=== PATIENT | male | born 1960 | race Caucasian/White ===

== ENCOUNTER 2024-07-06 19:35 | Emergency (ER) | payer OTHER ==
[~2024-07-06] VITALS: Ht 182.9 cm; Wt 128.0 kg
[2024-07-06] MEDS ORDERED: ASPIRIN 81 MG CHEW PO ONE (19:45)
[2024-07-06 20:16] LABS: HEMATOCRIT 41.2 % (35.0-50.0); HEMOGLOBIN 13.9 g/dL (12.0-18.0); MCHC 33.6 g/dl (30-36); MCV 86.3 fl (81-99); PLATELET COUNT 419 K/uL (140-440); RBC 4.78 M/ul (4.3-5.7); RDW 14.7 (10.5-15.0)
[2024-07-06 20:21] LABS: INR 1.22 (0.80-1.30); PROTIME 14.6 Sec (11.2-14.2)
[2024-07-06 20:33] LABS: ALBUMIN 2.2 g/dL (3.4-5.0); ALBUMIN/GLOBULIN RATIO 0.46 (1.1-2.4); ALKALINE PHOSPHATASE 69 U/L (46-116); ALT (SGPT) 30 U/L (14-59); ANION GAP 15.3 (7-21); AST (SGOT) 16 U/L (15-37); BILIRUBIN, TOTAL 0.3 ng/dL (0.2-1.0); BUN/CREATININE RATIO 17.26 (6.0-28.6); CALCIUM 8.1 mg/dL (8.5-10.1); CARBON DIOXIDE 24 mmol/L (21-32); CHLORIDE 101 mmol/L (98-107); CREATININE, SERUM 1.39 mg/dL (0.70-1.30); GLOMERULAR FILTRATION RATE,EST 57 mL/min (>60); MAGNESIUM 2.1 mg/dL (1.8-2.4); POTASSIUM 4.3 mmol/L (3.5-5.1); UREA NITROGEN 24 mg/dL (7-18)
[2024-07-06 20:35] LABS: BANDS, MANUAL DIFF 28; BASOPHILS, MANUAL DIFF 1; EOSINOPHILS, MANUAL DIFF 5; LYMPHOCYTES, MANUAL DIFF 7; MONOCYTES, MANUAL DIFF 5; NEUTROPHILS, MANUAL DIFF 54
[2024-07-06] MEDS ORDERED: LEVOFLOXACIN500 MG PO (23:07)
[2024-07-06] MEDS ORDERED: LASIX20 MG PO (23:08)
[2024-07-06] MEDS ORDERED: methylPREDNISolone 4 MG HOME.PACK PO ONE (23:15)
[2024-07-06] MEDS ORDERED: FUROSEMIDE 20 MG/2 ML VIAL IV ONE (23:15)
[2024-07-06] MEDS ORDERED: levoFLOXacin 750 MG TAB PO ONE (23:15)
[2024-07-06 23:46] VITALS: BP 121/73
--- NOTE | 2024-07-08 17:47 | EKG ---
[facility] [address] [place], [place] [address] Signed Normal sinus rhythm Normal ECG No previous ECGs available Confirmed by Juan A Do MD ([id number]) on 07/08/2024 5:47:16 PM Electronically Signed By: JUAN A DO MD 07/08/24 1747 PATIENT NAME: DAMARI LARA Electrocardiogram DATE OF : 58 PHYSICIAN: JUAN A DO MD REPORT #: [id number] REPORT IS CONFIDENTIAL AND NOT TO BE RELEASED WITHOUT AUTHORIZATION
== END 2024-07-06 23:47 | disposition home or self-care (01) ==
LOC: ED 19:35
PROVIDERS: Family Medicine
DX: J18.9 Pneumonia, unspecified organism (principal); J44.0 Chronic obstructive pulmonary disease with (acute) lower respiratory infection; Z88.8 Allergy status to other drugs, medicaments and biological substances; Z98.890 Other specified postprocedural states
CPT/HCPCS: 36415; 71045; 71260; 80053; 83735; 83880; 84484; 85025; 85379; 85610; 93005; 93010; 99285-25; A9270; J1940; Q9967

== ENCOUNTER 2024-07-14 11:07 | Emergency (ER) | payer OTHER ==
[~2024-07-14] VITALS: Ht 182.9 cm; Wt 126.0 kg
[~2024-07-14 11:07] MED LIST: LASIX20 MG PO; LEVOFLOXACIN500 MG PO
--- OUTSIDE RECORDS SUMMARY | 2024-07-14 11:14 | XMS ---
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 E.D. VISIT COUNT (12 MO.) 2 [facility] TOTAL 2 NOTE: Visits indicate total known visits. ED/UCC VISIT TRACKING (12 MO.) 07/14/2024 11:08 [facility] [place] TYPE: Emergency COMPLAINT: - BLOOD COUNT LOW 07/06/2024 19:35 [facility] [place] TYPE: Emergency COMPLAINT: - SHORTNESS OF BREATH DIAGNOSES: - Allergy status to other drugs, medicaments and biological substances - Chronic obstructive pulmonary disease with (acute) lower respiratory infection - Other specified postprocedural states - Pneumonia, unspecified organism - Shortness of breath INPATIENT VISIT TRACKING (12 MO.) No inpatient visits to display in this time frame [id number]
[2024-07-14] MEDS ORDERED: CYMBALTA60 MG PO (11:26)
[2024-07-14] MEDS ORDERED: LIPITOR20 MG PO (11:26)
[2024-07-14] MEDS ORDERED: VENTOLIN HFA18 GM INH (11:28)
[2024-07-14] MEDS ORDERED: FUROSEMIDE40 MG PO (12:20)
[2024-07-14] MEDS ORDERED: IPRAT-ALBUT 0.5-3 ML INH (12:20)
[2024-07-14] MEDS ORDERED: K-TAB ER20 MEQ PO (12:20)
[2024-07-14 12:33] VITALS: BP 121/68
== END 2024-07-14 12:33 | disposition home or self-care (01) ==
LOC: ED 11:07
DX: D72.829 Elevated white blood cell count, unspecified (principal); R60.9 Edema, unspecified; J44.9 Chronic obstructive pulmonary disease, unspecified; Z88.8 Allergy status to other drugs, medicaments and biological substances; Z79.899 Other long term (current) drug therapy
CPT/HCPCS: 93971; 99283-25

== ENCOUNTER 2024-07-16 23:42 | Inpatient (IN) | payer OTHER ==
[~2024-07-16] VITALS: Ht 182.9 cm; Wt 121.0 kg
[~2024-07-16 23:42] MED LIST changes: +CYMBALTA60 MG PO; +FUROSEMIDE40 MG PO; +IPRAT-ALBUT 0.5-3 ML INH; +K-TAB ER20 MEQ PO; +LIPITOR20 MG PO; +VENTOLIN HFA18 GM INH
[2024-07-16] MEDS ORDERED: methylPREDNISolone SOD SUCC 125 MG/2 ML VIAL IV ONE (23:45)
[2024-07-16] MEDS ORDERED: NITROGLYCERIN 0.4 MG SUBL SL PRN (23:45)
[2024-07-16] MEDS ORDERED: ALBUTEROL/IPRATROPIUM 3 ML NEB INH ONE (23:45)
--- OUTSIDE RECORDS SUMMARY | 2024-07-16 23:48 | XMS ---
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 E.D. VISIT COUNT (12 MO.) 3 [facility] TOTAL 3 NOTE: Visits indicate total known visits. ED/UCC VISIT TRACKING (12 MO.) 07/16/2024 23:42 [facility] OR TYPE: Emergency COMPLAINT: - DIFFICULTY BREATHING 07/14/2024 11:08 [facility] [place] TYPE: Emergency COMPLAINT: - BLOOD COUNT LOW 07/06/2024 19:[address] [facility] OR TYPE: Emergency COMPLAINT: - SHORTNESS OF BREATH DIAGNOSES: - Allergy status to other drugs, medicaments and biological substances - Chronic obstructive pulmonary disease with (acute) lower respiratory infection - Other specified postprocedural states - Pneumonia, unspecified organism - Shortness of breath INPATIENT VISIT TRACKING (12 MO.) No inpatient visits to display in this time frame [id number]
[2024-07-16 23:58] LABS: PH, VENOUS 7.471 (7.31-7.41)
[2024-07-17] VITALS (17 sets, daily range): BP systolic 96–169; BP diastolic 58–139
[2024-07-17 00:03] LABS: HEMOGLOBIN 13.9 g/dL (12.0-18.0)
[2024-07-17 00:10] LABS: MCH 28.6 (27-36); MCHC 33.2 g/dl (30-36); MCV 86.1 fl (81-99); PLATELET COUNT 142 K/uL (140-440); RBC 4.88 M/ul (4.3-5.7); RDW 15.2 (10.5-15.0)
[2024-07-17 00:24] LABS: ALBUMIN 2.3 g/dL (3.4-5.0); ALBUMIN/GLOBULIN RATIO 0.39 (1.1-2.4); ALKALINE PHOSPHATASE 62 U/L (46-116); ALT (SGPT) 28 U/L (14-59); ANION GAP 15.6 (7-21); AST (SGOT) 13 U/L (15-37); BILIRUBIN, TOTAL 0.3 ng/dL (0.2-1.0); BUN/CREATININE RATIO 18.24 (6.0-28.6); CALCIUM 8.4 mg/dL (8.5-10.1); CARBON DIOXIDE 26 mmol/L (21-32); CHLORIDE 97 mmol/L (98-107); CREATININE, SERUM 1.37 mg/dL (0.70-1.30); GLOMERULAR FILTRATION RATE,EST 58 mL/min (>60); POTASSIUM 4.6 mmol/L (3.5-5.1); PROTEIN, TOTAL 8.2 g/dL (6.4-8.2); UREA NITROGEN 25 mg/dL (7-18)
[2024-07-17 00:33] LABS: BANDS, MANUAL DIFF 6; EOSINOPHILS, MANUAL DIFF 45; LYMPHOCYTES, MANUAL DIFF 4; MONOCYTES, MANUAL DIFF 7; NEUTROPHILS, MANUAL DIFF 37
[2024-07-17 00:41] LABS: INFLUENZA B NAA NEGATIVE (NEGATIVE); RESPIRATORY SYNCYTIAL VIR NAA NEGATIVE (NEGATIVE)
[2024-07-17] MEDS ORDERED: MORPHINE SULFATE 4 MG/ML VIAL IV ONE (00:45)
[2024-07-17 00:49] LABS: MAGNESIUM 2.1 mg/dL (1.8-2.4); PHOSPHORUS, INORGANIC 3.8 mg/dL (2.5-4.9)
[2024-07-17 01:01] LABS: INR 1.07 (0.80-1.30); PROTIME 13.5 Sec (11.2-14.2)
[2024-07-17] MEDS ORDERED: ACETAMINOPHEN 325 MG TAB PO PRN (01:30)
[2024-07-17] MEDS ORDERED: ondansetron HCL 4 MG/2 ML VIAL IV PRN (01:30)
[2024-07-17] MEDS ORDERED: SODIUM CHLORIDE 0.9% 1,000 ML IV SCH (01:30)
[2024-07-17] MEDS ORDERED: allopurinoL 300 MG TAB PO SCH (01:30)
[2024-07-17] MEDS ORDERED: MORPHINE SULFATE 4 MG/ML VIAL IV PRN (01:30)
[2024-07-17] MEDS ORDERED: FUROSEMIDE 20 MG/2 ML VIAL IV ONE (01:45)
[2024-07-17] MEDS ORDERED: ALBUTEROL/IPRATROPIUM 3 ML NEB INH PRN (01:45)
[2024-07-17] MEDS ORDERED: ALBUTEROL SULFATE 0.083% 3 ML VIAL INH PRN (02:30)
--- NOTE | 2024-07-17 02:45 | NUR ---
PATIENT ARRIVED TO CCU ROOM 127 VIA STRETCHER. PATIENT AMBULATES TO STANDING SCALE AND BACK TO BED. PATIENT STEADY ON FEET. PATIENT DENIES FEELING SHORT OF BREATH OR ANY PAIN AT THIS TIME. PATIENT REQUEST A VANILLA PUDDING, STATES HE HAS HAD NO APETITE THE PAST WEEK. PATIENT ALSO PROVIDED WITH FRESH ICE WATER.
--- NOTE | 2024-07-17 02:55 | NUR ---
PATIENT ASSESSMENT COMPLETE. PATIENT IS ALERT AND ORIENTED X4. PATIENT ON 2L NC, SPO2 AT 93%. PATIENT DENIES FEELING SOB OR ANY PAIN AT THIS TIME. PATIENT IV SITES WNL. SCABS NOTED ON RIGHT FOOT, AND PATIENT NOTED TO HAVE SOME MILD SWELLING ON BILAT LOWER EXTREMITIES. PATIENT UPDATED ON PLAN OF CARE, AND ALL QUESTIONS ANSWERED AT THIS TIME. PATIENT ORIENTED TO ROOM, AND USE OF CALL LIGHT. PATIENT DENIES ANY NEEDS AT THIS TIME. VITAL SIGNS STABLE. CALL LIGHT WITHIN REACH, BED IN LOW AND LOCKED POSITION.
--- NOTE | 2024-07-17 04:45 | NUR ---
PATIENT USED CALL LIGHT REQUESTING TO USE BATHROOM. PATIENT STOOD AT EDGE OF BED AND USED URINAL, STEADY ON FEET. PATIENT VOIDS 215cc OF CLEAR YELLOW URINE, AND BACK TO BED. WARM BLANKET PROVIDED. NO FURTHER NEEDS AT THIS TIME. CALL LIGHT WITHIN REACH.
[2024-07-17 05:35] LABS: PHOSPHORUS, INORGANIC 4.4 mg/dL (2.5-4.9)
--- NOTE | 2024-07-17 06:00 | NUR ---
patient resting in bed with eyes closed, respirations even and unlabored. patient remains on 2L NC, saturation at 92%. call light within reach, bed in low and locked position.
--- NOTE | 2024-07-17 06:35 | NUR ---
PATIENT UP TO BATHROOM TO VOID AND BACK TO BED. PATIENT STEADY ON FEET. PATIENT HAS NO FURTHER NEEDS AT THIS TIME. VITAL SIGNS STABLE. CALL LIGHT WITHIN REACH.
[2024-07-17] MEDS ORDERED: BUDESONIDE 0.5 MG/2 ML VIAL INH SCH (08:00)
[2024-07-17] MEDS ORDERED: ALBUTEROL/IPRATROPIUM 3 ML NEB INH SCH ×2 (08:00→14:00)
--- NOTE | 2024-07-17 08:44 | NUR ---
SBAR REPORT RECEIVED FROM LENCHO HALLMAN. ALL EVENTS OF THE PREVIOUS SHIFT WERE DISCUSSED AND PLAN OF CARE REVIEWED. PATIENT DAMARI IS NOTED TO BE RESTING IN BED WITH EYES OPEN. HE IS ALERT AND ORIENTED X 4, MOVES ALL EXTREMTIES, ENDORSES COMFORT AND HUNGER, BREAKFAST PROVIDED AND CONSUMED, PERRL, INDEPENDENT TO RESTROOM CARDIAC- NSR, HTN NOTED, AFEBRILE, PALPABLE PULSES, S1/S2 AUSCULTATED RESP- 1L NC, BREATH SOUNDS CLEAR, SLIGHT COUGH GI/- LAST BOWEL MOVEMENT 07/16, WILL CONTINUE TO MONITOR U/O INT- SEE ASSESSMENT LDA 20G RIGHT FA, 20G L AC. NS 125CC
[2024-07-17] MEDS ORDERED: FUROSEMIDE 40 MG TAB PO SCH (09:00)
[2024-07-17] MEDS ORDERED: predniSONE 20 MG TAB PO SCH (09:52)
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
[2024-07-17] MEDS ORDERED: HEParin SOD (PORCINE) 5,000 UNIT/ML SDV SUB-Q SCH (11:14)
[2024-07-17] MEDS ORDERED: AZITHROMYCIN 250 MG TAB PO SCH (11:17)
[2024-07-17] MEDS ORDERED: CEFTRIAXONE/SODIUM CHLORIDE 2 GM/100 ML PIGGYBACK IV SCH (11:17)
[2024-07-17] MEDS ORDERED: DULOXETINE HCL 60 MG CAP PO SCH (11:20)
[2024-07-17] MEDS ORDERED: PHARMACY RENAL DOSE ADJUSTMENT 1 DOSE MISC PO SCH (12:00)
--- NOTE | 2024-07-17 13:04 | NUR ---
DAMARI DENIES PAIN AT THIS TIME. HIS PARTNER WILL BRING IN HIS SHOULDER SLING AT NEXT VISIT. UP TO BATHROOM INDEPENDENTLY. VSS STABLE PER MONITOR WITH INTERMITTENT HTN NOTED. SAFETY CHECK OF ROOM PERFORMED. DENIES ANY NEEDS AT THIS TIME
--- NOTE | 2024-07-17 14:30 | NUR ---
Upon entering room I find Zach to be awake, alert and oriented to person, place and time. I introduce myself to Zach and my purpose for the visit today. Case Management Assessment completed. Zach answers questions appropriately. He does have questions regarding a POLST form and an advanced directive. Questions answered and patient is provided with a POLST form and an advanced directive book. Zach denies food insecurity, or inability to pay for utilities, medications, etc. He does state that he is on a fixed income, but that at this time he is able to meet his living and care needs independently. He lives with his girlfriend, and states he is independant to do his own ADL's and IADL's, including driving and all self care needs.
[2024-07-17] MEDS ORDERED: ONDANSETRON 4 MG TAB ODT SL PRN (15:00)
[2024-07-17] MEDS ORDERED: SEVOFLURANE 250 ML BTL INH ONE (15:36)
--- NOTE | 2024-07-17 16:00 | NUR ---
PT TRANSFERED TO ROOM 113 FROM 127 BY THIS RN - PERSONAL BELONGINGS TRANSFERED TO ROOM LOCK BOX HOWEVER FAMILY MEMEBER TAKING HOME MEDICATIONS AND [facility]. PT ORIENTED TO ROOM AND CALL LIGHT. VS STABLE.
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
[2024-07-17] MEDS ORDERED: DULOXETINE HCL30 MG PO (16:45)
[2024-07-17] MEDS ORDERED: FLUTICASONE-SA1 EAC4 INH (16:46)
[2024-07-17] MEDS ORDERED: VARENICLINE TART1 MG PO (16:46)
--- NOTE | 2024-07-17 16:49 | NUR ---
Pt arrived to the floor at about 1600 hours, transferred via bed by LENCHO Pinedo. Pt report received from Giselle Gibson CCU LENCHO.
--- NOTE | 2024-07-17 18:20 | NUR ---
Advised by Jami Garza that pt is complaining of chills, is flushed, and states he just doesn't feel well. Pt states is has happened after he eats. He states he is hypoglycemic. He also states that he has "this restless leg stuff where I have to stomp my feet". CBG 183, vss, temp 98.1. Pt is up in chair.
[2024-07-17] MEDS ORDERED: LIDOCAINE & ANTACID 35 ML BTL PO ONE (18:30)
[2024-07-17] MEDS ORDERED: TRAZODONE HCL 50 MG TAB PO PRN (18:30)
--- NOTE | 2024-07-17 18:30 | NUR ---
PATIENT IN BED AT THIS TIME. CASE PICKER CHARTED VITALS AND I&O'S. CALL LIGHT WITHIN REACH, NO FURTHER NEEDS AT THIS TIME.
--- NOTE | 2024-07-17 18:30 | NUR ---
@1805 hours, pt VS as follows while he is sitting up in the chair on room air: BP 117/60 (73) P87 R24 SPO2 93% CBG 183 Pt reports SOB, chest pain to the right chest, nausea, no facial droop, headache, states he needs sleep.
--- NOTE | 2024-07-17 19:10 | NUR ---
REPORT RECEIVED FROM GUANACO MUSA. pt RESTING IN THE BED WITH EYES CLOSED. BOARED UPDATED. CALL LIGHT WITH REACH.
[2024-07-17] MEDS ORDERED: ATORVASTATIN 20 MG TAB PO SCH (21:00)
[2024-07-17] MEDS ORDERED: MELATONIN 3 MG TAB PO PRN (21:00)
--- NOTE | 2024-07-17 21:15 | NUR ---
ASSESSMENT AND VITAL SIGNS DONE. pt INDEPENDENT IN THE RM. pt TAKING A SHOWER. SCHEDULED AND PRN MEDS ADMINISTERED. pt DENIES ANY OTHER NEEDS AT THIS TIME. CALL LIGHT WITHIN REACH.
--- NOTE | 2024-07-17 23:00 | NUR ---
pt RESTING ON THE SIDE OF THE BED. pt DENIES ANY NEEDS AT THIS TIME. CALL LIGHT WITHIN REACH.
[2024-07-18] VITALS (18 sets, daily range): BP systolic 97–141; BP diastolic 61–85
[2024-07-18] MEDS ORDERED: MAGNESIUM HYDROXIDE/AL HYDROX 30 ML CUP PO PRN (01:00)
--- NOTE | 2024-07-18 01:03 | NUR ---
pt REPORT BURNING IN HIS ABD. NIO FOR MALOX PUT IN MEDITEC. PRN MEDS ADMINISTERED. pt RESTING ON THE EDGE OF THE BED.
--- NOTE | 2024-07-18 02:00 | NUR ---
THIS RN IN TO CHECK IN ON pt. pt RESTING WITH EYES CLOSED ON LEFT SIDE WITH NO DISTRESS AT THIS TIME. RR EVEN AND UNLABORED. pt DOES NOT OPEN EYES WHILE THIS RN AT DOOR WAY. CALL LIGHT WITHIN REACH.
--- NOTE | 2024-07-18 02:15 | NUR ---
pt ambulated to ccu from 113, c/o 05/28 mid epigastric pain not resolved by maalox. this rn ambulated pt back to 113 and discussed pt c/o pain with primary rn nasim. dr. lr called and updated on pt c/o pain, he will place order for pain med. pt updated on plan of care.
--- NOTE | 2024-07-18 02:25 | NUR ---
pt C/O MORE ABD PAIN. MD CALLED. MD PLACED NEW ORDERS AND VERIFIED WITH REPEAT BACK METHOD.
[2024-07-18] MEDS ORDERED: HYDROCODONE/ACETA 5/325 TAB PO PRN (02:30)
--- NOTE | 2024-07-18 02:55 | NUR ---
MD CALLED FOR pt THROWING UP ON THE TOILET AND HAVING MORE ABD PAIN. MORE ORDERS PLACED AND VERIFIED WITH REPEAT BACK METHOD.
[2024-07-18] MEDS ORDERED: ondansetron HCL 4 MG/2 ML VIAL IV PRN ×2 (03:15→07:30)
[2024-07-18] MEDS ORDERED: HYDROmorphone HCL 1 MG/ML SYR IV PRN ×4 (03:15→09:30)
--- NOTE | 2024-07-18 03:30 | NUR ---
pt DOWN TO CT FOR IMAGING VIA WHEELCHAIR.
[2024-07-18] MEDS ORDERED: LACTATED RINGER'S 1,000 ML IV SCH (04:00)
[2024-07-18] MEDS ORDERED: PIPERACILLIN/TAZOBACTAM 3.375 GM in DEXTROSE 5% 100 ML IV SCH ×2 (04:15→06:00)
[2024-07-18] MEDS ORDERED: PIPERACILLIN/TAZOBACTAM 3.375 GM VIAL ONE (04:18)
--- NOTE | 2024-07-18 04:20 | NUR ---
PATIENT ARRIVED FROM MEDICAL FLOOR TO CCU ROOM 127. HANDOFF REPORT RECEIVED FROM LENCHO NGUYEN.
--- NOTE | 2024-07-18 04:24 | NUR ---
CALLED ABOUT pt ABD CT. NEW ORDERS PALCED. VERIFIED WITH REPEAT BACK METHOD. pt TRASFERED TO CCU. REPORT GIVEN TO JUANPABLO MUSA.
--- NOTE | 2024-07-18 04:25 | NUR ---
PATIENT IS SITTING UP AWAKE IN BED. PATIENT IS ON 3L NC. PATIENT NOTED TO HAVE INCREASING ABDOMINAL PAIN, DENIES ANY NAUSEA AT THIS TIME. PATIENT VITAL SIGNS STABLE. PATIENT UPDATED ON PLAN OF CARE, AND FAMILY ATTEMPTED TO BE NOTIFIED. PLAN FOR PATIENT TO BE TAKEN TO OR
--- NOTE | 2024-07-18 04:30 | NUR ---
DR HARDY AT BEDSIDE DISCUSSING PLAN OF CARE
[2024-07-18] MEDS ORDERED: DEXAMETHASONE SOD PHOS 4 MG/ML VIAL ONE (05:01)
[2024-07-18] MEDS ORDERED: LIDOCAINE HCL 2% 5 ML SDV ONE (05:01)
[2024-07-18] MEDS ORDERED: propofoL 200 MG/20 ML VIAL ONE (05:01)
[2024-07-18] MEDS ORDERED: fentaNYL citrate 100 MCG/2 ML VIAL ONE (05:01)
[2024-07-18] MEDS ORDERED: ondansetron HCL 4 MG/2 ML VIAL ONE (05:01)
[2024-07-18] MEDS ORDERED: ACETAMINOPHEN 1,000 MG/100 ML VIAL ONE (05:01)
[2024-07-18] MEDS ORDERED: SUCCINYLCHOLINE IN 0.9% NACL 200 MG/10 ML SYRINGE ONE (05:01)
[2024-07-18] MEDS ORDERED: ROCURONIUM BROMIDE 50 MG/5 ML SYR ONE ×2 (05:01→06:42)
[2024-07-18] MEDS ORDERED: dexmedeTOMIDine HCl 200 MCG/2 ML VIAL ONE (05:01)
[2024-07-18] MEDS ORDERED: LIDOCAINE HCL 2% 20 MG/ML VIAL INJ ONE (05:02)
[2024-07-18] MEDS ORDERED: MIDAZOLAM HCL 2 MG/2 ML VIAL ONE (05:02)
[2024-07-18] MEDS ORDERED: SUGAMMADEX SODIUM 200 MG/2 ML ML ONE (05:03)
[2024-07-18] MEDS ORDERED: KETAMINE in NS 50 MG/5 ML SYR ONE (05:03)
[2024-07-18 05:07] LABS: PLATELET COUNT 114 K/uL (140-440); RDW 15.1 (10.5-15.0)
[2024-07-18 05:10] LABS: HEMOGLOBIN 12.5 g/dL (12.0-18.0); MCH 28.5 (27-36); MCV 86.2 fl (81-99)
[2024-07-18 05:15] LABS: ALBUMIN 2.2 g/dL (3.4-5.0); ALBUMIN/GLOBULIN RATIO 0.47 (1.1-2.4); ANION GAP 14.4 (7-21); BILIRUBIN, TOTAL 0.2 ng/dL (0.2-1.0); BUN/CREATININE RATIO 24.24 (6.0-28.6); CALCIUM 8.1 mg/dL (8.5-10.1); CREATININE, SERUM 1.65 mg/dL (0.70-1.30); POTASSIUM 4.4 mmol/L (3.5-5.1); PROTEIN, TOTAL 6.9 g/dL (6.4-8.2)
--- NOTE | 2024-07-18 05:15 | NUR ---
PATIENT LEFT THE FLOOR AND TAKEN TO OR VIA STRETCHER.
[2024-07-18] MEDS ORDERED: PHENYLEPHRINE HCL 10 MG/ML VIAL ONE (05:27)
[2024-07-18] MEDS ORDERED: VASOPRESSIN 20 UNITS/ML VIAL ONE (05:37)
[2024-07-18 06:07] LABS: BANDS, MANUAL DIFF 3; EOSINOPHILS, MANUAL DIFF 45; LYMPHOCYTES, MANUAL DIFF 3; MONOCYTES, MANUAL DIFF 1; NEUTROPHILS, MANUAL DIFF 48
[2024-07-18] MEDS ORDERED: LACTATED RINGER'S 1,000 ML IV ONE (06:22)
--- NOTE | 2024-07-18 07:01 | NUR ---
PATIENT'S PARTNER UPDATED ON PATIENT BEING IN OR. SHE PLANS TO COME TO VISIT WHEN PATIENT OUT OF SURGERY. ASSURED HER THAT WE WOULD GIVE HER A CALL TO UPDATE HER.
[2024-07-18] MEDS ORDERED: IBLOOD GLUCOSE TEST STRIP 1 EA TEST VI PRN (07:30)
[2024-07-18] MEDS ORDERED: fentaNYL citrate 50 MCG/ML SDV IV PRN (07:30)
[2024-07-18] MEDS ORDERED: PROCHLORPERAZINE EDISYLATE 10 MG/2 ML VIAL IV PRN (07:30)
[2024-07-18] MEDS ORDERED: droPERidol 5 MG/2 ML VIAL IV PRN (07:30)
[2024-07-18] MEDS ORDERED: NALOXONE HCL 0.4 MG SYR IV PRN (07:30)
--- NOTE | 2024-07-18 07:30 | NUR ---
REPORT RECEIVED FROM LEXX MUSA. PT IS OFF FLOOR FOR SURGERY WITH DR HARDY.
--- NOTE | 2024-07-18 08:39 | NUR ---
07/18/24 0839 Cathy Rai 0830: TO PACU. PT ARRIVES UNRESPONSIVE TO STIMULI. ORAL AIRWAY IN PLACE. 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
[2024-07-18] MEDS ORDERED: PANTOPRAZOLE SODIUM 40 MG TABEC PO SCH (09:00)
[2024-07-18] MEDS ORDERED: FAMOTIDINE 20 MG/ 2 ML VIAL IV SCH (09:00)
[2024-07-18] MEDS ORDERED: PANTOPRAZOLE SODIUM 40 MG/10 ML VIAL IV SCH ×2 (09:00)
[2024-07-18] MEDS ORDERED: FUROSEMIDE 40 MG/4 ML VIAL IV SCH (09:00)
[2024-07-18] MEDS ORDERED: ACETAMINOPHEN 1,000 MG/100 ML VIAL IV PRN (09:30)
--- NOTE | 2024-07-18 09:54 | NUR ---
PT ARRIVED FROM PACU, REPORT RECEIVED FROM ERIKA MUSA. PT IS AWAKE AND ALERT AND ORIENTED. RT IN TO DO NEB TX RIGHT PT IS BROUGHT TO ROOM. WHEN ASKED HOW IS PAIN IS HE STATES "TERRIBLE". DISCUSSED PLAN FOR PAIN CONTROL WITH PT AND HE IS AGREEABLE.
[2024-07-18] MEDS ORDERED: SUCRALFATE 1 GM TAB PT ONE (10:30)
[2024-07-18 12:09] LABS: HEMOGLOBIN 12.1 g/dL (12.0-18.0); MCH 27.8 (27-36); RDW 15.4 (10.5-15.0)
[2024-07-18 12:12] LABS: BASOPHILS 0.3 % (0-2); EOSINOPHILS 34.8 % (0-6); LYMPHOCYTES 1.4 % (24-44); MCHC 31.9 g/dl (30-36); MCV 87.3 fl (81-99); MONOCYTES 2.5 % (0-12); PLATELET COUNT 105 K/uL (140-440); RBC 4.36 M/ul (4.3-5.7)
--- NOTE | 2024-07-18 13:03 | NUR ---
PT AWAKE NOW, ASSESSMENT DONE, PT RATES PAIN TOLERABLE DENIES NEED FOR PAIN MED AT THIS TIME. DENIES NAUSEA. NGT IN PLACE.
[2024-07-18] MEDS ORDERED: SUCRALFATE 1 GM TAB PO SCH (14:00)
[2024-07-18] MEDS ORDERED: HYDROCORTISONE SOD SUCCINATE 100 MG/2 ML VIAL IV SCH (14:00)
--- NOTE | 2024-07-18 15:00 | NUR ---
PT HAS MOSTLY BEEN STLEEPING THIS AFTERNOON. DOES AWAKEN WITH VERBAL STIMULI. NGT IN PLACE, MINIMAL DRAINAGE COMING FROM THAT. RAJ IN PLACE, CONT WITH SEROSANG FLUID IN IT. ABD DRESSING ON ABD HAS REMAINED C/D/I. HAMILTON DRAINING YELLOW URINE. PT REPORTS THAT HE IS COMFORTABLE AT THIS TIME.
--- NOTE | 2024-07-18 16:57 | NUR ---
PT IS NOW AWAKE, TALKING ON PHONE WITH S/O. DENIES NEED FOR PAIN MEDICATION.
--- NOTE | 2024-07-18 19:30 | NUR ---
HANDOFF REPORT RECEIVED FROM LENCHO SHOOK. PATIENT IS LAYING AWAKE IN BED, NO NEEDS AT THIS TIME. CALL LIGHT ELIZABETH ELI.
[2024-07-18] MEDS ORDERED: phenoL 177 ML SPRAY MT PRN (21:00)
--- NOTE | 2024-07-18 21:30 | NUR ---
PATIENT COMPLAINS OF SORE THROAT. PATIENT PROVIDED WITH ICE CHIPS BUT STATES THEY DID NOT HELP. CHLORASEPTIC SPRAY GIVEN PER EMAR. NO FURTHER NEEDS AT THIS TIME. CALL LIGHT WITHIN REACH.
--- NOTE | 2024-07-18 23:05 | NUR ---
PRN PAIN MEDICATION GIVEN FOR 7/10 ABDOMINAL PAIN PER EMAR. NO FURTHER NEEDS AT THIS TIME. CALL LIGHT WITHIN REACH.
[2024-07-19] VITALS (19 sets, daily range): BP systolic 103–136; BP diastolic 44–94
--- NOTE | 2024-07-19 00:30 | NUR ---
PATIENT LAYING AWAKE IN BED, WATCHING TV. PATIENT STATES HE IS COMFORTABLE AT THIS TIME. PATIENT REMAINS ON 4L NC WITH SPO2 AT 91%. PATIENT VITAL SIGNS STABLE. NO NEEDS AT THIS TIME. CALL LIGHT WITHIN REACH.
--- NOTE | 2024-07-19 01:30 | NUR ---
PATIENT LAYING AWAKE IN BED WATCHING TV. PATIENT CONTINUES TO COMPLAIN OF THROAT DISCOMFORT AND CONTINUES TO HAVE HARSH NONPRODUCTIVE COUGH. PATIENT HAMILTON CATH PATENT AND DRAINING CLEAR YELLOW URINE. PATIENT STATES HE IS HAVING NO ABDOMINAL PAIN, JUST THROAT PAIN AT THIS TIME. PATIENT DENIES FEELING ANY NAUSEA. WARM BLANKET PROVIDED. NO NEW CHANGES IN SURGICAL SITE. RAJ DRAIN INTACT WITH MINIMAL OUTPUT. NO FURTHER NEEDS AT THIS TIME. CALL LIGHT WITHIN REACH.
--- NOTE | 2024-07-19 03:00 | NUR ---
PATIENT SITTING UP AWAKE IN BED WATCHING TV. NO NEEDS AT THIS TIME. CALL LIGHT WITHIN REACH.
--- NOTE | 2024-07-19 04:30 | NUR ---
patient states pain 7/10 in abdominal area and throat. PRN pain medication given per emar. call light within reach.
[2024-07-19 05:22] LABS: MCHC 33.1 g/dl (30-36)
[2024-07-19 05:27] LABS: HEMOGLOBIN 11.6 g/dL (12.0-18.0); MCH 28.2 (27-36); MCV 85.4 fl (81-99); PLATELET COUNT 99 K/uL (140-440); RDW 15.2 (10.5-15.0)
--- NOTE | 2024-07-19 05:30 | NUR ---
patient states pain has not improved, and request more pain medication. PRN pain medication given per EMAR. RAJ drain dressing changed, ABD dressing saturated with serosanguinous drainage. new ABD and tape placed. patient turned down to 2L NC, SPO2 92%. warm blanket provided. no further needs at this time, call light within reach.
[2024-07-19 05:33] LABS: ANION GAP 12.6 (7-21); BUN/CREATININE RATIO 20.24 (6.0-28.6); CREATININE, SERUM 1.63 mg/dL (0.70-1.30); MAGNESIUM 2.4 mg/dL (1.8-2.4); POTASSIUM 4.6 mmol/L (3.5-5.1)
[2024-07-19 06:03] LABS: EOSINOPHILS, MANUAL DIFF 35; LYMPHOCYTES, MANUAL DIFF 2; MONOCYTES, MANUAL DIFF 1; NEUTROPHILS, MANUAL DIFF 62
--- NOTE | 2024-07-19 07:35 | NUR ---
UPDATE PROVIDED TO
[2024-07-19] MEDS ORDERED: SUCRALFATE 1 GM TAB PO PRN (07:45)
--- NOTE | 2024-07-19 07:50 | NUR ---
REPORT RECEIVED FROM LEXX MUSA. IN TO CHECK ON PT, HE IS AWAKE IN BED, NO NEEDS AT THIS TIME.
[2024-07-19] MEDS ORDERED: SUCRALFATE 1 GM TAB PT SCH (08:00)
--- NOTE | 2024-07-19 09:40 | NUR ---
PT GIVEN 1 MG IV DILAUDID FOR ABD PAIN /10
--- NOTE | 2024-07-19 11:05 | NUR ---
DR JUAREZ AND DR HARDY IN TO SEE PT. NGT PULLED OUT BY DR HARDY, PT REMAINS SITTING UP IN CHAIR, NO NEEDS AT THIS TIME. O2/2L IN PLACE, CALL LIGHT IN REACH.
--- NOTE | 2024-07-19 11:30 | NUR ---
HAMILTON WAS DC'D, 10ML WATER OUT OF BALLOON. URINAL GIVEN TO PT.
[2024-07-19] MEDS ORDERED: ALBUTEROL/IPRATROPIUM 3 ML NEB INH SCH (12:00)
[2024-07-19] MEDS ORDERED: metroNIDAZOLE 250 MG TAB PO SCH (12:00)
--- NOTE | 2024-07-19 12:15 | EKG ---
[facility] [address] [place] [address] Signed Normal sinus rhythm Left posterior fascicular block Inferior infarct , age undetermined Abnormal ECG When compared with ECG of 16-JUL-2024 23:47, (Unconfirmed) premature atrial complexes are no longer present Confirmed by Nabor Juarez MD ([id number]) on 07/19/2024 12:15:29 PM Electronically Signed By: NABOR JUAREZ DO 07/19/24 1215 PATIENT NAME: DAMARI LARA TENZIN Electrocardiogram DATE OF : 58 PHYSICIAN: NABOR JUAREZ DO REPORT #: [id number] REPORT IS CONFIDENTIAL AND NOT TO BE RELEASED WITHOUT AUTHORIZATION
--- NOTE | 2024-07-19 12:15 | EKG ---
[facility] [address] [place] [address] Signed Sinus rhythm with premature atrial complexes Otherwise normal ECG When compared with ECG of 06-JUL-2024 19:44, premature atrial complexes are now present Confirmed by Nabor Juarez MD ([id number]) on 07/19/2024 12:14:51 PM Electronically Signed By: NABOR JUAREZ DO 07/19/24 1215 PATIENT NAME: TEODOROLEATHADAMARIBRISEYDA DAVE Electrocardiogram DATE OF : 58 PHYSICIAN: NABOR JUAREZ DO REPORT #: [id number] REPORT IS CONFIDENTIAL AND NOT TO BE RELEASED WITHOUT AUTHORIZATION
[2024-07-19] MEDS ORDERED: AMOXICILLIN 500 MG CAP PO SCH (13:00)
[2024-07-19] MEDS ORDERED: BISMUTH SUBSALICYLATE 262 MG CHEW PO SCH (13:00)
--- NOTE | 2024-07-19 13:00 | NUR ---
1MG IV DILAUDID GIVEN FOR 7/10 ABD PAIN, PT REPORTS IMMEDIATE PAIN RELIEF WITH PAIN DOWN TO 3/10
[2024-07-19 14:50] LABS: ASPERGILLUS FUMIGATUS AB IGG 7.07 mcg/mL (<=99.99)
--- NOTE | 2024-07-19 15:43 | NUR ---
MED REC COMPLETE
--- NOTE | 2024-07-19 16:30 | NUR ---
ASSESSMENT DONE, PT WAS GIVEN 1MG IV DILAUDID PER EMAR, REPORTS PAIN IMPROVEMENT SOON AFTER. PT VISITING WITH S/O IN ROOM, AWAKE, PLEASANT AND TALKATIVE. NO NEEDS AT THIS TIME.
--- NOTE | 2024-07-19 17:59 | NUR ---
PT CALLS TO ASK IF HE CAN HAVE PUDDING, REMINDED HIM OF NPO STATUS.
--- NOTE | 2024-07-19 19:45 | NUR ---
HANDOFF REPORT RECEIVED FROM LENCHO SHOOK. PATIENT IS AWAKE IN BED WATCHING TV. NO NEEDS AT THIS TIME. CALL LIGHT FRANKY ELI.
[2024-07-19] MEDS ORDERED: SUCRALFATE 1 GM TAB PO SCH (20:00)
--- NOTE | 2024-07-19 20:15 | NUR ---
PATIENT ASSESSMENT COMPLETE. PATIENT IS LAYING AWAKE IN BED WATCHING TV. PATIENT IS ON 3L NC, SATURATING WELL. PATIENT RAJ DRAIN IN PLACE, DRESSING NOTED TO HAVE SMALL AMOUNT OF SEROSANGUINOUS DRAINAGE. PATIENT STATES ABD PAIN 5/10, DENIES NEEDING PAIN MEDICATION AT THIS TIME. PATIENT ASSISTED WITH REPOSITIONING IN BED. FRESH ICE CHIPS PROVIDED. VITAL SIGNS STABLE. CALL LIGHT WITHIN REACH.
--- NOTE | 2024-07-19 21:35 | NUR ---
PRN PAIN MEDICATION GIVEN PER EMAR FOR 7/10 ABDOMINAL PAIN. NO FURTHER NEEDS AT THIS TIME. CALL LIGHT WITHIN REACH.
--- NOTE | 2024-07-19 22:10 | NUR ---
PATIENT STOOD AT BEDSIDE TO USE URINAL. STEADY ON FEET. PATIENT VOIDED 200CC AND THEN BACK TO BED. PATIENT REPOSITIONED, FRESH ICE CHIPS AND WARM BLANKET PROVIDED. NO FURTHER NEEDS AT THIS TIME. CALL LIGHT WITHIN REACH
--- NOTE | 2024-07-19 23:15 | NUR ---
PATIENT USED CALL LIGHT REQUESTING MELATONIN TO HELP HIM SLEEP. PRN MELATONIN GIVEN PER EMAR. PATIENT STATES HE IS COMFORTABLE AND HAS NO FURTHER NEEDS AT THIS TIME. CALL LIGHT WITHIN REACH.
[2024-07-20] VITALS (18 sets, daily range): BP systolic 89–163; BP diastolic 65–144
--- NOTE | 2024-07-20 01:05 | NUR ---
PATIENT RESTING IN BED WITH EYES CLOSED, RESPIRATIONS EVEN AND UNLABORED. NO NEEDS AT THIS TIME. VITAL SIGNS STABLE. CALL LIGHT WITHIN REACH.
--- NOTE | 2024-07-20 02:21 | NUR ---
PATIENT UP TO THE EDGE OF THE BED TO USE URNAL. SCHEDULED CARAFATE PROVIDED. PATIENT REPORTS 8/10 PAIN. PRN PAIN MEDS PROVIDED. DENIED NAUSEA OR GI UPSET. PATIENT HAS LOOSE COUGH. TOLERATING 3.5L NC. WARM BLANKET PROVIDED. PATIENT DENIED OTHER NEEDS. CALL LIGHT IN REACH.
--- NOTE | 2024-07-20 04:00 | NUR ---
patient resting in bed with eyes closed. respirations even and unlabored. no needs at this time. call light within reach.
--- NOTE | 2024-07-20 05:15 | NUR ---
lab in room to collect AM labs
--- NOTE | 2024-07-20 05:40 | NUR ---
patient reports 8/10 abdominal pain. prn pain medication given per emar. no further needs at this time. call light within reach.
[2024-07-20 05:43] LABS: HEMOGLOBIN 11.7 g/dL (12.0-18.0); RDW 15.4 (10.5-15.0)
[2024-07-20 05:45] LABS: HEMATOCRIT 35.8 % (35.0-50.0); MCHC 32.6 g/dl (30-36); MCV 86.1 fl (81-99); PLATELET COUNT 92 K/uL (140-440); RBC 4.16 M/ul (4.3-5.7)
[2024-07-20 05:51] LABS: ANION GAP 13.3 (7-21); BUN/CREATININE RATIO 23.8 (6.0-28.6); CALCIUM 8.1 mg/dL (8.5-10.1); CREATININE, SERUM 1.47 mg/dL (0.70-1.30); MAGNESIUM 2.6 mg/dL (1.8-2.4); POTASSIUM 4.3 mmol/L (3.5-5.1)
[2024-07-20 06:10] LABS: EOSINOPHILS, MANUAL DIFF 46; LYMPHOCYTES, MANUAL DIFF 3; MONOCYTES, MANUAL DIFF 1; NEUTROPHILS, MANUAL DIFF 50
[2024-07-20] MEDS ORDERED: acetaZOLAMIDE sodium 500 MG/5 ML VIAL IV ONE (08:15)
--- NOTE | 2024-07-20 09:35 | NUR ---
PT NOT AVAILABLE FOR VISIT. PROVIDED PRAYER.
--- NOTE | 2024-07-20 09:52 | NUR ---
DAMARI WAS ABLE TO COMPLETE A TRIP TO GET A CT SCAN. UPON ARRIVAL BACK TO UNIT HE WAS PLACED IN THE RECLINER. CURRENTLY WORKING WITH PT. MD HARDY IN ROOM. DIET ADVANCED TO FULL LIQUID DIET. MD HARDY ALLOWED FOR 2 OVER EASY EGGS AND CREAM OF WHEAT. NEURO- ALERT AND ORIENTED X 4, ENDORSED PAIN IN ABDOMEN, WILL TRY TO WEAN OFF OF DILAUIDID AND SWITCH TO PRN NORCO, RIGHT SHOULDER SLING CARDIAC - NSR WITH PACS, NORMOTENSIVE, TRACE EDEMA IN BILATERAL NORMAL EXTREMTIIES, AFEBRILE RESP- 2 LITERS O2, NC,GOAL 88% WITH ACTIVITY, BREATH SOUNDS CLEAR/DIM GI/- DISTENDED ABDOMEN, RAJ IN PLACE IN RIGHT LOWER EXTREMITY, SEROSANGUINOUS INT- LAP SITES X 4, RAJ SITE
[2024-07-20] MEDS ORDERED: AMOXICILLIN 500 MG CAP PO SCH (10:00)
--- NOTE | 2024-07-20 11:02 | NUR ---
MD JUAREZ UPDATED ON RESULTS OF CHEST CT. MD HARDY TO BE CALLED AND UPDATED BY MD JUAREZ. DAMARI REMAINS ON 2 L NC IN CHAIR. ENDORSES COMFORT AFTER BREAKFAST. MD HARDY ALLOWED FOR A 1X MEAL OF EGGS. AFTERWARDS WILL BE ON A FULL LIQUID DIET.
--- NOTE | 2024-07-20 13:08 | NUR ---
DAMARI IS SITTING IN RECLINER ENJOYING HIS SECOND MEAL. URINAL ON TABLE (PER REQUEST). HE IS VOIDING APPROPRIATELY AND ABLE TO EXPRESS ALL NEEDS AND THOUGHTS. MD JUAREZ VISITED WITH PATIENT AT APPROX 1240 TO UPDATE ON PLAN OF CARE. RAJ SITE REASSESSED AND WDL
--- NOTE | 2024-07-20 14:05 | NUR ---
MD BOSS IN ROOM TO PERFORM A THORACENTESIS. THE PROCEDURE WAS EXPLAINED TO HIM WITH NO CONCERNS OR QUESTIONS. DAMARI ENDORSES SLIGHT ABDOMINAL PAIN 2/10 BUT DECLINES PRN MEDICATIONS.
[2024-07-20 14:39] LABS: PH, BODY FLUID 7.47
--- NOTE | 2024-07-20 15:01 | NUR ---
THORACENTESIS COMPLETED. 500CC OF PINK/THIN FLUID EXTRACTED FROM RIGHT LUNG. FOLLOW UP CHEST XRAY ORDERED AND COMPLETED. 2LO2 NC, BREATH SOUNDS ON RIGHT SIDE CLEAR/DIM.
--- NOTE | 2024-07-20 15:09 | NUR ---
UR CLINICAL/CONCURRENT REVIEW: [facility] IN[facility] FOR GENERAL SURGERY GRG. DOES NOT MEET STAGE 2, VARIANCE COMPLETED. [facility] INPT 07/17/24 @ 0125 CLINICALS SENT FOR AUTH REVIEW DISCHARGE TO HOME WHEN STABLE 07/22/24
[2024-07-20 15:36] LABS: APPEARANCE, BODY FLUID RED; MONONUCLEAR CELLS, BODY FLUID 69; PMNS, BODY FLUID 31; RBC, BODY FLUID 16750; WBC, BODY FLUID 4250
--- NOTE | 2024-07-20 17:01 | NUR ---
DAMARI AMBULATED THE HALLS WITH TAVIA, RT. 2LNC, ENDORSED COMFORT AND NO PAIN. PVC'S NOTED.
--- NOTE | 2024-07-20 18:28 | NUR ---
DAMARI HAD A PLEASANT AND BUSY DAY. THORACENTESIS PERFORMED. HE STATES THAT HE FEELS BETTER "LIKE THE BEST HIGH I'VE EVER HAD" BECAUSE HIS "BRAIN IS RECEIVING OXYGEN" NEURO- ALERT AND ORIENTED X4, MOVES ALL EXTREMITIES, ACTIVITY AND AMBULATION ENCOURAGED, NORCO X 1 GIVEN FOR RLQ ABDOMINAL PAIN , PERRL, ABLE TO ENDORSE NEEDS AND WANTS, RIGHT ARM SLING CARDIAC- NSR, AFEBRILE, HTN AT 1800 HOUR, BILATERAL LOWER EXTREMITY DEPENDENT EDEMA RESP- SL NC, SPO2 GOAL 88-92%, BREATH SOUNDS CLEAR/DIM IN BILATERAL LOBES, ABLE TO COUGH AND DEEP BREATH GI/- ADVANCED TO A FULL LIQUID DIET, GOOD APPETITE, VOIDS IN URINAL, PASSING FLATUS, NO BM TODAY INT- LAP SITES X4, RAJ RLQ SEROSANGUINOUS FLUID DAMARI AND PARTNER BERNADETTEWBrandon UPDATED ON PLAN OF CARE
--- NOTE | 2024-07-20 19:45 | NUR ---
REPORT RECEIVED FROM MORRO MUSA. PT IS AWAKE IN BED, RT IN ROOM TO WORK WITH PT.
--- NOTE | 2024-07-20 20:15 | NUR ---
IN TO DO HS ASSESSMENT. PT ALSO ASSISTED UP TO BR FOR HS CARE/SHAVE/ORAL CARE.
[2024-07-20] MEDS ORDERED: PANTOPRAZOLE SODIUM 40 MG TABEC PO SCH (21:00)
[2024-07-20] MEDS ORDERED: FAMOTIDINE 20 MG TAB PO SCH (21:00)
--- NOTE | 2024-07-20 22:00 | NUR ---
PT AWAKE IN BED, WATCHING TV IN BED, NO NEEDS AT THIS TIME.
--- NOTE | 2024-07-20 23:45 | NUR ---
IN TO DO VS/ASSESSMENT. PT IS AWAKE AND WATCHING TV BUT DOES STATE HE IS NOW ABOUT TO TRY TO SLEEP. DENIES SOB, NAUSEA, PAIN. VERY TALKATIVE, HAS LONG TALK REGARDING HIS FEELINGS ON LOOKING AT THE END OF HIS LIFE.
[2024-07-21] VITALS (10 sets, daily range): BP systolic 100–135; BP diastolic 65–97
--- NOTE | 2024-07-21 01:29 | NUR ---
pt calls to walk halls. pt walks in ccu for about 5 minutes on 2l nc. pt tolerates fair. pt states he does not feel short of breath but has increased resp rate of 24 and spo2 drops to 90% on 2l nc. pt returns to room and rr and spo2 return to normal quickly. pt states no other needs at this time. call light in reach.
--- NOTE | 2024-07-21 02:01 | NUR ---
PT IS SITTING UP AT BEDSIDE, NO REQUESTS AT THIS TIME.
--- NOTE | 2024-07-21 03:18 | NUR ---
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
--- NOTE | 2024-07-21 04:17 | NUR ---
PT AWAKE AND UP TO SIT AT EDGE OF BED. NORCO GIVEN PER EMAR FOR PAIN. PT STATES HE WAS ABLE TO SLEEP FOR A FEW HOURS AND HAD TO WAKE UP TO VOID. WARM BLANKET PROVIDED.
[2024-07-21 05:42] LABS: HEMOGLOBIN 12.4 g/dL (12.0-18.0)
[2024-07-21 05:47] LABS: BASOPHILS 0.8 % (0-2); EOSINOPHILS 49.2 % (0-6); HEMATOCRIT 37.8 % (35.0-50.0); LYMPHOCYTES 1.6 % (24-44); MCH 28.5 (27-36); MCHC 32.8 g/dl (30-36); MCV 86.9 fl (81-99); MONOCYTES 1.7 % (0-12); NEUTROPHILS 46.7 % (39-80); PLATELET COUNT 124 K/uL (140-440); RBC 4.35 M/ul (4.3-5.7)
[2024-07-21 05:59] LABS: ANION GAP 13.4 (7-21); BUN/CREATININE RATIO 23.75 (6.0-28.6); CREATININE, SERUM 1.6 mg/dL (0.70-1.30); MAGNESIUM 2.4 mg/dL (1.8-2.4); POTASSIUM 3.4 mmol/L (3.5-5.1)
--- NOTE | 2024-07-21 06:00 | NUR ---
PT SITTING UP IN CHAIR, UP TO BR TO ATTEMPT BOWEL MOVEMENT BUT DID NOT, BACK TO CHAIR, SITTING UP DRINKING COFFEE AND WATCHING TV.
[2024-07-21 06:06] LABS: CALCIUM 8.5 mg/dL (8.5-10.1)
--- NOTE | 2024-07-21 06:57 | NUR ---
DR JUAREZ CALLED AND NOTIFIED OF CRITICAL WBC VALUE, NO NEW ORDERS AT THIS TIME.
[2024-07-21] MEDS ORDERED: POTASSIUM CHLORIDE 10 MEQ TABCR PO ONE (08:15)
--- NOTE | 2024-07-21 09:05 | NUR ---
ROUNDED WITH MD JUAREZ IN ROOM AND IN TEAM ROUNDS. PATIENT MARCO IS TOLERATING HAS TOLERATED RA SINCE 0837 SEE NEW ORDERS. DISCUSSED FOLLOW UP WITH MD ZARAGOZA (ONCOLOGIST). GIVEN THE RAPID INCREASE OF WBC HE SUGGESTS TRANSFERRING PATIENT MARCO TO A HIGHER LEVEL OF CARE. 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
--- NOTE | 2024-07-21 10:15 | NUR ---
Spoke with Zahc. Plan is for this pt to transfer. He is on board and wants to find out the type of leukemia he has. Pt states his POLST is in his closet. He would like us to have a copy for the hospital. I got his copy out and it has not been completed. We reviewed his POLST several times and pt wants to be a DNR/DNR. When he returns from [place], he does not want to return to the hospital and would like comfort care if he is not doing well or his leukemia is not controlled. We discussed selective treatment several times and pt does not want and would like comfort care only. Form completed and given to Dr. Rowan.
--- NOTE | 2024-07-21 11:46 | NUR ---
VISITED DURING SPIRITUAL CARE ROUNDS. PT STATES IN GOOD SPIRITS, NO CONCERNS OR NEEDS. AFTER SCHOOL DRIVER PROVIDED SUPPORTIVE PRESENCE, HOSPITALITY, PRAYER, FACILITATED INTERACTION WITH THERAPY ANIMAL. PT EXPRESSED GRATITUDE.
[2024-07-21 14:23] LABS: LEGIONELLA PNEUMOPHILA AG,URN Negative (Negative)
--- NOTE | 2024-07-21 15:02 | NUR ---
DAMARI IS NOTED TO BE IN PLEASANT SPIRITS. RAJ DRAIN REMOVED BY MD HARDY EARLIER IN THE DAY. ALL LAP SITES AND RAJ SITES WDL. DAMARI CONTINUES TO TOLERATE RA AND ACTIVITY. SPO2 91%. BREATH SOUNDS ON RIGHT SIDE DIMINISHED. DAMARI DENIES PAIN, BLANKETS, OR NEED FOR REPOSITION IN CHAIR.
[2024-07-21] MEDS ORDERED: METRONIDAZOLE250 MG PO (19:28)
[2024-07-21] MEDS ORDERED: AMOXICILLIN500 MG PO (19:28)
[2024-07-21] MEDS ORDERED: PEPTO-BISMOL262 MG PO (19:29)
[2024-07-21] MEDS ORDERED: SUCRALFATE1 GM PO (19:30)
[2024-07-21] MEDS ORDERED: PANTOPRAZOLE SO40 MG PO (19:30)
--- NOTE | 2024-07-21 19:30 | NUR ---
REPORT RECEIVED FROM MORRO MUSA. PT AWAKE IN BED, S/O SKYLER AT BEDSIDE, PT AWARE OF PENDING TRANSFER.
--- NOTE | 2024-07-21 20:53 | NUR ---
PATIENT REQUESTING A SHOWER. THIS RN HELPED PATIENT WITH SHOWER. NEW GOWN PLACED. PATIENT BACK TO CHAIR IN ROOM. HEART MONITOR PLACED, O2 MONITOR IN PLACE, VS OBTAINED AND RECORDED. SCHEDULED MEDICATIONS ADMINISTERED BY REQUEST FROM PRIMARY RN. PATIENT DENIES FURTHER NEEDS AT THIS TIME. CALL LIGHT IN REACH.
--- NOTE | 2024-07-21 21:40 | NUR ---
PT LEFT WITH PFD FOR TRANSFER TO [facility].
--- NOTE | 2024-07-22 12:25 | OR ---
[facility] [address], [place] [address] Signed DATE OF OPERATION: 07/18/2024 SURGEON: Teto Hardy MD PREOPERATIVE DIAGNOSES: 1. Probable perforated duodenal ulcer with generalized peritonitis. 2. Chronic obstructive pulmonary disease and morbid obesity. 3. 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 POSTOPERATIVE DIAGNOSES: 1. Probable perforated duodenal ulcer with generalized peritonitis. 2. Chronic obstructive pulmonary disease and morbid obesity. 3. 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 4. Generalized upper abdominal peritoneal contamination. PROCEDURES: 1. Laparoscopic peritoneal lavage and evaluation of perforated duodenal ulcer. 2. Laparoscopic omental patch (Donovan patch) to duodenal perforation (prolonged, complicated, difficult). ANESTHESIA: General endotracheal, Clarence Wagner, TEXTILE COLORIST DYER and local 10 mL of 0.25% Marcaine with epinephrine. INDICATION: This obese 63-year-old white man has underlying COPD and presented to the emergency room on 17 July with progressive shortness of breath. The patient had previously been seen in the emergency room in the previous week for similar symptoms. His shortness of breath was associated with pressure in the chest. He was given Lasix diuresis at that time and he was also found to have extremity swelling. The patient only two weeks ago underwent right shoulder operation in [place], [place]. He was found on his previous emergency room evaluation to have elevated white count of 29,000, thought to be an inflammatory response in the setting of possible pneumonia as he had a right basilar infiltrate or an effusion as well. He is discharged from the emergency room with antibiotics and followed up with his primary provider, MEAGAN Bartlett and follow up CBC showed a white count of 88,000. He was referred back to the emergency room for further evaluation. In the emergency room, evaluation was negative for any acute abnormalities and arrangements were made for evaluation by oncologist, Dr. Zaragoza. It is quite notable that his eosinophilic count was 45%. On his presentation to the emergency room showed a heart rate in the 70s, normotensive, hypoxic Electronically Signed By: TETO HARDY MD 07/22/24 1225 PATIENT NAME: DAMARI LARA OPERATIVE REPORT DATE OF : 58 REPORT #: [id number] PHYSICIAN: TETO HARDY MD PCP: GEOVANNA ROCHE NP REPORT IS CONFIDENTIAL AND NOT TO BE RELEASED WITHOUT AUTHORIZATION [facility] [address], [place] [address] Signed requiring 2 L supplemental oxygen. His white cells were 81,000 with eosinophils of 45%, creatinine of 1.3 with his baseline of 1.3, uric acid 9.3, LDH 264 and BNP 469. Negative troponin. A chest x-ray showing trace bilateral pleural effusion. There is no sign of free air. He is considered likely to have uncharacterized leukemia and was treated with IV Solu-Medrol. Sometime in the middle of the night he had severe and unrelenting epigastric pain. He underwent a CT scan of the abdomen at approximately 3:00 a.m., which showed findings suggestive of perforated duodenal ulcer. I was called shortly thereafter and evaluation does him to have generalized peritonitis with marked tenderness in the epigastric area. His skin is markedly erythematous. A repeat CBC showed a white count of 84,900, a platelet count of a 114,000, manual differential showing 45% eosinophils, 48% neutrophils, 3% bands, 3% lymphocytes, 1% monocyte and toxic granulation noted as well. His electrolytes were normal, though his creatinine was elevated to 1.65, glucose 127. Liver enzymes are normal. Lactic acid was only 0.7. Given the findings and high probability of perforated duodenal ulcer, emergency operation is indicated. I have recommended laparoscopy, peritoneal lavage and if appropriate Donovan patch closure of the perforation. Avoidance of major laparotomy may be beneficial if it can be done given his underlying pulmonary issues and so. It is acknowledged that the patient has special risks particularly given the probable underlying leukemia. 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 Understanding this, he wished to proceed. FINDINGS: Induction of anesthesia was noted with some level of hypoxemia, which quickly responded to the usual measures. He did have some hypotension on induction as well might be expected. He stabilized well throughout the operation otherwise. He was indeed found to have inflammatory changes related to a perforated duodenal ulcer. There was no solid matter within the abdominal cavity (food). Patch closure of the perforation which measured approximately 1 cm to 1.5 cm was done with an omental patch by a laparoscopic approach. Leak testing at the conclusion of procedure showed no sign of leak. The nasogastric tube is well positioned. The liver itself had fatty infiltration, but no signs of cirrhosis. Other areas of the abdomen were briefly examined and looked reasonably normal. The gallbladder was secondarily inflamed, but not a primary source of problem. The transverse colon appeared normal. PROCEDURE IN DETAIL: The patient was brought to the operating room having undergone broad-spectrum antibiotic Electronically Signed By: TETO HARDY MD 07/22/24 1225 PATIENT NAME: DAMARI LARA OPERATIVE REPORT DATE OF : 58 REPORT #: [id number] PHYSICIAN: TETO HARDY MD PCP: GEOVANNA ROCHE NP REPORT IS CONFIDENTIAL AND NOT TO BE RELEASED WITHOUT AUTHORIZATION [facility] [address], [place] [address] Signed piperacillin administration. He was given a general endotracheal anesthetic. Sequential compression device stockings were used. A Frey catheter was placed. The abdomen was clipped and prepared with a chlorhexidine solution and draped sterilely. An infraumbilical incision was made and using an open Avril cannula technique pneumoperitoneum was achieved to a level of 14 mmHg with carbon dioxide gas. Intra-abdominal inspection immediately showed fibrinous inflammatory exudate in the upper abdomen. An additional 10 mm port was placed in the epigastric area allowing for manipulation of the abdominal viscera. There appeared to be indeed a perforated duodenal ulcer at the site of the pylorus itself. Irrigation was undertaken copiously and an additional right-sided 5 mm port placed allowing for two hand manipulation. Given the profound edematous changes associated with the duodenum and edematous changes of the surrounding soft tissue it appeared most optimal to repair the perforation (which measured about 1 cm to 1.5 cm) with an omental patch. A fan retractor was placed through a separate trocar allowing for elevation of a somewhat heavy liver exposing the area more fully. With the laparoscopic approach, 0 silk suture on an SH needle was used to affix the serosa of the duodenum superiorly and laterally to healthy omentum which had been mobilized to the area in a tension free way. This portion of the operation was prolonged, complicated, and difficult to be sure. At the conclusion, approximately 7 to 8 repair sutures were placed for a classic Donovan patch without reapproximation of the ulcer itself. The ulcer defect itself would not have accommodated primary closure due to the inflammatory nature of the serosa. A nasogastric tube that had been placed was insufflated with air with the area of repair submerged under saline showing no sign of leakage. The patch was watertight and secure. A small crack in the liver capsule, which had some oozing was secured with hemostatic agent Ryne. Some was applied to the anastomotic area as well. Through a right-sided trocar site, a 7 mm flat Konstantin drain was placed in the subhepatic space and secured the skin with nylon suture. Additional irrigation fluid was suctioned free and insufflated air within the stomach removed. Plans were then made for closure. The infraumbilical incision was reapproximated with interrupted 0 Vicryl suture. 10 mL of 0.25% Marcaine with was epinephrine injected locally. The skin was then closed with interrupted 3-0 Vicryl. Steri-Strips were applied. The patient was able to be extubated in the operating room and transfer to recovery room in stable condition. Teto Hardy MD Electronically Signed By: TETO HARDY MD 07/22/24 1225 PATIENT NAME: DAMARI LARA OPERATIVE REPORT DATE OF : 58 REPORT #: [id number] PHYSICIAN: TETO HARDY MD PCP: GEOVANNA ROCHE NP REPORT IS CONFIDENTIAL AND NOT TO BE RELEASED WITHOUT AUTHORIZATION [facility] [address] [place] [address] [place] [address] Signed /MODL /[id number] cc: MD Geovanna Lange, MEAGAN Rowan Copies: ANTONI ZARAGOZA MD ~ Electronically Signed By: TETO HARDY MD 07/22/24 1225 PATIENT NAME: DAMARI LARA OPERATIVE REPORT DATE OF : 58 REPORT #: [id number] PHYSICIAN: TETO HARDY MD PCP: GEOVANNA ROCHE NP REPORT IS CONFIDENTIAL AND NOT TO BE RELEASED WITHOUT AUTHORIZATION
--- NOTE | 2024-07-22 12:25 | CONS ---
[facility] [address], [place] [address] Signed DATE OF CONSULTATION: 07/18/2024 TIME: 4:30 a.m. PROBLEM: Probable perforated ulcer and concurrent leukemia. HISTORY OF PRESENT ILLNESS: This obese 63-year-old white man presented to the emergency room on July 17 at 0100, where he was evaluated by Dr. Brown, with complaints of shortness of breath and "pressure in the chest." The patient says it was present since the when he was first evaluated. The patient underwent shoulder operation on June 24, 2024 in [place], [place] and presented to [facility] on July 06 for shortness of breath, chest tightness and increasing lower extremity swelling. The patient has underlying COPD, but no history of CHF. A full cardiac evaluation returned as normal. He did have an elevated white count of 29,000, which was thought to be related to inflammatory response. He was treated with oral antibiotics and on followup with his primary provider, MEAGAN Bartlett. Repeat lab studies showed white count of 88,000. He was then sent to the emergency room where he received an evaluation including DVT workup which was negative, chest x-ray remained the same with mild basilar effusion and plans were made to follow up with Dr. Magana, medical oncologist for possible leukemic disorder. He arrived to the emergency room with concern that he had increasing shortness of breath, not resolved. PAST MEDICAL HISTORY: From my review of his situation includes right shoulder operations previously noted, history of appendectomy and tonsillectomy. He has underlying COPD for which he does have a nebulizer at home and possibly an oxygen concentrator for supplemental oxygen as needed. MEDICATIONS: At admission include duloxetine (Cymbalta), atorvastatin (Lipitor), and albuterol inhaler. This evening, he had the rather sudden onset of severe abdominal pain. He was evaluated by Dr. Rowan in [place] and underwent CT scan of the abdomen at approximately 3 this morning, which showed findings "concerning for perforated duodenal bulb ulcer." An increasing right pleural effusion and right basilar atelectasis was noted as well. Inflammation was noted adjacent to the duodenal bulb with wall thickening of the duodenal bulb. There was free air in the upper abdomen including the alejandra hepatis and falciform ligament. His most recent CBC on 16 July was 77.3. A CBC is now pending. His hematocrit was 42 and platelet count 142,000. His ABG (venous) from Electronically Signed By: TETO HARDY MD 07/22/24 1225 PATIENT NAME: DAMARI LARA CONSULTATION DATE OF : 58 REPORT #: [id number] PHYSICIAN: TETO HARDY MD PCP: TORSTEN ROCHE NP REPORT IS CONFIDENTIAL AND NOT TO BE RELEASED WITHOUT AUTHORIZATION [facility] [address], [place] [address] Signed o'clock, July 16 showed a pH of 7.47, CO2 of 34.5, O2 of 46. Coag studies showed an elevated fibrinogen on July 17 yesterday at 466. D-dimer on July 06 was 11.7. He is negative for viral pathogens currently. He has not had a lactic acid level. The patient denies prior history of ulcer per se. He has had epigastric pain in the past, but none recently. His pain currently is vastly more severe than at the time of admission which was vague substernal pain apparently. PHYSICAL EXAMINATION: GENERAL: An obese white man with a full rutherford, who is laying in his left side down. He is erythematous in his appearance, but is alert and oriented without sign of delirium. NECK: Trachea is midline. CHEST: Shows no evidence of tachypnea at this time. ABDOMEN: Quite markedly obese, but has severe tenderness in the epigastric area. Review of his CT scan was undertaken affirming his abdominal obesity and showing a right pleural effusion which was relatively small, has fatty liver. There is definitely marked inflammation of the region of the duodenum. The gallbladder appears normal. There is significant atelectasis in the right lower lobe. There are some air bubbles as described by radiologist in the region of the alejandra hepatis. The stomach itself looks normal. The pancreas itself looks normal. ASSESSMENT: It is probable the patient has leukemia and now has additionally a perforated duodenal ulcer that is not entirely certain. He has been initiated on broad-spectrum antibiotics, IV fluids are being administered and a plan for laparoscopy with possible patch of perforated duodenal ulcer to be undertaken. He may require regular laparotomy. The patient has underlying comorbidity of hypoxemia related to COPD, though currently is medically stable in that regard. He did not have hypotension at this point. The risk of bleeding, infection, need for open operation, need for other indicated procedures, depending on findings were all reviewed in detail with him. He understands and wished to proceed. The patient has additional hazards of this particular malady considering probable underlying leukemia it is noted. Teto Hardy MD Electronically Signed By: TETO HARDY MD 07/22/24 1225 PATIENT NAME: DAMARI LARA CONSULTATION DATE OF : 58 REPORT #: [id number] PHYSICIAN: TETO HARDY MD PCP: TORSTEN ROCHE NP REPORT IS CONFIDENTIAL AND NOT TO BE RELEASED WITHOUT AUTHORIZATION [address] [place] [address] Signed /PAPI /[id number] cc: MEAGAN Diane Dr. Copies: ~ Electronically Signed By: TETO HARDY MD 07/22/24 1225 PATIENT NAME: DAMARI LARA CONSULTATION DATE OF : 58 REPORT #: [id number] PHYSICIAN: TETO HARDY MD PCP: TORSTEN ROCHE NP REPORT IS CONFIDENTIAL AND NOT TO BE RELEASED WITHOUT AUTHORIZATION
[2024-07-22 22:33] LABS: AMYLASE FLUID SOURCE Pleural fluid (()); AMYLASE, BODY FLUID 5 U/L (()); GLUCOSE FLUID SOURCE Pleural fluid (()); GLUCOSE,BODY FLUID 155 mg/dL (()); TOTAL PROTEIN FLUID SOURCE Pleural fluid (()); TOTAL PROTEIN, BODY FLUID 3.3 g/dL (())
== END 2024-07-21 21:40 | disposition short-term general hospital (02) | DRG 981 ==
LOC: ED 23:42 → CCU 07-17 01:25 → MS 07-17 16:00 → CCU 07-18 04:15
PROVIDERS: Family Medicine; Surgery; ADMIT Student in an Organized Health Care Education/Training Program; ATTEND Student in an Organized Health Care Education/Training Program
PROC: 0DQ94ZZ Repair Duodenum, Percutaneous Endoscopic Approach (ICD-10-PCS; principal; 2024-07-18 04:56)
PROC: 0W993ZX Drainage of Right Pleural Cavity, Percutaneous Approach, Diagnostic (ICD-10-PCS; 2024-07-20)
DX: J18.9 Pneumonia, unspecified organism (principal); J96.01 Acute respiratory failure with hypoxia; K26.5 Chronic or unspecified duodenal ulcer with perforation; K65.0 Generalized (acute) peritonitis; J44.1 Chronic obstructive pulmonary disease with (acute) exacerbation; J90 Pleural effusion, not elsewhere classified; E87.3 Alkalosis; J44.0 Chronic obstructive pulmonary disease with (acute) lower respiratory infection; F32.9 Major depressive disorder, single episode, unspecified; E78.5 Hyperlipidemia, unspecified; E66.01 Morbid (severe) obesity due to excess calories; Z90.49 Acquired absence of other specified parts of digestive tract; Z90.89 Acquired absence of other organs; Z79.899 Other long term (current) drug therapy; K76.0 Fatty (change of) liver, not elsewhere classified; Z88.8 Allergy status to other drugs, medicaments and biological substances; Z79.51 Long term (current) use of inhaled steroids; Z68.37 Body mass index [BMI] 37.0-37.9, adult; Z99.81 Dependence on supplemental oxygen; Z87.891 Personal history of nicotine dependence
CPT/HCPCS: 00790; 32554; 32555; 36415; 71045; 71250; 74018; 74176; 80048; 80053; 82150; 82803; 82945; 83605; 83615; 83735; 83880; 83986; 84100; 84157; 84484; 84550; 85025; 85045; 85060; 85384; 85610; 86606; 87449; 87502; 89051; 93005; 93010; 93306; 94640; 94667; 94668; 94762; 96374; 96375; 97161; 97165; 99285-25; A9270; J0131; J0330; J0696; J1100; J1120; J1171; J1644; J1720; J1940; J2003; J2250; J2270; J2371; J2405; J2470; J2543; J2704; J2919; J3010; J3490; J7030; J7121; J7512; U0002

== ENCOUNTER 2024-07-30 16:25 | Emergency (ER) | payer OTHER ==
[~2024-07-30] VITALS: Ht 182.9 cm; Wt 121.7 kg
--- OUTSIDE RECORDS SUMMARY | ~2024-07-30 | XMS | Continuity of Care Document ---
Demographics + + + | Address | [address] | | | [place] [address] | + + + | Preferred Language | Unknown | + + + | Marital Status | Unknown | + + + | Restorationism Affiliation | Unknown | + + + | Race | White | + + + | Ethnic Group | Unknown | + + + Author + + + | Author | [facility] | + + + | Organization | [facility] | + + + | Address | [address] | | | [place] [address] | + + + | Phone | | + + + Care Team Providers + + + + | Care Collection Correspondent Name | Role | Phone | + + + + Unavailable | Unavailable | + + + + Allergies No information. Encounters No information. Functional Status No information. Immunizations No information. Medications No information. Problems No information. Procedures No information. Results/Labs +--------+--------+ +---------+--------+---------+ | test | date | facility | value | unit | notes | +--------+--------+ +---------+--------+---------+ + + | Result panel 1 | + + + + + + + + + | | 2024-07-22 | [facility] | (missing) | (missing) | Specimen | | MPV.BLD.QN.A | 03:12 | [facility] | | | clotted. | | [facility] [...] + + + | | 2024-07-22 | [facility] | (missing) | (missing) | Specimen | | MPV.BLD.QN.A | 03:12 | [facility] | | | clotted. | | [facility] [...] + + + | | 2024-07-22 | [facility] | (missing) | (missing) | Specimen | | MPV.BLD.QN.A | 03:12 | [facility] | | | clotted. | | [facility] [...] + + + | | 2024-07-22 | [facility] | (missing) | (missing) | Specimen | | MPV.BLD.QN.A | 03:12 | [facility] | | | clotted. | | [facility] [...] + + + | | 2024-07-22 | [facility] | (missing) | (missing) | Specimen | | MPV.BLD.QN.A | 03:12 | [facility] | | | clotted. | | [facility] [...] + + + | | 2024-07-22 | [facility] | (missing) | (missing) | Specimen | | MPV.BLD.QN.A | 03:12 | [facility] | | | clotted. | | [facility] [...] + + + | | 2024-07-22 | [facility] | (missing) | (missing) | Specimen | | MPV.BLD.QN.A | 03:12 | [facility] | | | clotted. | | [facility] [...] + + + | | 2024-07-22 | [facility] | (missing) | (missing) | Specimen | | MPV.BLD.QN.A | 03:12 | [facility] | | | clotted. | | [facility] [...] + + + | | 2024-07-22 | [facility] | (missing) | (missing) | Specimen | | MPV.BLD.QN.A | 03:12 | [facility] | | | clotted. | | [facility] [...] + + + | | 2024-07-22 | [facility] | (missing) | (missing) | Specimen | | MPV.BLD.QN.A | 03:12 | [facility] | | | clotted. | | [facility] [...] + + + | | 2024-07-22 | [facility] | (missing) | (missing) | Unable to | | MPV.BLD.QN.A | 03:12 | [facility] | | | report due | | [facility] | | Medical | | | to abnormal | | | | Center | | | platelet | | | | | | | flags | + + + + + + + | | 2024-07-22 | [facility] | 105.37 | k/ul | (missing) | | MPV.BLD.QN.A | 03:12 | [place] | | | | | [facility] | | Medical | | | | | | | Center | | | | + + + + + + + | | 2024-07-22 | [facility] | 12.1 | g/dl | (missing) | | MPV.BLD.QN.A | 03:12 | [facility] | | | | | [facility] | | [facility] | | | | | | | Center | | | | + + + + + + + | | 2024-07-22 | [facility] | 15.1 | % | (missing) | | MPV.BLD.QN.A | 03:12 | [place] | | | | | [facility] | | [facility] | | | | | | | Center | | | | + + + + + + + | | 2024-07-22 | [facility] | 3.96 | m/ul | (missing) | | MPV.BLD.QN.A | 03:12 | [facility] | | | | | [facility] | | [facility] | | | | | | | Center | | | | + + + + + + + | | 2024-07-22 | [facility] | 30.6 | pg | (missing) | | MPV.BLD.QN.A | 03:12 | [place] | | | | | [facility] | | [facility] | | | | | | | Center | | | | + + + + + + + | | 2024-07-22 | [facility] | 34.8 | % | (missing) | | MPV.BLD.QN.A | 03:12 | [facility] | | | | | [facility] | | [facility] | | | | | | | Center | | | | + + + + + + + | | 2024-07-22 | [facility] | 34.8 | g/dl | (missing) | | MPV.BLD.QN.A | 03:12 | [facility] | | | | | [facility] | | [facility] | | | | | | | Center | | | | + + + + + + + | | 2024-07-22 | [facility] | 48.2 | fl | (missing) | | MPV.BLD.QN.A | 03:12 | [place] | | | | | [facility] | | [facility] | | | | | | | Center | | | | + + + + + + + | | 2024-07-22 | [facility] | 87.9 | fl | (missing) | | MPV.BLD.QN.A | 03:12 | [facility] | | | | | [facility] | | [facility] | | | | | | | Center | | | | + + + + + + + | | 2024-07-22 | [facility] | 97 | k/ul | (missing) | | MPV.BLD.QN.A | 03:12 | [facility] | | | | | [facility] | | Medical | | | | | | | Center | | | | + + + + + + + + + | Result panel 2 | + + + + + +--------+ + + | EGFR | 2024-07-22 | [facility] | 0.2 | mg/dl | (missing) | | ML/MIN/1.73 | 03:13 | [facility] | | | | | SQ | | Medical | | | | | M.PREDICTED | | Center | | | | + + + +--------+ + + | EGFR | 2024-07-22 | [facility] | 0.6 | (missing) | (missing) | | ML/MIN/1.73 | 03:13 | [facility] | | | | | SQ | | Medical | | | | | M.PREDICTED | | Center | | | | + + + +--------+ + + | EGFR | 2024-07-22 | [facility] | 1.56 | mg/dl | (missing) | | ML/MIN/1.73 | 03:13 | [facility] | | | | | SQ | | Medical | | | | | M.PREDICTED | | Center | | | | + + + +--------+ + + | EGFR | 2024-07-22 | [facility] | 107 | mmol/l | (missing) | | ML/MIN/1.73 | 03:13 | [facility] | | | | | SQ | | Medical | | | | | M.PREDICTED | | Center | | | | + + + +--------+ + + | EGFR | 2024-07-22 | [facility] | 11 | u/l | (missing) | | ML/MIN/1.73 | 03:13 | [facility] | | | | | SQ | | Medical | | | | | M.PREDICTED | | Center | | | | + + + +--------+ + + | EGFR | 2024-07-22 | [facility] | 140 | mmol/l | (missing) | | ML/MIN/1.73 | 03:13 | [facility] | | | | | SQ | | Medical | | | | | M.PREDICTED | | Center | | | | + + + +--------+ + + | EGFR | 2024-07-22 | [facility] | 2.2 | g/dl | (missing) | | ML/MIN/1.73 | 03:13 | [facility] | | | | | SQ | | Medical | | | | | M.PREDICTED | | Center | | | | + + + +--------+ + + | EGFR | 2024-07-22 | [facility] | 21 | u/l | (missing) | | ML/MIN/1.73 | 03:13 | [facility] | | | | | SQ | | Medical | | | | | M.PREDICTED | | Center | | | | + + + +--------+ + + | EGFR | 2024-07-22 | [facility] | 24 | mmol/l | (missing) | | ML/MIN/1.73 | 03:13 | [facility] | | | | | SQ | | Medical | | | | | M.PREDICTED | | Center | | | | + + + +--------+ + + | EGFR | 2024-07-22 | [facility] | 24.4 | (missing) | (missing) | | ML/MIN/1.73 | 03:13 | [facility] | | | | | SQ | | Medical | | | | | M.PREDICTED | | Center | | | | + + + +--------+ + + | EGFR | 2024-07-22 | [facility] | 3.3 | mmol/l | (missing) | | ML/MIN/1.73 | 03:13 | [facility] | | | | | SQ | | Medical | | | | | M.PREDICTED | | Center | | | | + + + +--------+ + + | EGFR | 2024-07-22 | [facility] | 38 | mg/dl | (missing) | | ML/MIN/1.73 | 03:13 | [facility] | | | | | SQ | | Medical | | | | | M.PREDICTED | | Center | | | | + + + +--------+ + + | EGFR | 2024-07-22 | [facility] | 4.0 | g/dl | (missing) | | ML/MIN/1.73 | 03:13 | [facility] | | | | | SQ | | Medical | | | | | M.PREDICTED | | Center | | | | + + + +--------+ + + | EGFR | 2024-07-22 | [facility] | 40 | u/l | (missing) | | ML/MIN/1.73 | 03:13 | [facility] | | | | | SQ | | Medical | | | | | M.PREDICTED | | Center | | | | + + + +--------+ + + | EGFR | 2024-07-22 | [facility] | 49 | | GFR value | | ML/MIN/1.73 | 03:13 | [facility] | | ml/min/1.73m | was | | [...] | | | | | | | [place] | | | | | | | [...] + + | EGFR | 2024-07-22 | [facility] | 6.2 | g/dl | (missing) | | ML/MIN/1.73 | 03:13 | [facility] | | | | | SQ | | Medical | | | | | M.PREDICTED | | Center | | | | + + + +--------+ + + | EGFR | 2024-07-22 | [facility] | 8.3 | mg/dl | (missing) | | ML/MIN/1.73 | 03:13 | [facility] | | | | | SQ | | Medical | | | | | M.PREDICTED | | Center | | | | + + + +--------+ + + | EGFR | 2024-07-22 | [facility] | 89 | mg/dl | | | ML/MIN/1.73 | 03:13 | [facility] | | | | | SQ | | Medical | | | | | M.PREDICTED | | Center | | | | + + + +--------+ + + Social History +--------+ + + | date | description | facility | +--------+ + + Vital Signs No information."
[~2024-07-30 16:25] MED LIST changes: +AMOXICILLIN500 MG PO; +DULOXETINE HCL30 MG PO; +FLUTICASONE-SA1 EAC4 INH; +METRONIDAZOLE250 MG PO; +PANTOPRAZOLE SO40 MG PO; +PEPTO-BISMOL262 MG PO; +SUCRALFATE1 GM PO; +VARENICLINE TART1 MG PO
--- OUTSIDE RECORDS SUMMARY | 2024-07-30 16:32 | XMS ---
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 Security Hop Farmer Events No recent Security Events currently on file CRITERIA MET - [facility] - 2 Visits in 30 Days CARE PROVIDERS -, [facility] Dentist: Payroll Director [facility] PHONE: [phone] -Shira- Dentist: Payroll Director Current [facility] PHONE: [phone] [facility]/[place]: [facility] PHONE: [phone] Rebecca has no Care Guidelines for this patient. E.D. VISIT COUNT (12 MO.) [address] [facility] TOTAL 4 NOTE: Visits indicate total known visits. ED/UCC VISIT TRACKING (12 MO.) 07/30/2024 16:26 [facility] TYPE: Emergency COMPLAINT: - FOOT PAIN 07/16/2024 23:42 [facility] [place] TYPE: Emergency COMPLAINT: - DIFFICULTY BREATHING 07/14/2024 11:08 [facility] [place] TYPE: Emergency COMPLAINT: - BLOOD COUNT LOW DIAGNOSES: - Abnormal finding of blood chemistry, unspecified - Allergy status to other drugs, medicaments and biological substances - Chronic obstructive pulmonary disease, unspecified - Edema, unspecified - Elevated white blood cell count, unspecified - Other terminal makeup operator (current) drug therapy 07/06/2024 19:35 [facility] [place] TYPE: Emergency COMPLAINT: - SHORTNESS OF BREATH DIAGNOSES: - Allergy status to other drugs, medicaments and biological substances - Chronic obstructive pulmonary disease with (acute) lower respiratory infection - Other specified postprocedural states - Pneumonia, unspecified organism - Shortness of breath INPATIENT VISIT TRACKING (12 MO.) [facility] [place] [facility] DIAGNOSES: - Chronic obstructive pulmonary disease with (acute) exacerbation - Chronic obstructive pulmonary disease, unspecified - Chronic or unspecified duodenal ulcer with perforation - 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], unspecified - Hyperlipidemia, unspecified - Hyperuricemia without signs of inflammatory arthritis and tophaceous disease - Other eosinophilia 07/17/2024 01:25 [facility] [place] TYPE: Critical Care COMPLAINT: - HYPOXIA SEVERE LEUKOCYTOSIS HYPERURICEMIA COPD CHF DIAGNOSES: - Acquired absence of other organs - Acquired absence of other organs - Acquired absence of other specified parts of digestive tract - Acquired absence of other specified parts of digestive tract - Acute respiratory failure with hypoxia - Acute respiratory failure with hypoxia - Alkalosis - Alkalosis - Allergy status to other drugs, medicaments and biological substances - Allergy status to other drugs, medicaments and biological substances - Body mass index [BMI] 37.0-37.9, adult - Body mass index [BMI] 37.0-37.9, adult - Chronic obstructive pulmonary disease with (acute) exacerbation - Chronic obstructive pulmonary disease with (acute) exacerbation - Chronic obstructive pulmonary disease with (acute) lower respiratory infection - Chronic obstructive pulmonary disease with (acute) lower respiratory infection - Chronic or unspecified duodenal ulcer with perforation - Dependence on supplemental oxygen - Dependence on supplemental oxygen - Fatty (change of) liver, not elsewhere classified - Fatty (change of) liver, not elsewhere classified - Generalized (acute) peritonitis - Generalized (acute) peritonitis - Hyperlipidemia, unspecified - Hyperlipidemia, unspecified - senior care (current) use of inhaled steroids - senior care (current) use of inhaled steroids - Major depressive disorder, single episode, unspecified - Major depressive disorder, single episode, unspecified - Morbid (severe) obesity due to excess calories - Morbid (severe) obesity due to excess calories - Other terminal makeup operator (current) drug therapy - Other assisted (current) drug therapy - Personal history of nicotine dependence - Personal history of nicotine dependence - Pleural effusion, not elsewhere classified - Pleural effusion, not elsewhere classified - Pneumonia, unspecified organism - Pneumonia, unspecified organism [email or web address]
[2024-07-30] MEDS ORDERED: OXYCODONE HCL5 MG PO (16:43)
[2024-07-30] MEDS ORDERED: ALLOPURINOL300 MG PO (16:43)
[2024-07-30] MEDS ORDERED: OXYCODONE HCL 5 MG TAB PO ONE (17:45)
[2024-07-30 17:52] LABS: HEMATOCRIT 34.1 % (35.0-50.0); MCH 27.7 (27-36); MCHC 32.2 g/dl (30-36); MCV 85.9 fl (81-99); PLATELET COUNT 200 K/uL (140-440); RBC 3.97 M/ul (4.3-5.7); RDW 15.9 (10.5-15.0)
[2024-07-30 18:02] LABS: ALBUMIN 2.2 g/dL (3.4-5.0); ALBUMIN/GLOBULIN RATIO 0.43 (1.1-2.4); ANION GAP 11.6 (7-21); BILIRUBIN, TOTAL 0.3 ng/dL (0.2-1.0); BUN/CREATININE RATIO 12.59 (6.0-28.6); CALCIUM 8.4 mg/dL (8.5-10.1); CREATININE, SERUM 1.27 mg/dL (0.70-1.30); POTASSIUM 3.6 mmol/L (3.5-5.1); PROTEIN, TOTAL 7.3 g/dL (6.4-8.2)
[2024-07-30 18:18] LABS: BASOPHILS, MANUAL DIFF 1; EOSINOPHILS, MANUAL DIFF 68; LYMPHOCYTES, MANUAL DIFF 6; MONOCYTES, MANUAL DIFF 3; NEUTROPHILS, MANUAL DIFF 22
[2024-07-30] MEDS ORDERED: CEFTRIAXONE/SODIUM CHLORIDE 2 GM/100 ML PIGGYBACK IV ONE (19:30)
[2024-07-30] MEDS ORDERED: CEPHALEXIN500 M1 PO (19:53)
[2024-07-30 20:25] VITALS: BP 120/76
== END 2024-07-30 20:25 | disposition home or self-care (01) ==
LOC: ED 16:25
PROVIDERS: Emergency Medicine
DX: L03.115 Cellulitis of right lower limb (principal); J44.9 Chronic obstructive pulmonary disease, unspecified; D72.829 Elevated white blood cell count, unspecified; Z88.8 Allergy status to other drugs, medicaments and biological substances; Z79.899 Other long term (current) drug therapy
CPT/HCPCS: 36415; 80053; 85025; 93971; 96365; 99284-25; A9270; J0696

== ENCOUNTER 2024-08-02 13:25 | Emergency (ER) | payer OTHER ==
[~2024-08-02] VITALS: Ht 182.9 cm; Wt 124.1 kg
--- OUTSIDE RECORDS SUMMARY | ~2024-08-02 | XMS | Continuity of Care Document ---
Demographics + + + | Address | [address] | | | [place] [address] | + + + | Preferred Language | Unknown | + + + | Marital Status | Unknown | + + + | Scientologist Affiliation | Unknown | + + + | Race | White | + + + | Ethnic Group | Not or | + + + Author + + + | Author | [facility] | + + + | Organization | [facility] | + + + | Address | [address] | | | [place] [address] | + + + | Phone | | + + + Care Team Providers + + + + | Care Food And Nutrition Services Assistant Name | Role | Phone | + [...] + + + | | 2024-07-22 | [facility] | (missing) | (missing) | Specimen | | MPV.BLD.QN.A | 03:12 | [facility] | | | clotted. | | [facility] [...] + + + | | 2024-07-22 | [facility] | (missing) | (missing) | Specimen | | MPV.BLD.QN.A | 03:12 | [facility] | | | clotted. | | [facility] [...] + + + | | 2024-07-22 | [facility] | (missing) | (missing) | Specimen | | MPV.BLD.QN.A | 03:12 | [place] | | | clotted. | | [facility] [...] + + + | | 2024-07-22 | [facility] | (missing) | (missing) | Specimen | | MPV.BLD.QN.A | 03:12 | [place] | | | clotted. | | [facility] [...] + + + | | 2024-07-22 | [facility] | (missing) | (missing) | Specimen | | MPV.BLD.QN.A | 03:12 | [place] | | | clotted. | | [facility] [...] + + + | | 2024-07-22 | [facility] | (missing) | (missing) | Specimen | | MPV.BLD.QN.A | 03:12 | [place] | | | clotted. | | [facility] [...] + + + | | 2024-07-22 | [facility] | (missing) | (missing) | Specimen | | MPV.BLD.QN.A | 03:12 | [place] | | | clotted. | | [facility] [...] + + + | | 2024-07-22 | [facility] | (missing) | (missing) | Specimen | | MPV.BLD.QN.A | 03:12 | [place] | | | clotted. | | [facility] [...] + + + | | 2024-07-22 | [facility] | (missing) | (missing) | Specimen | | MPV.BLD.QN.A | 03:12 | [place] | | | clotted. | | [facility] [...] + + + | | 2024-07-22 | [facility] | (missing) | (missing) | Specimen | | MPV.BLD.QN.A | 03:12 | [place] | | | clotted. | | [facility] [...] + + + | | 2024-07-22 | [facility] | (missing) | (missing) | Unable to | | MPV.BLD.QN.A | 03:12 | [facility] | | | report due | | [facility] | | Medical | | | to abnormal | | | | Center | | | platelet | | | | | | | flags | + + + + + + + | | 2024-07-22 | [facility] | 105.37 | k/ul | (missing) | | MPV.BLD.QN.A | 03:12 | [facility] | | | | | [facility] | | Medical | | | | | | | Center | | | | + + + + + + + | | 2024-07-22 | [facility] | 12.1 | g/dl | (missing) | | MPV.BLD.QN.A | 03:12 | [facility] | | | | | [facility] [place] | | Medical | | | | | | | Center | | | | + + + + + + + | | 2024-07-22 | [facility] | 15.1 | % | (missing) | | MPV.BLD.QN.A | 03:12 | [facility] | | | | | [facility] | | Medical | | | | | | | Center | | | | + + + + + + + | | 2024-07-22 | [facility] | 3.96 | m/ul | (missing) | | MPV.BLD.QN.A | 03:12 | [facility] | | | | | [facility] | | Medical | | | | | | | Center | | | | + + + + + + + | | 2024-07-22 | [facility] | 30.6 | pg | (missing) | | MPV.BLD.QN.A | 03:12 | [facility] | | | | | [facility] | | [facility] | | | | | | | Center | | | | + + + + + + + | | 2024-07-22 | [facility] | 34.8 | % | (missing) | | MPV.BLD.QN.A | 03:12 | [facility] | | | | | [facility] | | [facility] | | | | | | | Center | | | | + + + + + + + | | 2024-07-22 | [facility] | 34.8 | g/dl | (missing) | | MPV.BLD.QN.A | 03:12 | [facility] | | | | | [facility] | | [facility] | | | | | | | Center | | | | + + + + + + + | | 2024-07-22 | [facility] | 48.2 | fl | (missing) | | MPV.BLD.QN.A | 03:12 | [facility] | | | | | [facility] | | [facility] | | | | | | | Center | | | | + + + + + + + | | 2024-07-22 | [facility] | 87.9 | fl | (missing) | | MPV.BLD.QN.A | 03:12 | [facility] | | | | | [facility] | | [facility] | | | | | | | Center | | | | + + + + + + + | | 2024-07-22 | [facility] | 97 | k/ul | (missing) | | MPV.BLD.QN.A | 03:12 | [facility] | | | | | [facility] | | [facility] | | | | | | | Center | | | | + + + + + + + + + | Result panel 2 | + + + + + +--------+ + + | EGFR | 2024-07-22 | [facility] | 0.2 | mg/dl | (missing) | | ML/MIN/1.73 | 03:13 | [facility] | | | | | SQ | | Medical | | | | | M.PREDICTED | | Center | | | | + + + +--------+ + + | EGFR | 2024-07-22 | [facility] | 0.6 | (missing) | (missing) | | ML/MIN/1.73 | 03:13 | [facility] | | | | | SQ | | Medical | | | | | M.PREDICTED | | Center | | | | + + + +--------+ + + | EGFR | 2024-07-22 | [facility] | 1.56 | mg/dl | (missing) | | ML/MIN/1.73 | 03:13 | [facility] | | | | | SQ | | Medical | | | | | M.PREDICTED | | Center | | | | + + + +--------+ + + | EGFR | 2024-07-22 | [facility] | 107 | mmol/l | (missing) | | ML/MIN/1.73 | 03:13 | [facility] | | | | | SQ | | Medical | | | | | M.PREDICTED | | Center | | | | + + + +--------+ + + | EGFR | 2024-07-22 | [facility] | 11 | u/l | (missing) | | ML/MIN/1.73 | 03:13 | [facility] | | | | | SQ | | Medical | | | | | M.PREDICTED | | Center | | | | + + + +--------+ + + | EGFR | 2024-07-22 | [facility] | 140 | mmol/l | (missing) | | ML/MIN/1.73 | 03:13 | [facility] | | | | | SQ | | Medical | | | | | M.PREDICTED | | Center | | | | + + + +--------+ + + | EGFR | 2024-07-22 | [facility] | 2.2 | g/dl | (missing) | | ML/MIN/1.73 | 03:13 | [facility] | | | | | SQ | | Medical | | | | | M.PREDICTED | | Center | | | | + + + +--------+ + + | EGFR | 2024-07-22 | [facility] | 21 | u/l | (missing) | | ML/MIN/1.73 | 03:13 | [facility] | | | | | SQ | | Medical | | | | | M.PREDICTED | | Center | | | | + + + +--------+ + + | EGFR | 2024-07-22 | [facility] | 24 | mmol/l | (missing) | | ML/MIN/1.73 | 03:13 | [facility] | | | | | SQ | | Medical | | | | | M.PREDICTED | | Center | | | | + + + +--------+ + + | EGFR | 2024-07-22 | [facility] | 24.4 | (missing) | (missing) | | ML/MIN/1.73 | 03:13 | [facility] | | | | | SQ | | Medical | | | | | M.PREDICTED | | Center | | | | + + + +--------+ + + | EGFR | 2024-07-22 | [facility] | 3.3 | mmol/l | (missing) | | ML/MIN/1.73 | 03:13 | [facility] | | | | | SQ | | Medical | | | | | M.PREDICTED | | Center | | | | + + + +--------+ + + | EGFR | 2024-07-22 | [facility] | 38 | mg/dl | (missing) | | ML/MIN/1.73 | 03:13 | [facility] | | | | | SQ | | Medical | | | | | M.PREDICTED | | Center | | | | + + + +--------+ + + | EGFR | 2024-07-22 | [facility] | 4.0 | g/dl | (missing) | | ML/MIN/1.73 | 03:13 | [facility] | | | | | SQ | | Medical | | | | | M.PREDICTED | | Center | | | | + + + +--------+ + + | EGFR | 2024-07-22 | [facility] | 40 | u/l | (missing) | | ML/MIN/1.73 | 03:13 | [facility] | | | | | SQ | | Medical | | | | | M.PREDICTED | | Center | | | | + + + +--------+ + + | EGFR | 2024-07-22 | [facility] | 49 | | GFR value | | ML/MIN/1.73 | 03:13 | [facility] | | ml/min/1.73m | was | | [...] | | | | | | | [place] | | | | | | | [...] + + | EGFR | 2024-07-22 | [facility] | 6.2 | g/dl | (missing) | | ML/MIN/1.73 | 03:13 | [facility] | | | | | SQ | | Medical | | | | | M.PREDICTED | | Center | | | | + + + +--------+ + + | EGFR | 2024-07-22 | [facility] | 8.3 | mg/dl | (missing) | | ML/MIN/1.73 | 03:13 | [facility] | | | | | SQ | | Medical | | | | | M.PREDICTED | | Center | | | | + + + +--------+ + + | EGFR | 2024-07-22 | [facility] | 89 | mg/dl | | | ML/MIN/1.73 | 03:13 | [facility] | | | | | SQ | | Medical | | | | | M.PREDICTED | | Center | | | | + + + +--------+ + + Social History +--------+ + + | date | description | facility | +--------+ + + Vital Signs No information."
[~2024-08-02 13:25] MED LIST changes: +ALLOPURINOL300 MG PO; +CEPHALEXIN500 M1 PO; +OXYCODONE HCL5 MG PO
--- OUTSIDE RECORDS SUMMARY | 2024-08-02 13:31 | XMS ---
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 E.D. VISIT COUNT (12 MO.) 5 [facility] TOTAL 5 NOTE: Visits indicate total known visits. ED/UCC VISIT TRACKING (12 MO.) 08/02/2024 13:25 [facility] [place] TYPE: Emergency COMPLAINT: - TROUBLE BREATHING 07/30/2024 16:26 [facility] [place] TYPE: Emergency [...] white blood cell count, unspecified - Other [facility] ([facility] drug therapy 07/06/2024 19:35 [facility] [place] TYPE: Emergency COMPLAINT: - SHORTNESS OF BREATH DIAGNOSES: - Allergy status to other drugs, medicaments and biological substances - Chronic obstructive pulmonary disease with (acute) lower respiratory infection - Other specified postprocedural states - Pneumonia, unspecified organism - Shortness of breath INPATIENT VISIT TRACKING (12 MO.) 07/22/2024 00:56 [facility] TYPE: Oncology DIAGNOSES: - Chronic obstructive [...] - Hyperlipidemia, unspecified - Hyperlipidemia, unspecified - 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 - [facility] (current) use of inhaled steroids - Major depressive disorder, single episode, unspecified - Major depressive disorder, single episode, unspecified - Morbid (severe) obesity due to excess calories - Morbid (severe) obesity due to excess calories - Other [facility] ([facility] drug therapy - 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
[2024-08-02] MEDS ORDERED: ALBUTEROL/IPRATROPIUM 3 ML NEB INH PRN (13:45)
[2024-08-02] MEDS ORDERED: VARENICLINE1 EACH PO (14:07)
[2024-08-02 14:09] LABS: HEMATOCRIT 31.6 % (35.0-50.0); HEMOGLOBIN 10.5 g/dL (12.0-18.0); MCHC 33.3 g/dl (30-36)
[2024-08-02 14:12] LABS: MCH 28.7 (27-36); MCV 86.1 fl (81-99); PLATELET COUNT 202 K/uL (140-440); RBC 3.66 M/ul (4.3-5.7)
[2024-08-02] MEDS ORDERED: IPRATROPIUM BROMIDE 2.5 ML VIAL INH ONE (14:15)
[2024-08-02] MEDS ORDERED: ALBUTEROL SULFATE 0.5% 2.5 MG/0.5 ML VIAL INH ONE (14:15)
[2024-08-02] MEDS ORDERED: methylPREDNISolone SOD SUCC 125 MG/2 ML VIAL IV ONE (14:15)
[2024-08-02 14:33] LABS: EOSINOPHILS, MANUAL DIFF 68; LYMPHOCYTES, MANUAL DIFF 2; MONOCYTES, MANUAL DIFF 1; NEUTROPHILS, MANUAL DIFF 29
[2024-08-02 14:35] LABS: ALBUMIN 2.1 g/dL (3.4-5.0); ALBUMIN/GLOBULIN RATIO 0.42 (1.1-2.4); ANION GAP 10.2 (7-21); BILIRUBIN, TOTAL 0.3 ng/dL (0.2-1.0); BUN/CREATININE RATIO 12.19 (6.0-28.6); CALCIUM 8.4 mg/dL (8.5-10.1); CREATININE, SERUM 1.23 mg/dL (0.70-1.30); MAGNESIUM 2.1 mg/dL (1.8-2.4); POTASSIUM 4.2 mmol/L (3.5-5.1); PROTEIN, TOTAL 7.1 g/dL (6.4-8.2)
[2024-08-02] MEDS ORDERED: ACETAMINOPHEN 500 MG TAB PO ONE (14:45)
[2024-08-02 15:20] LABS: INFLUENZA B NAA NEGATIVE (NEGATIVE); RESPIRATORY SYNCYTIAL VIR NAA NEGATIVE (NEGATIVE)
--- NOTE | 2024-08-02 21:01 | EKG ---
[facility] [address] [place] [address] Signed Normal sinus rhythm Normal ECG When compared with ECG of 17-JUL-2024 10:38, Left posterior fascicular block is no longer present Criteria for Inferior infarct are no longer present T wave inversion no longer evident in Lateral leads Confirmed by Nabor Juarez MD ([id number]) on 08/02/2024 9:01:30 PM Electronically Signed By: NABOR JUAREZ DO 08/02/242100 PATIENT NAME: MARCODAMARIBRISEYDA DAVE Electrocardiogram DATE OF : 58 PHYSICIAN: NABOR JUAREZ DO REPORT #: [id number] REPORT IS CONFIDENTIAL AND NOT TO BE RELEASED WITHOUT AUTHORIZATION
[2024-08-03 02:00] VITALS: BP 106/69
== END 2024-08-03 02:00 | disposition short-term general hospital (02) ==
LOC: ED 13:25
PROVIDERS: Emergency Medicine
DX: C95.90 Leukemia, unspecified not having achieved remission (principal); J91.0 Malignant pleural effusion; J44.9 Chronic obstructive pulmonary disease, unspecified; Z87.11 Personal history of peptic ulcer disease; E78.00 Pure hypercholesterolemia, unspecified; Z88.8 Allergy status to other drugs, medicaments and biological substances; Z79.899 Other long term (current) drug therapy; Z79.51 Long term (current) use of inhaled steroids
CPT/HCPCS: 36415; 71045; 71250; 80053; 83735; 83880; 84484; 85025; 87502; 93005; 93010; 94640; 96374; 99285-25; A9270; J2919; U0002

== ENCOUNTER 2024-08-30 14:30 | Emergency (ER) | payer OTHER ==
[~2024-08-30] VITALS: Ht 182.9 cm; Wt 122.5 kg
--- OUTSIDE RECORDS SUMMARY | ~2024-08-30 | XMS | Continuity of Care Document ---
Demographics + + + | Address | [address] | | | [place] [address] | + + + | Preferred Language | Unknown | + + + | Marital Status | Unknown | + + + | Baptism Affiliation | Unknown | + + + | Race | White | + + + | Ethnic Group | Unknown | + + + Author + + + | Author | [facility] | + + + | Organization | [facility] | + + + | Address | [address] | | | [place] [address] | + + + | Phone | | + + + Care Team Providers + + + + | Care Speech Pathology Supervisor Name | Role | Phone | + + + + Unavailable | Unavailable | + + + + Allergies No information. Encounters No information. Functional Status No information. Immunizations No information. Medications No information. Problems + + + + | date | description | facility | + + + + | 2024-08-13 11:15:02 | Cutaneous abscess of | [facility] | | | unspecified foot | | + + + + | 2024-08-13 11:15:02 | Cellulitis of unspecified | [facility] | | | part of limb | | + + + + | 2024-08-13 11:15:02 | Shortness of breath | [facility] | + + + + | 2024-08-13 11:15:02 | Localized edema | [facility] | + + + + | 2024-08-13 11:15:02 | Other specified abnormal | [facility] | | | findings of blood chemistry | | | | | | + + + + Procedures No information. Results/Labs +--------+--------+ +---------+--------+---------+ | test | date | facility | value | unit | notes | +--------+--------+ +---------+--------+---------+ + + | Result panel 1 | + + + + + + + + + | | 2024-07-22 | [facility] | (missing) | (missing) | Specimen | | MPV.BLD.QN.A | 03:12 | [facility] | | | clotted. | | [facility] | | Medical | | | This is a | | | | Center | | | corrected | | | | | | | result. | | | | | | | Previously | | | | | | | reported as | | | | | | | 105.37 K/uL | | | | | | | on 07/22/2024 | | | | | | | at 0355 | | | | | | | PST. | + + + + + + + | | 2024-07-22 | [facility] | (missing) | (missing) | Specimen | | MPV.BLD.QN.A | 03:12 | [facility] | | | clotted. | | [facility] | | [facility] | | | This is a | | | | Center | | | corrected | | | | | | | result. | | | | | | | Previously | | | | | | | reported as | | | | | | | 12.1 g/dL on | | | | | | | 07/22/2024 | | | | | | | at 0355 PST. | + + + + + + + | | 2024-07-22 | [facility] | (missing) | (missing) | Specimen | | MPV.BLD.QN.A | 03:12 | [facility] | | | clotted. | | [facility] | | | This is a | | | | Center | | | corrected | | | | | | | result. | | | | | | | Previously | | | | | | | reported as | | | | | | | 15.1 % on | | | | | | | 07/22/2024 at | | | | | | | 0355 PST. | + + + + + + + | | 2024-07-22 | [facility] | (missing) | (missing) | Specimen | | MPV.BLD.QN.A | 03:12 | [facility] | | | clotted. | | [facility] [place] | | | This is a | | | | Center | | | corrected | | | | | | | result. | | | | | | | Previously | | | | | | | reported as | | | | | | | 3.96 M/uL on | | | | | | | 07/22/2024 | | | | | | | at 0355 PST. | + + + + + + + | | 2024-07-22 | [facility] | (missing) | (missing) | Specimen | | MPV.BLD.QN.A | 03:12 | [facility] | | | clotted. | | [facility] [place] [facility] | [facility] | | | This is a | | | | Center | | | corrected | | | | | | | result. | | | | | | | Previously | | | | | | | reported as | | | | | | | 30.6 pg on | | | | | | | 07/22/2024 at | | | | | | | 0355 PST. | + + + + + + + | | 2024-07-22 | [facility] | (missing) | (missing) | Specimen | | MPV.BLD.QN.A | 03:12 | [facility] | | | clotted. | | [facility] [place] | [facility] | | | This is a | | | | Center | | | corrected | | | | | | | result. | | | | | | | Previously | | | | | | | reported as | | | | | | | 34.8 % on | | | | | | | 07/22/2024 at | | | | | | | 0355 PST. | + + + + + + + | | 2024-07-22 | [facility] | (missing) | (missing) | Specimen | | MPV.BLD.QN.A | 03:12 | [facility] | | | clotted. | | [facility] [place] [facility] | [facility] | | | This is a | | | | Center | | | corrected | | | | | | | result. | | | | | | | Previously | | | | | | | reported as | | | | | | | 34.8 g/dL on | | | | | | | 07/22/2024 | | | | | | | at 0355 PST. | + + + + + + + | | 2024-07-22 | [facility] | (missing) | (missing) | Specimen | | MPV.BLD.QN.A | 03:12 | [facility] | | | clotted. | | [facility] [place] | [facility] | | | This is a | | | | Center | | | corrected | | | | | | | result. | | | | | | | Previously | | | | | | | reported as | | | | | | | 48.2 fL on | | | | | | | 07/22/2024 at | | | | | | | 0355 PST. | + + + + + + + | | 2024-07-22 | [facility] | (missing) | (missing) | Specimen | | MPV.BLD.QN.A | 03:12 | [facility] | | | clotted. | | [facility] [place] [facility] | | | This is a | | | | Center | | | corrected | | | | | | | result. | | | | | | | Previously | | | | | | | reported as | | | | | | | 87.9 fL on | | | | | | | 07/22/2024 at | | | | | | | 0355 PST. | + + + + + + + | | 2024-07-22 | [facility] | (missing) | (missing) | Specimen | | MPV.BLD.QN.A | 03:12 | [facility] | | | clotted. | | [facility] [place] [facility] | | | This is a | | | | Center | | | corrected | | | | | | | result. | | | | | | | Previously | | | | | | | reported as | | | | | | | 97 K/uL on | | | | | | | 07/22/2024 at | | | | | | | 0355 PST. | + + + + + + + | | 2024-07-22 | [facility] | (missing) | (missing) | Unable to | | MPV.BLD.QN.A | 03:12 | [facility] | | | report due | | [facility] [place] | | [facility] | | | to abnormal | | | | Center | | | platelet | | | | | | | flags | + + + + + + + | | 2024-07-22 | [facility] | 105.37 | k/ul | (missing) | | MPV.BLD.QN.A | 03:12 | [facility] | | | | | [facility] [place] | [facility] | | | | | | | Center | | | | + + + + + + + | | 2024-07-22 | [facility] | 12.1 | g/dl | (missing) | | MPV.BLD.QN.A | 03:12 | [facility] | | | | | [facility] [place] | [facility] | | | | | | | Center | | | | + + + + + + + | | 2024-07-22 | [facility] | 15.1 | % | (missing) | | MPV.BLD.QN.A | 03:12 | [facility] | | | | | [facility] [place] | | | | | | | Center | | | | + + + + + + + | | 2024-07-22 | [facility] | 3.96 | m/ul | (missing) | | MPV.BLD.QN.A | 03:12 | [facility] | | | | | [facility] [place] | | | | | | | Center | | | | + + + + + + + | | 2024-07-22 | [facility] | 30.6 | pg | (missing) | | MPV.BLD.QN.A | 03:12 | [facility] | | | | | [facility] | | | | | | | Center | | | | + + + + + + + | | 2024-07-22 | [facility] | 34.8 | % | (missing) | | MPV.BLD.QN.A | 03:12 | [facility] | | | | | [facility] [place] | | | | | | | Center | | | | + + + + + + + | | 2024-07-22 | [facility] | 34.8 | g/dl | (missing) | | MPV.BLD.QN.A | 03:12 | [facility] | | | | | [facility] | | | | | | | Center | | | | + + + + + + + | | 2024-07-22 | [facility] | 48.2 | fl | (missing) | | MPV.BLD.QN.A | 03:12 | [facility] | | | | | [facility] | | | | | | | Center | | | | + + + + + + + | | 2024-07-22 | [facility] | 87.9 | fl | (missing) | | MPV.BLD.QN.A | 03:12 | [facility] | | | | | [facility] | | | | | | | Center | | | | + + + + + + + | | 2024-07-22 | [facility] | 97 | k/ul | (missing) | | MPV.BLD.QN.A | 03:12 | [facility] | | | | | [facility] | | | | | | | Center | | | | + + + + + + + + + | Result panel 2 | + + + + + +--------+ + + | EGFR | 2024-07-22 | [facility] | 0.2 | mg/dl | (missing) | | ML/MIN/1.73 | 03:13 | [facility] | | | | | S[facility] | | Medical | | | | | M.PREDICTED | | Center | | | | + + + +--------+ + + | EGFR | 2024-07-22 | [facility] | 0.6 | (missing) | (missing) | | ML/MIN/1.73 | 03:13 | [facility] | | | | | SQ | | Medical | | | | | M.PREDICTED | | Center | | | | + + + +--------+ + + | EGFR | 2024-07-22 | [facility] | 1.56 | mg/dl | (missing) | | ML/MIN/1.73 | 03:13 | [facility] | | | | | SQ | | Medical | | | | | M.PREDICTED | | Center | | | | + + + +--------+ + + | EGFR | 2024-07-22 | [facility] | 107 | mmol/l | (missing) | | ML/MIN/1.73 | 03:13 | [facility] | | | | | SQ | | Medical | | | | | M.PREDICTED | | Center | | | | + + + +--------+ + + | EGFR | 2024-07-22 | [facility] | 11 | u/l | (missing) | | ML/MIN/1.73 | 03:13 | [facility] | | | | | SQ | | Medical | | | | | M.PREDICTED | | Center | | | | + + + +--------+ + + | EGFR | 2024-07-22 | [facility] | 140 | mmol/l | (missing) | | ML/MIN/1.73 | 03:13 | [facility] | | | | | SQ | | Medical | | | | | M.PREDICTED | | Center | | | | + + + +--------+ + + | EGFR | 2024-07-22 | [facility] | 2.2 | g/dl | (missing) | | ML/MIN/1.73 | 03:13 | [facility] | | | | | SQ | | Medical | | | | | M.PREDICTED | | Center | | | | + + + +--------+ + + | EGFR | 2024-07-22 | [facility] | 21 | u/l | (missing) | | ML/MIN/1.73 | 03:13 | [facility] | | | | | SQ | | Medical | | | | | M.PREDICTED | | Center | | | | + + + +--------+ + + | EGFR | 2024-07-22 | [facility] | 24 | mmol/l | (missing) | | ML/MIN/1.73 | 03:13 | [facility] | | | | | SQ | | Medical | | | | | M.PREDICTED | | Center | | | | + + + +--------+ + + | EGFR | 2024-07-22 | [facility] | 24.4 | (missing) | (missing) | | ML/MIN/1.73 | 03:13 | [facility] | | | | | SQ | | Medical | | | | | M.PREDICTED | | Center | | | | + + + +--------+ + + | EGFR | 2024-07-22 | [facility] | 3.3 | mmol/l | (missing) | | ML/MIN/1.73 | 03:13 | [facility] | | | | | SQ | | Medical | | | | | M.PREDICTED | | Center | | | | + + + +--------+ + + | EGFR | 2024-07-22 | [facility] | 38 | mg/dl | (missing) | | ML/MIN/1.73 | 03:13 | [facility] | | | | | SQ | | Medical | | | | | M.PREDICTED | | Center | | | | + + + +--------+ + + | EGFR | 2024-07-22 | [facility] | 4.0 | g/dl | (missing) | | ML/MIN/1.73 | 03:13 | [facility] | | | | | SQ | | Medical | | | | | M.PREDICTED | | Center | | | | + + + +--------+ + + | EGFR | 2024-07-22 | [facility] | 40 | u/l | (missing) | | ML/MIN/1.73 | 03:13 | [facility] | | | | | SQ | | Medical | | | | | M.PREDICTED | | Center | | | | + + + +--------+ + + | EGFR | 2024-07-22 | [facility] | 49 | | GFR value | | ML/MIN/1.73 | 03:13 | [facility] | | ml/min/1.73m | was | | SQ | | Medical | | 2 | calculated | | M.PREDICTED | | Center | | | using a new | | | | | | | GFR equation | | | | | | | effective | | | | | | | since | | | | | | | 09/05/21. | | | | | | | This is a | | | | | | | recommendati | | | | | | | on of the | | | | | | | [place] | | | | | | | Society of | | | | | | | Nephrology | | | | | | | and National | | | | | | | Kidney | | | | | | | Foundation. | | | | | | | Clinical | | | | | | | practice | | | | | | | guidelines | | | | | | | suggest the | | | | | | | use of serum | | | | | | | cystatin C | | | | | | | as a | | | | | | | confirmatory | | | | | | | test for | | | | | | | eGFR 45-59 | | | | | | | ml/min/1.73m | | | | | | | 2 in adults | | | | | | | who do not | | | | | | | have markers | | | | | | | of kidney | | | | | | | disease; | | | | | | | eGFR may be | | | | | | | less | | | | | | | accurate in | | | | | | | this range. | + + + +--------+ + + | EGFR | 2024-07-22 | [facility] | 6.2 | g/dl | (missing) | | ML/MIN/1.73 | 03:13 | [facility] | | | | | SQ | | Medical | | | | | M.PREDICTED | | Center | | | | + + + +--------+ + + | EGFR | 2024-07-22 | [facility] | 8.3 | mg/dl | (missing) | | ML/MIN/1.73 | 03:13 | [facility] | | | | | SQ | | Medical | | | | | M.PREDICTED | | Center | | | | + + + +--------+ + + | EGFR | 2024-07-22 | [facility] | 89 | mg/dl | | | ML/MIN/1.73 | 03:13 | [facility] | | | | | SQ | | Medical | | | | | M.PREDICTED | | Center | | | | + + + +--------+ + + Social History +--------+ + + | date | description | facility | +--------+ + + Vital Signs No information."
[~2024-08-30 14:30] MED LIST changes: +VARENICLINE1 EACH PO
--- OUTSIDE RECORDS SUMMARY | 2024-08-30 14:37 | XMS ---
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 E.D. VISIT COUNT (12 MO.) [address] [facility] TOTAL 6 NOTE: Visits indicate total known visits. 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 - Personal history of peptic ulcer disease - Pure hypercholesterolemia, unspecified - Shortness of breath 07/30/2024 16:26 [facility] [place] TYPE: Emergency COMPLAINT: - FOOT PAIN DIAGNOSES: - Allergy status to other drugs, medicaments and biological substances - Cellulitis of right lower limb - Chronic obstructive pulmonary disease, unspecified - Elevated white blood cell count, unspecified - Other shelter (current) drug therapy - Pain in right foot 07/16/2024 23:42 [facility] [place] TYPE: Emergency COMPLAINT: - DIFFICULTY BREATHING 07/14/2024 11:08 [facility] [place] TYPE: Emergency COMPLAINT: - BLOOD COUNT LOW DIAGNOSES: - Abnormal finding of blood chemistry, unspecified - Allergy status to other drugs, medicaments and biological substances - Chronic obstructive pulmonary disease, unspecified - Edema, unspecified - Elevated white blood cell count, unspecified - Other shelter (current) drug therapy 07/06/2024 19:35 [facility] [place] TYPE: Emergency COMPLAINT: - SHORTNESS OF BREATH DIAGNOSES: - Allergy status to other drugs, medicaments and biological substances - Chronic obstructive pulmonary disease with (acute) lower respiratory infection - Other specified postprocedural states - Pneumonia, unspecified organism - Shortness of breath INPATIENT VISIT TRACKING (12 MO.) 08/03/2024 05: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 - Major depressive disorder, single episode, unspecified - Major depressive disorder, single episode, unspecified - Morbid (severe) obesity due to excess calories - Morbid (severe) obesity due to excess calories - 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
[2024-08-30 15:43] LABS: HEMATOCRIT 36.7 % (35.0-50.0); HEMOGLOBIN 11.9 g/dL (12.0-18.0); MCH 29.4 (27-36); MCHC 32.5 g/dl (30-36); MCV 90.5 fl (81-99); PLATELET COUNT 230 K/uL (140-440); RBC 4.06 M/ul (4.3-5.7); RDW 19.5 (10.5-15.0)
[2024-08-30 16:00] LABS: EOSINOPHILS, MANUAL DIFF 18; LYMPHOCYTES, MANUAL DIFF 10; NEUTROPHILS, MANUAL DIFF 72
[2024-08-30 16:06] LABS: ALBUMIN 2.8 g/dL (3.4-5.0); ALBUMIN/GLOBULIN RATIO 0.74 (1.1-2.4); ANION GAP 8.3 (7-21); BILIRUBIN, TOTAL 0.2 ng/dL (0.2-1.0); BUN/CREATININE RATIO 23.3 (6.0-28.6); CALCIUM 8.5 mg/dL (8.5-10.1); CREATININE, SERUM 1.03 mg/dL (0.70-1.30); POTASSIUM 4.3 mmol/L (3.5-5.1); PROTEIN, TOTAL 6.6 g/dL (6.4-8.2)
[2024-08-30] MEDS ORDERED: FUROSEMIDE 40 MG/4 ML VIAL IV ONE (17:00)
[2024-08-30] MEDS ORDERED: ZITHROMAX250 MG PO (17:58)
[2024-08-30] MEDS ORDERED: K-TAB ER20 MEQ PO (17:58)
[2024-08-30] MEDS ORDERED: LASIX20 MG PO (17:58)
[2024-08-30] MEDS ORDERED: AZITHROMYCIN 250 MG TAB PO ONE (18:00)
[2024-08-30 18:10] VITALS: BP 128/73
--- NOTE | 2024-09-04 10:05 | EKG ---
[facility] [address] [place] [address] Signed Normal sinus rhythm Normal ECG When compared with ECG of 02-AUG-2024 14:03, No significant change was found Confirmed by Nabor Juarez DO ([id number]) on 09/04/2024 10:04:58 AM Electronically Signed By: NABOR JUAREZ DO 09/04/24 1005 PATIENT NAME: DAMARI LARA TENZIN Electrocardiogram DATE OF : 58 PHYSICIAN: NABOR JUAREZ DO REPORT #: [id number] REPORT IS CONFIDENTIAL AND NOT TO BE RELEASED WITHOUT AUTHORIZATION
== END 2024-08-30 18:13 | disposition home or self-care (01) ==
LOC: ED 14:30
PROVIDERS: Emergency Medicine
DX: R06.02 Shortness of breath (principal); J44.9 Chronic obstructive pulmonary disease, unspecified; Z88.8 Allergy status to other drugs, medicaments and biological substances; Z79.899 Other long term (current) drug therapy
CPT/HCPCS: 36415; 51798; 71045; 80053; 83735; 83880; 84484; 85025; 93005; 93010; 96374; 99285-25; J1940

== ENCOUNTER 2024-10-02 12:43 | Emergency (ER) | payer OTHER ==
[~2024-10-02] VITALS: Ht 182.9 cm; Wt 126.6 kg
[2024-10-02 13:31] LABS: BASOPHILS 0.8 % (0-2); EOSINOPHILS 6.6 % (0-6); HEMATOCRIT 42.2 % (35.0-50.0); HEMOGLOBIN 13.8 g/dL (12.0-18.0); LYMPHOCYTES 17.8 % (24-44); MCH 29.5 (27-36); MCHC 32.7 g/dl (30-36); MCV 90.3 fl (81-99); MONOCYTES 9.3 % (0-12); NEUTROPHILS 65.5 % (39-80); PLATELET COUNT 298 K/uL (140-440); RBC 4.67 M/ul (4.3-5.7); RDW 16.9 (10.5-15.0)
[2024-10-02 13:54] LABS: ALBUMIN 3.3 g/dL (3.4-5.0); ALBUMIN/GLOBULIN RATIO 0.73 (1.1-2.4); ANION GAP 10.8 (7-21); BILIRUBIN, TOTAL 0.2 mg/dL (0.2-1.0); BUN/CREATININE RATIO 23.63 (6.0-28.6); CALCIUM 9.3 mg/dL (8.5-10.1); CREATININE, SERUM 1.1 mg/dL (0.70-1.30); MAGNESIUM 2.1 mg/dL (1.8-2.4); POTASSIUM 4.8 mmol/L (3.5-5.1); PROTEIN, TOTAL 7.8 g/dL (6.4-8.2)
[2024-10-02] MEDS ORDERED: LIDOCAINE & ANTACID 35 ML BTL PO ONE (16:30)
[2024-10-02] MEDS ORDERED: ALBUTEROL/IPRATROPIUM 3 ML NEB INH ONE (16:30)
[2024-10-02 17:23] VITALS: BP 143/99
== END 2024-10-02 17:21 | disposition home or self-care (01) ==
LOC: ED 12:43
PROVIDERS: Emergency Medicine
DX: J44.9 Chronic obstructive pulmonary disease, unspecified (principal); E78.00 Pure hypercholesterolemia, unspecified; Z88.8 Allergy status to other drugs, medicaments and biological substances; Z79.51 Long term (current) use of inhaled steroids; Z79.899 Other long term (current) drug therapy
CPT/HCPCS: 36415; 71045; 71260; 80053; 83735; 83880; 84484; 85025; 85379; 93005; 93010; 93971; 94640; 99285-25; Q9967

== ENCOUNTER 2024-12-15 14:27 | Emergency (ER) | payer MEDICARE, OTHER ==
[~2024-12-15] VITALS: Ht 182.9 cm; Wt 131.8 kg
[~2024-12-15 14:27] MED LIST changes: +ALBUTEROL2.5 MG/3 M INH; +FUROSEMIDE20 MG PO; +PREDNISONE20 MG PO; +ZITHROMAX250 MG PO
--- OUTSIDE RECORDS SUMMARY | 2024-12-15 14:34 | XMS ---
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 [facility] VISIT COUNT (12 MO.) 8 [facility] TOTAL 8 NOTE: Visits indicate total known visits. ED/UCC VISIT TRACKING (12 MO.) 12/15/2024 14:28 [facility] [place] TYPE: Emergency COMPLAINT: - RT FOOT SWELLING 10/02/2024 12:[address] [facility] [place] TYPE: Emergency COMPLAINT: - SHORTNESS OF BREATH DIAGNOSES: - Allergy status to other drugs, medicaments and biological substances - Chronic obstructive pulmonary disease, unspecified - senior living (current) use of inhaled steroids - Other hand grinder (current) drug therapy - Pure hypercholesterolemia, unspecified - Shortness of breath 08/30/2024 14:[address] [facility] [place] TYPE: Emergency COMPLAINT: - SHORTNESS OF BREATH DIAGNOSES: - Allergy status to other drugs, medicaments and biological substances - Chronic obstructive pulmonary disease, unspecified - Other hand grinder (current) drug therapy - Shortness of breath 08/02/2024 13:[address] [facility] [place] TYPE: Emergency COMPLAINT: - TROUBLE BREATHING DIAGNOSES: - Allergy status to other drugs, medicaments and biological substances - Chronic obstructive pulmonary disease, unspecified - Leukemia, unspecified not having achieved remission - mirror inspector (current) use of inhaled steroids - Malignant pleural effusion - Other hand grinder (current) drug therapy - Personal history of peptic ulcer disease - Pure hypercholesterolemia, unspecified - Shortness of breath 07/30/2024 16:26 [facility] [place] TYPE: Emergency COMPLAINT: - FOOT PAIN DIAGNOSES: - Allergy status to other drugs, medicaments and biological substances - Cellulitis of right lower limb - Chronic obstructive pulmonary disease, unspecified - Elevated white blood cell count, unspecified - Other hand grinder (current) drug therapy - Pain in right [...] white blood cell count, unspecified - Other senior care (current) drug therapy 07/06/2024 19:[address] [facility] [place] TYPE: Emergency COMPLAINT: [...] tophaceous disease - Other eosinophilia 07/17/2024 01:[address] [facility] [place] TYPE: Critical Care COMPLAINT: - HYPOXIA [...] - Hyperlipidemia, unspecified - Hyperlipidemia, unspecified - mirror inspector (current) use of inhaled steroids - mirror inspector (current) use of inhaled steroids - Major depressive disorder, single episode, unspecified - Major depressive disorder, single episode, unspecified - Morbid (severe) obesity due to excess calories - Morbid (severe) obesity due to excess calories - Other senior care (current) drug therapy - Other senior care (current) drug therapy - Personal history of nicotine dependence - Personal history of nicotine dependence - Pleural effusion, not elsewhere classified - Pleural effusion, not elsewhere classified - Pneumonia, unspecified organism - Pneumonia, unspecified organism [email or web address]
[2024-12-15 15:15] LABS: BASOPHILS 0.5 % (0-2); EOSINOPHILS 0.2 % (0-6); HEMATOCRIT 45.1 % (35.0-50.0); HEMOGLOBIN 15.4 g/dL (12.0-18.0); LYMPHOCYTES 5.2 % (24-44); MCH 28.6 (27-36); MCV 84.1 fl (81-99); MONOCYTES 5.8 % (0-12); NEUTROPHILS 88.3 % (39-80); PLATELET COUNT 206 K/uL (140-440); RBC 5.37 M/ul (4.3-5.7); RDW 14.2 (10.5-15.0)
[2024-12-15] MEDS ORDERED: MORPHINE SULFATE 4 MG/ML VIAL IV ONE (15:15)
[2024-12-15] MEDS ORDERED: DAPTOmycin 500 MG/10 ML VIAL IV ONE (15:15)
[2024-12-15] MEDS ORDERED: SPIRIVA RESPIMAT4 GM INH (15:18)
[2024-12-15 15:27] LABS: INR 1.07 (0.80-1.30); PROTIME 13.5 Sec (11.2-14.2)
[2024-12-15 15:32] LABS: ALBUMIN/GLOBULIN RATIO 0.63 (1.1-2.4); ANION GAP 10.5 (7-21); BILIRUBIN, TOTAL 0.3 mg/dL (0.2-1.0); BUN/CREATININE RATIO 15.27 (6.0-28.6); CALCIUM 8.6 mg/dL (8.5-10.1); CREATININE, SERUM 1.44 mg/dL (0.70-1.30); POTASSIUM 4.5 mmol/L (3.5-5.1); PROTEIN, TOTAL 7.8 g/dL (6.4-8.2)
[2024-12-15] MEDS ORDERED: ACETAMINOPHEN 500 MG TAB PO ONE (16:30)
[2024-12-15] MEDS ORDERED: HYDROmorphone HCL 1 MG/ML SYR IV PRN (17:15)
[2024-12-15] MEDS ORDERED: LACTATED RINGER'S 1,000 ML IV ONE (17:15)
[2024-12-15 17:27] LABS: BILIRUBIN, URINE NEGATIVE (negative); BLOOD/HGB, URINE LARGE (Negative); KETONE, URINE NEGATIVE (Negative); LEUK ESTERASE, URINE NEGATIVE (negative); NITRITE, URINE NEGATIVE (negative)
[2024-12-15 17:34] LABS: BACTERIA, URINE NONE SEEN /hpf (negative); CASTS, URINE NONE SEEN \\lpf; COLLECTION TYPE, URINE CLEAN CATCH; CRYSTALS, URINE NONE SEEN (0-1+); EPITHELIAL CELLS, URINE NONE SEEN /lpf (0-1+); REFLEX CULTURE, URINE No (No)
[2024-12-15] MEDS ORDERED: DOXYCYCLINE HY100 MG PO (17:48)
[2024-12-15] MEDS ORDERED: BACTRIM DS TAB1 EACH PO (17:48)
[2024-12-15] MEDS ORDERED: PERCOCET 5-3251 EACH PO (17:48)
[2024-12-15 18:07] VITALS: BP 136/84
== END 2024-12-15 18:07 | disposition home or self-care (01) ==
LOC: ED 14:27
PROVIDERS: Family Medicine
DX: L03.115 Cellulitis of right lower limb (principal); J44.9 Chronic obstructive pulmonary disease, unspecified; E78.00 Pure hypercholesterolemia, unspecified; Z79.51 Long term (current) use of inhaled steroids; Z79.899 Other long term (current) drug therapy; Z88.8 Allergy status to other drugs, medicaments and biological substances
CPT/HCPCS: 36415; 80053; 81001; 83605; 85025; 85610; 93971; 96374; 96375; 99284-25; A9270; J0878; J1171; J2270; J7121

== ENCOUNTER 2024-12-17 15:00 | Observation (INO) | payer MEDICARE, OTHER ==
[~2024-12-17] VITALS: Ht 182.9 cm; Wt 129.8 kg
[~2024-12-17 15:00] MED LIST changes: +BACTRIM DS TAB1 EACH PO; +DOXYCYCLINE HY100 MG PO; +PERCOCET 5-3251 EACH PO; +SPIRIVA RESPIMAT4 GM INH
--- OUTSIDE RECORDS SUMMARY | 2024-12-17 15:06 | XMS ---
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 [facility] VISIT COUNT (12 MO.) 9 [facility] TOTAL 9 NOTE: Visits indicate total known visits. ED/UCC VISIT TRACKING (12 MO.) 12/17/2024 15:00 [facility] [place] TYPE: Emergency COMPLAINT: - LEG ISSUE 12/15/2024 14:28 [facility] [place] TYPE: Emergency COMPLAINT: - RT FOOT SWELLING DIAGNOSES: - Allergy status to other drugs, medicaments and biological substances - Cellulitis of right lower limb - Chronic obstructive pulmonary disease, unspecified - Erythematous condition, unspecified - senior care (current) use of inhaled steroids - Other fci (current) drug therapy - Pure hypercholesterolemia, unspecified 10/02/2024 12:44 [facility] [place] TYPE: Emergency COMPLAINT: - SHORTNESS OF BREATH DIAGNOSES: - Allergy status to other drugs, medicaments and biological substances - Chronic obstructive pulmonary disease, unspecified - senior care (current) use of inhaled steroids - Other remote computer terminal operator (current) drug therapy - Pure hypercholesterolemia, unspecified - Shortness of breath 08/30/2024 14:31 [facility] [place] TYPE: Emergency COMPLAINT: - SHORTNESS OF BREATH DIAGNOSES: - Allergy status to other drugs, medicaments and biological substances - Chronic obstructive pulmonary disease, unspecified - Other fci (current) drug therapy - Shortness of breath 08/02/2024 13:25 [facility] [place] TYPE: Emergency COMPLAINT: - TROUBLE BREATHING DIAGNOSES: - Allergy status to other drugs, medicaments and biological substances - Chronic obstructive pulmonary disease, unspecified - Leukemia, unspecified not having achieved remission - senior care (current) use of inhaled steroids - Malignant pleural effusion - Other fci (current) drug therapy - Personal history of peptic ulcer disease - Pure hypercholesterolemia, unspecified - Shortness of breath 07/30/2024 16:26 [facility] [place] TYPE: Emergency COMPLAINT: - FOOT PAIN DIAGNOSES: - Allergy status to other drugs, medicaments and biological substances - Cellulitis of right lower limb - Chronic obstructive pulmonary disease, unspecified - Elevated white blood cell count, unspecified - Other fci (current) drug therapy - Pain in right foot 07/16/2024 23:42 [facility] [place] TYPE: Emergency COMPLAINT: - DIFFICULTY BREATHING 07/14/2024 11:08 [facility] TYPE: Emergency COMPLAINT: - BLOOD COUNT LOW DIAGNOSES: - Abnormal finding of blood chemistry, unspecified - Allergy status to other drugs, medicaments and biological substances - Chronic obstructive pulmonary disease, unspecified - Edema, unspecified - Elevated white blood cell count, unspecified - Other fci (current) drug therapy 07/06/2024 19:35 [facility] TYPE: Emergency COMPLAINT: - SHORTNESS OF BREATH [...] - Shortness of breath 07/22/2024 00:56 [facility] [place] TYPE: Oncology DIAGNOSES: - Chronic [...] - Hyperlipidemia, unspecified - Hyperlipidemia, unspecified - terminal gauger (current) use of inhaled steroids - terminal gauger (current) use of inhaled steroids - Major depressive disorder, single episode, unspecified - Major depressive disorder, single episode, unspecified - Morbid (severe) obesity due to excess calories - Morbid (severe) obesity due to excess calories - Other fci (current) drug therapy - Other remote computer terminal operator (current) drug therapy - Personal history of nicotine dependence - Personal history of nicotine dependence - Pleural effusion, not elsewhere classified - Pleural effusion, not elsewhere classified - Pneumonia, unspecified organism - Pneumonia, unspecified organism [email or web address]
[2024-12-17 17:12] LABS: BASOPHILS 0.4 % (0-2); EOSINOPHILS 0.6 % (0-6); HEMATOCRIT 41.7 % (35.0-50.0); LYMPHOCYTES 7.9 % (24-44); MCH 28.3 (27-36); MCHC 33.7 g/dl (30-36); MCV 84.1 fl (81-99); MONOCYTES 7.8 % (0-12); NEUTROPHILS 83.3 % (39-80); PLATELET COUNT 220 K/uL (140-440); RBC 4.95 M/ul (4.3-5.7); RDW 14.5 (10.5-15.0)
[2024-12-17 17:22] LABS: ALBUMIN 2.5 g/dL (3.4-5.0); ALBUMIN/GLOBULIN RATIO 0.47 (1.1-2.4); ANION GAP 10.3 (7-21); BILIRUBIN, TOTAL 0.2 mg/dL (0.2-1.0); BUN/CREATININE RATIO 12.57 (6.0-28.6); CALCIUM 8.7 mg/dL (8.5-10.1); CREATININE, SERUM 1.75 mg/dL (0.70-1.30); POTASSIUM 4.3 mmol/L (3.5-5.1); PROTEIN, TOTAL 7.8 g/dL (6.4-8.2)
[2024-12-17] MEDS ORDERED: HYDROmorphone HCL 1 MG/ML SYR IV PRN (18:15)
[2024-12-17] MEDS ORDERED: LACTATED RINGER'S 1,000 ML IV SCH (18:30)
[2024-12-17] MEDS ORDERED: ondansetron HCL 4 MG/2 ML VIAL IV PRN (18:30)
[2024-12-17] MEDS ORDERED: ACETAMINOPHEN 325 MG TAB PO PRN (18:30)
[2024-12-17] MEDS ORDERED: bisacodyL 10 MG SUPP PR PRN (18:30)
[2024-12-17] MEDS ORDERED: DAPTOmycin 500 MG/10 ML VIAL IV SCH ×2 (18:34→22:00)
[2024-12-17] MEDS ORDERED: ALBUTEROL SULFATE 0.083% 3 ML VIAL INH PRN (19:15)
[2024-12-17] MEDS ORDERED: CEFEPIME HCL 1 GM in SODIUM CHLORIDE 0.9% 100 ML IV ONE (19:15)
[2024-12-17] MEDS ORDERED: ALBUTEROL/IPRATROPIUM 3 ML NEB INH SCH (20:00)
--- NOTE | 2024-12-17 20:00 | NUR ---
PATIENT TO THE FLOOR BY APPLICATION SOFTWARE ENGINEER. PATIENT TRANSFERRED FROM STRETCHER TO BED WITH 1PA. BED WEIGHT AND VS OBTAINED AND RECORDED. RLE ELEVATED ON 3 PILLOWS. PATIENT EDUCATED TO ROOM AND CALL LIGHT. PATIENT HAS NO FURTHER NEEDS. [facility].
[2024-12-17 20:12] VITALS: BP 127/84
--- NOTE | 2024-12-17 20:33 | NUR ---
PT'S OWN HOME MED PERCOCET, 8 TABLETS INVENTORIED, SENT HOME W/ PT'S FRIEND SKYLER.
[2024-12-17] MEDS ORDERED: PANTOPRAZOLE SODIUM 40 MG TABEC PO SCH (21:00)
[2024-12-17] MEDS ORDERED: MELATONIN 3 MG TAB PO PRN (21:00)
[2024-12-17] MEDS ORDERED: HEParin SOD (PORCINE) 5,000 UNIT/ML SDV SUB-Q SCH (21:00)
[2024-12-17] MEDS ORDERED: CEFEPIME HCL 1 GM in SODIUM CHLORIDE 0.9% 100 ML IV SCH (21:00)
[2024-12-17] MEDS ORDERED: DULOXETINE HCL 30 MG CAP PO SCH (21:00)
--- NOTE | 2024-12-17 21:53 | NUR ---
CALL LIGHT ANSWERED. PT NEEDED TO USE BATHROOM. SENIOR PRODUCT ANALYST SBA PT TO STAND AT EDGE OF BED AND USE URINAL. PT VOIDED AND BACK IN BED. PT REQUESTING PAIN MED FOR 1/10 PAIN. RN NOTIFED. PT STATES NO FURTHER NEEDS AT THIS TIME. CALL LIGHT WITHIN REACH.
--- NOTE | 2024-12-17 21:55 | NUR ---
SCHEDULED MEDICATION ADMINISTERED. PATIENT REPORTING 10/10 RLE PAIN. PRN PAIN MEDICATION ADMINISTERED PER PATIENT REQUEST. ASSESSMENT COMPLETE. RLE ELEVATED ON 3 PILLOWS. STRONG PULSES NOTED IN BLE. PATIENT HAS SCAB ON RIGHT HAND AND STATES "IT IS FROM A SPIDER BITE I THINK". CPOX IN PLACE. ICE WATER PROVIDED. PATIENT HAS NO FURTHER NEEDS. CALL LIGHT IN REACH.
--- NOTE | 2024-12-17 22:42 | NUR ---
PT RECEIVED IV DAPTO PER EMAR. PT REQUESTED POPSICLE, PROVIDED.
[2024-12-18 00:12] VITALS: BP 123/83
--- NOTE | 2024-12-18 00:18 | NUR ---
CALL LIGHT ANSWERED. PT NEEDED TO USE BATHROOM. FUNNEL SETTER ASSISTED PT TO STAND AT BEDSIDE. PT USED URIANL AND NOW BACK IN BED. VITALS AND I&O OBTAINED AND DOCUMENTED. PT GIVEN POPSICLE UPON REQUEST. PT STATES NO FURTHER NEEDS AT THIS TIME. CALL LIGHT WITHIN REACH.
[2024-12-18] MEDS ORDERED: CEFEPIME HCL 1 GM in SODIUM CHLORIDE 0.9% 100 ML IV SCH (01:00)
--- NOTE | 2024-12-18 01:15 | NUR ---
PATIENT RESTING IN BED. NEW BAG IV ABX INFUSING PER ORDER. NO FURTHER NEEDS. CALL LIGHT IN REACH.
[2024-12-18 01:21] VITALS: BP 123/83
--- NOTE | 2024-12-18 02:47 | NUR ---
DAMARI IS ASLEEP ON ROOM AIR.
--- NOTE | 2024-12-18 03:26 | NUR ---
CALL LIGHT ANSWERED. PT NEEDED TO HAVE BM. SANDING LINE OPERATOR SBA TO BATHROOM. PT INSTRUCTED TO USE BATHROOM CALL LIGHT WHEN FINSIHED. BATHROOM CALL LIGHT ANSWERED. PT AMBULATED BACK TO BED. ICE WATER REFILLED AND PT STATES NO FURTHER NEEDS AT THIS TIME. CALL LIGHT WITHIN REACH.
[2024-12-18 05:09] VITALS: BP 126/71
--- NOTE | 2024-12-18 05:12 | NUR ---
SHIFT MANAGER OBTAINED VITALS AND I&O. PT STATES NO NEEDS AT THIS TIME. CALL LIGHT WITHIN REACH.
[2024-12-18 05:15] LABS: BASOPHILS 0.5 % (0-2); EOSINOPHILS 1.2 % (0-6); HEMATOCRIT 37.6 % (35.0-50.0); HEMOGLOBIN 12.8 g/dL (12.0-18.0); LYMPHOCYTES 10.2 % (24-44); MCH 28.2 (27-36); MCV 83.1 fl (81-99); MONOCYTES 8.2 % (0-12); NEUTROPHILS 79.9 % (39-80); PLATELET COUNT 229 K/uL (140-440); RBC 4.53 M/ul (4.3-5.7); RDW 14.4 (10.5-15.0)
--- NOTE | 2024-12-18 05:24 | NUR ---
NEW BAG IV FLUID INFUSING PER ORDER. PATIENT HAS NO FURTHER NEEDS. CALL LIGHT IN REACH.
[2024-12-18 05:35] LABS: ALBUMIN 2.2 g/dL (3.4-5.0); ALBUMIN/GLOBULIN RATIO 0.46 (1.1-2.4); BILIRUBIN, TOTAL 0.3 mg/dL (0.2-1.0); BUN/CREATININE RATIO 13.88 (6.0-28.6); CALCIUM 8.3 mg/dL (8.5-10.1); CREATININE, SERUM 1.44 mg/dL (0.70-1.30)
--- NOTE | 2024-12-18 06:45 | NUR ---
PATIENT RESTING IN BED. IV ABX INFUSING PER ORDER. NO FURTHER NEEDS. CALL LIGHT IN REACH.
--- NOTE | 2024-12-18 07:15 | NUR ---
Pt report received from LENCHO Palmer. Pt is resting supine in bed, RLE elevated on 3 pillows. RLE is red, edematous, and warm. Pt requests fresh coffee which was provided, denied other needs at this time. White board updated, side rails up, call light in reach.
--- NOTE | 2024-12-18 08:16 | NUR ---
PATIENT REQUESTED COFFEE AND CREAMER. SBA TO THE BATHROOM. PATIENT RETURNED TO BED ONCE DONE TO FINISH BREAKFAST.
[2024-12-18 09:41] VITALS: BP 128/58
--- NOTE | 2024-12-18 10:04 | NUR ---
UR CLINICAL REVIEW: 2MN MARILYN, MEETS OBS FOR CELLULITIS IV FLUIDS, TREND LABS, IV ANTIBIOTICS, WOUND CONSULT MEDICARE OBS 12/17/24 @ 1837 ORDER MATCHES REG NO AUTH REQUIRED PER MEDICARE RULES LIKELY DC TO HOME TODAY.
--- NOTE | 2024-12-18 10:09 | NUR ---
INTO SEE PATIENT. PERSONAL HEALTH INFORMATION REVIEWED. PATIENT LIVES IN A TWO STORY HOME. DENIES DIFFCULTY DOING THEM. PATIENT USES WALKER AT HOME. HAS A NEBULIZER BUT DOES NOT USE OXYGEN OR CPAP. PATIENT DRIVES. DENIES DIFFCULTY PAYING UTLITIES OR OBTAINING FOOD. HAS USED [employer] AND IS AWARE OF SERVICES IF NEEDS THEM. DENIES ANY CM NEEDS AT THIS TIME.
[2024-12-18] MEDS ORDERED: AMOX TR-K CLV1 EAC1 PO (10:14)
[2024-12-18] MEDS ORDERED: HYDROCODON-ACE1 EA11 PO (10:15)
--- NOTE | 2024-12-18 11:07 | NUR ---
MED REC COMPLETE
[2024-12-18] MEDS ORDERED: LASIX20 MG PO (11:08)
[2024-12-18 11:21] VITALS: BP 116/79
[2024-12-18 11:30] VITALS: BP 116/79
[2024-12-18] MEDS ORDERED: PHARMACY RENAL DOSE ADJUSTMENT 1 DOSE MISC PO SCH (12:00)
[2024-12-18] MEDS ORDERED: ATORVASTATIN 20 MG TAB PO SCH (17:00)
[2024-12-18] MEDS ORDERED: DAPTOmycin 500 MG/10 ML VIAL IV SCH (21:00)
== END 2024-12-18 11:30 | disposition home or self-care (01) ==
LOC: ED 15:00 → MS 15:01
PROVIDERS: Emergency Medicine; ADMIT Student in an Organized Health Care Education/Training Program; ATTEND Student in an Organized Health Care Education/Training Program
DX: L03.115 Cellulitis of right lower limb (principal); J44.9 Chronic obstructive pulmonary disease, unspecified; F32.9 Major depressive disorder, single episode, unspecified; I10 Essential (primary) hypertension; M10.9 Gout, unspecified; N17.9 Acute kidney failure, unspecified; E78.00 Pure hypercholesterolemia, unspecified; Z88.8 Allergy status to other drugs, medicaments and biological substances; Z79.899 Other long term (current) drug therapy
CPT/HCPCS: 36415; 80053; 83735; 85025; 94640; 94762; 96366; 96372; 96375; 96376; A9270; G0378; J0692; J0878; J1171; J1644; J7121

== ENCOUNTER 2025-01-21 23:42 | Inpatient (IN) | payer MEDICARE, OTHER ==
[~2025-01-21] VITALS: Ht 182.9 cm; Wt 123.4 kg
[~2025-01-21 23:42] MED LIST changes: +AMOX TR-K CLV1 EAC1 PO; +HYDROCODON-ACE1 EA11 PO
[2025-01-21] MEDS ORDERED: FUROSEMIDE 40 MG/4 ML VIAL IV ONE (23:45)
[2025-01-21] MEDS ORDERED: NITROGLYCERIN PACKET TOP ONE (23:45)
[2025-01-21] MEDS ORDERED: methylPREDNISolone SOD SUCC 125 MG/2 ML VIAL IV ONE (23:45)
[2025-01-21] MEDS ORDERED: ALBUTEROL/IPRATROPIUM 3 ML NEB INH ONE (23:45)
--- OUTSIDE RECORDS SUMMARY | 2025-01-21 23:48 | XMS ---
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 Sinan VISIT COUNT (12 MO.) 10 [facility] TOTAL 10 NOTE: Visits indicate total known visits. 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 - Pain in right lower leg - Pure hypercholesterolemia, unspecified 10/02/2024 12:44 [facility] [place] TYPE: Emergency COMPLAINT: - SHORTNESS OF BREATH DIAGNOSES: - Allergy status to other drugs, medicaments and biological substances - Chronic obstructive pulmonary disease, unspecified - termination clerk (current) use of inhaled steroids - 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 - Pure hypercholesterolemia, unspecified - Shortness of breath 08/30/2024 14:31 [facility] [place] TYPE: Emergency COMPLAINT: - SHORTNESS OF BREATH DIAGNOSES: - Allergy status to other drugs, medicaments and biological substances - Chronic obstructive pulmonary disease, unspecified - 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 [place] TYPE: Emergency COMPLAINT: - FOOT PAIN DIAGNOSES: - Allergy status to other drugs, medicaments and biological substances - Cellulitis of right lower limb - Chronic obstructive pulmonary disease, unspecified - Elevated white blood cell count, unspecified - Other [place] [facility] (current[facility] drug therapy - Pain in right foot 07/16/2024 23:42 [facility] [place] TYPE: Emergency COMPLAINT: - DIFFICULTY BREATHING 07/14/2024 11:08 [facility] [place] TYPE: Emergency COMPLAINT: - BLOOD COUNT LOW DIAGNOSES: - Abnormal finding of blood chemistry, unspecified - Allergy status to other drugs, medicaments and biological substances - Chronic obstructive pulmonary disease, unspecified - Edema, unspecified - Elevated white blood cell count, unspecified - 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 07/06/2024 19:35 [facility] [place] TYPE: Emergency COMPLAINT: - SHORTNESS OF BREATH DIAGNOSES: - Allergy status to other drugs, medicaments and biological substances - Chronic obstructive pulmonary disease with (acute) lower respiratory infection - Other specified postprocedural states - Pneumonia, unspecified organism - Shortness of breath INPATIENT VISIT TRACKING (12 MO.) 12/17/2024 15:01 [facility] [place] TYPE: Observation COMPLAINT: - RLE CELLULITIS DIAGNOSES: - Acute kidney failure, unspecified - Allergy status to other drugs, medicaments and biological substances - Cellulitis of right lower limb - Chronic obstructive pulmonary disease, unspecified - Essential (primary) hypertension - Gout, unspecified - Major depressive disorder, single episode, unspecified - [facility] [place] 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
[2025-01-22] VITALS (16 sets, daily range): BP systolic 94–151; BP diastolic 54–102
[2025-01-22 00:03] LABS: PH, VENOUS 7.394 (7.31-7.41)
[2025-01-22 00:04] LABS: BASOPHILS 0.5 % (0.2-1.2); EOSINOPHILS 1.5 % (0.8-7.0); HEMATOCRIT 41.2 % (40.1-51.0); HEMOGLOBIN 13.5 g/dL (13.7-17.5); LYMPHOCYTES 8.2 % (21.8-53.1); MCH 27.4 PG (25.7-32.2); MCHC 32.8 g/dL (32.3-36.5); MCV 83.6 fL (79.0-92.2); MONOCYTES 6.1 % (5.3-12.2); NEUTROPHILS 80.7 % (34.0-67.9); PLATELET COUNT 324 K/uL (163-337); RBC 4.93 M/uL (4.63-6.08)
[2025-01-22 00:28] LABS: ALBUMIN 2.6 g/dL (3.4-5.0); ALBUMIN/GLOBULIN RATIO 0.48 (1.1-2.4); ANION GAP 12.4 (7-21); BILIRUBIN, TOTAL 0.3 mg/dL (0.2-1.0); BUN/CREATININE RATIO 13.59 (6.0-28.6); CALCIUM 8.3 mg/dL (8.5-10.1); CREATININE, SERUM 2.06 mg/dL (0.70-1.30); POTASSIUM 4.4 mmol/L (3.5-5.1)
[2025-01-22] MEDS ORDERED: LORazepam 2 MG/ML VIAL IV ONE (00:45)
[2025-01-22] MEDS ORDERED: ACETAMINOPHEN 325 MG TAB PO ONE (03:15)
[2025-01-22] MEDS ORDERED: ondansetron HCL 4 MG/2 ML VIAL IV PRN ×2 (03:45→09:00)
[2025-01-22] MEDS ORDERED: DAPTOmycin 500 MG/10 ML VIAL IV ONE (03:45)
[2025-01-22] MEDS ORDERED: LORazepam 2 MG/ML VIAL IV PRN (03:45)
[2025-01-22] MEDS ORDERED: ALBUTEROL SULFATE 0.083% 3 ML VIAL INH PRN ×2 (03:45→04:15)
[2025-01-22] MEDS ORDERED: MORPHINE SULFATE 4 MG/ML VIAL IV PRN (03:45)
[2025-01-22] MEDS ORDERED: ACETAMINOPHEN 325 MG TAB PO PRN ×2 (03:45→09:00)
--- NOTE | 2025-01-22 05:10 | NUR ---
PATIENT ARRIVED TO THE UNIT VIA STRETCHER AT 0400 PATIENT IS LETHARGIC; WAKES BREIFLY TO STRONG VERBAL STIMULI. PATIENT TRANSFERED TO BED WITH 3 PERSON ASSIST VIA SLIDER SHEET. PATIENT IS DIAPHORETIC. GOWN CHANGED. ORAL TEMP WNL. PATIENT TOLERATING 4L NC. LUNG SOUNDS DIMINSIHED THROUGHOUT; CLEAR IN UPPERS. ABD IS LARGE, ROUND AND SOFT. BOWEL SOUNDS ACTIVE. REDNESS NOTED IN THIGH/GROIN FOLDERS. AREA CLEANS AND ABSORBANT PADS PLACE. 2+ PITTING EDEMA NOTED IN HONG LOWER EXTREMITITES. 3+ EDEMA ON HONG FEET. IV SITES WNL X2. VS STABLE. PATIENT ABLE TO TURN HIMSELF TO SIDE TO GET COMFORTABLE. CALL LIGHT IN REACH. PATIENT IN DIRECT VIEW OF NURSES STATION.
[2025-01-22] MEDS ORDERED: methylPREDNISolone SOD SUCC 125 MG/2 ML VIAL IV SCH (06:00)
--- NOTE | 2025-01-22 06:10 | NUR ---
PATIENT RESTLESS IN BED. MORE ALERT AT THIS TIME BUT FORGETFUL. ORIENTED TO SELF AND SOURROUNDS; NOT THE DATE. DOESN'T HOLD LONG CONVERSATION. REPORTS "I'M A MESS, I FEEL LIKE A MESS". CARDIAC LEADS REPLACED; PATIENT IS DIAPHORETIC. DENIES CHEST PAIN. VS STABLE. DENIED ANY NEEDS. COVERED WITH SHEET. CALL LIGHT IN REACH.
--- NOTE | 2025-01-22 07:50 | NUR ---
PT USES CALL LIGHT TO REPORT NEEDING TO URINATE. PT ABLE TO SIT UP ON EDGE OF BED AND THEN STAND USING A FWW FOR STABILITY. PT STATES WISHES TO AMBULATE TO BATHROOM TO VOID, PT EDUCATED ON CARDIAC/RESPIRATORY CAPACITY AND INABILITY TO DO THAT AT THIS TIME. PT DYSPNIC WITH STANDING. COLD SHIVERS AND CONTINUED DIAPHORESIS NOTED. DIFFICULT TO OBTAIN A TEMP ORAL OR AXILARY, TEMPROAL TEMP LOW AT 95.6.
[2025-01-22] MEDS ORDERED: ALBUTEROL/IPRATROPIUM 3 ML NEB INH SCH ×3 (08:00)
[2025-01-22] MEDS ORDERED: BUDESONIDE 0.5 MG/2 ML VIAL INH SCH (08:00)
--- NOTE | 2025-01-22 08:34 | NUR ---
RN AT BEDSIDE WITH MD ROUNDING. PT NEEDING FREQUENT STIMULATION TO STAY AWAKE TO ANSWER QUESTIONS, SELF REPORTS HE IS INCREASINGLY LETHARGIC, WORSENING PER SELF REPORT. PT COOPERATIVE WITH ASSESSMENT. RIGHT BASE LUNG FIELD DIM-3L 02 NC, LOWER EXTREMITIES SWOLLEN 2+, R LEG/ANKLE REDNESS WORSE THAN LEFT. PT REPORTS PAIN IN ANKLES, SIGNIFICANT WITH MD TOUCH TO RIGHT OUTER ANKLE. PT INQUIRING ABOUT BREAKFAST, DENIES NAUSEA. VS STABLE.
[2025-01-22] MEDS ORDERED: PIPERACILLIN/TAZOBACTAM 4.5 GM in SODIUM CHLORIDE 0.9% 100 ML IV SCH (08:45)
[2025-01-22] MEDS ORDERED: OXYCODONE HCL 5 MG TAB PO PRN (09:00)
[2025-01-22] MEDS ORDERED: MICONAZOLE NITRATE 1 EA BTL TOP SCH (09:00)
[2025-01-22] MEDS ORDERED: DAPTOmycin 500 MG/10 ML VIAL IV SCH ×2 (09:00→21:00)
[2025-01-22] MEDS ORDERED: ENOXAPARIN SODIUM 40 MG/0.4 ML SYR SUB-Q SCH (09:00)
[2025-01-22] MEDS ORDERED: FUROSEMIDE 20 MG/2 ML VIAL IV SCH (09:00)
--- NOTE | 2025-01-22 09:04 | EKG ---
[facility] [address] [place], [place] [address] Signed Sinus tachycardia Otherwise normal ECG When compared with ECG of 02-OCT-2024 13:34, No significant change was found Confirmed by Victor Manuel Do MD ([id number]) on 01/22/2025 9:04:02 AM Electronically Signed By: VICTOR MANUEL DO MD 01/22/25 0904 PATIENT NAME: DAMARI LARA TENZIN Electrocardiogram DATE OF : 58 PHYSICIAN: VICTOR MANUEL DO MD REPORT #: [id number] REPORT IS CONFIDENTIAL AND NOT TO BE RELEASED WITHOUT AUTHORIZATION
--- NOTE | 2025-01-22 10:51 | NUR ---
PT RESTING IN BED WITH HOB ELEVATED, 3L O2 VIA NC SUSTAINING SPO2 >92% WHILE SLEEPING. PT WAKES EASILY, DENIES PAIN AT THIS TIME. LOWER LEGS ELEVATED. CALL LIGHT IN REACH.
--- NOTE | 2025-01-22 11:05 | NUR ---
VISITED DURING SPIRITUAL CARE ROUNDS. PT APPEARED TO BE SLEEPING. DID NOT DISTURB. PROVIDED PRAYER.
[2025-01-22] MEDS ORDERED: PHARMACY RENAL DOSE ADJUSTMENT 1 DOSE MISC PO SCH (12:00)
--- NOTE | 2025-01-22 12:20 | NUR ---
PT STATUS UPDATE GIVEN TO "SKYLER"-PT SO- VIA TELEPHONE.
--- NOTE | 2025-01-22 13:00 | NUR ---
PT RESTING IN CHAIR AFTER WORKING WITH PT/OT - AAO, EATING LUNCH AND TALKATIVE WITH STAFF. PT IN GOOD SPIRITS. LESS TACHIPNEA NOTED WITH REST AND TALKING. NO CHILLS OR DIAPHORESIS NOTED. TEMP REMAINS DIFFICULT TO OBTAIN AXILARY, ORAL OR TEMPORAL. RIGHT FOOT INCREASINGLY SWOLLEN AND RED - PREVIOUS CELLULITIS SCAR ON TOP OF FOOT STRETCHED THIN AND POTENTIAL FOR OPENING. LEG ELVATED IN CHAIR AND ON PILLOWS. PT RATES PAIN 8/10. VS STABLE. CALL LIGHT IN REACH.
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
[2025-01-22] MEDS ORDERED: methylPREDNISolone SOD SUCC 40 MG/ML VIAL IV SCH (14:00)
[2025-01-22] MEDS ORDERED: DICLOFENAC POTA50 MG PO (14:18)
--- NOTE | 2025-01-22 14:47 | NUR ---
PT RESTING IN CHAIR WATCHING TV. LEG REMAINS ELEVATED ON PILLOWS. VS STABLE ON MONITOR, OVERALL APPEARNCE IMPROVING. CALL LIGHT IN REACH.
--- NOTE | 2025-01-22 15:28 | NUR ---
PT ASSISTED WITH BED BATH WHILE SITTING IN CHAIR USING WARM SOAPY WASH RAGS. SCROTUM AREA DRIED AND POWDER APPLIED. PT STATES PAIN IS STILL 8/10, UNTOUCHED BY PRN'S - STATES ONLY DILAUDID HELPS. PT RESTING IN CHAIR WITH LEGS CROSSED AND APPEARING COMFORTABLE. CALL LIGHT IN REACH.
--- NOTE | 2025-01-22 15:50 | NUR ---
UR CLINICAL REVIEW: 2 MN FOR VERSALUS-PER ELECTRONICS MECHANIC MEETS INPT FOR RLE CELLULITIS WITH NEED FOR IV ABX MEDICARE INPT 01/22/25 @ 0852 ORDER MATCHES REG NO AUTH REQUIRED PER MEDICARE GUIDELINES DISCHARGE TO HOME WHEN STABLE
--- NOTE | 2025-01-22 16:14 | NUR ---
MED REC COMPLETE
--- NOTE | 2025-01-22 17:11 | NUR ---
PT SITTING UP IN CHAIR EATING DINNER WITH SO AT BEDSIDE. REDNESS OF RIGHT FOOT IMPROVING WITH ELEVATION. CALL LIGHT IN REACH.
--- NOTE | 2025-01-22 19:43 | NUR ---
DECREASED O2 TO 2 LPM.
--- NOTE | 2025-01-22 20:51 | NUR ---
SHIFT CHANGE REPORT RECEIVED FROM LENCHO BEASLEY. PATIENT HAS BEEN SITTING UP IN CHAIR WHILE WATCHING GOLF. MULTIPLE SNACKS GIVEN PER REQUEST. DR. SANTOS ROUNDED ON UNIT AND ORDERS RECEIVED TO DOWNGRADE TO MED/SURG STATUS. LEFT ARM PIV FLUSHES BUT AREA OF INFILTRATION NOTED WHEN FLUSHING. THIS RN ATTEMPTED NEW IV, GOT FLASH OF BLOOD BUT UNSUCCESSFUL FLUSH. ANOTHER ATTEMPT TO BE MADE. CALL LIGHT IN REACH.
[2025-01-22] MEDS ORDERED: DULOXETINE HCL 30 MG CAP PO SCH (21:00)
--- NOTE | 2025-01-22 21:22 | NUR ---
REPORT GIVEN TO DAGMAR MUSA. PATIENT TO MOVE TO MED/SURG ROOM 114. PATIENT AGREEABLE TO MOVE.
--- NOTE | 2025-01-22 21:32 | NUR ---
RECEIVED REPORT FROM LENCHO BAGLEY. PT TRANSFERRED OVER TO MED/SURG ROOM 114 VIA HIS RECLINER ON 2L O2 N/C. LENCHO SHOOK IN ROOM TO PLACE US GUIDED IV.
--- NOTE | 2025-01-22 22:45 | NUR ---
PT ATTEMPTED TO USE URINAL IN BED, UNSUCCESSFUL. PT ASSISTED TO EOB TO USE URINAL W/ FWW. PT STATED UNABLE TO USE URINAL W/ STAFF IN ROOM, PT INFORMED OF NEED FOR STAFF TO REMAIN IN ROOM WHEN OOB FOR SAFETY. PT BECAME IRRITABLE AND REFUSED TO TRY URINAL. UNABLE TO REASON WITH PT AT THIS TIME. BED ALARM IN PLACE FOR SAFETY.
--- NOTE | 2025-01-22 22:56 | NUR ---
PT RESTING IN BED, REPORTS 8/10 PAIN TO RIGHT LATERAL ANKLE. MEDICATED W/ PRN OXYCODONE. LS DIM T/O. DENIES SOB BUT DOWNING NOTED. HARSH MOIST COUGH. 2L O2 IN PLACE N/C, CPOX PLACED. HRR, TELE IN PLACE. PT HAS 1+ EDEMA TO LLE, 2+ EDEMA TO RLE. BTA, LBM YESTERDAY. DUE TO VOID. RIGHT ANKLE REDDENED, HOT AND TENDER TO LIGHT TOUGH. SMALL ABRASIONS NOTED TO RIGHT LATERAL ANKLE. BLE YASMANI, CAP REFILL > 3 SECS. PT HAS NEW US GUIDED IV TO RFA, 22G STARTED BY LENCHO SHOOK. SOLU MEDROL ADMINISTERED AND IV ATB INITIATED. BILAT GROIN REDNESS, PT HAS DESENEX. CALL LIGHT WITHIN REACH, BED ALARM IN PLACE FOR SAFETY.
--- NOTE | 2025-01-22 23:00 | NUR ---
FOOD QUALITY TECHNICIAN AND RN IN ROOM. ANDRESSA CARE AND POWDER APPLIED TO PT GROIN. PT STATES NO FURTHER NEEDS AT THIS TIME. CALL LIGHT WITHIN REACH.
[2025-01-23] VITALS (12 sets, daily range): BP systolic 103–115; BP diastolic 58–75
--- NOTE | 2025-01-23 00:31 | NUR ---
BED ALARM ANSWERED. PT NEEDED TO USE URINAL. DRUG AND ALCOHOL COUNSELLOR ASSISTED TO SIT AT EDGE OF BED AND USE URINAL. PT ASSISTED BACK IN BED. PT REQUESTING SOMETHING FOR HIS COUGH. RN NOTIFED. PT STATES NO FURTHER NEEDS AT THIS TIME. CALL LIGHT WITHIN REACH AND BED ALARM ON.
--- NOTE | 2025-01-23 00:33 | NUR ---
PT AWAKE, REQUESTING RT AND A POPSICLE. RT CALLED AND POPSICLE PROVIDED.
--- NOTE | 2025-01-23 01:57 | NUR ---
GRAIN ELEVATOR OPERATOR OBTAINED VITALS AND I&O. PT STATES NO NEEDS AT THIS TIME. CALL LIGHT WITHIN REACH AND BED ALARM ON.
--- NOTE | 2025-01-23 02:36 | NUR ---
PT SLEEPING SOUNDLY. APPEARS COMFORTABLE.
--- NOTE | 2025-01-23 04:55 | NUR ---
DX: COPD EXAC, RLE CELLULITIS. TRANSFERRED FROM CCU. 2L O2 N/C. TELE IN PLACE. NEBS. ATB'S. PRN OXYCODONE. PT CAN BE IRRITABLE.
--- NOTE | 2025-01-23 05:07 | NUR ---
PT AWAKE, LAB IN TO DRAW BLOOD.
[2025-01-23 05:17] LABS: BASOPHILS 0.3 % (0.2-1.2); HEMOGLOBIN 12.1 g/dL (13.7-17.5)
[2025-01-23 05:23] LABS: EOSINOPHILS 6.9 % (0.8-7.0); HEMATOCRIT 37.6 % (40.1-51.0); LYMPHOCYTES 4.1 % (21.8-53.1); MCH 27.1 PG (25.7-32.2); MCHC 32.2 g/dL (32.3-36.5); MCV 84.3 fL (79.0-92.2); MONOCYTES 7.5 % (5.3-12.2); NEUTROPHILS 79.8 % (34.0-67.9); PLATELET COUNT 364 K/uL (163-337); RBC 4.46 M/uL (4.63-6.08)
[2025-01-23 05:30] LABS: ANION GAP 11.4 (7-21); BUN/CREATININE RATIO 20.55 (6.0-28.6); CALCIUM 8.2 mg/dL (8.5-10.1); CREATININE, SERUM 1.8 mg/dL (0.70-1.30); MAGNESIUM 2.7 mg/dL (1.8-2.4); POTASSIUM 4.4 mmol/L (3.5-5.1)
--- NOTE | 2025-01-23 05:45 | NUR ---
PT SITTING EOB. REPORTS FEELING GOOD THIS MORNING. LS REMAIN DIM T/O. 2L O2 N/C.
--- NOTE | 2025-01-23 06:04 | NUR ---
HOUSEKEEPER CHILD CARE OBTAINED VITALS AND I&O. PT STATES NO NEEDS AT THIS TIME. CALL LIGHT WITHIN REACH.
--- NOTE | 2025-01-23 06:26 | NUR ---
PT AWAKE FOR AM ATB'S AND SOLU-MEDROL. PLEASANT AND COOPERATIVE.
[2025-01-23] MEDS ORDERED: BENZONATATE 100 MG CAP PO PRN (09:00)
[2025-01-23] MEDS ORDERED: guaiFENesin 600 MG TABCR PO PRN (09:00)
--- NOTE | 2025-01-23 09:10 | NUR ---
Patient sitting up on edge of bed, alert and oriented x3, no acute distress. Patient denies sob at rest, sp02 91% on 2L at this time. Patient reports sob with activity. Admin mucinex 600mg po, oxycodone 5mg po and tessalon perles 100mg po at this time for cough and 6/10 right lower leg pain. Pt encouraged to call if he has needs, pt reports he will do so.
[2025-01-23] MEDS ORDERED: SODIUM CHLORIDE 0.9% 1,000 ML IV SCH (09:45)
--- NOTE | 2025-01-23 12:31 | NUR ---
Patient sitting up on edge of bed, no acute distress. Patient is working with RT getting a breathing treatment at this time, sp02 93%.
--- NOTE | 2025-01-23 13:36 | NUR ---
Patient in bed watching tv, legs elevated. Admin oxycodone 5mg po for 5/10 RLE pain. Scheduled IV abx started per order. Patient denies sob at this time, sp02 93% on 2L per nc, respirations non labord. Snack provided per pt request. Patient declined a bed bath at this time. Call light within reach.
[2025-01-23 15:19] LABS: ANION GAP 11.4 (7-21); BUN/CREATININE RATIO 21.11 (6.0-28.6); CREATININE, SERUM 1.61 mg/dL (0.70-1.30); POTASSIUM 4.4 mmol/L (3.5-5.1)
--- NOTE | 2025-01-23 19:20 | NUR ---
RECEIVED REPORT FROM LENCHO CHAPIN. PT ASLEEP ON RIGHT SIDE, 2L O2 IN PLACE. CPOX ON.
[2025-01-23] MEDS ORDERED: ALBUTEROL/IPRATROPIUM 3 ML NEB INH SCH (20:00)
[2025-01-23] MEDS ORDERED: methylPREDNISolone SOD SUCC 40 MG/ML VIAL IV SCH (21:00)
--- NOTE | 2025-01-23 22:23 | NUR ---
PT SLEEPING SOUNDLY ON RIGHT SIDE. APPEARS COMFORTABLE. IV ATB STARTED.
[2025-01-24] VITALS (10 sets, daily range): BP systolic 105–125; BP diastolic 55–94
--- NOTE | 2025-01-24 00:35 | NUR ---
PT SLEEPING SOUNDLY ON LEFT SIDE. APPEARS COMFORTABLE.
--- NOTE | 2025-01-24 02:38 | NUR ---
PT SLEEPING SOUNDLY ON LEFT SIDE. APPEARS COMFORTABLE.
[2025-01-24 05:13] LABS: BASOPHILS 0.3 % (0.2-1.2); EOSINOPHILS 6.7 % (0.8-7.0); HEMOGLOBIN 11.6 g/dL (13.7-17.5); LYMPHOCYTES 3.1 % (21.8-53.1); MCH 27.2 PG (25.7-32.2); MCHC 32.2 g/dL (32.3-36.5); MCV 84.3 fL (79.0-92.2); MONOCYTES 5.8 % (5.3-12.2); NEUTROPHILS 81.2 % (34.0-67.9); PLATELET COUNT 398 K/uL (163-337); RBC 4.27 M/uL (4.63-6.08)
[2025-01-24 05:25] LABS: BUN/CREATININE RATIO 19.59 (6.0-28.6); CALCIUM 8.2 mg/dL (8.5-10.1); CREATININE, SERUM 1.48 mg/dL (0.70-1.30); MAGNESIUM 2.5 mg/dL (1.8-2.4)
--- NOTE | 2025-01-24 05:37 | NUR ---
PT AWAKE, SIPPING COFFEE. IV ATB HUNG AND INFUSING. RESP ASSESSMENT UNCHANGED. 2L O2 N/C IN PLACE.
--- NOTE | 2025-01-24 07:38 | NUR ---
PT RESTING EYES CLOSED AT TIME OF SHIFT REPORT, LEFT UNDISTURBED. CALL LIGHT AND FRESH H20 AT BEDSIDE
--- NOTE | 2025-01-24 08:54 | NUR ---
PT UP TO THE CHAIR EATING MORNING MEAL. DENIES NEED OF ADDITIONAL ITEMS. CALL LIGHT IS IN CHAIR WITH HIM TV IS ON
--- NOTE | 2025-01-24 09:42 | NUR ---
PT UP IN THE ROOM INDEPENDENTLY DOES OWN SELF CARES. RETURNS TO REST IN THE BED
--- NOTE | 2025-01-24 10:11 | NUR ---
PATIENT IN BED RESTING WITH EYES CLOSED AT THIS TIME. I&O'S CHARTED, RN DID VITALS EARLIER. CALL LIGHT IN REACH. NO FURTHER NEEDS AT THIS TIME.
--- NOTE | 2025-01-24 11:26 | NUR ---
PT RESTING EYES CLOSED SATS 94%
--- NOTE | 2025-01-24 11:50 | NUR ---
PT REFUSES P/T DR SANTOS NOTIFIED
[2025-01-24] MEDS ORDERED: FUROSEMIDE 20 MG/2 ML VIAL IV SCH (11:53)
--- NOTE | 2025-01-24 13:33 | NUR ---
PT RESTING EYES CLOSED AFTER EATING 100% OF NOON MEAL. STATES HE DIDN'T SLEEP WELL AND WANTS TO REST, STATES HE WILL DO P/T TOMORROW WHEN HE FEELS BETTER
--- NOTE | 2025-01-24 14:14 | NUR ---
PATIENT SITTING UP ON EDGE OF BED AT THIS TIME. VITALS AND I&O'S DONE AND CHARTED. CALL LIGHT IN REACH. NO FURTHER NEEDS AT THIS TIME.
--- NOTE | 2025-01-24 16:45 | NUR ---
PT UP TO THE CHAIR PER REQUEST. FRESH H20 AND CALL LIGHT IN REACH
--- NOTE | 2025-01-24 18:06 | NUR ---
PATIENT IN BED RESTING WITH EYES CLOSED. VITALS AND I&O'S DONE AND CHARTED. CALL LIGHT IN REACH. NO FURTHER NEEDS AT THIS TIME.
--- NOTE | 2025-01-24 18:20 | NUR ---
PT UP IN THE CHAIR FOR EVENING MEAL THEN RETURNS TO REST IN BED. CONTINUES ON AT 2 L. SATS 94-96% DIPS TO MID 80'S ON RA. PT DENIES NEEDS AT THIS TIME
--- NOTE | 2025-01-24 19:20 | NUR ---
RECEIVED REPORT. PT ALERT IN BED, SUPPORT PERSON IN ROOM. NO NEEDS PRESENTLY, CALL LIGHT IN REACH
--- NOTE | 2025-01-24 20:43 | NUR ---
VITALS, ASSESSMENT. R PIV PAINFUL AND LEAKING, REMOVED. PT REQUESTS TO TAKE SHOWER, ASSISTED INTO BATHROOM, PT STEADY WITH SHOWER CHAIR. PULL-CORD IN REACH
--- NOTE | 2025-01-24 22:18 | NUR ---
NEW IV ON L FOREARM. EVENING MEDS. NO OTHER REQUESTS AT PRESENT, CALL LIGHT IN REACH
--- NOTE | 2025-01-24 23:33 | NUR ---
ASSISTED TO BATHROOM, THEN BACK TO BED. PT REQUESTS PAIN MEDICATION FOR FOOT, GIVEN PRN OXYCODONE. PT ALSO C/O MILD STINGING AT IV SITE. GOOD FLUSH AND BLOOD RETURN, APPLIED HEAT TO GOOD EFFECT. PT ASKS FOR CORDS TO BE TAPED TO ARM. GIVEN LEFTY CRACKERS ON REQUEST. NO OTHER NEEDS, CALL LIGHT IN REACH
[2025-01-25] VITALS (11 sets, daily range): BP systolic 107–132; BP diastolic 47–556
--- NOTE | 2025-01-25 01:51 | NUR ---
PT RESTING IN BED WTIH EYES CLOSED, RISE AND FALL OF CHEST OBSERVED. CALL LIGHT IN REACH
--- NOTE | 2025-01-25 02:15 | NUR ---
RESPONDED TO ALARMING CPOX. PT ATTEMPTING TO LEAVE BED, WRAPPED IN IV CORD. ASSISTED PT TO BATHROOM AND BACK TO BED. VITALS. REINFORCED TO CALL BEFORE GETTING OOB. SET BED ALARM. NO OTHER NEEDS AT THIS TIME, [facility]
[2025-01-25 02:59] LABS: HEMATOCRIT 36.9 % (40.1-51.0); HEMOGLOBIN 11.9 g/dL (13.7-17.5); MCH 27.2 PG (25.7-32.2); MCHC 32.2 g/dL (32.3-36.5); MCV 84.4 fL (79.0-92.2); PLATELET COUNT 433 K/uL (163-337); RBC 4.37 M/uL (4.63-6.08)
[2025-01-25 03:07] LABS: ANION GAP 10.3 (7-21); CALCIUM 8.5 mg/dL (8.5-10.1); CREATININE, SERUM 1.5 mg/dL (0.70-1.30); MAGNESIUM 2.2 mg/dL (1.8-2.4); POTASSIUM 4.3 mmol/L (3.5-5.1)
[2025-01-25 03:19] LABS: BANDS, MANUAL DIFF 4; EOSINOPHILS, MANUAL DIFF 5; LYMPHOCYTES, MANUAL DIFF 6; MONOCYTES, MANUAL DIFF 5; NEUTROPHILS, MANUAL DIFF 80
--- NOTE | 2025-01-25 03:23 | NUR ---
CRITICAL LAB: WBC 32.6. PT ALSO WITH FREQUENT PVCS. NOTIFED MD. ORDER FOR PT REQUESTED MELATONIN.
[2025-01-25] MEDS ORDERED: MELATONIN 3 MG TAB PO PRN (03:30)
--- NOTE | 2025-01-25 03:42 | NUR ---
PATIENT CALLED STATING HE IS WANTING TO SIT UP BY THE BEDSIDE. THIS TEACHER AIDE IN TO THE ROOM SAW PATIENT ALREADY SITTING AT THE EDGE OF THE BED. PATIENT THOUGHT THAT BED ALARM WAS ON THEN REALIZED IT WAS NOT. PATIENT STATED NOW I AM OKAY.
--- NOTE | 2025-01-25 03:57 | NUR ---
PT ALERT, SITTING AT EDGE OF BED. GIVEN MELATONIN PER REQUEST. NO OTHER NEEDS ID'D, CALL LIGHT IN REACH
--- NOTE | 2025-01-25 05:07 | NUR ---
PT REQUESTS BREATHING TREATMENT, NOTIFIED RT.
--- NOTE | 2025-01-25 06:03 | NUR ---
AM ABX. PT REPORTS SOB IMPROVED AFTER RT TREATMENT. ENCOURAGED USE OF ACAPELLA. PT SITTING ON EDGE OF BED, NO OTHER NEEDS FOR NOW. CALL LIGHT IN REACH
--- NOTE | 2025-01-25 07:34 | NUR ---
PT RESTING EYES CLOSED AT TIME OF SHIFT REPORT, LEFT UNDISTURBED. FRESH H20 AND CALL LIGHT AT BEDSIDE
--- NOTE | 2025-01-25 08:44 | NUR ---
PT REPORTS HE IS NOT SLEEPING AT ALL AND HASN'T IN SEVERAL NIGHTS. ASKED WHAT WOULD HELP, HE STATES HE JUST CAN'T SLEEP HERE AT THIS HOSPITAL, NO PARTICULAR COMPLAINT. HIS EYES ARE BLOOD SHOT, HE APPEARS FLUSHED, AND IS IN A GENERAL STATE OF MALAISE SITTING UPRIGHT WITH EYES CLOSED. REFUSES MORNING MEAL AND OFFER OF DIFFERENT ITEMS.
--- NOTE | 2025-01-25 08:53 | NUR ---
DR SANTOS IN TO SEE PT CARE COORDINATED. SKIN CONTINUES TO BE FLUSHED, SATS ARE HIGH 80'S TODAY ON 2L INSTEAD OF MID 90'S YESTERDAY, PT NOT SLEEPING AT ALL. PLAN OF CARE DISCUSSED WITH PT ALL QUESTIONS ANSWERED
[2025-01-25] MEDS ORDERED: predniSONE 20 MG TAB PO SCH (09:00)
[2025-01-25] MEDS ORDERED: methylPREDNISolone SOD SUCC 40 MG/ML VIAL IV SCH (09:00)
[2025-01-25] MEDS ORDERED: SENNOSIDES/DOCUSATE 1 EA TAB PO SCH (09:00)
[2025-01-25] MEDS ORDERED: POLYETHYLENE GLYCOL 3350 1 PACKET PO SCH (09:00)
[2025-01-25] MEDS ORDERED: allopurinoL 100 MG TAB PO SCH (09:13)
[2025-01-25] MEDS ORDERED: diphenhydrAMINE HCL 25 MG CAP PO ONE (09:15)
--- NOTE | 2025-01-25 09:15 | NUR ---
Attempted to see pt. He requests I return later as he is not feeling well and is exhausted. I did ask if he feels he will be able to dc home and he does not think so. He is willing to go to placement and would like to stay as near as possible. Will send his chart to [facility]. Reviewed notes and pt has been declining therapy visits also.
[2025-01-25 09:20] LABS: ALBUMIN 2.5 g/dL (3.4-5.0); ALBUMIN/GLOBULIN RATIO 0.52 (1.1-2.4); BILIRUBIN, DIRECT 0.1 mg/dL (0.0-0.2); BILIRUBIN, INDIRECT 0.1 (0.1-0.7); BILIRUBIN, TOTAL 0.2 mg/dL (0.2-1.0); PROTEIN, TOTAL 7.3 g/dL (6.4-8.2)
--- NOTE | 2025-01-25 09:20 | NUR ---
PATIENT IN BED RESTING AT THIS TIME. VITALS AND I&O'S DONE AND CHARTED. CALL LIGHT IN REACH. NO FURTHER NEEDS AT THIS TIME.
--- NOTE | 2025-01-25 10:04 | NUR ---
PT REFUSES TYLENOL DESPITE HAVING A HEADACHE, STATES IT'S NOT GOOD FOR YOU. CXR COMPLETE AND BENEDRYL ADMINISTERED. PT ENCOURAGED TO TRY TO GET SOME SLEEP DO NOT DISTURB SIGN ON DOOR.
--- NOTE | 2025-01-25 10:51 | NUR ---
CHART SENT TO [facility] AND [facility].
--- NOTE | 2025-01-25 14:39 | NUR ---
PT SITTING UP ON BED LEANING INTO PILLOW AGREES HE HAS HAD A SMALL AMOUNT OF SLEEP BUT NOT MUCH. SATS 91% ON 2 L. PT DENIES PAIN OR SPECIFIC DISCOMFORTS.
--- NOTE | 2025-01-25 15:56 | NUR ---
PT STATES HE IS FEELING MUCH BETTER. UP TO THE TOILET THEN TO RECLINER. ICE TEA PROVIDED PER REQUEST WELL DINNER ORDER
--- NOTE | 2025-01-25 16:40 | NUR ---
Received a message from [facility] asking when pt will be able to dc. I called Dr. Oswald and he believe Thurs or Fri. Then received a message from Jaimee at [facility] asking why pt has been declining therapy. UPdated he is not ready for dc at this time. Most likely Thurs or Fri. She asks to be updated daily so they can make a decision about placement.
--- NOTE | 2025-01-25 17:30 | NUR ---
PT UP IN THE RECLINER EATING EVENING MEAL
--- NOTE | 2025-01-25 19:29 | NUR ---
RECEIVED REPORT. PT ALERT IN BED, SUPPORTIVE AT BEDSIDE. NO NEEDS PRESENTLY, CALL LIGHT INREACH
--- NOTE | 2025-01-25 20:50 | NUR ---
pt SLEEPING, AWAKENS TO VOICE. TELE BATTERY CHANGED. pt CLOSES EYES, BACK TO SLEEP.
--- NOTE | 2025-01-25 21:28 | NUR ---
VITALS, ASSESSMENT, EVENING MEDS. NO NEEDS, EXPRESSES DESIRE FOR SLEEP. GIVEN PRN MELATONIN. NO OTHER NEEDS, CALL LIGHT INREACH
--- NOTE | 2025-01-25 21:56 | NUR ---
RESPONDED TO CALL LIGHT, IV TUBING BECAME UNATTACHED WITH SOME BLEEDING FROM IV CATHETER. STERILIIZED AND REDRESSED IV, REPLACED IV TUBING. RESTARTED IV ABX WITH NO PROBLEM. CHANGED GOWN, BEDDING. CALL SAMUEL ELI
--- NOTE | 2025-01-25 22:22 | NUR ---
PATIENT CALLED TO USE THE TOILET. SBA. CORD MANAGEMENT. PATIENT VOIDED AND HAD BM UNMEASURED. PATIENT IS BACK SITTING AT THE EDGE OF THE BED SNACKING GRANULA BARS PROVIDED PER PATIENT'S REQUEST. NO OTHER NEEDS AT THIS TIME. CPOX ON.
[2025-01-26] VITALS (12 sets, daily range): BP systolic 124–143; BP diastolic 54–81
--- NOTE | 2025-01-26 01:07 | NUR ---
GIVEN PRN OXYCODONE FOR PAIN OF R ANKLE. PT REPORTS HE HAS NOT SLEPT AT ALL TONIGHT DESPITE MELATONIN. DECLINES OFFER FOR SLEEP MASK OR EARPLUGS. REMOVED FOOTBOARD FROM BED AT PT REQUEST. NO OTHER NEEDS, CALL LIGHT IN REACH
--- NOTE | 2025-01-26 02:16 | NUR ---
RESPONDED TO BEEPING IV. DISCONNECTED IV ABX. PT RESTING WITH EYES CLOSED, RISE AND FALL OF CHEST NOTED. CALL LIGHT IN REACH
--- NOTE | 2025-01-26 04:24 | NUR ---
RESPONDED TO BED ALARM. ASSISTED PT TO BATHROOM, REMADE BED. AILY WEIGHT NO OTHER NEEDS, CALL LIGHT IN REACH
[2025-01-26 05:36] LABS: HEMATOCRIT 39.4 % (40.1-51.0); HEMOGLOBIN 12.8 g/dL (13.7-17.5); MCH 27.1 PG (25.7-32.2); MCHC 32.5 g/dL (32.3-36.5); MCV 83.3 fL (79.0-92.2); PLATELET COUNT 465 K/uL (163-337); RBC 4.73 M/uL (4.63-6.08)
[2025-01-26 05:46] LABS: ANION GAP 10.1 (7-21); BUN/CREATININE RATIO 17.05 (6.0-28.6); CALCIUM 8.6 mg/dL (8.5-10.1); CREATININE, SERUM 1.7 mg/dL (0.70-1.30); MAGNESIUM 2.3 mg/dL (1.8-2.4); POTASSIUM 4.1 mmol/L (3.5-5.1)
[2025-01-26 05:52] LABS: BANDS, MANUAL DIFF 18; EOSINOPHILS, MANUAL DIFF 11; LYMPHOCYTES, MANUAL DIFF 9; MONOCYTES, MANUAL DIFF 3; NEUTROPHILS, MANUAL DIFF 59
--- NOTE | 2025-01-26 06:39 | NUR ---
ATTACHED IV ZOSYN. PT VERY DOWNCAST, REPORTS HE HAS NOT SLEPT WELL AT ALL LAST NIGHT. DISCUSSED WITH . CALL LIGHT IN REACH
--- NOTE | 2025-01-26 07:37 | NUR ---
MORNING REPORT RECIEVED FROM LENCHO KAUR. PT SITTING UP IN BED LAYING ON RIGHT SIDE, PT IS CURRENTLY WORKING WITH RT, AND INSTRUCTED TO CALL IF THEY NEED ANYTHING. PT CALL LIGHT IN REACH AT THIS TIME.
[2025-01-26 08:23] LABS: PH, VENOUS 7.487 (7.31-7.41)
[2025-01-26] MEDS ORDERED: TRIMETHOPRIM/SULFAMETHOXAZOLE 1 EA TAB PO SCH (09:00)
[2025-01-26] MEDS ORDERED: METOPROLOL SUCCINATE 25 MG TABCR PO SCH (09:24)
--- NOTE | 2025-01-26 09:26 | NUR ---
PATIENT PULSE IS SUSTAINED UP TO 170. DR. SANTOS NOTIFIED. RT CALLED FOR EKG, ECHO ORDERED. MEDICATION ORDER PENDING. PRIMARY NURSE NOTIFIED.
--- NOTE | 2025-01-26 09:30 | NUR ---
PT TELE #3 HR BECAME TACHY IN THE 160S, PT WAS SITTING ON EDGE OF BED ON THE PHONE WITH THEIR SPOUSE, PT DENIES CHEST PAIN, PALPATIONS, OR INCREASED SOB AT THIS TIME, PT RETURNED TO BED AND VITALS TAKEN PT HR DECREASED IN THE 80S NSR, VITALS STABLE, PT HAS NO CONCERNS AT THIS TIME. RT IS CURRENTLY IN ROOM WITH PT DOING AN EGK AT THIS TIME.
--- NOTE | 2025-01-26 09:36 | NUR ---
PATIENT GIVEN 25MG OF PO METOPROLOL. EKG IS COMPLETE. DR. SANTOS IN TO SEE PATIENT.
[2025-01-26] MEDS ORDERED: LORazepam 2 MG/ML VIAL IV PRN (10:00)
--- NOTE | 2025-01-26 10:03 | NUR ---
SPOKE WITH AMELIA AT [facility], LIKELY THEY CAN ACCEPT PATIENT THE END OF THIS WEEK IF HE IS MEDICALLY READY.
--- NOTE | 2025-01-26 10:49 | NUR ---
PATIENT GIVEN 0.5MG OF IV ATIVAN. RT IN TO PLACE CPAP. DO NOT DISTURB SIGN PLACED ON DOOR.
--- NOTE | 2025-01-26 11:30 | NUR ---
PT LAYING IN BED WITH EYES CLOSED CHEST RISE EQUAL BILAT, PT CURRENTLY ON THE BIPAP TO HELP PT SLEEP. PT DOES NOT SHOW ANY SIGNS OF DISTRESS AT THIS TIME AND HAS CALL LIGHT IN REACH.
[2025-01-26] MEDS ORDERED: ALBUTEROL/IPRATROPIUM 3 ML NEB INH SCH (12:00)
--- NOTE | 2025-01-26 13:08 | NUR ---
PT LAYING DOWN IN BED ON THE RIGHT SIDE WITH BIPAP IN PLACE, PT WANTED TO REMOVED BIPAP, AND BIPAP WAS REMOVED AND 2L NC IS NOW IN PLACE. PT HAS CALL LIGHT IN REACH AT THIS TIME AND NO CURRENT CONCERNS.
--- NOTE | 2025-01-26 14:21 | NUR ---
PT WAS WORKING WITH PHYSICAL THERAPY AND WAS BECOMING IRRITATED, PT IS CURRENTLY SITTING ON EDGE OF BED, PT VITALS TAKEN AND PT WAS AGREEABLE. PT IS TIRED AND STATES " HE WANTS TO BE UNDESTRURBED". PT MADE AWARE STAFF WILL DO THEIR BED, BUT WE ALL HAVE ORDERS TO DO OUR JOBS, PT AGREEAABLE AT THIS TIME WITH CALL LIGHT IN REACH.
--- NOTE | 2025-01-26 14:49 | NUR ---
ALERT AND ORIENTED IN BED. OXYGEN IN PLACE. PATIENT HAS REFUSED PT AND THEY HAVE DISCHARGED HIM FROM PT SERVICES. INFORMED PATIENT HIS REFUSAL TO WORK WITH PT MEANS PLACEMENT IN SNF IS NOT POSSIBLE. STATES "THAT'S FINE, I'LL JUST GO HOME." ASKED PATIENT IF HE HAS EVERYTHING HE NEEDS AT HOME. STATES HE WILL LIKELY NEED OXYGEN AND IS CURRENTLY IN THE PROCESS OF OF GETTING CPAP MACHINE. STATES IF HE NEEDS HOME OXYGEN, HE PREFERS [facility]. DENIES OTHER CM NEEDS. STATES HE WILL REFUSE HOME HEALTH AND OUTPATIENT PT WELL WHEN THESE OPTIONS WERE DISCUSSED WITH PATIENT. DR. SANTOS AND LEX, RN, NOTIFIED.
--- NOTE | 2025-01-26 14:54 | NUR ---
NOTIFIED CALLI AT [facility] AND AMELIA AT [facility] THAT PATIENT IS REFUSING SNF.
--- NOTE | 2025-01-26 16:46 | NUR ---
PT SITTING UP IN BED AT THIS TIME, PT HAS NO CURRENT CONCERNS AT THIS TIME WITH 2L NC IN PLACE. PT CALL LIGHT IN REACH AT THIS TIME.
--- NOTE | 2025-01-26 18:19 | NUR ---
PT LAYING DOWN IN BED AT THIS TIME, PT IS CURRENTLY IN ROOM, PT WANTS TO TRY AND REST AND IS REQUESTING TO NOT BE DISTURBED LONG POSSIBLE. PT HAS CALL LIGHT IN REACH.
--- NOTE | 2025-01-26 18:37 | NUR ---
PT WANTED TO SLEEP AND WAS FEELING ANXIETY, PT GIVEN PRN ATIVAN (SEE EMAR). PT HAS CPAP ON AT THIS TIME AND CALL LIGHT IN REACH.
--- NOTE | 2025-01-26 19:15 | NUR ---
RECEIVED REPORT. PT RESTING IN BED WITH CPAP ON. CALL LGT IN REACH
[2025-01-26] MEDS ORDERED: BUDESONIDE 0.5 MG/2 ML VIAL INH SCH (20:00)
--- NOTE | 2025-01-26 20:47 | NUR ---
VITALS, ASSESSMENT, EVENING MEDS. GIVEN PRN OXYCODONE FOR 8/10 FOOT PAIN. PT UP ON EDGE OF BED, EATING KYRGYZ ICE. PLAN FOR ATIVAN AT 2230 WHEN AVAILABLE. NO NEEDS PRESENTLY. CALL LIGHT IN REACH
[2025-01-26 21:31] LABS: FERRITIN 310 ng/mL (31-409)
--- NOTE | 2025-01-26 22:30 | NUR ---
GIVEN PRN ATIVAN PER REQUEST. NO OTHER NEEDS, [facility]
--- NOTE | 2025-01-26 23:32 | NUR ---
RESPONDED TO BED ALARM. ASSISTED TO BATHROOM. PT DECLINES CPAP MASK, 2LNC IN PLACE CURRENTLY. CALL LIGHT IN REACH
[2025-01-27] VITALS (11 sets, daily range): BP systolic 101–128; BP diastolic 55–75
--- NOTE | 2025-01-27 00:15 | NUR ---
PATIENT WAS SITTING AT THE EDGE OF THE BED. PATIENT STATING HE IS OKAY. BIPAP WAS ALARMING EVEN IF IT WAS PUSHED ON STANDBY. RT RENETTA WAS CALLED AND CAME. BIPAP IS ON STANDBY NOW. PATIENT IS BACK LAYING IN BED WITH 2L VIA NC. BED ALARM ON FOR SAFETY.
--- NOTE | 2025-01-27 02:44 | NUR ---
GIVEN PRN ATIVAN AND PLACED CPAP MACHINE. NO OTHER NEEDS, CALL LIGCHART IN REACH
--- NOTE | 2025-01-27 03:38 | NUR ---
PT RESTING IN BED WITH EYES CLOSED, RISE AND FALL OF CHEST OBSERVED, CPAP IN PLACE. CALL LIGHT IN REACH
[2025-01-27 05:41] LABS: HEMATOCRIT 41.6 % (40.1-51.0); HEMOGLOBIN 13.7 g/dL (13.7-17.5); MCH 27.3 PG (25.7-32.2); MCHC 32.9 g/dL (32.3-36.5); MCV 82.9 fL (79.0-92.2); PLATELET COUNT 449 K/uL (163-337); RBC 5.02 M/uL (4.63-6.08)
[2025-01-27 05:54] LABS: ANION GAP 12.4 (7-21); BANDS, MANUAL DIFF 9; BUN/CREATININE RATIO 14.88 (6.0-28.6); CALCIUM 8.5 mg/dL (8.5-10.1); CREATININE, SERUM 1.68 mg/dL (0.70-1.30); EOSINOPHILS, MANUAL DIFF 7; LYMPHOCYTES, MANUAL DIFF 11; MAGNESIUM 2.1 mg/dL (1.8-2.4); NEUTROPHILS, MANUAL DIFF 73; POTASSIUM 4.4 mmol/L (3.5-5.1)
--- NOTE | 2025-01-27 06:48 | NUR ---
CRITICAL LAB: WBC 34.78 (DOWN FROM 36.15). NOTIFIED
--- NOTE | 2025-01-27 07:22 | NUR ---
PT SITTING UP ON EDGE OF BED AT THIS TIME, PT HAD NO ACUTE EVENTS OVER NIGHT. PT TELE #3, PT HAS NO CONCERNS AT THIS TIME AND STATED THEY SLEPT WELL LAST NIGHT. PT CALL LIGHT IN REACH.
--- NOTE | 2025-01-27 08:30 | NUR ---
Pt discussed in 8:30 meeting and he has cont. to decline PT/OT as he is exhausted. Plan at this time is to meet with pt and his friend where he lives in her basement. Will discuss need to go home or work with PT for placement. RT also states pt has started on BiPAp/CPAP last night and is more awake and willing to work with staff. I called Jules and she will meet with us in a couple of hours to discuss with Pat.
--- NOTE | 2025-01-27 09:31 | NUR ---
PATIENT LAYING IN BED WITH EYES CLOSED, EQUAL CHEST RISE NOTED, PATIENT ON 2L NC. PATIENT AGREEABLE TO TREATMENT, RT AT BEDSIDE. PATIENT CALL LIGHT IN REACH.
--- NOTE | 2025-01-27 10:03 | NUR ---
PT IS IN BED WEARING CPAP, PT REQUESTED ATIVAN, (SEE EMAR). LENCHO SARMIENTO WITNESSED WASTE.
--- NOTE | 2025-01-27 10:21 | NUR ---
HOURLY ROUNDING. PATIENT IS SLEEPING WITH HIS CPAP. O2 STAT 93 ON MACHINE. NO REQUEST FROM PATIENT. WATER CUP HAS BEEN FILLED. CALL LIGHT PLACED WITHIN REACH.
--- NOTE | 2025-01-27 10:49 | NUR ---
VISITED DURING SPIRITUAL CARE ROUNDS. PT APPEARED TO BE SLEEPING. DID NOT DISTURB. PROVIDED PRAYER.
--- NOTE | 2025-01-27 11:33 | NUR ---
HOURLY ROUNDING. PATIENT USED THE BATHROOM URINATED AN OUTPUT OF UNMEASURED VOID. VOID HAS BEEN DOCUMENTED. PATIENT WILL BE EATING LUNCH IN HIS CHAIR. WARM BLANKET WAS GIVEN AND CALL LIGHT HAS BEEN PLACED WITHIN REACH
--- NOTE | 2025-01-27 11:45 | NUR ---
Met with Jules Shepard, Dr. Oswald, and myself. Pt is sitting up in the chair, awake. Pt is unaware he declineds PT. He states he will do whatever is needed to go to placement. He is aware he cannot go home at this time and needs rehab. PT will be back this afternoon and will work with pt.
--- NOTE | 2025-01-27 11:53 | NUR ---
PT SITTING UP IN CHAIR AT THIS TIME WITH 2L NC IN PLACE. PT HAS EYES CLOSED, CHEST RISE EQUAL BILAT AT THIS TIME. PT HAS CALL LIGHT IN REACH AND NO CURRENT CONCERNS.
--- NOTE | 2025-01-27 14:00 | NUR ---
PATIENT WAS IN BED AT THIS TIME, MUSIC ENGRAVER WRAPPED HIS IV, ASSISTED TO SHOWER AND HELPED HIM WASH HIS HAIR AND BACKSIDE. MUSIC ENGRAVER CHANGED HIS SHEETS, GOT FRESH SOCKS AND GOWN. CALL LIGHT WITH IN REACH AND NOTHING ELSE NEEDE AT THIS TIME.
--- NOTE | 2025-01-27 14:10 | NUR ---
PT SHOWERED USING SHOWER CHAIR, PT TOLERATED WELL. PT WAS THEN DRESSED AND MOVED BACK TO BED, PT IS SITTING ON EDGE OF BED WITH 2L NC, AND CPOX IN PLACE. PT CURRENTLY WORKING WITH PHYSICAL THERAPY AT THIS TIME.
--- NOTE | 2025-01-27 14:34 | NUR ---
PT WORKED WITH PHYSICAL THERAPY, PT AMBULATED AROUND THE MED/SURG FLOOR. PT TOLERATED WELL ON 2L NC. PT RETURNED TO ROOM AND HAS CALL LIGHT IN REACH AT THIS TIME.
--- NOTE | 2025-01-27 15:20 | NUR ---
PT was able to work with this pt and pt will need a SNF. OT will work with Zach shortly. I spoke with [facility] and they do have male bed open. I spoke with Dr. Rowan and he feels pt may be able to dc as soon as tomorrow. Will need to have CPAP set up and 02 to use for transport. Pt will need to fu with podiatry at a later date. Progress note and PT note faxed to [facility].
--- NOTE | 2025-01-27 15:28 | NUR ---
PT REQUESTED A NEW IV DUE TO THE IV BEING UNCOMFORTABLE ON THEIR DOMINANT HAND PT WAS AGREEABLE TO HAVE [facility] START IV, SUPERVISED BY THIS RN. PT TOLERATED IV START WELL AND ONE SUCCESSFUL ON ONE ATTEMPT WITH A 20G IN THE LEFT FA, PT SL. PT HAS NO CONCERNS CALL LIGHT IN REACH.
--- NOTE | 2025-01-27 16:00 | NUR ---
NOtified by [facility] they are working on a CPAP for use at the SNF. Will fu tomorrow.
--- NOTE | 2025-01-27 16:24 | NUR ---
PT LAYING IN BED AT THIS TIME RT IS IN ROOM WITH PT FITTING CPAP ON PT. PT AGREEABLE TO TREATMENT AND HAS CALL LIGHT IN REACH WITH NO CURRENT NEEDS
--- NOTE | 2025-01-27 17:24 | NUR ---
PT SITTING UP IN BED AT THIS TIME, PT TOOK 2L NC OFF TO ADJUST AND THIS RN STAYED IN ROOM TO MONITOR A RA TRIAL, PT O2 SAT ON RA WAS 88-91. PT HAS NO SOB AT THIS TIME ON RA, BUT 2L NC WAS PUT BACK IN PLACE DUE TO THE PT TRYING TO SLEEP AND THEM DESATTING DUE TO APNEA. PT AGREEABLE CALL LIGHT IN REACH.
--- NOTE | 2025-01-27 18:05 | NUR ---
PT SITTING UP IN BED AT THIS TIME, PT HAS 2L NC IN PLACE WITH CPOX. PT IS CURRENTLY IN ROOM AT THIS TIME AND PT HAS NO CONCERNS CALL LIGHT IN REACH.
--- NOTE | 2025-01-27 18:06 | NUR ---
HOURLY ROUNDING. PATIENT REQUEST TO TAKE A LAP ARIOUND THE NURSE STATION. WHEEL CHAIR HAS BEEN BOUGHT TO THE ROOM FOR A WHEEL CHAIR FOLLOW WITH PATIENT.
--- NOTE | 2025-01-27 19:05 | NUR ---
REPORT RECEIVED FROM LEX MUSA. pt RESTING IN THE BED. BOARD UPDATED. pt ASKED FOR PRN ATIVAN. THIS RN MADE A PLAN WITH THE pt THAT PRN ATIVAN CAN BE BROUGHT IN WITH HIS NIGHT TIME MEDS. pt AGREED. pt DENIES ANY OTHER NEEDS AT THIS TIME. CALL LIGHT WITHIN REACH.
--- NOTE | 2025-01-27 20:34 | NUR ---
Pt pulled EKG leads, went to room, pt sitting up edge of bed. Irritable mood and angry tone of voice. "I pulled them off, thats the only one you can come in. It my room warmer, I called 20-30 minutes ago and I was told someone will bein, but nobody has came in to check on my yet" Room temp was at 71. Increaed to 75, will bring warm blanket. Semiresistive with I was trying to place leads back on. No other requests verbalized at this time. Primary RN to be notified.
--- NOTE | 2025-01-27 20:42 | NUR ---
CLASSROOM TECHNOLOGY COACH IN ROOM TO GIVE PT WARM BLANKETS. PT DEMANDING "I WANT MY SHOT. REBEL BEEN ASKING FOR IT FOR OVER AN HOUR NOW AND I STILL HAVENT GOTTEN IT." CLASSROOM TECHNOLOGY COACH RESPONDED STATING "ILL LET YOUR NURSE KNOW AND SHE WILL BE IN SOON SHE CAN." PT THEN STATED "IM TIRED OF FUCKING WAITING. I WANT TO CHECK OUT." PT THEN THREW WARM BLANKETS OFF THE BED. CLASSROOM TECHNOLOGY COACH LEFT PT ROOM AND NOTIFED PRIMARY RN AND BLEACH PLANT OPERATOR.
--- NOTE | 2025-01-27 20:49 | NUR ---
PT AGITATED AND EXPRESSING DESIRE TO LEAVE AMA. PT REPORTS HE IS NOT RECEIVING THE CARE HE NEEDS, IS COLD, AND HAS BEEN WAITING FOR MEDS. THIS RN IS UNABLE TO REDIRECT HIM OR APPEASE HIM AT THIS TIME. PT REFUSING ANY FURTHER CARE OR TX. MD JUAREZ NOTIFIED, MD WILL NOT BE COMING TO BEDSIDE AT THIS TIME. PT HAS CALLED THE CAB AND ALERTED STAFF THAT HIS RIDE IS ON THE WAY.
--- NOTE | 2025-01-27 21:03 | NUR ---
MD JUAREZ ON FLOOR. VERBAL ORDER THAT IT IS OK TO DC IV.
--- NOTE | 2025-01-27 21:05 | NUR ---
PT HAS DECIDED TO STAY. MD JUAREZ AT BEDSIDE. REMINDED PT TO HAVE SOME PATIENCE W/ STAFF AND THAT HE IS DC'G IN THE AM. MD BOYD'D TELEMETRY AND GAVE ORDERS TO GIVE HS DOSE OF ATIVAN AND DC IV ACCESS. PT GIVEN FRESH ICE WATER REQUESTED. LENCHO NGUYEN NOTIFIED OF PT'S REQUEST FOR HS MEDS.
[2025-01-27] MEDS ORDERED: LORazepam 2 MG/ML VIAL IV ONE (21:15)
--- NOTE | 2025-01-27 21:15 | NUR ---
ASSESSMENT AND VITAL SIGNS DONE. pt C/O 03/28 PAIN. PRN PAIN MEDS ADMINISTERED. pt STATES HE IS FEELING BETTER. SCHEDULED MEDS ADMINISTERED. pt DENIES ANY OTHER NEEDS AT THIS TIME. CALL LIGHT WITHIN REACH.
--- NOTE | 2025-01-27 21:20 | NUR ---
SCHEDULED ONE TIME ORDERED MEDS ADMINISTERD. IV DC'D PER MD ORDER. JELLO PROVIDED FOR A SNACK. pt DENIES ANY OTHER NEEDS AT THIS TIME. CALL LIGHT WITHIN REACH.
--- NOTE | 2025-01-27 23:03 | NUR ---
pt RESTING IN THE BED WITH EYES CLOSED. RR EVEN AND UNLABORED. CALL LIGHT WITHIN REACH.
[2025-01-28] VITALS (7 sets, daily range): BP systolic 93–122; BP diastolic 52–68
--- NOTE | 2025-01-28 00:15 | NUR ---
pt CALLED TO GO TO THE BR. pt BACK TO BED. pt WANTED HIS BROTH HEATED UP BEFORE HE LAID DOWN. CPAP MASK PLACED BACK ON pt BY RT JACKSON. pt CALL THIS RN BACK IN TO STATE THE CPAP WAS MAKING HIM FEEL UNCOMFORTABLE AND COULDN'T BREATH SO pt TOOK CPAP OFF AND WAS PLACED ON 2LNC. pt DENIES ANY OTHER NEEDS AT THIS TIME. CALL LIGHT WITHIN REACH.
--- NOTE | 2025-01-28 00:40 | NUR ---
pt CPOX ALARMING. pt SITTING ON THE EDGE OF BED SATTING AT 88%. THIS RN ASKED pt IF HE WOULD BE WILLING TO TRY THE CPAP. pt AGREED. CPAP ON. NO OTHER NEEDS AT THIS TIME. CALL LIGHT WITHIN REACH.
--- NOTE | 2025-01-28 01:49 | NUR ---
pt RESTING IN THE BED WITH EYES CLOSED. CPAP ON SATTING AT 94%. NO OTHER NEEDS AT THIS TIME. CALL LIGHT WITHIN REACH.
--- NOTE | 2025-01-28 02:08 | NUR ---
PT REQUESTING CPAP MASK OFF, ASSISTED PT TO REMOVE MASK AND APPLIED 2L O2 N/C.
--- NOTE | 2025-01-28 03:08 | NUR ---
pt RESTING IN THE BED WITH EYES CLOSED. 2LNC IN pt. pt SATTING AT 92%. NO OTHER NEEDS AT THIS TIME. CALL LIGHT WITHIN REACH.
--- NOTE | 2025-01-28 05:15 | NUR ---
pt RESTING IN THE BED WITH EYES CLOSED. RR EVEN AND UNLABORED. CALL LIGHT WITHIN REACH.
--- NOTE | 2025-01-28 06:17 | NUR ---
IN RM TO DO VITAL SIGNS. pt UP TO THE BR. pt REFUSED TO GET GILL WEIGHT. pt BACK TO BED. pt DENIES AND OTHER NEEDS AT THIS TIME. CALL LIGHT WITHIN REACH.
--- NOTE | 2025-01-28 06:41 | NUR ---
pt SITTING ON EDGE OF THE BED. pt ASKED FOR CUP OF COFFEE. pt DENIES ANY OTHER NEEDS AT THIS TIME. CALL LIGHT WITHIN REACH.
--- NOTE | 2025-01-28 07:08 | NUR ---
Pt report received from LENCHO Christopher. Pt is resting in bed, HOB elevated, watching television. When asked how his pain level is at the moment, he states "it's doing okay right now". When asked to assign his current pain level a number he states it is at an 8. He also states that is chronic for him. Pt was provided with a fresh cup of coffee at his request and warned that it is very hot. White board updated. Call light in reach.
--- NOTE | 2025-01-28 07:57 | NUR ---
Advised by Jami Celis, that pt is requesting pain meds
--- NOTE | 2025-01-28 08:18 | NUR ---
PATIENT IN CHAIR AT THIS TIME. THIS ICE PLATFORM SUPERVISOR ASSISTED PATIENT TO CHAIR AND PROVIDED FRESH LINENS ON PATIENT BED. THIS ICE PLATFORM SUPERVISOR GAVE PATIENT WARM WET WASHCLOTH. PATIENT REFUSED SHOWER TODAY. PATIENT STATED HE HAD PAIN, LENCHO BLANC NOTIFIED. CALL LIGHT WITHIN REACH, NO FURTHER NEEDS AT THIS TIME.
[2025-01-28] MEDS ORDERED: METOPROLOL SUCC25 MG PO (09:23)
[2025-01-28] MEDS ORDERED: ALLOPURINOL100 MG PO (09:24)
[2025-01-28] MEDS ORDERED: BUDESONIDE0.5 MG/2 M INH (09:24)
--- NOTE | 2025-01-28 09:25 | NUR ---
PATIENT WILL NEED 2 LPM NC. O2 WILL ALSO BE NEEDED VIA CPAP OF 15 AND 2LPM.
--- NOTE | 2025-01-28 09:35 | NUR ---
PATIENT IN BED AT THIS TIME. INDIVIDUAL PENSION CONSULTANT CHARTED VITALS AND I&O'S. CALL LIGHT WITHIN REACH, NO FURTHER NEEDS AT THIS TIME.
--- NOTE | 2025-01-28 10:00 | NUR ---
Called [facility], she found the CPAP at the facility. She is unsure if all the parts are there. She is out of the building. We discussed [facility]. I will call and see if they can supply a CPAP today. Called and spoke with Lizzie. She states they do not have a contract with [facility]. They cannot provide a CPAP without a contract. I called and spoke with Edna and she spoke with . They are new and do not know who they contract with. They will have [facility] call me when she returns.
--- NOTE | 2025-01-28 10:10 | NUR ---
SNF Orders, PASRR, DC summary, CPAP orders, 02 orders faxed to [facility] at T.
--- NOTE | 2025-01-28 10:15 | NUR ---
PT REQUESTED TIME TO REST. NO VISIT. PROVIDED PRAYER.
--- NOTE | 2025-01-28 11:39 | NUR ---
Received a text from [facility] asking about the CPAP. I updated they dont have a contract with [facility]. She will check with her administration.
--- NOTE | 2025-01-28 11:39 | NUR ---
In with pt for hourly rounding and pain assessment as Aide Aminata advised that the pt is requesting more pain medication. Advised pt that it is a little too early for more oxycodone and offered him an ice pack for his right ankle, but he refused and said "it's okay, I can wait". Advised pt to use the call light if he needs anything else before I return with pain meds in about an hour (from 1115), he verbalized understanding. Call light in reach.
--- NOTE | 2025-01-28 12:53 | NUR ---
In with pt for hourly rounds. Pt is resting in bed on his left side, head propped up on his left elbow, watching television. Pt states he is finished with his lunch tray (ate about 10%). When asked if he would like anything else for lunch, he requested a granola bar; however, we do not have any, nor does the kitchen. Advised pt of this and offered jonathan crackers and milk, but he declined and stated that when he leaves, he'll stop somewhere and pick up and delivery driver something. Pt asked about when he can expect to be transferred to [facility]. I advised him that I will call case management and see if they have an answer.
--- NOTE | 2025-01-28 13:27 | NUR ---
Updated pt on the status of his pending discharge. Was advised by CM that [facility] is waiting on [facility] to obtain a new CPAP for the pt to use there as theirs does not work.
--- NOTE | 2025-01-28 13:34 | NUR ---
Received a call from Melissa at [facility]. They have worked everything out with Mon[facility] and will deliver a CPAP for their RT to set up. They do not need orders as their RT will set up.
--- NOTE | 2025-01-28 14:00 | NUR ---
Contacted [facility] to check what time they would like Pat to arrive. They are ready now. I called Jules as she plans on transporting and will pick him up at 3pm. [facility], charge nurse, pt, and RT notified.
--- NOTE | 2025-01-28 14:05 | NUR ---
PATIENT SITTING ON EDGE OF BED. NA CHARTED VITALS AND I&O'S. PATIENT REFUSED SHOWER AT THIS TIME. CALL LIGHT WITHIN REACH, NO FURTHER NEEDS.
[2025-01-29] MEDS ORDERED: OXYCODONE HCL5 MG PO (01:38)
== END 2025-01-28 14:52 | DRG 314 ==
LOC: ED 23:42 → CCU 01-22 03:39 → MS 01-22 03:39
PROVIDERS: Family Medicine; ADMIT Student in an Organized Health Care Education/Training Program; ATTEND Student in an Organized Health Care Education/Training Program
PROC: 3E03329 Introduction of Other Anti-infective into Peripheral Vein, Percutaneous Approach (ICD-10-PCS; 2025-01-22)
PROC: 5A09357 Assistance with Respiratory Ventilation, Less than 24 Consecutive Hours, Continuous Positive Airway Pressure (ICD-10-PCS; principal; 2025-01-26)
DX: I42.2 Other hypertrophic cardiomyopathy (principal); A41.9 Sepsis, unspecified organism; J96.01 Acute respiratory failure with hypoxia; J44.1 Chronic obstructive pulmonary disease with (acute) exacerbation; N17.9 Acute kidney failure, unspecified; L03.116 Cellulitis of left lower limb; Z66 Do not resuscitate; E78.00 Pure hypercholesterolemia, unspecified; I27.20 Pulmonary hypertension, unspecified; R59.1 Generalized enlarged lymph nodes; M10.9 Gout, unspecified; I10 Essential (primary) hypertension; I49.3 Ventricular premature depolarization; R23.2 Flushing; G47.33 Obstructive sleep apnea (adult) (pediatric); R00.0 Tachycardia, unspecified; G47.00 Insomnia, unspecified; F42.4 Excoriation (skin-picking) disorder; I71.21 Aneurysm of the ascending aorta, without rupture; F39 Unspecified mood [affective] disorder; I87.8 Other specified disorders of veins; F12.90 Cannabis use, unspecified, uncomplicated; E66.9 Obesity, unspecified; Z98.890 Other specified postprocedural states; Z90.49 Acquired absence of other specified parts of digestive tract; Z87.19 Personal history of other diseases of the digestive system; Z87.891 Personal history of nicotine dependence; Z88.8 Allergy status to other drugs, medicaments and biological substances; Z79.899 Other long term (current) drug therapy; Z79.2 Long term (current) use of antibiotics; Z79.51 Long term (current) use of inhaled steroids
CPT/HCPCS: 36415; 71045; 71260; 73590; 73630; 73701; 80048; 80053; 80076; 82550; 82728; 82803; 83605; 83735; 83880; 84100; 84484; 84550; 85025; 85060; 85379; 85651; 86140; 87040; 93005; 93010; 93306; 94640; 94660; 94667; 94668; 94762; 94799; 97161; 97163; 97165; 97167; 97530; 99285-25; A9270; J0878; J1650; J1938; J2060; J2543; J2919; J7030; J7512; Q9967

== ENCOUNTER 2025-01-29 00:14 | Emergency (ER) | payer MEDICARE, OTHER ==
[~2025-01-29] VITALS: Ht 182.9 cm; Wt 123.4 kg
[~2025-01-29 00:14] MED LIST changes: +ALLOPURINOL100 MG PO; +BUDESONIDE0.5 MG/2 M INH; +DICLOFENAC POTA50 MG PO; +METOPROLOL SUCC25 MG PO
--- OUTSIDE RECORDS SUMMARY | 2025-01-29 00:20 | XMS ---
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 Security Psychometric Examiner Events No recent Security Events currently on file CRITERIA MET - 6 ED Visits in 6 Months - [facility] - 2 Visits in 30 Days CARE PROVIDERS -, [facility] Dentist: Eeg Technician Current [facility]ira PHONE: [phone] -Shira- Dentist: Eeg Technician [facility] PHONE: [phone] ARNOLD ZHENG Nurse Practitioner: Family Current PHONE: [phone] [facility]: [facility] Current FAMILY PHONE: [phone] ÁNGEL MAX Physician Tar Pot Worker Mallorie SIMMONSIE PHONE: [phone] SHEREEN HEREDIA Nurse Practitioner: Adult Health Mallorie MIGUE PHONE: [phone] MEENU KAY Internal Medicine: Infectious Disease Mallorie DE LUNA PHONE: [phone] Rebecca has no Care Guidelines for this patient. Sinan VISIT COUNT (12 MO.) [facility] TOTAL 11 NOTE: Visits indicate total known visits. ED/UCC VISIT TRACKING (12 MO.) 01/29/2025 00:15 [facility] TYPE: Emergency COMPLAINT: - ANKLE INFECTION 01/21/2025 23:42 [facility] TYPE: Emergency COMPLAINT: - DIFFICULTY BREATHING 12/17/2024 15:00 [facility] [place] TYPE: Emergency COMPLAINT: - LEG ISSUE 12/15/2024 14:28 [facility] [place] TYPE: Emergency COMPLAINT: - RT FOOT SWELLING DIAGNOSES: - Allergy status to other drugs, medicaments and biological substances - Cellulitis of right lower limb - Chronic obstructive pulmonary disease, unspecified - Erythematous condition, unspecified - terminal gauger supervisor (current) use of inhaled steroids - Other terminal gauger supervisor (current) drug therapy - Pain in right lower leg - Pure hypercholesterolemia, unspecified 10/02/2024 12:44 [facility] [place] TYPE: Emergency COMPLAINT: - SHORTNESS OF BREATH DIAGNOSES: - Allergy status to other drugs, medicaments and biological substances - Chronic obstructive pulmonary disease, unspecified - terminal gauger supervisor (current) use of inhaled steroids - Other senior living (current) drug therapy - Pure hypercholesterolemia, unspecified - Shortness of breath 08/30/2024 14:31 [facility] [place] TYPE: Emergency COMPLAINT: - SHORTNESS OF BREATH DIAGNOSES: - Allergy status to other drugs, medicaments and biological substances - Chronic obstructive pulmonary disease, unspecified - Other terminal gauger supervisor (current) drug therapy - Shortness of breath 08/02/2024 13:25 [facility] [place] TYPE: Emergency COMPLAINT: - TROUBLE BREATHING DIAGNOSES: - Allergy status to other drugs, medicaments and biological substances - Chronic obstructive pulmonary disease, unspecified - Leukemia, unspecified not having achieved remission - intermediate (current) use of inhaled steroids - Malignant pleural effusion - Other terminal gauger supervisor (current) drug therapy - Personal history of peptic ulcer disease - Pure hypercholesterolemia, unspecified - Shortness of breath 07/30/2024 16:26 [facility] [place] TYPE: Emergency COMPLAINT: - FOOT PAIN DIAGNOSES: - Allergy status to other drugs, medicaments and biological substances - Cellulitis of right lower limb - Chronic obstructive pulmonary disease, unspecified - Elevated white blood cell count, unspecified - Other senior living (current) drug therapy - Pain in right [...] blood cell count, unspecified - Other senior living (current) drug therapy 07/06/2024 19:35 [facility] [place] TYPE: Emergency COMPLAINT: - SHORTNESS OF BREATH DIAGNOSES: - Allergy status to other drugs, medicaments and biological substances - Chronic obstructive pulmonary disease with (acute) lower respiratory infection - Other specified postprocedural states - Pneumonia, unspecified organism - Shortness of breath INPATIENT VISIT TRACKING (12 MO.) 01/22/2025 03:39 [facility] TYPE: Medical Surgical COMPLAINT: - COPD EXACERBATION,HYPERTROPHIC CARDIOMYOPATHY,PUL 12/17/2024 15:01 [facility] TYPE: Observation COMPLAINT: - RLE CELLULITIS DIAGNOSES: - Acute kidney failure, unspecified - Allergy status to other drugs, medicaments and biological substances - Cellulitis of right lower limb - Chronic obstructive pulmonary disease, unspecified - Essential (primary) hypertension - Gout, unspecified - Major depressive disorder, single episode, unspecified - Other senior living (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 TYPE: General Medicine COMPLAINT: - COPD exacerbation DIAGNOSES: - Cellulitis of unspecified part of limb - Cutaneous abscess of unspecified foot - Localized edema - Other specified abnormal findings of blood chemistry - Shortness of breath - Shortness of breath [facility] DIAGNOSES: - Chronic obstructive [...] - Hyperlipidemia, unspecified - Hyperlipidemia, unspecified - intermediate (current) use of inhaled steroids - terminal gauger supervisor (current) use of inhaled steroids - Major depressive disorder, single episode, unspecified - Major depressive disorder, single episode, unspecified - Morbid (severe) obesity due to excess calories - Morbid (severe) obesity due to excess calories - Other terminal gauger supervisor (current) drug therapy - Other terminal gauger supervisor (current) drug therapy - Personal history of nicotine dependence - Personal history of nicotine dependence - Pleural effusion, not elsewhere classified - Pleural effusion, not elsewhere classified - Pneumonia, unspecified organism - Pneumonia, unspecified organism [email or web address]
[2025-01-29] MEDS ORDERED: OXYCODONE HCL 5 MG TAB PO PRN (00:45)
[2025-01-29] MEDS ORDERED: OXYCODONE HCL5 MG PO (01:38)
[2025-01-29] MEDS ORDERED: OXYCODONE/ACETAMINOPHEN 1 TAB HOME.PACK PO ONE (01:45)
[2025-01-29 01:50] VITALS: BP 98/69
== END 2025-01-29 01:55 | disposition home or self-care (01) ==
LOC: ED 00:14
DX: M25.571 Pain in right ankle and joints of right foot (principal); J44.9 Chronic obstructive pulmonary disease, unspecified; Z88.1 Allergy status to other antibiotic agents; Z88.8 Allergy status to other drugs, medicaments and biological substances; Z79.899 Other long term (current) drug therapy
CPT/HCPCS: 99283; A9270

== ENCOUNTER 2025-02-17 10:19 | Emergency (ER) | payer MEDICARE, OTHER ==
[~2025-02-17] VITALS: Ht 182.9 cm; Wt 122.9 kg
--- NOTE | ~2025-02-17 | EKG ---
[facility] [address] [facility] [facility] [place], [place] [address] Draft EK completed, results pending confirmation PATIENT NAME: TEODOROANGELADAMARI Tan Electrocardiogram DATE OF : 58 PHYSICIAN: PRELIMINARY REPORT #: [id number] REPORT IS CONFIDENTIAL AND NOT TO BE RELEASED WITHOUT AUTHORIZATION
--- OUTSIDE RECORDS SUMMARY | 2025-02-17 10:26 | XMS ---
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: [facility] Current FAMILY PHONE: [phone] ÁNGEL MAX Physician Optical Instrument Assembler Mallorie SIMMONSIE PHONE: [phone] SHEREEN HEREDIA Nurse Practitioner: Adult Health Mallorie MIGUE PHONE: [phone] MEENU KAY Internal Medicine: Infectious Disease Mallorie DE LUNA PHONE: [phone] Rebecca has no Care Guidelines for this patient. Sinan VISIT COUNT (12 MO.) [address] [facility] TOTAL 12 NOTE: Visits indicate total known visits. ED/UCC VISIT TRACKING (12 MO.) 02/17/2025 10:[address] [facility] [place] TYPE: Emergency COMPLAINT: - SHORTNESS OF BREATH 01/29/2025 00:15 [facility] [place] TYPE: Emergency COMPLAINT: - ANKLE INFECTION DIAGNOSES: - Allergy status to other antibiotic agents - Allergy status to other drugs, medicaments and biological substances - Chronic obstructive pulmonary disease, unspecified - Other jail (current) drug therapy - Pain in right ankle and joints of right foot 01/21/2025 23:42 [facility] [place] TYPE: Emergency COMPLAINT: - DIFFICULTY BREATHING 12/17/2024 15:00 [facility] [place] TYPE: Emergency COMPLAINT: - LEG ISSUE 12/15/2024 14:28 [facility] [place] TYPE: Emergency COMPLAINT: - RT FOOT SWELLING DIAGNOSES: - Allergy status to other drugs, medicaments and biological substances - Cellulitis of right lower limb - Chronic obstructive pulmonary disease, unspecified - Erythematous condition, unspecified - termite technician (current) use of inhaled steroids - Other jail (current) drug therapy - Pain in right lower leg - Pure hypercholesterolemia, unspecified 10/02/2024 12:44 [facility] [place] TYPE: Emergency COMPLAINT: - SHORTNESS OF BREATH DIAGNOSES: - Allergy status to other drugs, medicaments and biological substances - Chronic obstructive pulmonary disease, unspecified - termite technician (current) use of inhaled steroids - Other jail (current) drug therapy - Pure hypercholesterolemia, unspecified - Shortness of breath 08/30/2024 14:31 [facility] [place] TYPE: Emergency COMPLAINT: - SHORTNESS OF BREATH DIAGNOSES: - Allergy status to other drugs, medicaments and biological substances - Chronic obstructive pulmonary disease, unspecified - Other jail (current) drug therapy - Shortness of breath 08/02/2024 13:25 [facility] [place] TYPE: Emergency COMPLAINT: - TROUBLE BREATHING DIAGNOSES: - Allergy status to other drugs, medicaments and biological substances - Chronic obstructive pulmonary disease, unspecified - Leukemia, unspecified not having achieved remission - termite technician (current) use of inhaled steroids - Malignant pleural effusion - Other local 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 - Personal history of peptic ulcer disease - Pure hypercholesterolemia, unspecified - Shortness of breath 07/30/2024 16:26 [facility] [place] TYPE: Emergency COMPLAINT: - FOOT PAIN DIAGNOSES: - Allergy status to other drugs, medicaments and biological substances - Cellulitis of right lower limb - Chronic obstructive pulmonary disease, unspecified - Elevated white blood cell count, unspecified - Other jail (current) drug therapy - Pain in right foot 07/16/2024 23:[address] [facility] [place] TYPE: Emergency COMPLAINT: - DIFFICULTY BREATHING 07/14/2024 11:08 [facility] [place] TYPE: Emergency COMPLAINT: - BLOOD COUNT LOW DIAGNOSES: - Abnormal finding of blood chemistry, unspecified - Allergy status to other drugs, medicaments and biological substances - Chronic obstructive pulmonary disease, unspecified - Edema, unspecified - Elevated white blood cell count, unspecified - Other jail (current) drug therapy 07/06/2024 19:35 [facility] [place] TYPE: Emergency COMPLAINT: - SHORTNESS OF BREATH DIAGNOSES: - Allergy status to other drugs, medicaments and biological substances - Chronic obstructive pulmonary disease with (acute) lower respiratory infection - Other specified postprocedural states - Pneumonia, unspecified organism - Shortness of breath INPATIENT VISIT TRACKING (12 MO.) 01/22/2025 03:[address] [facility] [place] TYPE: Medical Surgical COMPLAINT: - COPD EXACERBATION,HYPERTROPHIC CARDIOMYOPATHY,PUL DIAGNOSES: - Acquired absence of other specified parts of digestive tract - Acquired absence of other specified parts of digestive tract - Acute and chronic respiratory failure with hypoxia - Acute and chronic respiratory failure with hypoxia - Acute kidney failure, unspecified - Acute kidney failure, unspecified - Acute respiratory failure with hypoxia - Acute respiratory failure with hypoxia - Adverse effect of loop [high-ceiling] diuretics, initial encounter - Adverse effect of loop [high-ceiling] diuretics, initial encounter - Allergy status to other drugs, medicaments and biological substances - Allergy status to other drugs, medicaments and biological substances - Aneurysm of the ascending aorta, without rupture - Aneurysm of the ascending aorta, without rupture - Cannabis use, unspecified, uncomplicated - Cannabis use, unspecified, uncomplicated - Cellulitis of left lower limb - Cellulitis of left lower limb - Cellulitis of right lower limb - Cellulitis of right lower limb - Chronic obstructive pulmonary disease with (acute) exacerbation - Chronic obstructive pulmonary disease with (acute) exacerbation - Do not resuscitate - Do not resuscitate - Essential (primary) hypertension - Essential (primary) hypertension - Excoriation (skin-picking) disorder - Excoriation (skin-picking) disorder - Flushing - Flushing - Generalized enlarged lymph nodes - Generalized enlarged lymph nodes - Gout, unspecified - Gout, unspecified - Insomnia, unspecified - Insomnia, unspecified - MCFP (current) use of antibiotics - MCFP (current) use of antibiotics - MCFP (current) use of inhaled steroids - termite technician (current) use of inhaled steroids - Nephropathy induced by other drugs, medicaments and biological substances - Nephropathy induced by other drugs, medicaments and biological substances - Obesity, unspecified - Obesity, unspecified - Obstructive sleep apnea (adult) (pediatric) - Obstructive sleep apnea (adult) (pediatric) - Other hypertrophic cardiomyopathy - Other hypertrophic cardiomyopathy - Other idiopathic peripheral autonomic neuropathy - Other idiopathic peripheral autonomic neuropathy - Other jail (current) drug therapy - Other local 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 - Other specified disorders of veins - Other specified disorders of veins - Other specified postprocedural states - Other specified postprocedural states - Personal history of nicotine dependence - Personal history of nicotine dependence - Personal history of other diseases of the digestive system - Personal history of other diseases of the digestive system - Pulmonary hypertension, unspecified - Pulmonary hypertension, unspecified - Pure hypercholesterolemia, unspecified - Pure hypercholesterolemia, unspecified - Sepsis, unspecified organism - Sepsis, unspecified organism - Shortness of breath - Tachycardia, unspecified - Tachycardia, unspecified - Unspecified mood [affective] disorder - Unspecified mood [affective] disorder - Ventricular premature depolarization - Ventricular premature depolarization 12/17/2024 15:01 [facility] [place] TYPE: Observation COMPLAINT: - RLE CELLULITIS DIAGNOSES: - Acute kidney failure, unspecified - Allergy status to other drugs, medicaments and biological substances - Cellulitis of right lower limb - Chronic obstructive pulmonary disease, unspecified - Essential (primary) hypertension - Gout, unspecified - Major depressive disorder, single episode, unspecified - Other local 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 TYPE: General Medicine COMPLAINT: - COPD exacerbation DIAGNOSES: - Cellulitis of unspecified part of limb - Cutaneous abscess of unspecified foot - Localized edema - Other specified abnormal findings of blood chemistry - Shortness of breath - Shortness of breath [facility]24 [facility] DIAGNOSES: - Chronic obstructive [...] - Hyperlipidemia, unspecified - Hyperlipidemia, unspecified - termite technician (current) use of inhaled steroids - MCFP (current) use of inhaled steroids - Major depressive disorder, single episode, unspecified - Major depressive disorder, single episode, unspecified - Morbid (severe) obesity due to excess calories - Morbid (severe) obesity due to excess calories - Other local 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 - Other jail (current) drug therapy - Personal history of nicotine dependence - Personal history of nicotine dependence - Pleural effusion, not elsewhere classified - Pleural effusion, not elsewhere classified - Pneumonia, unspecified organism - Pneumonia, unspecified organism [email or web address]
[2025-02-17 10:39] LABS: MCH 28.1 PG (25.7-32.2); MCHC 33.7 g/dL (32.3-36.5); MCV 83.2 fL (79.0-92.2); RBC 4.88 M/uL (4.63-6.08)
[2025-02-17] MEDS ORDERED: ALBUTEROL/IPRATROPIUM 3 ML NEB INH ONE (10:45)
[2025-02-17 10:56] LABS: BANDS, MANUAL DIFF 1; EOSINOPHILS, MANUAL DIFF 73; LYMPHOCYTES, MANUAL DIFF 6; MONOCYTES, MANUAL DIFF 2; NEUTROPHILS, MANUAL DIFF 18
[2025-02-17 10:57] LABS: BASOPHILS, MANUAL DIFF 0
[2025-02-17 11:07] LABS: ALT (SGPT) 15.0 U/L (14-59); AST (SGOT) 15.0 U/L (15-37); GLOMERULAR FILTRATION RATE,EST 66.0 mL/min (>60); PROTEIN, TOTAL 8.3 g/dL (6.4-8.2); UREA NITROGEN 21.0 mg/dL (7-18)
[2025-02-17] MEDS ORDERED: DOXYCYCLINE HYCLATE 100 MG CAP PO ONE (12:15)
[2025-02-17] MEDS ORDERED: ALBUTEROL SULFATE 0.083% 3 ML VIAL INH ONE (12:15)
[2025-02-17] MEDS ORDERED: DOXYCYCLINE HY100 MG PO (12:18)
[2025-02-17] MEDS ORDERED: PREDNISONE20 MG PO (12:18)
[2025-02-17 12:40] VITALS: BP 115/83
== END 2025-02-17 12:40 | disposition home or self-care (01) ==
LOC: ED 10:19
PROVIDERS: Emergency Medicine
DX: J44.1 Chronic obstructive pulmonary disease with (acute) exacerbation (principal); E78.00 Pure hypercholesterolemia, unspecified; Z79.899 Other long term (current) drug therapy; Z79.52 Long term (current) use of systemic steroids; Z88.1 Allergy status to other antibiotic agents
CPT/HCPCS: 36415; 71045; 80053; 83735; 83880; 84484; 85025; 93005; 93010; 94640; 96374; 99285-25; J2919

== ENCOUNTER 2025-03-03 17:04 | Inpatient (IN) | payer MEDICARE, OTHER ==
[~2025-03-03] VITALS: Ht 182.9 cm; Wt 121.6 kg
--- OUTSIDE RECORDS SUMMARY | 2025-03-03 17:10 | XMS ---
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 Events No recent Security Events currently on file CRITERIA MET - 6 ED Visits in 6 Months - [facility] - 2 Visits in 30 Days CARE PROVIDERS -, [facility] Dentist: Filler Sifter Helper Current Shira PHONE: [phone] -Shira- Dentist: Filler Sifter Helper [facility] PHONE: [phone] ARNOLD ZHENG Nurse Practitioner: Family Current PHONE: [phone] [facility]: [facility] Current FAMILY PHONE: [phone] ÁNGEL MAX Physician Microfiche Duplicator Mallorie SIMMONSIE PHONE: [phone] SHEREEN HEREDIA Nurse Practitioner: Adult Health Mallorie MIGUE PHONE: [phone] MEENU KAY Internal Medicine: Infectious Disease Mallorie DE LUNA PHONE: [phone] Rebecca has no Care Guidelines for this patient. Sinan VISIT COUNT (12 MO.) [address] [place], [place] [address] Suzie TOTAL 13 NOTE: Visits indicate total known visits. ED/UCC VISIT TRACKING (12 MO.) 03/03/2025 17:05 [facility] [place] TYPE: Emergency COMPLAINT: - SOB 02/17/2025 10:20 [facility] [place] TYPE: Emergency COMPLAINT: - SHORTNESS OF BREATH DIAGNOSES: - Allergy status to other antibiotic agents - Chronic obstructive pulmonary disease with (acute) exacerbation - [facility]PC (current) use of systemic steroids - Other oyster harvester (current) drug therapy - Pure hypercholesterolemia, unspecified - Shortness of breath 01/29/2025 00:15 [facility] [place] TYPE: Emergency COMPLAINT: - ANKLE INFECTION DIAGNOSES: - Allergy status to other antibiotic agents - Allergy status to other drugs, medicaments and biological substances - Chronic obstructive pulmonary disease, unspecified - [facility] [place] [facility] disease, unspecified - Erythematous condition, unspecified - [facility] (current) use of inhaled steroids - [facility] drug therapy - Pain in right lower leg - Pure hypercholesterolemia, unspecified 10/02/2024 12:44 [facility] [place] TYPE: Emergency COMPLAINT: - SHORTNESS OF BREATH DIAGNOSES: - Allergy status to other drugs, medicaments and biological substances - Chronic obstructive pulmonary disease, unspecified - FPC (current) use of inhaled steroids - Other oyster harvester (current) drug therapy - Pure hypercholesterolemia, unspecified - Shortness of breath 08/30/2024 14:31 [facility] [place] TYPE: Emergency COMPLAINT: - SHORTNESS OF BREATH DIAGNOSES: - Allergy status to other drugs, medicaments and biological substances - Chronic obstructive pulmonary disease, unspecified - [facility] drug therapy - Shortness of breath 08/02/2024 13:25 [facility] [place] TYPE: Emergency COMPLAINT: - TROUBLE BREATHING DIAGNOSES: - Allergy status to other drugs, medicaments and biological substances - Chronic obstructive pulmonary disease, unspecified - Leukemia, unspecified not having achieved remission - FPC (current) use of inhaled steroids - Malignant [...] - Insomnia, unspecified - Insomnia, unspecified - FPC (current) use of antibiotics - FPC (current) use of antibiotics - marketing manager health communications (current) use of inhaled steroids - marketing manager health communications (current) use of inhaled steroids - Nephropathy [...] Other idiopathic peripheral autonomic neuropathy - Other oyster harvester (current) drug therapy - Other oyster harvester (current) drug therapy - Other specified disorders [...] - Ventricular premature depolarization 12/17/2024 15:01 [facility] [place] TYPE: Observation COMPLAINT: - RLE CELLULITIS DIAGNOSES: - Acute kidney failure, unspecified - Allergy status to other drugs, medicaments and biological substances - Cellulitis of right lower limb - Chronic obstructive pulmonary disease, unspecified - Essential (primary) hypertension - Gout, unspecified - Major depressive disorder, single episode, unspecified - Other oyster harvester (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 TYPE: General Medicine COMPLAINT: - COPD exacerbation DIAGNOSES: - Cellulitis of unspecified part of limb - Cutaneous abscess of unspecified foot - Localized edema - Other specified abnormal findings of blood chemistry - Shortness of breath - Shortness of breath [facility]24 [facility]: Oncology DIAGNOSES: - Chronic obstructive pulmonary [...] - Hyperlipidemia, unspecified - Hyperlipidemia, unspecified - FPC (current) use of inhaled steroids - FPC (current) use of inhaled steroids - Major depressive disorder, single episode, unspecified - Major depressive disorder, single episode, unspecified - Morbid (severe) obesity due to excess calories - Morbid (severe) obesity due to excess calories - [facility] drug therapy - Other oyster harvester (current) drug therapy - Personal history of nicotine dependence - Personal history of nicotine dependence - Pleural effusion, not elsewhere classified - Pleural effusion, not elsewhere classified - Pneumonia, unspecified organism - Pneumonia, unspecified organism [email or web address]
[2025-03-03 17:24] LABS: MCH 27.8 PG (25.7-32.2); MCHC 32.6 g/dL (32.3-36.5); MCV 85.2 fL (79.0-92.2); RBC 4.86 M/uL (4.63-6.08)
[2025-03-03] MEDS ORDERED: IPRATROPIUM BROMIDE 2.5 ML VIAL INH ONE (17:30)
[2025-03-03] MEDS ORDERED: ALBUTEROL SULFATE 0.5% 2.5 MG/0.5 ML VIAL INH ONE (17:30)
[2025-03-03 17:43] LABS: BASOPHILS, MANUAL DIFF 1; EOSINOPHILS, MANUAL DIFF 22; LYMPHOCYTES, MANUAL DIFF 8; MONOCYTES, MANUAL DIFF 1; NEUTROPHILS, MANUAL DIFF 68
[2025-03-03 17:47] LABS: ALT (SGPT) 15.0 U/L (14-59); AST (SGOT) 5.0 U/L (15-37); GLOMERULAR FILTRATION RATE,EST 52.0 mL/min (>60); PROTEIN, TOTAL 7.8 g/dL (6.4-8.2); UREA NITROGEN 29.0 mg/dL (7-18)
[2025-03-03] MEDS ORDERED: AZITHROMYCIN 500 MG in DEXTROSE 5% 250 ML IV ONE (18:15)
[2025-03-03] MEDS ORDERED: SODIUM CHLORIDE 0.9% 1,000 ML IV PRN (18:15)
[2025-03-03 18:19] LABS: INR 1.06 (0.80-1.30); PROTIME 13.1 Sec (11.2-14.2)
[2025-03-03] MEDS ORDERED: HYDROXYZINE HCL25 MG PO (18:27)
[2025-03-03 18:39] LABS: LACTIC ACID, BLOOD 1.1 mmol/L (0.4-2.0)
[2025-03-03 18:56] LABS: INFLUENZA B NAA NEGATIVE (NEGATIVE); RESPIRATORY SYNCYTIAL VIR NAA NEGATIVE (NEGATIVE)
[2025-03-03] MEDS ORDERED: MORPHINE SULFATE 4 MG/ML VIAL IV ONE (19:00)
[2025-03-03] MEDS ORDERED: ACETAMINOPHEN 325 MG TAB PO PRN (20:00)
--- NOTE | 2025-03-03 20:23 | EKG ---
[facility] [address] [facility] [place] [address] Signed Sinus tachycardia Left atrial enlargement Borderline ECG When compared with ECG of 17-FEB-2025 10:28, No significant change was found Confirmed by Victor Manuel Do MD ([id number]) on 03/03/2025 8:22:48 PM Electronically Signed By: VICTOR MANUEL DO MD 03/03/252022 PATIENT NAME: DAMARI LARA TENZIN Electrocardiogram DATE OF : 58 PHYSICIAN: VICTOR MANUEL DO MD REPORT #: [id number] REPORT IS CONFIDENTIAL AND NOT TO BE RELEASED WITHOUT AUTHORIZATION
[2025-03-03 20:53] VITALS: BP 118/64
[2025-03-03] MEDS ORDERED: DULOXETINE HCL 30 MG CAP PO SCH (21:00)
[2025-03-03] MEDS ORDERED: BUDESONIDE 0.5 MG/2 ML VIAL INH SCH (21:03)
[2025-03-03] MEDS ORDERED: ARFORMOTEROL TARTRATE 15 MCG/2 ML VIAL INH SCH (21:03)
--- NOTE | 2025-03-03 21:10 | NUR ---
pt ARRIVES FROM ER WITH FLOAT LENCHO SHOOK VIA STRETCHER. DENIES NEED TO VOID AT THIS TIME. ASSESSMENT COMPLETE. LUNG SOUNDS DIMINISHED POSTERIORALLY ALL LOBES, CLEAR LUNG SOUNDS AUSCULTATED ANTERIORLY. pt ON 3L OXYGEN BY NC, TALKING IN FULL SENTENCES, DENIES SOB. LENCHO SHOOK IN ROOM FINISHING ADMISSION HISTORY.
[2025-03-03] MEDS ORDERED: ALBUTEROL SULFATE 0.083% 3 ML VIAL INH PRN (21:15)
--- NOTE | 2025-03-03 21:37 | NUR ---
DAMARI IS CURRENTLY ON A 4L NC. HE IS ABLE TO USE THE CORNET LEVEL 5 WITHOUT INCREASED RESPIRATORY DISTRESS OR AN INCREASED WORK OF BREATHING.
[2025-03-03 21:59] VITALS: BP 118/64
--- NOTE | 2025-03-03 22:07 | NUR ---
IN ROOM FOR MEDICATION ADMINISTRATION. pt SITTING UP AT SIDE OF BED, DRINKING COFFEE. NO DISTRESS NOTED, SPO2 WNL, 3L OXYGEN BY NC IN PLACE. CALL LIGHT IN REACH.
[2025-03-04] VITALS (9 sets, daily range): BP systolic 107–128; BP diastolic 50–83
--- NOTE | 2025-03-04 | NUR ---
CPOX ALARMING, pt TOUCHING FINGER PROBE ON BED. STRAIGHTENS FINGER, SPO2 INCREASES TO 92%. DENIES NEEDS. pt AWAKE AT SIDE OF BED WATCHING TV.
[2025-03-04 01:21] LABS: BLOOD/HGB, URINE NEGATIVE (Negative); KETONE, URINE NEGATIVE (Negative); LEUK ESTERASE, URINE NEGATIVE (negative); NITRITE, URINE NEGATIVE (negative)
[2025-03-04 01:25] LABS: EPITHELIAL CELLS, URINE SQUAMOUS 1+ /lpf (0-1+)
[2025-03-04 01:26] LABS: BACTERIA, URINE RARE /hpf (negative); CRYSTALS, URINE NONE SEEN (0-1+)
[2025-03-04 01:27] LABS: CASTS, URINE HYALINE 1+ \\lpf; REFLEX CULTURE, URINE No (No)
--- NOTE | 2025-03-04 01:31 | NUR ---
CPOX ALARMING, RN IN ROOM. PULSE OX NOT READING INITIALLY, BACK ON, SPO2 96% WITH 4L OXYGEN BY NC IN PLACE, TITRATED TO 2L OXYGEN BY NC, SPO2 94% AFTER SEVERAL MINUTES. SCHEDULED MEDICATION ADMINISTERED. VSS. URINAL EMPTIED. SAMPLE SENT TO LAB. pt FALLING ASLEEP, AWAKENS TO VOICE, REFUSES TO WEAR CPAP MASK AT THIS TIME. CALL LIGHT AND PERSONAL SUPLIES WITHIN REACH.
--- NOTE | 2025-03-04 02:20 | NUR ---
CALL LIGHT ANSWERED. SBA TO VOID AT SIDE OF BED IN URINAL. ICE CHIPS AND COFFEE PROVIDED PER REQUEST. NEW SPO2 MONITOR APPLIED TO LEFT HAND, SPO2 94% WITH 2L OXYGEN BY NC IN PLACE. CALL LIGHT AND PERSONAL SUPPLIES WITHIN REACH.
--- NOTE | 2025-03-04 04:35 | NUR ---
CHECKED ON pt. RESTING IN BED ON RIGHT SIDE, EYES CLOSED. SPO2 94%, HR 71. NO DISTRESS NOTED.
[2025-03-04 05:24] LABS: MCH 28.1 PG (25.7-32.2); MCHC 32.8 g/dL (32.3-36.5); MCV 85.8 fL (79.0-92.2); RBC 4.23 M/uL (4.63-6.08)
--- NOTE | 2025-03-04 05:30 | NUR ---
CALL LIGHT ANSWERED. PT WANTED CUP OF COFFEE. SENIOR STATISTICAL PROGRAMMER BROUGHT PT COFFEE AND VITALS AND I&O OBTAINED. PT STATES NO FURTHER NEEDS AT THIS TIME. CALL LIGHT WITHIN REACH AND RN IN ROOM.
[2025-03-04 05:34] LABS: GLOMERULAR FILTRATION RATE,EST 51.0 mL/min (>60); UREA NITROGEN 29.0 mg/dL (7-18)
--- NOTE | 2025-03-04 05:35 | NUR ---
pt AWAKE, SITTING AT SIDE OF BED. VSS. ASSESSMENT COMPLETE. LUNG SOUNDS CLEAR, COARSE RLL, INCREASED AIR MOVEMENT AUSCULTATED. pt PROVIDED WITH BREAKFAST MENU. PO SNACK. CALL LIGHT AND PERSONAL SUPPLIES WITHIN REACH.
[2025-03-04 05:40] LABS: BASOPHILS, MANUAL DIFF 1; EOSINOPHILS, MANUAL DIFF 35; LYMPHOCYTES, MANUAL DIFF 2; NEUTROPHILS, MANUAL DIFF 62
--- NOTE | 2025-03-04 07:17 | NUR ---
Pt report received from LENCHO Green. Pt is resting in bed, A&O, on his right side, television on. Jami Lee updated white board. Pt denies needs at this time. Call light in reach, side rails up x4.
[2025-03-04] MEDS ORDERED: AZITHROMYCIN 250 MG TAB PO SCH (09:00)
[2025-03-04] MEDS ORDERED: ENOXAPARIN SODIUM 40 MG/0.4 ML SYR SUB-Q SCH (09:00)
--- NOTE | 2025-03-04 09:28 | NUR ---
PT NOT AVAILABLE FOR VISIT. PROVIDED PRAYER.
--- NOTE | 2025-03-04 09:53 | NUR ---
UR CLINICAL REVIEW: 2MN MARILYN, MEETS INPT FOR COPD EXACERBATION IV STEROIDS, BIPAP AND OXYGEN, IV ANTIBIOTICS MEDICARE INPT 03/03/25 @ 1942 ORDER MATCHES REG NO AUTH REQUIRED PER MEDICARE RULES PLAN TO DC TO HOME WHEN MEDICALLY STABLE.
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
--- NOTE | 2025-03-04 10:17 | NUR ---
PATIENT WAS IN HIS CHAIR AT THIS TIME, VOICE PATHOLOGIST GOT EVERYTHING READY FOR SHOWER, STRIPPED BEDDING, TIDYED ROOM, ASSISTED PATIENT WITH WASHING HIS HAIR (HE SAID HE COULDNT REACH UP TO DO SO). VOICE PATHOLOGIST CHARTED VITALS AND I&O'S AFTER PATIENTS SHOWER, CALL LIGHT WITH IN REACH AND NOTHING ELSE NEEDED AT THIS TIME.
[2025-03-04] MEDS ORDERED: ALLOPURINOL100 MG PO (11:12)
[2025-03-04] MEDS ORDERED: FLUTICASONE-SA1 EAC4 INH (11:13)
[2025-03-04] MEDS ORDERED: IPRAT-ALBUT 0.5-3 ML INH (11:13)
[2025-03-04] MEDS ORDERED: MOMETASONE FURO15 G1 TOP (11:14)
--- NOTE | 2025-03-04 11:15 | NUR ---
MED REC COMPLETE
[2025-03-04] MEDS ORDERED: PHARMACY RENAL DOSE ADJUSTMENT 1 DOSE MISC PO SCH (12:00)
--- NOTE | 2025-03-04 15:22 | NUR ---
Advised by RN Buffy Vieyra (after she responded to pt's room for a call light) that pt reports "upset stomach" and asks if he can have any maalox or tums. PC to Dr. Do to request a verbal order for this. Verbal order obtained from Dr. Do for Maalox suspension PO 30ml once.
[2025-03-04] MEDS ORDERED: MAGNESIUM HYDROXIDE/AL HYDROX 30 ML CUP PO ONE (15:30)
--- NOTE | 2025-03-04 18:52 | NUR ---
PATIENT IS IN BED AT THIS TIME, HE WAS RESTING, RIVET HAMMER MACHINE OPERATOR CHARTED VITALS AND I&O'S, CALL LIGHT WITH IN REACH, RIVET HAMMER MACHINE OPERATOR GOT A LATTE FOR PATIENT. AND NOTHING ELSE NEEDED AT THIS TIME.
--- NOTE | 2025-03-04 19:18 | NUR ---
RECEIVED REPORT. PT ALERT, UP IN CHAIR. REQUESTS COFFEE IF AVAILABLE. NO OTHER NEEDS, CALL LIGHT IN REACH
[2025-03-04] MEDS ORDERED: ALBUTEROL/IPRATROPIUM 3 ML NEB INH SCH ×2 (20:00)
--- NOTE | 2025-03-04 20:12 | NUR ---
GIVEN COFFEE PER REQUEST. PT ALSO REQUESTS MAALOX FOR HEARTBURN. DISCUSSED WITH MD, SEE NEW ORDER. NO OTHER NEEDS, CALL LIGHT IN REACH
[2025-03-04] MEDS ORDERED: MAGNESIUM HYDROXIDE/AL HYDROX 30 ML CUP PO PRN (20:30)
--- NOTE | 2025-03-04 20:36 | NUR ---
DAMARI IS CURRENTLY ON A 2L NC. HE TOLERATES THE BROVANA, DUONEB, ALBUTEROL, AND PULMICORT W/O INCREASED RESPIRATORY DISTRESS.
--- NOTE | 2025-03-04 20:49 | NUR ---
PT ALERT, RECEIVING BREATHING TREATMENT WITH RT IN ROOM. GIVEN MAALOX PER REQUST. NO OTHER NEEDS, CALL LIGHT IN REACH
--- NOTE | 2025-03-04 21:12 | NUR ---
VITALS OBTAINED. NO NEW I&O AT THIS TIME. PT GIVEN ICE CHIPS UPON REQUEST. PT STATES NO FURTHER NEEDS AT THIS TIME. CALL LIGHT WITHIN REACH.
--- NOTE | 2025-03-04 22:00 | NUR ---
EVENING MEDS, ASSESSMENT. PT REQUESTS "SOMETHING FOR SLEEP". DISCUSSED WITH . VIDA FOR MELATONIN 6MG PO PRN. NO OTHER NEEDS, CALL LIGHT IN REACH
[2025-03-05] VITALS (9 sets, daily range): BP systolic 103–135; BP diastolic 45–83
--- NOTE | 2025-03-05 00:19 | NUR ---
PT RESTING IN BED WITH EYES CLOSED, [facility]
[2025-03-05] MEDS ORDERED: MELATONIN 3 MG TAB PO PRN (00:30)
--- NOTE | 2025-03-05 01:19 | NUR ---
PT RESTING IN BED WITH EYES CLOSED, RISE AND FALL OF CHEST OBSERVED. CALL LIGHT IN REACH
--- NOTE | 2025-03-05 03:05 | NUR ---
PT RESTING IN BED WITH EYES CLOSED, RISE AND FALL OF CHEST OBSERVED. [facility]
--- NOTE | 2025-03-05 05:13 | NUR ---
PT RESTING WITH EYES CLOSED, RISE AND FALL OF CHEST OBSERVED, CALL LIGHT IN REACH
--- NOTE | 2025-03-05 05:45 | NUR ---
SOLID WASTE ENGINEER OBTAINED VITALS AND I&O. PT GIVEN CUP OF COFFEE UPON REQUEST. PT STATES NO FURTHER NEEDS AT THIS TIME. CALL LIGHT WITHIN REACH.
[2025-03-05 05:56] LABS: GLOMERULAR FILTRATION RATE,EST 62.0 mL/min (>60); UREA NITROGEN 34.0 mg/dL (7-18)
[2025-03-05 06:44] LABS: MCH 27.9 PG (25.7-32.2); MCHC 32.8 g/dL (32.3-36.5); MCV 85.2 fL (79.0-92.2); RBC 4.12 M/uL (4.63-6.08)
--- NOTE | 2025-03-05 07:09 | NUR ---
Pt report received from LENCHO Rutledge. Pt is resting in bed on his right side, eyes closed, breathing is regular, even, and non-labored. White board updated. Call light in reach.
[2025-03-05 07:11] LABS: EOSINOPHILS, MANUAL DIFF 40; LYMPHOCYTES, MANUAL DIFF 2; MONOCYTES, MANUAL DIFF 2; NEUTROPHILS, MANUAL DIFF 56
[2025-03-05] MEDS ORDERED: SODIUM ZIRCONIUM CYCLOSILICATE 10 GM PACK PO ONE ×2 (09:00→19:45)
[2025-03-05] MEDS ORDERED: POLYETHYLENE GLYCOL 3350 1 PACKET PO ONE (11:15)
--- NOTE | 2025-03-05 11:32 | NUR ---
PT REQUESTED I GO DOWN AND GET HIM A VANILLA LATTE AND A CANDY BAR WITHOUT NUTS. I WAS ABLE TO GET THE VANILLA LATTE BUT THERE WERE NO CANDY BARS - SO A GOT HIM A COUPLE CHOCOLATE CHIP COOKIES. I CHECKED WITH HIS NURSE FIRST - NO DIETARY RESTRICTIONS. CALL LIGHT WITHIN REACH AND PT WAS HAPPY.
--- NOTE | 2025-03-05 11:50 | NUR ---
Spoke with Pat. Dr. Do in room and discussed possible dc. He states concern for pts K and pt agrees to stay one more day. He denies any needs, called his friend Jules. She will pick him up tomorrow to go home. Pt has a walker and cane at home, he does not use. Now has 02 in the home and a CPAP. Pt states he is having difficulty using. Education provided as pt states he is very tired during the day. Reviewed the need to use his CPAP and this will help his fatigue.
--- NOTE | 2025-03-05 14:44 | NUR ---
PT WAS SLEEPING, SO THIS JOURNEYMAN PIPEFITTER WAITED UNTIL RESPIRATORY WENT INTO ROOM TO GET VITALS. PT RESTING COMFOPRTABLY. GOT PT FRESH ICE IN A CUP REQUESTED. PT GOT UP TO USE BATHROOM. CHANGED LINENS. CALL LIGHT WITHIN REACH. PT REPORTED NEEDING NOTHING ELSE AT THIS TIME.
--- NOTE | 2025-03-05 14:47 | NUR ---
PT USED THE RESTROOM SO BED CHANGED WHILE PT WAS OUT OF IT. CALL LIGHT WITHIN REACH. PT REPORTS NEEDING NOTHING ELSE AT THIS TIME.
--- NOTE | 2025-03-05 14:58 | NUR ---
HELPED PT WITH SHAMPOOING HAIR, ONCE ARMS BAGGED DUE TO TWO IV'S PT HAD TROUBLE REACHING HIS HAIR. CALL LIGHT WITHIN REACH FOLLOWING SHOWER. PT REPORTED NEDING NOTHING ELSE AT THIS TIME.
--- NOTE | 2025-03-05 17:17 | NUR ---
CHECKED ON PT. PT AWAKE AND SITTING ON THE SIDE OF HIS BED, I ASKED IF HE WOULD LIKE TO MOVE TO HIS CHAIR FOR DINNER AND PT SAID HE DID NOT WANT TO MOVE, "THE CHAIR IS NOT COMFORTABLE." GOT PT FRESH COFFE, 4 CREAMERS, AND A STICK TO STIR. DINNER ARRIVED JUST I RETURNED WITH HIS COFFE. I ASKED ABOUT THE SALAD HE HAD IN THE NUTRITION FRIG, THE PT REPORTED HE WAS NOT QUITE READY TO EAT IT, "MAYBE AFTER DINNER." CALL LIGHT WITHIN REACH, PT REPORTED NEEDING NOTHING MORE AT THIS TIME.
[2025-03-05 17:20] LABS: GLOMERULAR FILTRATION RATE,EST 71.0 mL/min (>60); UREA NITROGEN 32.0 mg/dL (7-18)
--- NOTE | 2025-03-05 18:26 | NUR ---
PT ASLEEP, HAD TO WAKE TO GET VITALS. PT RESTING IN BED, REMINDED PT TO TRY AND KEEP IV SITES, BOTH ARMS, STRAIGHT POSSIBLE, BOTH IV SITES ARE IN THE BEND OF BOTH PT'S ARMS. GOT PT A CUP OF ICE, REQUESTED. TURNED DOWN LIGHTS, ALSO REQUESTED. CALL LIGHT WITHIN REACH OF PT. PT REPORTED NEEDING NOTHING ELSE AT THIS TIME.
--- NOTE | 2025-03-05 19:24 | NUR ---
RECEIVED REPORT. PT ALERT IN CHAIR, WATCHING TV. CALL LIGHT IN REACH
--- NOTE | 2025-03-05 19:33 | NUR ---
PATIENT SITTING UP IN BED. PATIENTS WAS GIVEN HIS SALAD FROM THE PATIENT FRIDGE. PATIENTS CALL LIGHT IS WITHIN REACH AND NO FURTHE NEEDS AT THIS TIME.
[2025-03-05] MEDS ORDERED: IPRATROPIUM BROMIDE 2.5 ML VIAL INH SCH (20:00)
--- NOTE | 2025-03-05 20:11 | NUR ---
VITALS, ASSESSMENT, EVENING MEDS. GIVEN PRN MELATONIN PER REQUEST. REDRESSED IV, GOOD FLUSH. NO OTHER NEEDS, CALL LIGHT IN REACH
--- NOTE | 2025-03-06 00:13 | NUR ---
RESPONDED TO PT CALL FOR ICE AND JELLO. PT ALERT, SITTING ON EDGE OF BED. NO OTHER NEEDS, [facility]
--- NOTE | 2025-03-06 02:29 | NUR ---
PT RESTING IN BED WITH EYES CLOSED, RISE AND FALL OF CHEST OBSERVED. [facility]
--- NOTE | 2025-03-06 04:46 | NUR ---
PT RESTING IN BED WITH EYES CLOSED, RISE AND FALL OF CHEST OBSERVED. CALL LIGHT IN REACH
[2025-03-06 05:45] LABS: BASOPHILS 0.2 % (0.2-1.2); EOSINOPHILS 30.1 % (0.8-7.0); LYMPHOCYTES 2.4 % (21.8-53.1); MCH 28.0 PG (25.7-32.2); MCHC 32.7 g/dL (32.3-36.5); MCV 85.7 fL (79.0-92.2); MONOCYTES 2.0 % (5.3-12.2); NEUTROPHILS 64.1 % (34.0-67.9); RBC 4.07 M/uL (4.63-6.08)
[2025-03-06 05:54] LABS: GLOMERULAR FILTRATION RATE,EST 59.0 mL/min (>60); UREA NITROGEN 34.0 mg/dL (7-18)
[2025-03-06 06:08] VITALS: BP 128/78
--- NOTE | 2025-03-06 06:11 | NUR ---
VITALS, AM ASSESSMENT. PROVIDED COFFEE PER REQUEST. NO OTHER NEEDS, CALL LIGHT IN REACH
--- NOTE | 2025-03-06 07:25 | NUR ---
MORNING REPORT RECIEVED FROM LENCHO KAUR. PT SITTING UP IN BED AT THIS TIME WITH EYES CLOSED CHES RISE EQUAL BILAT, PT NC IN PLACE ON 2L, PT HAS CALL LIGHT IN REACH IF NEEDED.
[2025-03-06] MEDS ORDERED: BUDESONIDE 0.5 MG/2 ML VIAL INH SCH (08:00)
--- NOTE | 2025-03-06 08:48 | NUR ---
PT SITTING UP IN BED, PT HAS NO CURRENT CONCERNS AT THIS TIME, AND STATES " HE FEELS WELL ENOUGH TO GO HOME TODAY". PT HAS CALL LIGHT IN REACH WITH 2L NC IN PLACE.
[2025-03-06] MEDS ORDERED: PREDNISONE20 MG PO (09:38)
[2025-03-06] MEDS ORDERED: LEVOFLOXACIN750 MG PO (09:43)
[2025-03-06 10:00] VITALS: BP 132/92
[2025-03-06 10:03] VITALS: BP 124/87
--- NOTE | 2025-03-06 10:06 | NUR ---
PT SITTING IN CHAIR. PT AWAKE AND ALERT. CALL LIGHT WITHIN REACH, PT ASKED ME TO HEAT UP HIS CURRENT COFFEE, DID THAT - PT NEEDS NOTHING ELSE AT THIS TIME.
[2025-03-06 10:46] VITALS: BP 132/92
== END 2025-03-06 10:55 | disposition home or self-care (01) | DRG 190 ==
LOC: ED 17:04 → MS 20:12
PROVIDERS: Emergency Medicine; ADMIT Student in an Organized Health Care Education/Training Program; ATTEND Student in an Organized Health Care Education/Training Program
DX: J44.1 Chronic obstructive pulmonary disease with (acute) exacerbation (principal); J18.9 Pneumonia, unspecified organism; I42.0 Dilated cardiomyopathy; I42.2 Other hypertrophic cardiomyopathy; J96.11 Chronic respiratory failure with hypoxia; J98.11 Atelectasis; J90 Pleural effusion, not elsewhere classified; Z99.81 Dependence on supplemental oxygen; I10 Essential (primary) hypertension; K59.00 Constipation, unspecified; E87.5 Hyperkalemia; F39 Unspecified mood [affective] disorder; M10.9 Gout, unspecified; I87.8 Other specified disorders of veins; I77.819 Aortic ectasia, unspecified site; D72.829 Elevated white blood cell count, unspecified; D72.10 Eosinophilia, unspecified; E78.5 Hyperlipidemia, unspecified; I44.0 Atrioventricular block, first degree; Z90.49 Acquired absence of other specified parts of digestive tract; Z87.11 Personal history of peptic ulcer disease; Z88.1 Allergy status to other antibiotic agents; Z88.8 Allergy status to other drugs, medicaments and biological substances; Z79.51 Long term (current) use of inhaled steroids; Z79.899 Other long term (current) drug therapy
CPT/HCPCS: 36415; 71045; 73030; 80048; 80053; 81001; 82803; 83605; 83735; 83880; 84484; 85025; 85610; 85730; 87502; 94640; 94644; 94660; 94667; 94668; 94760; 94762; 94799; 97161; 97165; 97530; A9270; J0456; J0696; J1650; J2270; J2405; J2919; J7060; J7605; U0002

== ENCOUNTER 2025-03-09 09:00 | Inpatient (IN) | payer MEDICARE, OTHER ==
[~2025-03-09] VITALS: Ht 182.9 cm; Wt 120.5 kg
[2025-03-09] VITALS (7 sets, daily range): BP systolic 90–151; BP diastolic 69–90
[~2025-03-09 09:00] MED LIST changes: +HYDROXYZINE HCL25 MG PO; +LEVOFLOXACIN750 MG PO; +MOMETASONE FURO15 G1 TOP
--- OUTSIDE RECORDS SUMMARY | 2025-03-09 09:07 | XMS ---
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: [facility] Current FAMILY PHONE: [phone] ÁNGEL MAX Physician Continuing Education Dean Mallorie SIMMONSIE PHONE: [phone] SHEREEN HEREDIA Nurse Practitioner: Adult Health Mallorie MIGUE PHONE: [phone] MEENU KAY Internal Medicine: Infectious Disease Mallorie DE LUNA PHONE: [phone] Rebecca has no Care Guidelines for this patient. Sinan VISIT COUNT (12 MO.) 14 ROBB Deluca TOTAL 14 NOTE: Visits indicate total known visits. ED/UCC VISIT TRACKING (12 MO.) 03/09/2025 09:01 [facility]cedo [place] TYPE: Emergency COMPLAINT: - SHORTNESS OF BREATH 03/03/2025 17:05 [facility] [place] TYPE: Emergency COMPLAINT: - SOB 02/17/2025 10:20 [facility] [place] TYPE: Emergency COMPLAINT: - SHORTNESS OF BREATH DIAGNOSES: - Allergy status to other antibiotic agents - Chronic obstructive pulmonary disease with (acute) exacerbation - long-term (current) use of systemic steroids - Other fci (current) drug therapy - Pure hypercholesterolemia, unspecified - Shortness of breath 01/29/2025 00:15 [facility] [place] TYPE: Emergency COMPLAINT: - ANKLE INFECTION DIAGNOSES: - Allergy status to other antibiotic agents - Allergy status to other drugs, medicaments and biological substances - Chronic obstructive pulmonary disease, unspecified - 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 - Pain in right [...] disease, unspecified - Erythematous condition, unspecified - long-term (current) use of inhaled steroids - Other fci (current) drug therapy - Pain in right lower leg - Pure hypercholesterolemia, unspecified 10/02/2024 12:44 [facility] [place] TYPE: Emergency COMPLAINT: - SHORTNESS OF BREATH DIAGNOSES: - Allergy status to other drugs, medicaments and biological substances - Chronic obstructive pulmonary disease, unspecified - long-term (current) use of inhaled steroids - Other [...] Leukemia, unspecified not having achieved remission - long-term (current) use of inhaled steroids - Malignant pleural effusion - 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 - [...] white blood cell count, unspecified - 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 - Pain in right foot 07/16/2024 23:42 [facility] [place] TYPE: Emergency COMPLAINT: - DIFFICULTY BREATHING 07/14/2024 11:08 [facility] [place] TYPE: Emergency COMPLAINT: - BLOOD COUNT LOW DIAGNOSES: - Abnormal finding of blood chemistry, unspecified - Allergy status to other drugs, medicaments and biological substances - Chronic obstructive pulmonary disease, unspecified - Edema, unspecified - Elevated white blood cell count, unspecified - Other fci (current) drug therapy 07/06/2024 19:35 [facility] [place] TYPE: Emergency COMPLAINT: - SHORTNESS OF BREATH DIAGNOSES: - Allergy status to other drugs, medicaments and biological substances - Chronic obstructive pulmonary disease with (acute) lower respiratory infection - Other specified postprocedural states - Pneumonia, unspecified organism - Shortness of breath INPATIENT VISIT TRACKING (12 MO.) 03/03/2025 20:12 [facility] [place] TYPE: Medical Surgical COMPLAINT: - COPD EXACERBATION DIAGNOSES: - Acquired absence of other specified parts of digestive tract - Acquired absence of other specified parts of digestive tract - Allergy status to other antibiotic agents - Allergy status to other antibiotic agents - Allergy status to other drugs, medicaments and biological substances - Allergy status to other drugs, medicaments and biological substances - Aortic ectasia, unspecified site - Aortic ectasia, unspecified site - Atelectasis - Atelectasis - Atrioventricular block, first degree - Atrioventricular block, first degree - Chronic obstructive pulmonary disease with (acute) exacerbation - Chronic respiratory failure with hypoxia - Chronic respiratory failure with hypoxia - Constipation, unspecified - Constipation, unspecified - Dependence on supplemental oxygen - Dependence on supplemental oxygen - Dilated cardiomyopathy - Dilated cardiomyopathy - Elevated white blood cell count, unspecified - Elevated white blood cell count, unspecified - Eosinophilia, unspecified - Eosinophilia, unspecified - Essential (primary) hypertension - Essential (primary) hypertension - Gout, unspecified - Gout, unspecified - Hyperkalemia - Hyperkalemia - Hyperlipidemia, unspecified - Hyperlipidemia, unspecified - long-term (current) use of inhaled steroids - local company 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 truck driver (current) 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 of inhaled steroids - Other hypertrophic cardiomyopathy - Other hypertrophic cardiomyopathy - Other fci (current) drug therapy - 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 [place] [...] - Insomnia, unspecified - Insomnia, unspecified - local company intermodal truck driver (current) use of antibiotics - local company intermodal truck driver (current) use of antibiotics - long-term (current) use of inhaled steroids - local company intermodal truck driver (current) use of inhaled steroids - Nephropathy [...] Other idiopathic peripheral autonomic neuropathy - Other fci (current) drug therapy - 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 - [...] - Ventricular premature depolarization 12/17/2024 15:01 ROBB Frey TYPE: Observation COMPLAINT: - RLE CELLULITIS DIAGNOSES: - Acute kidney failure, unspecified - Allergy status to other drugs, medicaments and biological substances - Cellulitis of right lower limb - Chronic obstructive pulmonary disease, unspecified - Essential (primary) hypertension - Gout, unspecified - Major depressive disorder, single episode, unspecified - 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 TYPE: General Medicine COMPLAINT: - COPD exacerbation DIAGNOSES: - Cellulitis of unspecified part of limb - Cutaneous abscess of unspecified foot - Localized edema - Other specified abnormal findings of blood chemistry - Shortness of breath - Shortness of breath [facility] DIAGNOSES: - Chronic obstructive [...] - Hyperlipidemia, unspecified - Hyperlipidemia, unspecified - local company intermodal truck driver (current) use of inhaled steroids - local company intermodal truck driver (current) use of inhaled steroids - Major depressive disorder, single episode, unspecified - Major depressive disorder, single episode, unspecified - Morbid (severe) obesity due to excess calories - Morbid (severe) obesity due to excess calories - 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
[2025-03-09] MEDS ORDERED: ALBUTEROL/IPRATROPIUM 3 ML NEB INH PRN (09:15)
[2025-03-09 09:26] LABS: MCH 28.4 PG (25.7-32.2); MCHC 33.3 g/dL (32.3-36.5); MCV 85.2 fL (79.0-92.2); RBC 4.86 M/uL (4.63-6.08)
[2025-03-09 09:51] LABS: ALT (SGPT) 31.0 U/L (14-59); AST (SGOT) 9.0 U/L (15-37); GLOMERULAR FILTRATION RATE,EST 57.0 mL/min (>60); PROTEIN, TOTAL 6.9 g/dL (6.4-8.2); UREA NITROGEN 33.0 mg/dL (7-18)
[2025-03-09 10:26] LABS: EOSINOPHILS, MANUAL DIFF 59; LYMPHOCYTES, MANUAL DIFF 8; MONOCYTES, MANUAL DIFF 1; NEUTROPHILS, MANUAL DIFF 32
[2025-03-09 10:27] LABS: BASOPHILS, MANUAL DIFF 0
[2025-03-09] MEDS ORDERED: HEParin SOD (PORCINE) 5,000 UNIT/ML SYR IV ONE (12:45)
[2025-03-09] MEDS ORDERED: HEPARIN SOD,PORK IN 0.45% NACL 500 ML IV SCH ×2 (12:45→23:45)
[2025-03-09] MEDS ORDERED: ACETAMINOPHEN 325 MG TAB PO PRN (15:00)
--- NOTE | 2025-03-09 16:30 | NUR ---
PT ARRIVED FROM ED VIA STREARIADNAR, SET UP MONITOR AND VS FOR PT, ICE WATER AND REG DIET MENUE GIVEN AND HE ORDERED HIS DINNER. PT SITTING AT THE SIDE OF THE BED AND ANSWERING QUESTIONS FOR STAFF. 16:30 PT SITTING TO THE SIDE OF THE BED TALKING ON THE PHONE. URINAL AT THE BEDSIDE AND CALL LIGHT WITHIN REACH FOR PATIENT. COMPLETED ASSESSMENT.
[2025-03-09] MEDS ORDERED: AZITHROMYCIN250 MG PO (16:58)
--- NOTE | 2025-03-09 16:58 | NUR ---
MED REC COMPLETE
--- NOTE | 2025-03-09 17:20 | NUR ---
DR SANTOS INTO SEE PT AT THIS TIME. PT IS CURRENTLY EATTING DINNER AT THIS TIME ALSO. BASED ON HEPARIN GTT PROTOCOL NEXT PTT DUE AT 22:30.
--- NOTE | 2025-03-09 17:31 | NUR ---
PT SITTING AT THE SIDE OF THE BED EATTING DINNER STILL AT THIS TIME. NO C/O'S AT THIS TIME. WATCHING TV ALSO AT THIS TIME.
--- NOTE | 2025-03-09 17:57 | NUR ---
PT VOIDED USING THE URINAL AND STOOD AT THE BEDSIDE, SOME SOB NOTED AND INCREASED HR. PT IS ABLE TO RECOVER AND SPO2 REMAINS IN THE 95% OR HIGHER ON 1L VIA NC.
--- NOTE | 2025-03-09 18:37 | NUR ---
PT APPEARS TO BE SLEEPING ON HIS RT SIDE AT THIS TIME. HOB ELEVATED SOME. PT HAS BP CUFF ON HIS RT ARM AND THAT IS ABOVE HIS SHOULDER AND LYING ON IT. WHICH WOULD EXPLAIN HIS DECREASED IN BP AT 1830 90/69 (77). SPO2 REMAINS IN THE 95% RANGE AND HR IS CURRENTLY 95 TO 99.
[2025-03-09] MEDS ORDERED: IPRATROPIUM BROMIDE 2.5 ML VIAL INH SCH (20:00)
[2025-03-09] MEDS ORDERED: BUDESONIDE 0.5 MG/2 ML VIAL INH SCH (20:00)
[2025-03-09] MEDS ORDERED: ARFORMOTEROL TARTRATE 15 MCG/2 ML VIAL INH SCH (20:00)
--- NOTE | 2025-03-09 20:05 | NUR ---
XRAY COMPLETED RIGHT FOOT XRAY ORDERED. PATIENT THEN USED CALL LIGHT, THIS RN INTO ROOM, PATIENT ASKED FOR SNACKS. THIS RN PROVIDED, FRUIT CUP AND PEANUT BUTTER CUPS WITH LEFTY CRACKERS. FRESH ICE WATER, AND ICE CHIPS PER HIS REQUEST. ASSESSMENT COMPLETE, NO NEW CONCERNS FROM SHIFT CHANGE REPORT. PATIENT IS ALERT AND ORIENTED, NO RESPIRATORY DISTRESS NOTED.
--- NOTE | 2025-03-09 20:54 | NUR ---
US TECH IN ROOM FOR BLE.
[2025-03-09] MEDS ORDERED: DULOXETINE HCL 30 MG CAP PO SCH (22:52)
--- NOTE | 2025-03-09 23:24 | NUR ---
BIPAP PLACED BY R.T. PATIENT REMOVED WITHIN 10MIN. PATIENT HEPARIN DRIP ORDER TO BE RE-ENTERED BY DUE TO CURRENT ORDERS NOT INCLUDING FOR HEPARIN BOLUS.
--- NOTE | 2025-03-09 23:27 | EKG ---
[facility] [address] [place] [address] Signed Sinus rhythm with premature atrial complexes with aberrant conduction Otherwise normal ECG When compared with ECG of 03-MAR-2025 17:02, aberrant conduction is now present Confirmed by Tai Santos MD () on 03/09/2025 11:27:10 PM Electronically Signed By: TAI SANTOS MD 03/09/25 2327 PATIENT NAME: DAMARI LARA TENZIN Electrocardiogram DATE OF : 58 PHYSICIAN: TAI SANTOS MD REPORT #: [id number] REPORT IS CONFIDENTIAL AND NOT TO BE RELEASED WITHOUT AUTHORIZATION
[2025-03-09] MEDS ORDERED: HEParin SOD (PORCINE) 5,000 UNIT/ML SYR IV PRN ×3 (23:45)
[2025-03-10] VITALS (9 sets, daily range): BP systolic 106–165; BP diastolic 61–95
--- NOTE | 2025-03-10 01:16 | NUR ---
PT CALLS TO REQUEST HIS WIRES BE UNTANGLED AND URINAL EMPTIED, PROVIDED. PT REQUESTS DECAF COFFEE, PROVIDED. PT STATES NO OTHER NEEDS AT THIS TIME. CALL LIGHT IN REACH.
--- NOTE | 2025-03-10 03:11 | NUR ---
PATIENT ALERT AND ORIENTED, HE REPORTS HE DOES NOT FEEL TIRED HE SLEPT ALL DAY. HE IS SITTING AT BEDSIDE WITH WORD SEARCH BOOK AND DECAF COFFEE NOW AFTER AMBULATING TO BATHROOM TO HAVE BM AND VOIDED 200ML.
[2025-03-10 06:08] LABS: MCH 27.7 PG (25.7-32.2); MCHC 32.6 g/dL (32.3-36.5); MCV 85.0 fL (79.0-92.2); RBC 4.59 M/uL (4.63-6.08)
[2025-03-10 06:23] LABS: ALT (SGPT) 27.0 U/L (14-59); AST (SGOT) 6.0 U/L (15-37); BANDS, MANUAL DIFF 1; EOSINOPHILS, MANUAL DIFF 17; GLOMERULAR FILTRATION RATE,EST 71.0 mL/min (>60); LYMPHOCYTES, MANUAL DIFF 6; MONOCYTES, MANUAL DIFF 2; NEUTROPHILS, MANUAL DIFF 74; PHOSPHORUS, INORGANIC 4.3 mg/dL (2.5-4.9); PROTEIN, TOTAL 6.4 g/dL (6.4-8.2); UREA NITROGEN 29.0 mg/dL (7-18)
--- NOTE | 2025-03-10 08:24 | NUR ---
PT SITTING UP TO THE BEDSIDE VOIDED USING URINAL, CLEAR YELLOW IN COLOR. HEPARINE DRIP INFUSING AT 20UNITS/KG/HR. SPO2 95% ON 1L'S VIA NC. PT HAD ORDERED BREAKFAST. NO C/O'S AT THIS TIME. RT PRESENT FOR NEB TX. 0825 BREAKFAST ARRIVED TAKEN TO ROOM, PT HAD ORDERED TWO BKF. SITTING A TTHE EDGE OF BED TO EAT AT THIS TIME.
--- NOTE | 2025-03-10 10:00 | NUR ---
PT HAS BEEN SLEEPING THIS AM AFTER BREAKFAST. O2 INPLACE WITH SPO2 94-96% ON 1L'S. SOMETIMES HIS SPO2 DECREASES, BUT PT IS ABLE TO RECOVER. 1030: PT AWAKE WATCHING TV AND ASKED WHEN HE WOULD GET MOVED TO THE M/S FLOOR SO THAT HE CAN SHOWER. EXPLAINED THAT I HAVE NO ORDERS AT THIS TIME. SO HE WILL HAVE TO WAIT A FEW TILL I HAVE ORDERS. PT UNDERSTANDS. THEN HE ASKED ABOUT THE DRIP AND WHEN WILL HE START ORAL MEDICATIONS. EXPLAINED AGAIN I HAVE TO HAVE ORDERS. PT SAID OKAY.
--- NOTE | 2025-03-10 10:05 | NUR ---
VISITED DURING SPIRITUAL CARE ROUNDS. PT APPEARED TO BE SLEEPING. DID NOT DISTURB. PROVIDED PRAYER.
--- NOTE | 2025-03-10 10:58 | NUR ---
UR CLINICAL REVIEW: 2 MN FOR VERSALUS-PER PETROPHYSICIST MEETS INPT FOR PE/SHOB WITH NEED FOR HEPARIN DRIP MEDICARE 03/09/25 @ 1501 ORDER MATCHES REG NO AUTH REQUIRED PER MEDICARE GUIDELINES MD ANTICIPATE DC TO HOME IN 1-2 DAYS
[2025-03-10] MEDS ORDERED: APIXABAN 5 MG TAB PO SCH (11:16)
--- NOTE | 2025-03-10 11:40 | NUR ---
HEPRINE DRIP TURNED OFF AND THEN PT GIVEN ELIQUIS 10MG PO AT THIS TIME. TRANSFER ORDERS RECEIVED.
[2025-03-10] MEDS ORDERED: PHARMACY RENAL DOSE ADJUSTMENT 1 DOSE MISC PO SCH (12:00)
--- NOTE | 2025-03-10 12:13 | NUR ---
PT SITTING AT THE EDGE OF BED FOR LAB SAMPLE TO BE OBTAINED. THEN PT IS EATTING LUNCH AT THIS TIME.
--- NOTE | 2025-03-10 12:59 | NUR ---
pt house convenced at 12:25 and then up to the shower, placed on tele #2. line changed and chair set up for pt. regulatory and compliance technician came to complete echo, but pt was in the shower. Tech will return in about 15 minutes.
--- NOTE | 2025-03-10 13:18 | NUR ---
PT SHOWERED AND BACK TO ROOM 127, ECHO THEC PRESENT AND PT ON BED FOR ECHO.
--- NOTE | 2025-03-10 14:24 | NUR ---
CASE MGT INTO TALK WITH PT AT THIS TIME, PT REMAINS ON 1L'S NC SPO2 95% AT THIS TIME. HR 84 AT THIS TIME.
--- NOTE | 2025-03-10 15:06 | NUR ---
ALERT AND ORIENTED. LIVES IN BASEMENT OF FRIEND'S HOME. HE HAS 13 STEPS TO GET TO BASEMENT. HE HAS A WALKER, NEBULIZER AND OXYGEN. HE DRIVES. STATES HE WAS ONLY HOME 2 DAYS WHEN HE NEEDED TO RETURN TO HOSPITAL SO HE HADN'T HAD A CHANCE TO FOLLOW-UP WITH PCP. HOWEVER, HE DOES HAVE AN APPOINTMENT SCHEDULED WITH DR. CREWS IN [place], [place] FOR SATURDAY. CURRENTLY NO CM NEEDS. HE IS PLANNING TO RETURN HOME WHEN HE IS MEDICALLY READY.
--- NOTE | 2025-03-10 16:10 | NUR ---
PT IS SLEEPING AT THIS TIME, RESP APPEAR EVEN AND UNLABORED. SPO2 97% ON 1L'S
--- NOTE | 2025-03-10 17:09 | NUR ---
PT RESTING IN BED, THIS RN WOKE PATIENT FOR VS. PT REQUESTING CUP OF COFFEE, WHICH WAS PROVIDED - DECAF. PT REQUESTING TO AMBULATE AND PT IS ABLE TO AMBULATE THE HALLWAY UP/DOWN CCU PER PRIMARY RN. PT VERBALIZES UNDERSTANDING. CALL LIGHT WITHIN REACH, ALL PT CARE NEEDS MET AT THIS TIME.
--- NOTE | 2025-03-10 18:53 | NUR ---
PT APPEARS TO BE SLEEPING A THIS TIME. REMAINS ON TELE#2 IN SR HR OF 85 AT THIS TIME. RESP RATE EVEN AND UNLABORED.
--- NOTE | 2025-03-10 19:30 | NUR ---
handoff report received from day shift RN. patient sitting up awake at bedside eating a sandwhich. patient provided with decaf coffee per request. patient remains on 1L NC, tolerating well. patient has no needs at this time. call light in reach.
--- NOTE | 2025-03-10 20:40 | NUR ---
patient assessment complete. patient resting in bed watching TV. patient remains on 1L NC, SPO2 96%. patient lung sounds diminished throughout. patient alert and oriented x4. patient remains on Tele #2, in NSR. patient IV site WNL and saline locked. patient denies any needs at this time. call light in reach.
--- NOTE | 2025-03-10 22:35 | NUR ---
patient up to bathroom to void. patient has no other needs at this time. call light in reach.
--- NOTE | 2025-03-11 01:05 | NUR ---
PATIENT AWAKE, STATES HE GOT ENOUGH SLEEP FOR THE NIGHT. PATIENT PROVIDED WITH CRACKERS AND HALF CUP OF DECAF COFFEE PER REQUEST. PATIENT ENCOURAGED TO TRY TO GET SOME MORE REST. NO FURTHER NEEDS AT THIS TIME. CALL LIGHT IN REACH.
[2025-03-11 02:55] VITALS: BP 126/68
--- NOTE | 2025-03-11 02:59 | NUR ---
patient awakens with this RN in room. vital signs taken and recorded. patient has no needs at this time. call light in reach.
--- NOTE | 2025-03-11 04:25 | NUR ---
PATIENT RESTING WITH EYES CLOSED, RESPIRATIONS EVEN AND UNLABORED. PATIENT HAS NO NEEDS AT THIS TIME. CALL LIGHT IN REACH.
[2025-03-11 05:34] LABS: MCH 28.6 PG (25.7-32.2); MCHC 33.2 g/dL (32.3-36.5); MCV 86.4 fL (79.0-92.2); RBC 4.40 M/uL (4.63-6.08)
[2025-03-11 05:51] LABS: BANDS, MANUAL DIFF 2; EOSINOPHILS, MANUAL DIFF 48; LYMPHOCYTES, MANUAL DIFF 20; NEUTROPHILS, MANUAL DIFF 30
[2025-03-11 05:53] LABS: ALT (SGPT) 28.0 U/L (14-59); AST (SGOT) 9.0 U/L (15-37); GLOMERULAR FILTRATION RATE,EST 71.0 mL/min (>60); PROTEIN, TOTAL 6.0 g/dL (6.4-8.2); UREA NITROGEN 32.0 mg/dL (7-18)
[2025-03-11 06:00] VITALS: BP 117/78
--- NOTE | 2025-03-11 06:08 | NUR ---
PATIENT AWAKE AND CALLED IN BREAKFAST ORDER. VITAL SIGNS TAKEN AND RECORDED. PATIENT STATES HE IS GOING TO TRY AND GET SOME MORE SLEEP. LIGHTS DIMMED PER REQUEST. NO FURTHER NEEDS AT THIS TIME. CALL LIGHT IN REACH.
--- NOTE | 2025-03-11 07:54 | NUR ---
DISCHARGE REVIEW: STARTED ON ELIQUIS 03/10/25. ECHO ORDERED AND COMPLETED. NO BARRIERS TO DC NOTED. ON BASELINE OXYGEN. PLAN TO DC TO HOME. DC DATE LIKELY TODAY 03/11/25
--- NOTE | 2025-03-11 08:00 | NUR ---
RECEIVED REPORT FROM NIGHT RN. PT SITTING UP ON THE EDGE OF THE BED AT THIS TIME, BREAKFAST TRAY DELIVERED. PT LS DIMINISHED THROUGHOUT, OTHERWISE CLEAR. PT C/O RIGHT NECK LYMPH NODE BOTHERING, ALSO SLIGHTLY SORE THROAT, PT ABLE TO EAT BREAKFAST WITHOUT DIFFICULTY. PT REPORTS BM THIS MORNING. DISCUSSED ELIQUIS AND SAFETY NEEDS AGAIN THIS MORNING, RISK OF BLEEDING AND APPLYING PRESSURE. PT DENIES ANY CONCERNS TODAY, HAS RIDE IF DISCHARGING WHO WILL BRING HIS O2 TANK WITH THEM UPON GETTING HIM. CALL LIGHT WITHIN REACH, ALL PT CARE NEEDS MET.
--- NOTE | 2025-03-11 09:28 | NUR ---
SPOKE WITH PATIENT. PLAN TO GO HOME TODAY. NO CM NEEDS AT THIS TIME. PLAN TO DC HOME TODAY.
[2025-03-11] MEDS ORDERED: ELIQUIS5 MG PO ×2 (09:57→09:59)
[2025-03-11 11:40] VITALS: BP 123/74
== END 2025-03-11 11:40 | disposition home or self-care (01) | DRG 176 ==
LOC: ED 09:00 → CCU 15:08
PROVIDERS: Emergency Medicine; ADMIT Family Medicine; ATTEND Family Medicine
DX: I26.99 Other pulmonary embolism without acute cor pulmonale (principal); J44.9 Chronic obstructive pulmonary disease, unspecified; I77.819 Aortic ectasia, unspecified site; E78.00 Pure hypercholesterolemia, unspecified; M25.571 Pain in right ankle and joints of right foot; D72.829 Elevated white blood cell count, unspecified; T38.0X5A Adverse effect of glucocorticoids and synthetic analogues, initial encounter; Z87.01 Personal history of pneumonia (recurrent); Z79.51 Long term (current) use of inhaled steroids; Z79.2 Long term (current) use of antibiotics; Z90.49 Acquired absence of other specified parts of digestive tract; Z98.890 Other specified postprocedural states; Z79.899 Other long term (current) drug therapy; Z88.1 Allergy status to other antibiotic agents
CPT/HCPCS: 36415; 71045; 71260; 73610; 80053; 83735; 84100; 84484; 85025; 85730; 93005; 93010; 93308; 93970; 94640; 94660; 94760; 94762; 96374; 96375; 99285-25; J1644; J2919; J7605

== ENCOUNTER 2025-03-21 13:59 | Emergency (ER) | payer MEDICARE, OTHER ==
[~2025-03-21] VITALS: Ht 182.9 cm; Wt 123.0 kg
[~2025-03-21 13:59] MED LIST changes: +AZITHROMYCIN250 MG PO; +ELIQUIS5 MG PO
--- OUTSIDE RECORDS SUMMARY | 2025-03-21 14:06 | XMS ---
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 No recent Security Events currently on file CRITERIA MET - 6 ED Visits in 6 Months - [facility] - 2 Visits in 30 Days CARE PROVIDERS -, [facility] Dentist: Farm Mortgage Agent Current [place] PHONE: [phone] -[place]- Dentist: Farm Mortgage Agent [facility] PHONE: [phone] ARNOLD ZHENG Nurse Practitioner: Family Current PHONE: [phone] [facility]/[place]: [facility] Current FAMILY PHONE: [phone] ÁNGEL MAX Physician Brick Mason Mallorie SIMMONSIE PHONE: [phone] SHEREEN HEREDIA Nurse Practitioner: Adult Health Mallorie MIGUE PHONE: [phone] MEENU KAY Internal Medicine: Infectious Disease Mallorie DE LUNA PHONE: [phone] Rebecca has no Care Guidelines for this patient. Sinan VISIT COUNT (12 MO.) Robin Deluca TOTAL 15 NOTE: Visits indicate total known visits. ED/UCC VISIT TRACKING (12 MO.) 03/21/2025 14:00 [facility] [place] TYPE: Emergency COMPLAINT: - SHORTNESS OF BREATH 03/09/2025 09:01 [facility] [place] TYPE: Emergency COMPLAINT: - SHORTNESS OF BREATH 03/03/2025 17:[address] [facility] [place] TYPE: Emergency COMPLAINT: - SOB 02/17/2025 10:20 [facility] [place] TYPE: Emergency COMPLAINT: - SHORTNESS OF BREATH DIAGNOSES: - Allergy status to other antibiotic agents - Chronic obstructive pulmonary disease with (acute) exacerbation - custodial (current) use of systemic steroids - Other detention (current) drug therapy - Pure hypercholesterolemia, unspecified - Shortness of breath 01/29/2025 00:15 [facility] [place] TYPE: Emergency COMPLAINT: - ANKLE INFECTION DIAGNOSES: - Allergy status to other antibiotic agents - Allergy status to other drugs, medicaments and biological substances - Chronic obstructive pulmonary disease, unspecified - Other terminal superintendent (current) drug therapy - Pain in right [...] disease, unspecified - Erythematous condition, unspecified - rat exterminator (current) use of inhaled steroids - Other detention (current) drug therapy - Pain in right lower leg - Pure hypercholesterolemia, unspecified 10/02/2024 12:44 [facility] [place] TYPE: Emergency COMPLAINT: - SHORTNESS OF BREATH DIAGNOSES: - Allergy status to other drugs, medicaments and biological substances - Chronic obstructive pulmonary disease, unspecified - custodial (current) use of inhaled steroids - Other detention (current) drug therapy - Pure hypercholesterolemia, unspecified - Shortness of breath 08/30/2024 14:31 [facility] [place] TYPE: Emergency COMPLAINT: - SHORTNESS OF BREATH DIAGNOSES: - Allergy status to other drugs, medicaments and biological substances - Chronic obstructive pulmonary disease, unspecified - Other detention (current) drug therapy - Shortness of breath 08/02/2024 13:25 [facility] [place] TYPE: Emergency COMPLAINT: - TROUBLE BREATHING DIAGNOSES: - Allergy status to other drugs, medicaments and biological substances - Chronic obstructive pulmonary disease, unspecified - Leukemia, unspecified not having achieved remission - custodial (current) use of inhaled steroids - Malignant pleural effusion - Other terminal superintendent (current) drug therapy - Personal history of peptic ulcer disease - Pure hypercholesterolemia, unspecified - Shortness of breath 07/30/2024 16:26 [facility] [place] TYPE: Emergency COMPLAINT: - FOOT PAIN DIAGNOSES: - Allergy status to other drugs, medicaments and biological substances - Cellulitis of right lower limb - Chronic obstructive pulmonary disease, unspecified - Elevated white blood cell count, unspecified - Other terminal superintendent (current) drug therapy - Pain in right foot 07/16/2024 23:[address] [facility] [place] TYPE: Emergency COMPLAINT: - DIFFICULTY BREATHING 07/14/2024 11:[address] [facility] [place] TYPE: Emergency COMPLAINT: - BLOOD COUNT LOW DIAGNOSES: - Abnormal finding of blood chemistry, unspecified - Allergy status to other drugs, medicaments and biological substances - Chronic obstructive pulmonary disease, unspecified - Edema, unspecified - Elevated white blood cell count, unspecified - Other terminal superintendent (current) drug therapy 07/06/2024 19:[address] [facility] [place] TYPE: Emergency COMPLAINT: - SHORTNESS OF BREATH DIAGNOSES: - Allergy status to other drugs, medicaments and biological substances - Chronic obstructive pulmonary disease with (acute) lower respiratory infection - Other specified postprocedural states - Pneumonia, unspecified organism - Shortness of breath INPATIENT VISIT TRACKING (12 MO.) 03/09/2025 15:08 [facility] [place] TYPE: Critical Care COMPLAINT: - PE DIAGNOSES: - Acquired absence of other specified parts of digestive tract - Acquired absence of other specified parts of digestive tract - Acute cough - Adverse effect of glucocorticoids and synthetic analogues, initial encounter - Adverse effect of glucocorticoids and synthetic analogues, initial encounter - Allergy status to other antibiotic agents - Allergy status to other antibiotic agents - Aortic ectasia, unspecified site - Aortic ectasia, unspecified site - Chronic obstructive pulmonary disease, unspecified - Chronic obstructive pulmonary disease, unspecified - Elevated white blood cell count, unspecified - Elevated white blood cell count, unspecified - rat exterminator (current) use of antibiotics - custodial (current) use of antibiotics - rat exterminator (current) use of inhaled steroids - custodial (current) use of inhaled steroids - Other detention (current) drug therapy - Other terminal superintendent (current) drug therapy - Other pulmonary embolism without acute cor pulmonale - Other pulmonary embolism without acute cor pulmonale - Other specified postprocedural states - Other specified postprocedural states - Pain in right ankle and joints of right foot - Pain in right ankle and joints of right foot - Personal history of pneumonia (recurrent) - Personal history of pneumonia (recurrent) - Pure hypercholesterolemia, unspecified - Pure hypercholesterolemia, unspecified - Shortness of breath 03/03/2025 20:12 [facility] [place] TYPE: Medical [...] - Hyperlipidemia, unspecified - Hyperlipidemia, unspecified - custodial (current) use of inhaled steroids - rat exterminator (current) use of inhaled steroids - Other hypertrophic cardiomyopathy - Other hypertrophic cardiomyopathy - Other detention (current) drug therapy - Other detention (current) drug therapy - Other specified disorders [...] - Insomnia, unspecified - Insomnia, unspecified - custodial (current) use of antibiotics - custodial (current) use of antibiotics - custodial (current) use of inhaled steroids - rat exterminator (current) use of inhaled steroids - Nephropathy [...] Other idiopathic peripheral autonomic neuropathy - Other terminal superintendent (current) drug therapy - Other detention (current) drug therapy - Other specified disorders [...] depressive disorder, single episode, unspecified - Other detention (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 TYPE: General Medicine COMPLAINT: - COPD exacerbation DIAGNOSES: - Cellulitis of unspecified part of limb - Cutaneous abscess of unspecified foot - Localized edema - Other specified abnormal findings of blood chemistry - Shortness of breath - Shortness of breath [facility] DIAGNOSES: - Chronic obstructive [...] - Hyperlipidemia, unspecified - Hyperlipidemia, unspecified - custodial (current) use of inhaled steroids - custodial (current) use of inhaled steroids - Major depressive disorder, single episode, unspecified - Major depressive disorder, single episode, unspecified - Morbid (severe) obesity due to excess calories - Morbid (severe) obesity due to excess calories - Other terminal superintendent (current) drug therapy - Other detention (current) drug therapy - Personal history of nicotine dependence - Personal history of nicotine dependence - Pleural effusion, not elsewhere classified - Pleural effusion, not elsewhere classified - Pneumonia, unspecified organism - Pneumonia, unspecified organism [email or web address]
[2025-03-21] MEDS ORDERED: ALBUTEROL/IPRATROPIUM 3 ML NEB INH ONE (14:15)
[2025-03-21 14:20] LABS: MCH 28.5 PG (25.7-32.2); MCHC 32.7 g/dL (32.3-36.5); MCV 87.1 fL (79.0-92.2); RBC 4.42 M/uL (4.63-6.08)
[2025-03-21] MEDS ORDERED: APIXABAN 5 MG TAB PO ONE (14:30)
[2025-03-21 14:40] LABS: BASOPHILS, MANUAL DIFF 2; EOSINOPHILS, MANUAL DIFF 35; LYMPHOCYTES, MANUAL DIFF 15; NEUTROPHILS, MANUAL DIFF 48
[2025-03-21 14:42] LABS: ALT (SGPT) 21.0 U/L (14-59); AST (SGOT) 11.0 U/L (15-37); GLOMERULAR FILTRATION RATE,EST 75.0 mL/min (>60); PROTEIN, TOTAL 6.9 g/dL (6.4-8.2); UREA NITROGEN 14.0 mg/dL (7-18)
[2025-03-21 15:43] VITALS: BP 130/81
--- NOTE | 2025-03-22 11:24 | EKG ---
[facility] [address] [facility] [facility] [place] [address] Signed Normal sinus rhythm Normal ECG When compared with ECG of 09-MAR-2025 09:06, aberrant conduction is no longer present Confirmed by Victor Manuel Do MD ([id number]) on 03/22/2025 11:24:04 AM Electronically Signed By: VICTOR MANUEL DO MD 03/22/25 1124 PATIENT NAME: DAMARI LARA TENZIN Electrocardiogram DATE OF : 58 PHYSICIAN: VICTOR MANUEL DO MD REPORT #: [id number] REPORT IS CONFIDENTIAL AND NOT TO BE RELEASED WITHOUT AUTHORIZATION
== END 2025-03-21 15:43 | disposition home or self-care (01) ==
LOC: ED 13:59
PROVIDERS: Emergency Medicine
DX: J44.1 Chronic obstructive pulmonary disease with (acute) exacerbation (principal); I26.99 Other pulmonary embolism without acute cor pulmonale; Z88.8 Allergy status to other drugs, medicaments and biological substances; Z79.01 Long term (current) use of anticoagulants
CPT/HCPCS: 36415; 71045; 80053; 83735; 83880; 84484; 85025; 93005; 93010; 94640; J2919

== ENCOUNTER 2025-04-30 22:08 | Inpatient (IN) | payer MEDICARE, OTHER ==
[~2025-04-30] VITALS: Ht 182.9 cm; Wt 129.0 kg
--- OUTSIDE RECORDS SUMMARY | 2025-04-30 22:16 | XMS ---
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 No recent Security Events currently on file CRITERIA MET - 6 ED Visits in 6 Months CARE PROVIDERS -[facility] Dentist: Termination Clerk [facility] PHONE: [phone] -[place]- Dentist: Termination Clerk [facility] PHONE: [phone] ARNOLD ZHENG Nurse Practitioner: Family Current PHONE: [phone] [facility]/[place]: [facility] FAMILY PHONE: [phone] ÁNGEL MAX Physician Tab Cutting Machine Operator Mallorie SIMMONSIE PHONE: [phone] SHEREEN HEREDIA Nurse Practitioner: Adult Health Mallorie CAMARENA PHONE: [phone] MEENU KAY Internal Medicine: Infectious Disease Mallorie DE LUNA PHONE: [phone] Rebecca has no Care Guidelines for this patient. EAntolin VISIT COUNT (12 MO.) Louie Deluca TOTAL 17 NOTE: Visits indicate total known visits. ED/UCC VISIT TRACKING (12 MO.) 04/30/2025 22:[address] [facility] [place] TYPE: Emergency COMPLAINT: - DIFFICULTY BREATHING 03/23/2025 13:29 [facility] [place] TYPE: Emergency COMPLAINT: - SHORTNESS OF BREATH DIAGNOSES: - Allergy status to other antibiotic agents - Allergy status to other drugs, medicaments and biological substances - Chronic obstructive pulmonary disease with (acute) exacerbation - custodial (current) use of anticoagulants - Other predatory animal exterminator (current) drug therapy - Personal history of nicotine dependence - Personal history of pulmonary embolism - Pure hypercholesterolemia, unspecified - Shortness of breath 03/21/2025 14:00 [facility] [place] TYPE: Emergency COMPLAINT: - SHORTNESS OF BREATH DIAGNOSES: - Allergy status to other drugs, medicaments and biological substances - Chronic obstructive pulmonary disease with (acute) exacerbation - custodial (current) use of anticoagulants - Other chest pain - Other pulmonary embolism without acute cor pulmonale 03/09/2025 09:01 [facility] [place] TYPE: Emergency COMPLAINT: - SHORTNESS OF BREATH 03/03/2025 17:05 [facility] [place] TYPE: Emergency COMPLAINT: - SOB 02/17/2025 10:20 [facility] [place] TYPE: Emergency COMPLAINT: - SHORTNESS OF BREATH DIAGNOSES: - Allergy status to other antibiotic agents - Chronic obstructive pulmonary disease with (acute) exacerbation - termite treater helper (current) use of systemic steroids - Other predatory animal exterminator (current) drug therapy - Pure hypercholesterolemia, unspecified [...] Emergency COMPLAINT: - LEG ISSUE 12/15/2024 14:[address] [facility] [place] TYPE: Emergency COMPLAINT: - RT FOOT SWELLING DIAGNOSES: - Allergy status to other drugs, medicaments and biological substances - Cellulitis of right lower limb - Chronic obstructive pulmonary disease, unspecified - Erythematous condition, unspecified - termite treater helper (current) use of inhaled steroids - Other detention (current) drug therapy - Pain in right lower leg - Pure hypercholesterolemia, unspecified 10/02/2024 12:44 [facility] [place] TYPE: Emergency COMPLAINT: - SHORTNESS OF BREATH DIAGNOSES: - Allergy status to other drugs, medicaments and biological substances - Chronic obstructive pulmonary disease, unspecified - custodial (current) use of inhaled steroids - Other detention (current) drug therapy - Pure hypercholesterolemia, unspecified - Shortness of breath 08/30/2024 14:31 [facility] [place] TYPE: Emergency COMPLAINT: - SHORTNESS OF BREATH DIAGNOSES: - Allergy status to other drugs, medicaments and biological substances - Chronic obstructive pulmonary disease, unspecified - Other predatory animal exterminator (current) drug therapy - Shortness of breath 08/02/2024 13:25 [facility] [place] TYPE: Emergency COMPLAINT: - TROUBLE BREATHING DIAGNOSES: - Allergy status to other drugs, medicaments and biological substances - Chronic obstructive pulmonary disease, unspecified - Leukemia, unspecified not having achieved remission - termite treater helper (current) use of inhaled steroids - Malignant pleural effusion - Other detention (current) drug therapy - [...] white blood cell count, unspecified - Other predatory animal exterminator (current) drug therapy - Pain in right [...] white blood cell count, unspecified - Other predatory animal exterminator (current) drug therapy 07/06/2024 19:35 [facility] [...] Elevated white blood cell count, unspecified - custodial (current) use of antibiotics - custodial (current) use of antibiotics - termite treater helper (current) use of inhaled steroids - custodial (current) use of inhaled steroids - Other detention (current) drug therapy - Other detention (current) drug therapy - Other pulmonary embolism [...] unspecified - Shortness of breath 03/03/2025 20:[address] [facility] [place] TYPE: Medical [...] Hyperlipidemia, unspecified - Hyperlipidemia, unspecified - termite treater helper (current) use of inhaled steroids - termite treater helper (current) use of inhaled steroids - Other [...] - custodial (current) use of antibiotics - termite treater helper (current) use of antibiotics - custodial (current) use of inhaled steroids - termite treater helper (current) use of inhaled steroids - Nephropathy [...] Other idiopathic peripheral autonomic neuropathy - Other detention (current) drug therapy - Other predatory animal exterminator (current) drug therapy - Other specified disorders [...] depressive disorder, single episode, unspecified - Other predatory animal exterminator (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 TYPE: General Medicine COMPLAINT: - COPD exacerbation DIAGNOSES: - Cellulitis of unspecified part of limb - Cutaneous abscess of unspecified foot - Localized edema - Other specified abnormal findings of blood chemistry - Shortness of breath - Shortness of breath [facility] DIAGNOSES: - Chronic obstructive [...] custodial (current) use of inhaled steroids - termite treater helper (current) use of inhaled steroids - Major depressive disorder, single episode, unspecified - Major depressive disorder, single episode, unspecified - Morbid (severe) obesity due to excess calories - Morbid (severe) obesity due to excess calories - Other detention (current) drug therapy - Other detention (current) drug therapy - Personal history of nicotine dependence - Personal history of nicotine dependence - Pleural effusion, not elsewhere classified - Pleural effusion, not elsewhere classified - Pneumonia, unspecified organism - Pneumonia, unspecified organism [email or web address]
[2025-04-30] MEDS ORDERED: ALBUTEROL SULFATE 0.5% 2.5 MG/0.5 ML VIAL INH ONE ×2 (22:30→22:45)
[2025-04-30] MEDS ORDERED: ALBUTEROL/IPRATROPIUM 3 ML NEB INH ONE (22:30)
[2025-04-30 23:16] LABS: BASOPHILS 0.3 % (0.2-1.2); EOSINOPHILS 0.1 % (0.8-7.0); LYMPHOCYTES 20.2 % (21.8-53.1); MCH 29.5 PG (25.7-32.2); MCHC 32.7 g/dL (32.3-36.5); MCV 90.1 fL (79.0-92.2); MONOCYTES 6.0 % (5.3-12.2); NEUTROPHILS 73.3 % (34.0-67.9); RBC 4.65 M/uL (4.63-6.08)
[2025-04-30 23:20] LABS: INFLUENZA B NAA NEGATIVE (NEGATIVE); RESPIRATORY SYNCYTIAL VIR NAA NEGATIVE (NEGATIVE)
[2025-04-30 23:25] LABS: ALT (SGPT) 20.0 U/L (14-59); AST (SGOT) 13.0 U/L (15-37); GLOMERULAR FILTRATION RATE,EST 55.0 mL/min (>60); PROTEIN, TOTAL 6.9 g/dL (6.4-8.2); UREA NITROGEN 25.0 mg/dL (7-18)
[2025-05-01] VITALS (8 sets, daily range): BP systolic 124–150; BP diastolic 69–97
[2025-05-01 00:28] LABS: LACTIC ACID, BLOOD 1.1 mmol/L (0.4-2.0)
[2025-05-01] MEDS ORDERED: ACETAMINOPHEN 325 MG TAB PO PRN ×2 (00:45→11:30)
[2025-05-01] MEDS ORDERED: ARFORMOTEROL TARTRATE 15 MCG/2 ML VIAL INH SCH (00:47)
[2025-05-01] MEDS ORDERED: BUDESONIDE 0.5 MG/2 ML VIAL INH SCH (00:48)
[2025-05-01] MEDS ORDERED: ALBUTEROL/IPRATROPIUM 3 ML NEB ONE (00:54)
[2025-05-01] MEDS ORDERED: ALBUTEROL SULFATE 0.083% 3 ML VIAL INH PRN (01:00)
--- NOTE | 2025-05-01 02:16 | NUR ---
PT ADMITTED FROM THE ER WITH COPD EXACERBATION. PT ON 2L NC, SATING WELL. VSS. DOUBLE SKIN ASSESSMENT DONE WITH LENCHO STAHL. SKIN INTACT. URINAL PROVIDED AND WITHIN REACH. CPOX AND TELE INITIATED. IV FLUSHING WELL. SAFETY PRECAUTIONS MAINTAINED. CALL LIGHT WITHIN REACH. WILL CONTINUE TO MONITOR.
[2025-05-01] MEDS ORDERED: ALBUTEROL/IPRATROPIUM 3 ML NEB INH SCH ×2 (04:00→20:00)
--- NOTE | 2025-05-01 05:31 | NUR ---
FARM AGENT OBTAINED VITALS AND I&O. PT STATES NO NEEDS AT THIS TIME. CALL LIGHT WITHIN REACH.
--- NOTE | 2025-05-01 06:13 | NUR ---
PT RESTED WELL SINCE ADMISSION. RT GOT PT A CPAP AND PT WAS ABLE TO SLEEP AFTER APLLYING CPAP. PT SATING WELL. VSS. PT CONTACT GUARD TO BATHROOM. SAFETY PRECAUTIONS MAINTAINED. CALL LIGHT WITHIN REACH. WILL CONTINUE TO MONITOR.
[2025-05-01] MEDS ORDERED: METFORMIN HCL500 M1 PO (07:07)
--- NOTE | 2025-05-01 07:07 | NUR ---
Pt report received from LENCHO Campbell. Pt is sitting up at the edge of the bed, television on, denies needs at this time. Call light in reach. White board updated.
[2025-05-01] MEDS ORDERED: AZITHROMYCIN250 MG PO (07:08)
[2025-05-01] MEDS ORDERED: FASENRA30 MG/1 ML SUB-Q (07:10)
[2025-05-01] MEDS ORDERED: PREDNISONE10 MG PO (07:11)
[2025-05-01] MEDS ORDERED: PANTOPRAZOLE SO40 MG PO (07:11)
[2025-05-01] MEDS ORDERED: AZITHROMYCIN 250 MG TAB PO SCH (09:00)
[2025-05-01] MEDS ORDERED: predniSONE 20 MG TAB PO SCH (09:00)
[2025-05-01] MEDS ORDERED: APIXABAN 5 MG TAB PO SCH (09:52)
--- NOTE | 2025-05-01 11:00 | NUR ---
PATIENT SHOWERED INDEPENDENTLY WITH SET UP ASSISTANCE ONLY. BED LINENS WERE CHANGED AND A CLEAN GOWN PROVIDED.
[2025-05-01] MEDS ORDERED: PANTOPRAZOLE SODIUM 40 MG TABEC PO SCH (11:24)
[2025-05-01] MEDS ORDERED: PROCHLORPERAZINE EDISYLATE 10 MG/2 ML VIAL IV PRN (11:30)
[2025-05-01] MEDS ORDERED: DEXTROSE 5% 1,000 ML IV PRN (11:30)
[2025-05-01] MEDS ORDERED: GLUCAGON,HUMAN RECOMBINANT 1 MG/ML VIAL SUB-Q PRN (11:30)
[2025-05-01] MEDS ORDERED: IBLOOD GLUCOSE TEST STRIP 1 EA TEST XX PRN (11:30)
[2025-05-01] MEDS ORDERED: DEXTROSE 50% 50 ML SYR IV PRN ×2 (11:30)
[2025-05-01] MEDS ORDERED: PHARMACY RENAL DOSE ADJUSTMENT 1 DOSE MISC PO SCH (12:00)
[2025-05-01] MEDS ORDERED: INSULIN LISPRO 100 UNIT/ML ML SUB-Q SCH (12:00)
[2025-05-01] MEDS ORDERED: IBLOOD GLUCOSE TEST STRIP 1 EA TEST VI SCH (12:00)
[2025-05-01] MEDS ORDERED: DULOXETINE HCL 30 MG CAP PO SCH (13:18)
--- NOTE | 2025-05-01 20:00 | NUR ---
REPORT RECEIVED FROM DAY SHIFT RN. PT RESTING IN BED WITH CPAP ON. SAFETY PRECAUTIONS MAINTAINED. CALL LIGHT WITHIN REACH. WILL CONITNUE TO MONITOR.
--- NOTE | 2025-05-01 20:15 | NUR ---
PT ASSESSED AND MEDICATIONS GIVEN. PT ON HIS BASELINE O2 AT 2L NC. VSS. CPAP AT BEDSIDE AND PT USES WHEN ASLEEP. PT UP SBA TO BATHROOM. PT VOIDING WELL. PT STATES THAT HE IS "FEELING BETTER." SAFETY PRECAUTIONS MAINTAINED. CALL LIGHT WITHIN REACH. WILL CONTINUE TO MONITOR.
--- NOTE | 2025-05-01 20:36 | NUR ---
DAMARI CURRENTLY HAS INHALERS BUT PREFERS NEBULIZED MEDICATION. PLEASE PROVIDE PRESCRIPTIONS FOR BROVANA BID, PULMICORT BID, DUONEB Q4 PRN, AND ALBUTEROL Q2 PRN. DAMARI STATED THAT HE THINKS THE NEBULIZED MEDICATION WORKS BEST. DAMARI HAS A NEBULIZER AT HOME. DAMARI IS ON A 2L NASAL CANNULA CHRONICALLY.
[2025-05-01] MEDS ORDERED: MELATONIN 3 MG TAB PO PRN (21:00)
--- NOTE | 2025-05-01 23:55 | NUR ---
Provided Pt with fresh decaf coffee with two creams. No other needs expressed by Pt. Call light left in reach.
[2025-05-02 02:24] VITALS: BP 98/76
[2025-05-02 02:29] VITALS: BP 98/76
[2025-05-02 05:12] VITALS: BP 131/92
[2025-05-02 05:32] LABS: BASOPHILS 0.2 % (0.2-1.2); EOSINOPHILS 0 % (0.8-7.0); LYMPHOCYTES 5.2 % (21.8-53.1); MCH 29.4 PG (25.7-32.2); MCHC 32.8 g/dL (32.3-36.5); MCV 89.7 fL (79.0-92.2); MONOCYTES 4.8 % (5.3-12.2); NEUTROPHILS 88.9 % (34.0-67.9); RBC 4.56 M/uL (4.63-6.08)
[2025-05-02 05:36] VITALS: BP 131/92
[2025-05-02 05:46] LABS: GLOMERULAR FILTRATION RATE,EST 72.0 mL/min (>60); UREA NITROGEN 28.0 mg/dL (7-18)
--- NOTE | 2025-05-02 06:18 | NUR ---
PT RESTED LITTLE DURING THE SHIFT. PT APPEARED RESTLESS AND STATED THAT THEY DO NOT LIKE THE HOSPITAL CPAP. CPOX IN PLACE. VSS. PT UP INDEPENDENTLY TO BATHROOM, VOIDING WELL. SAFETY PRECAUTIONS MAINTINED. CALL LIGHT WITHIN REACH. WILL CONTINUE TO MONITOR.
--- NOTE | 2025-05-02 07:28 | NUR ---
PT RESTING IN BED WATCHING TV AT TIME OF SHIFT REPORT. SATS 98% ON 2 L NC. PT DENIES DISCOMFORTS OF NEEDS OF. UP TO TOILET INDEPENDANTLY RETURNS TO RESTING IN BED. DENIES FURTHER NEEDS
--- NOTE | 2025-05-02 08:38 | NUR ---
PT SITTING UP ON EDGE OF THE BED FOR MORNING MEAL. AGREES HE HAS EVERYTHING HE NEEDS.
[2025-05-02 09:48] VITALS: BP 138/82
--- NOTE | 2025-05-02 09:53 | NUR ---
pt sitting up in his bed. ASKED IF HE COULD SPEAK TO THE DOCTOR AGAIN, SO I RELAYED THIS TO THE DRSuzie HOLGUIN LIGHT WITHIN REACH OF PT. GOT PT FRESH DECAF COFFEE AND FRESH ICE WATER. PT REPORTED NEEDING NOTHING MORE AT THIS TIME.
--- NOTE | 2025-05-02 09:54 | NUR ---
MORNING MEAL WELL TOLERATED PT RESTING EYES CLOSED AT THIS TIME.
--- NOTE | 2025-05-02 10:16 | NUR ---
DR JUAREZ IN TO SEE PT. HE REPORTS HE IS TO BE DC'D TODAY, AGREES HE IS READY.
[2025-05-02] MEDS ORDERED: PREDNISONE20 MG PO (11:11)
[2025-05-02] MEDS ORDERED: AZITHROMYCIN500 MG PO (11:12)
[2025-05-02] MEDS ORDERED: CEFUROXIME500 MG PO (11:12)
--- NOTE | 2025-05-02 11:18 | NUR ---
medications reconiciled
--- NOTE | 2025-05-02 12:27 | NUR ---
PT EATS 100% OF NOON MEAL. STATES HE IS READY TO GO DC INSTRUCTIONS DISCUSSED AT LENGTH. PT DENIES FURTHER QUESTIONS.
--- NOTE | 2025-05-02 14:16 | EKG ---
[facility] [address] [facility] [place] [address] Signed Normal sinus rhythm Normal ECG When compared with ECG of 23-MAR-2025 13:54, premature atrial complexes are no longer present Confirmed by Nabor Juarez DO ([id number]) on 05/02/2025 2:16:26 PM Electronically Signed By: NABOR JUAREZ DO 05/02/25 1416 PATIENT NAME: MARCODAMARI TENZIN Electrocardiogram DATE OF : 58 PHYSICIAN: NABOR JUAREZ DO REPORT #: [id number] REPORT IS CONFIDENTIAL AND NOT TO BE RELEASED WITHOUT AUTHORIZATION
== END 2025-05-02 12:40 | disposition home or self-care (01) | DRG 191 ==
LOC: ED 22:08 → MS 22:11
PROVIDERS: Internal Medicine; ADMIT Student in an Organized Health Care Education/Training Program; ATTEND Student in an Organized Health Care Education/Training Program
PROC: 5A09357 Assistance with Respiratory Ventilation, Less than 24 Consecutive Hours, Continuous Positive Airway Pressure (ICD-10-PCS; principal; 2025-05-01)
PROC: 3E03329 Introduction of Other Anti-infective into Peripheral Vein, Percutaneous Approach (ICD-10-PCS; 2025-05-01)
DX: J44.1 Chronic obstructive pulmonary disease with (acute) exacerbation (principal); N17.9 Acute kidney failure, unspecified; E11.9 Type 2 diabetes mellitus without complications; Z77.22 Contact with and (suspected) exposure to environmental tobacco smoke (acute) (chronic); Z66 Do not resuscitate; Z86.711 Personal history of pulmonary embolism; Z88.1 Allergy status to other antibiotic agents; Z88.8 Allergy status to other drugs, medicaments and biological substances; Z79.01 Long term (current) use of anticoagulants; Z79.52 Long term (current) use of systemic steroids; Z77.118 Contact with and (suspected) exposure to other environmental pollution
CPT/HCPCS: 36415; 71045; 80048; 80053; 83036; 83605; 83735; 83880; 84484; 85025; 87502; 93005; 93010; 94640; 94644; 94660; 94667; 94668; 94762; 94799; 96366; 96374; 96375; 97161; 97530; 99285-25; A9270; G0378; J0696; J1815; J2919; J7512; J7605; U0002

== ENCOUNTER 2025-05-14 15:09 | Emergency (ER) | payer MEDICARE, OTHER ==
[~2025-05-14] VITALS: Ht 182.9 cm; Wt 150.0 kg
[~2025-05-14 15:09] MED LIST changes: +AZITHROMYCIN500 MG PO; +CEFUROXIME500 MG PO; +FASENRA30 MG/1 ML SUB-Q; +METFORMIN HCL500 M1 PO; +PREDNISONE10 MG PO
[2025-05-14] MEDS ORDERED: ALBUTEROL/IPRATROPIUM 3 ML NEB INH ONE (16:45)
[2025-05-14] MEDS ORDERED: ALBUTEROL SULFATE 0.5% 2.5 MG/0.5 ML VIAL ONE (16:54)
[2025-05-14] MEDS ORDERED: ALBUTEROL SULFATE 0.5% 2.5 MG/0.5 ML VIAL INH ONE ×2 (17:00→18:00)
[2025-05-14 17:05] LABS: BASOPHILS 0.1 % (0.2-1.2); EOSINOPHILS 0 % (0.8-7.0); LYMPHOCYTES 19.1 % (21.8-53.1); MCH 29.3 PG (25.7-32.2); MCHC 31.9 g/dL (32.3-36.5); MCV 91.8 fL (79.0-92.2); MONOCYTES 4.8 % (5.3-12.2); NEUTROPHILS 75.5 % (34.0-67.9); RBC 4.78 M/uL (4.63-6.08)
[2025-05-14 17:32] LABS: ALT (SGPT) 21.0 U/L (14-59); AST (SGOT) 12.0 U/L (15-37); GLOMERULAR FILTRATION RATE,EST 76.0 mL/min (>60); PROTEIN, TOTAL 6.7 g/dL (6.4-8.2); UREA NITROGEN 30.0 mg/dL (7-18)
[2025-05-14] MEDS ORDERED: PREDNISONE20 MG PO (17:58)
[2025-05-14 19:03] VITALS: BP 109/67
--- NOTE | 2025-05-16 10:42 | EKG ---
[facility] [address] [facility] [place] [address] Signed Sinus rhythm with occasional premature ventricular complexes Otherwise normal ECG No previous ECGs available Confirmed by Vero Juarez DO ([id number]) on 05/16/2025 10:42:22 AM Electronically Signed By: VERO JUAREZ DO 05/16/25 104 PATIENT NAME: DAMARI LARA Electrocardiogram DATE OF : 58 PHYSICIAN: VERO JUAREZ DO REPORT #: [id number] REPORT IS CONFIDENTIAL AND NOT TO BE RELEASED WITHOUT AUTHORIZATION
== END 2025-05-14 19:05 | disposition home or self-care (01) ==
LOC: ED 15:09
PROVIDERS: Emergency Medicine
DX: J44.1 Chronic obstructive pulmonary disease with (acute) exacerbation (principal); E78.00 Pure hypercholesterolemia, unspecified; Z86.711 Personal history of pulmonary embolism; Z88.1 Allergy status to other antibiotic agents; Z88.8 Allergy status to other drugs, medicaments and biological substances; Z79.01 Long term (current) use of anticoagulants; Z79.51 Long term (current) use of inhaled steroids; Z79.84 Long term (current) use of oral hypoglycemic drugs; Z79.899 Other long term (current) drug therapy
CPT/HCPCS: 36415; 71045; 80053; 83735; 83880; 84484; 85025; 93005; 93010; 94640; 96374; 99285-25; J2919

== ENCOUNTER 2025-05-16 12:39 | Emergency (ER) | payer MEDICARE, OTHER ==
[~2025-05-16] VITALS: Ht 182.9 cm; Wt 150.0 kg
[2025-05-16] MEDS ORDERED: ALBUTEROL/IPRATROPIUM 3 ML NEB INH PRN (14:15)
[2025-05-16 14:23] LABS: BASOPHILS 0.1 % (0.2-1.2); EOSINOPHILS 0 % (0.8-7.0); LYMPHOCYTES 3.4 % (21.8-53.1); MCH 29.3 PG (25.7-32.2); MCHC 32.6 g/dL (32.3-36.5); MCV 89.7 fL (79.0-92.2); MONOCYTES 0.5 % (5.3-12.2); NEUTROPHILS 95.5 % (34.0-67.9); RBC 4.85 M/uL (4.63-6.08)
[2025-05-16 14:42] LABS: ALT (SGPT) 22.0 U/L (14-59); AST (SGOT) 10.0 U/L (15-37); GLOMERULAR FILTRATION RATE,EST 57.0 mL/min (>60); PROTEIN, TOTAL 7.3 g/dL (6.4-8.2); UREA NITROGEN 30.0 mg/dL (7-18)
[2025-05-16] MEDS ORDERED: IPRAT-ALBUT 0.5-3 ML INH (17:29)
[2025-05-16 17:36] VITALS: BP 129/96
--- NOTE | 2025-05-17 10:09 | EKG ---
[facility] [address] [facility] [place] [address] Signed Sinus rhythm with premature atrial complexes Otherwise normal ECG When compared with ECG of 14-MAY-2025 16:46, premature ventricular complexes are no longer present premature atrial complexes are now present Confirmed by Nabor Juarez DO ([id number]) on 05/17/2025 10:09:33 AM Electronically Signed By: NABOR JUAREZ DO 05/17/25 1009 PATIENT NAME: MARCODAMARI TENZIN Electrocardiogram DATE OF : 58 PHYSICIAN: NABOR JUAREZ DO REPORT #: [id number] REPORT IS CONFIDENTIAL AND NOT TO BE RELEASED WITHOUT AUTHORIZATION
== END 2025-05-16 17:30 | disposition home or self-care (01) ==
LOC: ED 12:39
PROVIDERS: Emergency Medicine
DX: J44.1 Chronic obstructive pulmonary disease with (acute) exacerbation (principal); E78.00 Pure hypercholesterolemia, unspecified; Z79.84 Long term (current) use of oral hypoglycemic drugs; Z79.899 Other long term (current) drug therapy; Z79.52 Long term (current) use of systemic steroids; Z88.1 Allergy status to other antibiotic agents; Z88.8 Allergy status to other drugs, medicaments and biological substances
CPT/HCPCS: 36415; 71045; 80053; 83735; 84484; 85025; 93005; 93010; 94640; 99285-25

== ENCOUNTER 2025-06-01 15:07 | Inpatient (IN) | payer MEDICARE, OTHER ==
[~2025-06-01] VITALS: Ht 182.9 cm; Wt 133.0 kg
--- OUTSIDE RECORDS SUMMARY | ~2025-06-01 | XMS | Continuity of Care Document ---
Demographics + + + | Address | [address] | | | [place] [address] | + + + | Preferred Language | Unknown | + + + | Marital Status | Domestic partner | + + + | Roman Catholic Affiliation | Unknown | + + + | Race | White | + + + | Ethnic Group | Not or | + + + Author + + + | Author | [facility] | + + + | Organization | [facility] | + + + | Address | [address] | | | [place] [address] | + + + | Phone | | + + + Care Team Providers + + + + | Care Divorce Lawyer Name | Role | Phone | + + + + Unavailable | Unavailable | + + + + Unavailable | Unavailable | + + + + Unavailable | Unavailable | + + + + Allergies and Intolerances + + + + + + | date | description | facility | reaction | severity | + + + + + + | 2025-03-03 | daptomycin | [facility] - | (no reaction) | (no severity) | | 00:00 | | [facility] | | | + + + + + + | 2025-03-09 | daptomycin | [facility] - | (no [...] + + + + + + | 2025-03-03 | gabapentin | [facility] - | (no reaction) | (no severity) | | 00:00 | | [facility] | | | + + + + + + | 2025-03-09 | gabapentin | [facility] - | (no reaction) | (no severity) | | 00:00 | | [facility] | | | + + + + + + | 2025-03-21 | gabapentin | [facility] - | (no reaction) | (no severity) | | 00:00 | | [facility] | | | + + + + + + | 2025-03-23 | gabapentin | [facility] - | (no reaction) | (no severity) | | 00:00 | | [facility] | | | + + + + + + Encounters No information. Functional Status No information. Immunizations + + + + | date | description | facility | + + + + | (no date) | No vaccine administered | [facility] | | | | [facility] | + + + + | (no date) | No vaccine administered | [facility] | | | | [facility] | + + + + Medications + + + + | date | description | facility | + + + + | (no date) | fluticasone propionate | [facility] | | | 0.25 MG/ACTUAT / salmeterol | [facility] | | | 0.05 MG/A | | + + + + | (no date) | fluticasone propionate | [facility] | | | 0.25 MG/ACTUAT / salmeterol | [facility] | | | 0.05 MG/A | | + + + + | 2025-03-11 00:00 | apixaban 5 MG Oral Tablet | [facility] | | | [Eliquis] | [facility] | + + + + | 2025-03-11 00:00 | apixaban 5 MG Oral Tablet | [facility] | | | [Eliquis] | [facility] | + + + + | (no date) | albuterol 0.833 MG/ML / | [facility] | | | ipratropium bromide 0.167 | [facility] | | | MG/ML In[facility] | | + + + + | (no date) | albuterol 0.833 MG/ML / | [facility] | | | ipratropium bromide 0.167 | [facility] | | | MG/ML In[facility] | | + + + + | (no date) | 60 ACTUAT tiotropium | [facility] | | | 0.0025 MG/ACTUAT Inhalation | [facility] | | | [facility] [[facility] | | + + + + | (no date) | 60 ACTUAT tiotropium | [facility] | | | 0.0025 MG/ACTUAT Inhalation | [facility] | | | [place] [Spir | | + + + + | (no date) | allopurinol 100 MG Oral | [facility] | | | Tablet | [facility] | + + + + | (no date) | allopurinol 100 MG Oral | [facility] | | | Tablet | [facility] | + + + + | (no date) | furosemide [facility] MG Oral [facility] | | | Tablet [Lasix] | [facility] | + + + + | (no date) | furosemide 20 MG Oral | [facility] | | | Tablet [Lasix] | [facility] | + + + + | (no ) | azithromycin 250 MG Oral | [facility] | | | Tablet | [facility] | + + + + | (no ) | azithromycin 250 MG Oral | [facility] | | | Tablet | [facility] | + + + + | 2025-03-06 00:00 | levofloxacin 750 MG Oral | [facility] | | | Tablet | [facility] | + + + + | (no ) | mometasone furoate 1 MG/ML | [facility] | | | Topical Cream | [facility] | + + + + | (no date) | mometasone furoate 1 MG/ML | [facility] | | | Topical Cream | [facility] | + + + + | 2025-03-06 00:00 | prednisone 20 MG Oral | [facility] | | | Tablet | [facility] | + + + + | 2025-03-23 00:00 | prednisone 20 MG Oral | [facility] | | | Tablet | [facility] | + + + + | (no date) | duloxetine 30 MG Delayed | [facility] | | | Release Oral Capsule | [facility] | + + + + | (no ) | duloxetine 30 MG Delayed | [facility] | | | Release Oral Capsule | [facility] | + + + + | (no ) | [id number] 200 ACTUAT | [facility] | | | albuterol 0.09 MG/ACTUAT | [facility] | | | Metered Dose I | | + + + + | (no ) | [id number] 200 ACTUAT | [facility] | | | albuterol 0.09 MG/ACTUAT | [facility] | | | Metered Dose I | | + + + + | (no ) | hydroxyzine hydrochloride | [facility] | | | 25 MG Oral Tablet | [facility] | + + + + | (no ) | hydroxyzine hydrochloride | [facility] | | | 25 MG Oral Tablet | [facility] | + + + + Problems + + + + | date | description | facility | + + + + | 2025-03-03 00:00 | COPD with exacerbation | [facility] | | | | [facility] | + + + + | 2025-03-03 00:00 | COPD with exacerbation | [facility] | | | | [facility] | + + + + | 2025-03-03 00:00 | Right lower lobe pneumonia | [facility] | | | | [facility] | + + + + | 2025-03-03 00:00 | Right lower lobe pneumonia | [facility] | | | | [facility] | + + + + | 2025-03-09 00:00 | Pulmonary embolism | [facility] | | | | [facility] | + + + + | 2025-03-09 00:00 | Pulmonary embolism | [facility] | | | [facility] | + + + + Procedures + + + + | date | description | facility | + + + + | 2025-03-03 00:00 | INTRODUCE OF [facility] | [facility] | | | ANTI-INFECT INTO [facility] | | | VEIN, PERC APPROACH | | + + + + | 2025-03-03 00:00 | INTRODUCE OF [facility] | [facility] | | | ANTI-INFECT INTO [facility] | | | VEIN, PERC APPROACH | | + + + + Results/Labs +--------+--------+ +---------+--------+---------+ | test | date | facility | value | unit | notes | +--------+--------+ +---------+--------+---------+ + + | Result panel 1 | + + + + + +--------+ + + | Prothrombin | 2025-03-03 | | 13.1 | (missing) | (missing) | | time (PT) | 17:18 | [facility] | | | | | [...] +--------+ + + | INR in | 2025-03-03 | | 1.06 | (missing) | (missing) | | Platelet | 17:18 | [facility] | | | | | [...] + + + +--------+ + + | Activated | 2025-03-03 | | 24.9 | (missing) | (missing) | | partial | 17:18 | [facility] | | | | | thromboplast | [facility] | in time | | [facility] | | | | | (aPTT) in | | Hospital | | | | | platelet | | | | | | | poor plasma | | | | | | | by | | | | | | | coagulation | | | | | | | assay | | | | | | + + + +--------+ + + + + | Result panel 4 | + + + + + +---------+ + + | Venous | 2025-03-03 | | 7.414 | (missing) | (missing) | | whole blood | 17:18 | [facility] | | | | | pH | | - [facility] | | [facility] | measurement | | [facility] | | | [facility] | | | | + + + +---------+ + + + + | Result panel 5 | + + + + + +-------+ + + | Serum or | 2025-03-03 | | 7.8 | (missing) | (missing) | | plasma | 17:18 | [facility] | | | | | protein | | - [facility] | | [facility] | measurement | | [facility] | | | | | (mass/volume | | Hospital | | | | | ) | | | | | | + + + +-------+ + + + + | Result panel 6 | + + + + + +-------+ + + | Serum or | 2025-03-03 | | 2.8 | (missing) | (missing) | | plasma | 17:18 | [facility] | | | | | albumin | | - [facility] | | [facility] | measurement | | [facility] | | | | | (mass/volume | | Hospital | | | | | ) | | | | | | + + + +-------+ + + + + | Result panel 7 | + + + + + +-------+ + + | Serum | 2025-03-03 | | 5.0 | (missing) | (missing) | | globulin | 17:18 | [facility] | | | | | measurement | | - [facility] | | | | | (mass/volume | | [facility] | | | | ) | | Hospital | | | | + + + +-------+ + + + + | Result panel 8 | + + + + + +--------+ + + | Serum or | 2025-03-03 | | 0.56 | (missing) | (missing) | | plasma | 17:18 | [facility] | | | | | albumin/glob | | - [facility] | | | | | ulin mass | | [facility] | | | | | ratio | | Hospital | | | | + + + +--------+ + + + + | Result panel 9 | + + + + + +-------+ + + | Serum or | 2025-03-03 | | 0.5 | (missing) | (missing) | | plasma total | 17:18 | [facility] | | | | | bilirubin | | - [facility] | | [facility] | measurement | | [facility] | | | | | (mass/volume | | Hospital | | | | | ) | | | | | | + + + +-------+ + + + + | Result panel 10 | + + + + + +-----+ + + | Serum or | 2025-03-03 | | 5 | (missing) | (missing) | | plasma | 17:18 | [facility] | | | | | [...] +------+ + + | Serum or | 2025-03-03 | | 15 | (missing) | (missing) | | plasma | 17:18 | [facility] | | | | | [...] 12 | + + + + + +------+ + + | Serum or | 2025-03-03 | | 64 | (missing) | (missing) | | plasma | 17:18 | [facility] | | | | | [...] +-------+ + + | Serum or | 2025-03-03 | | 6.5 | (missing) | (missing) | | plasma | 17:18 | [facility] | | | | | [...] 14 | + + + + + +--------+ + + | Prothrombin | 2025-03-03 | | 13.1 | (missing) | (missing) | | time (PT) | 17:18 | [facility] | | | | | [...] 15 | + + + + + +--------+ + + | INR in | 2025-03-03 | | 1.06 | (missing) | (missing) | | Platelet | 17:18 | [facility] | | | | | poor plasma | [facility] - [facility] | by | | [facility] | | | | | Coagulation | | Hospital | | | | | assay | | | | | | + + + +--------+ + + + + | Result panel 16 | + + + + + +---------+ + + | Venous | 2025-03-03 | | 7.414 | (missing) | (missing) | | whole blood | 17:18 | [facility] | | | | | pH | | - [facility] | | [facility] | | measurement | | [facility] | | | | | | [facility] | | | | + + + +---------+ + + + + | Result panel 17 | + + + + + +--------+ + + | Prothrombin | 2025-03-03 | | 13.1 | (missing) | (missing) | | time (PT) | 17:18 | [facility] | | | | | [...] 18 | + + + + + +--------+ + + | INR in | 2025-03-03 | | 1.06 | (missing) | (missing) | | Platelet | 17:18 | [facility] | | | | | poor plasma | | - [facility] | | [facility] | | by | | [facility] | | | | | Coagulation | | Hospital | | | | | assay | | | | | | + + + +--------+ + + + + | Result panel 19 | + + + + + +---------+ + + | Venous | 2025-03-03 | | 7.414 | (missing) | (missing) | | whole blood | 17:18 | [facility] | | | | | pH | | - [facility] | | [facility] | | measurement | | [facility] | | | | | | [facility] | | | | + + + +---------+ + + + + | Result panel 20 | + + + + + +--------+ + + | Prothrombin | 2025-03-03 | | 13.1 | (missing) | (missing) | | time (PT) | 17:18 | [facility] | | | | | [...] 21 | + + + + + +--------+ + + | INR in | 2025-03-03 | | 1.06 | (missing) | (missing) | | Platelet | 17:18 | [facility] | | | | | poor plasma | [facility] - [facility] | by | | [facility] | | | | Co[facility] | | Hospital | | | | | assay | | | | | | + + + +--------+ + + + + | Result panel 22 | + + + + + +---------+ + + | Venous | 2025-03-03 | | 7.414 | (missing) | (missing) | | whole blood | 17:18 | [facility] | | | | | pH | | - [facility] | | [facility] | measurement | | [facility] | | | | | | [facility] | | | | + + + +---------+ + + + + | Result panel 23 | + + + + + +-------+ + + | Serum or | 2025-03-03 | | 1.1 | (missing) | (missing) | | plasma | 18:13 | [facility] | | | | | lactate | | - [facility] | | | | | measurement | | [facility] | | | | | (moles/volum | | Hospital | | | | | e) | | | | | | + + + +-------+ + + + + | Result panel 24 | + + + + + + + + + | Respiratory | 2025-03-03 | | NEGATIVE | (missing) | (missing) | | specimen | 18:13 | [facility] | | | | | 2019 novel | [facility] | coronavirus | | [facility] | | | | | RNA | | Hospital | | | | | detection | | | | | | + + + + + + + + + | Result panel 25 | + + + + + + + + + | Influenza | 2025-03-03 | | NEGATIVE | (missing) | (missing) | | virus A RNA | 18:13 | [facility] | | | | | [...] 26 | + + + + + + + + + | Influenza | 2025-03-03 | | NEGATIVE | (missing) | (missing) | | virus B RNA | 18:13 | [facility] | | | | | [...] 27 | + + + + + + + + + | Respiratory | 2025-03-03 | | NEGATIVE | (missing) | (missing) | | syncytial | 18:13 | [facility] | | | | | [...] +-------+ + + | Serum or | 2025-03-03 | | 1.1 | (missing) | (missing) | | plasma | 18:13 | [facility] | | | | | lactate | | - [facility] | | | | | measurement | | [facility] | | | | | (moles/volum | | Hospital | | | | | e) | | | | | | + + + +-------+ + + + + | Result panel 29 | + + + + + + + + + | Respiratory | 2025-03-03 | | NEGATIVE | (missing) | (missing) | | specimen | 18:13 | [facility] | | | | | 2019 novel | [facility] - [facility] | | [facility] | | coronavirus | | [facility] | | | | | RNA | | Hospital | | | | | detection | | | | | | + + + + + + + + + | Result panel 30 | + + + + + + + + + | Influenza | 2025-03-03 | | NEGATIVE | (missing) | (missing) | | virus A RNA | 18:13 | [facility] | | | | | [...] 31 | + + + + + + + + + | Influenza | 2025-03-03 | | NEGATIVE | (missing) | (missing) | | virus B RNA | 18:13 | [facility] | | | | | [...] 32 | + + + + + + + + + | Respiratory | 2025-03-03 | | NEGATIVE | (missing) | (missing) | | syncytial | 18:13 | [facility] | | | | | [...] 33 | + + + + + +-------+ + + | Serum or | 2025-03-03 | | 1.1 | (missing) | (missing) | | plasma | 18:13 | [facility] | | | | | lactate | | - [facility] | | | | | measurement | | [facility] | | | | | (moles/volum | | Hospital | | | | | e) | | | | | | + + + +-------+ + + + + | Result panel 34 | + + + + + + + + + | Respiratory | 2025-03-03 | | NEGATIVE | (missing) | (missing) | | specimen | 18:13 | [facility] | | | | | 2019 novel | [facility] - [facility] | | [facility] | | coronavirus | | [facility] | | | | | RNA | | Hospital | | | | | detection | | | | | | + + + + + + + + + | Result panel 35 | + + + + + + + + + | Influenza | 2025-03-03 | | NEGATIVE | (missing) | (missing) | | virus A RNA | 18:13 | [facility] | | | | | [...] + + + + | Influenza | 2025-03-03 | | NEGATIVE | (missing) | (missing) | | virus B RNA | 18:13 | [facility] | | | | | [...] 37 | + + + + + + + + + | Respiratory | 2025-03-03 | | NEGATIVE | (missing) | (missing) | | syncytial | 18:13 | [facility] | | | | | [...] 38 | + + + + + +-------+ + + | Serum or | 2025-03-03 | | 1.1 | (missing) | (missing) | | plasma | 18:13 | [facility] | | | | | lactate | | - [facility] | | | | | measurement | | [facility] | | | | | (moles/volum | | Hospital | | | | | e) | | | | | | + + + +-------+ + + + + | Result panel 39 | + + + + + + + + + | Respiratory | 2025-03-03 | | NEGATIVE | (missing) | (missing) | | specimen | 18:13 | [facility] | | | | | 2019 novel | [facility] - [facility] | | [facility] | | coronavirus | | [facility] | | | | | RNA | | Hospital | | | | | detection | | | | | | + + + + + + + + + | Result panel 40 | + + + + + + + + + | Influenza | 2025-03-03 | | NEGATIVE | (missing) | (missing) | | virus A RNA | 18:13 | [facility] | | | | | [...] 41 | + + + + + + + + + | Influenza | 2025-03-03 | | NEGATIVE | (missing) | (missing) | | virus B RNA | 18:13 | [facility] | | | | | [...] 42 | + + + + + + + + + | Respiratory | 2025-03-03 | | NEGATIVE | (missing) | (missing) | | syncytial | 18:13 | [facility] | | | | | [...] 43 | + + + + + + + + + | Color of | 2025-03-04 | | YELLOW | (missing) | (missing) | | Urine by | 01:15 | [facility] | | | | | Auto | | - [facility] | | | | | | | [facility] | | | | | | [facility] | | | | + + + + + + + + + | Result panel 44 | + + + + + +---------+ + + | Character | 2025-03-04 | | CLEAR | (missing) | (missing) | | of Urine | 01:15 | [facility] | | | | | | | - [facility] | | | | | | | [facility] | | [facility] | | | [facility] | | | | + + + +---------+ + + + + | Result panel 45 | + + + + + +---------+ + + | Glucose | 2025-03-04 | | LARGE | (missing) | (missing) | | [Presence] | 01:15 | [facility] | | | | | in Urine by | | - [facility] | | | | | Test strip | | [facility] | | [facility] | | | [facility] | | | | + + + +---------+ + + + + | Result panel 46 | + + + + + + + + + | Urine total | 2025-03-04 | | NEGATIVE | (missing) | (missing) | | bilirubin | 01:15 | [facility] | | | | | detection by | | - [facility] | | | | | test strip | | [facility] | | [facility] | | | [facility] | | | | + + + + + + + + + | Result panel 47 | + + + + + + + + + | Urine | 2025-03-04 | | NEGATIVE | (missing) | (missing) | | ketones | 01:15 | [facility] | | | | | detection by | | - [facility] | | | | | test strip | | [facility] | | | | | | [facility] | | | | + + + + + + + + + | Result panel 48 | + + + + + + + + + | Specific | 2025-03-04 | | >=1.030 | (missing) | (missing) | | gravity ur | 01:15 | [facility] | | | | | dipstick | | - [facility] | | | | | | | [facility] | | | | | | [facility] | | | | + + + + + + + + + | Result panel 49 | + + + + + + + + + | Urine | 2025-03-04 | | NEGATIVE | (missing) | (missing) | | hemoglobin | 01:15 | [facility] | | | | | detection by | | - [facility] | | | | | test strip | | [facility] | | [facility] | | | [facility] | | | | + + + + + + + + + | Result panel 50 | + + + + + +-------+ + + | Urine pH | 2025-03-04 | | 6.0 | (missing) | (missing) | | measurement | 01:15 | [facility] | | | | | by test | | - [facility] | | | | | strip | | [facility] | | [facility] | | | [facility] | | | | + + + +-------+ + + + + | Result panel 51 | + + + + + +------+ + + | Protein | 2025-03-04 | | 30 | (missing) | (missing) | | urine test | 01:15 | [facility] | | | | | strip | | - [facility] | | | | | | | [facility] | | | | | | [facility] | | | | + + + +------+ + + + + | Result panel 52 | + + + + + + + + + | | 2025-03-04 | | NORMAL | (missing) | (missing) | | Urobilinogen | 01:15 | [facility] | | | | | | | - [facility] | | | | | [Mass/volume | | [facility] | | | | | ] in Urine | | Hospital | | | | | by Test | | | | | | | strip | | | | | | + + + + + + + + + | Result panel 53 | + + + + + + + + + | Urine | 2025-03-04 | | NEGATIVE | (missing) | (missing) | | nitrite | 01:15 | [facility] | | | | | detection by | | - [facility] | | | | | test strip | | [facility] | [facility] | | | [facility] | | | | + + + + + + + + + | Result panel 54 | + + + + + + + + + | Urine | 2025-03-04 | | NEGATIVE | (missing) | (missing) | | leukocyte | 01:15 | [facility] | | | | | esterase | | - [facility] | | | | | detection by | | [facility] | | | | | dipstick | | Hospital | | | | + + + + + + + + + | Result panel 55 | + + + + + +-------+ + + | Automated | 2025-03-04 | | 2-3 | (missing) | (missing) | | urine | 01:15 | [facility] | | | | | sediment | | - [facility] | | | | | erythrocyte | | [facility] | | | | | count by | | Hospital | | | | | microscopy | | | | | | | (number/high | | | | | | | power | | | | | | | field) | | | | | | + + + +-------+ + + + + | Result panel 56 | + + + + + +-------+ + + | Automated | 2025-03-04 | | 2-3 | (missing) | (missing) | | urine | 01:15 | [facility] | | | | | sediment | | - [facility] | | | | | leukocyte | | [facility] | | | | | count by | | Hospital | | | | | microscopy | | | | | | | (number/high | | | | | | | power | | | | | | | field) | | | | | | + + + +-------+ + + + + | Result panel 57 | + + + + + + + + + | Automated | 2025-03-04 | | SQUAMOUS 1+ | (missing) | (missing) | | urine | 01:15 | [facility] | | | | | sediment | | - [facility] | | | | | epithelial | | [facility] | | | | | cell count | | Hospital | | | | | by | | | | | | | microscopy | | | | | | | (number/high | | | | | | | power | | | | | | | field) | | | | | | + + + + + + + + + | Result panel 58 | + + + + + + + + + | Crystal | 2025-03-04 | | NONE SEEN | (missing) | (missing) | | typing in | 01:15 | [facility] | | | | | urine | | - [facility] | | | | | sediment by | | [facility] | | | | | light | | Hospital | | | | | microscopy | | | | | | + + + + + + + + + | Result panel 59 | + + + + + +--------+ + + | Automated | 2025-03-04 | | RARE | (missing) | (missing) | | urine | 01:15 | [facility] | | | | | sediment | | - [facility] | | | | | bacteria | | [facility] | | | | | count by | | Hospital | | | | | microscopy | | | | | | | (number/high | | | | | | | power | | | | | | | field) | | | | | | + + + +--------+ + + + + | Result panel 60 | + + + + + + + + + | Automated | 2025-03-04 | | HYALINE 1+ | (missing) | (missing) | | casts count | 01:15 | [facility] | | | | | in urine | | - [facility] | | | | | sediment by | | [facility] | | | | | microscopy | | Hospital | | | | | low power | | | | | | | field | | | | | | | (number/area | | | | | | | ) | | | | | | + + + + + + + + + | Result panel 61 | + + + + + +------+ + + | Reflexive | 2025-03-04 | | No | (missing) | (missing) | | urine | 01:15 | [facility] | | | | | bacterial | | - [facility] | | | | | culture | | [facility] | | | | | | [facility] | | | | + + + +------+ + + + + | Result panel 62 | + + + + + + + + + | Urinalysis | 2025-03-04 | | CLEAN CATCH | (missing) | (missing) | | specimen | 01:15 | [facility] | | | | | collection | | - [facility] | | | | | method | | [facility] | | | | | | [facility] | | | | + + + + + + + + + | Result panel 63 | + + + + + + + + + | Color of | 2025-03-04 | | YELLOW | (missing) | (missing) | | Urine by | 01:15 | [facility] | | | | | Auto | | - [facility] | | | | | | | [facility] | | | | | | [facility] | | | | + + + + + + + + + | Result panel 64 | + + + + + +---------+ + + | Character | 2025-03-04 | | CLEAR | (missing) | (missing) | | of Urine | 01:15 | [facility] | | | | | | | - [facility] | | | | | | | [facility] | | | | | | [facility] | | | | + + + +---------+ + + + + | Result panel 65 | + + + + + +---------+ + + | Glucose | 2025-03-04 | | LARGE | (missing) | (missing) | | [Presence] | 01:15 | [facility] | | | | | in Urine by | | - [facility] | | | | | Test strip | | [facility] | | | | | | [facility] | | | | + + + +---------+ + + + + | Result panel 66 | + + + + + + + + + | Urine total | 2025-03-04 | | NEGATIVE | (missing) | (missing) | | bilirubin | 01:15 | [facility] | | | | | detection by | | - [facility] | | | | | test strip | | [facility] | | [facility] | | | [facility] | | | | + + + + + + + + + | Result panel 67 | + + + + + + + + + | Urine | 2025-03-04 | | NEGATIVE | (missing) | (missing) | | ketones | 01:15 | [facility] | | | | | detection by | | - [facility] | | | | | test strip | | [facility] | | | | | | [facility] | | | | + + + + + + + + + | Result panel 68 | + + + + + + + + + | Specific | 2025-03-04 | | >=1.030 | (missing) | (missing) | | gravity ur | 01:15 | [facility] | | | | | dipstick | | - [facility] | | | | | | | [facility] | | | | | | [facility] | | | | + + + + + + + + + | Result panel 69 | + + + + + + + + + | Urine | 2025-03-04 | | NEGATIVE | (missing) | (missing) | | hemoglobin | 01:15 | [facility] | | | | | detection by | [facility] - [facility] | | | | + + + + + + + + + | Result panel 70 | + + + + + +-------+ + + | Urine pH | 2025-03-04 | | 6.0 | (missing) | (missing) | | measurement | 01:15 | [facility] | | | | | by test | [facility] - [facility] strip | [facility] | | | | + + + +-------+ + + + + | Result panel 71 | + + + + + +------+ + + | Protein | 2025-03-04 | | 30 | (missing) | (missing) | | urine test | 01:15 | [facility] | | | | | strip | [facility] - [facility] | | | | + + + +------+ + + + + | Result panel 72 | + + + + + + + + + | | 2025-03-04 | | NORMAL | (missing) | (missing) | | Urobilinogen | 01:15 | [facility] | | | | | | | - [facility] | | | | [Mass/volume | | [facility] | | | | | ] in Urine | | Hospital | | | | | by Test | | | | | | | strip | | | | | | + + + + + + + + + | Result panel 73 | + + + + + + + + + | Urine | 2025-03-04 | | NEGATIVE | (missing) | (missing) | | nitrite | 01:15 | [facility] | | | | | detection by | [facility] - [facility] | | | | + + + + + + + + + | Result panel 74 | + + + + + + + + + | Urine | 2025-03-04 | | NEGATIVE | (missing) | (missing) | | leukocyte | 01:15 | [facility] | | | | | esterase | | - [facility] detection by | | [facility] | | | | dipstick | | [facility] | | | | + + + + + + + + + | Result panel 75 | + + + + + +-------+ + + | Automated | 2025-03-04 | | 2-3 | (missing) | (missing) | | urine | 01:15 | [facility] | | | | | sediment [facility] | [facility] eryth[facility] | [facility] | | | | | count by | | [facility] | | | | | microscopy | | | | | | | (number/high | | | | | | | power | | | | | | | field) | | | | | | + + + +-------+ + + + + | Result panel 76 | + + + + + +-------+ + + | Automated | 2025-03-04 | | 2-3 | (missing) | (missing) | | urine | 01:15 | [facility] | | | | | sediment | | - [facility] | | | | | leukocyte | | [facility] | | | | | count by | | Hospital | | | | | microscopy | | | | | | | (number/high | | | | | | | power | | | | | | | field) | | | | | | + + + +-------+ + + + + | Result panel 77 | + + + + + + + + + | Automated | 2025-03-04 | | SQUAMOUS 1+ | (missing) | (missing) | | urine | 01:15 | [facility] | | | | | sediment | | - [facility] | | | | | epithelial | | [facility] | | | | | cell count | | Hospital | | | | | by | | | | | | | microscopy | | | | | | | (number/high | | | | | | | power | | | | | | | field) | | | | | | + + + + + + + + + | Result panel 78 | + + + + + + + + + | [place] | 2025-03-04 | | NONE SEEN | (missing) | (missing) | | typing in | 01:15 | [facility] | | | | | urine | [facility] - [facility] | | [facility] | sediment by | | [facility] | | | | | light | | Hospital | | | | | microscopy | | | | | | + + + + + + + + + | Result panel 79 | + + + + + +--------+ + + | Automated | 2025-03-04 | | RARE | (missing) | (missing) | | urine | 01:15 | [facility] | | | | | sediment | | - [facility] | | | | | bacteria | | [facility] | | | | | count by | | Hospital | | | | | microscopy | | | | | | | (number/high | | | | | | | power | | | | | | | field) | | | | | | + + + +--------+ + + + + | Result panel 80 | + + + + + + + + + | Automated | 2025-03-04 | | HYALINE 1+ | (missing) | (missing) | | casts count | 01:15 | [facility] | | | | | in urine | [facility] - [facility] | | [facility] | sediment by | | [facility] | | | | | microscopy | | Hospital | | | | | low power | | | | | | | field | | | | | | | (number/area | | | | | | | ) | | | | | | + + + + + + + + + | Result panel 81 | + + + + + +------+ + + | Reflexive | 2025-03-04 | | No | (missing) | (missing) | | urine | 01:15 | [facility] | | | | | bacterial | [facility] - [facility] | culture | | [facility] | | [facility] | | | [facility] | | | | + + + +------+ + + + + | Result panel 82 | + + + + + + + + + | Urinalysis | 2025-03-04 | | CLEAN CATCH | (missing) | (missing) | | specimen | 01:15 | [facility] | | | | | collection | [facility] - [facility] | | [facility] | method | | [facility] | | [facility] | | [facility] | | | | + + + + + + + + + | Result panel 83 | + + + + + + + + + | Color of | 2025-03-04 | | YELLOW | (missing) | (missing) | | Urine by | 01:15 | [facility] | | | | | Auto | | - [facility] | | | | | | | [facility] | | | | | | [facility] | | | | + + + + + + + + + | Result panel 84 | + + + + + +---------+ + + | Character | 2025-03-04 | | CLEAR | (missing) | (missing) | | of Urine | 01:15 | [facility] | | | | | | | - [facility] | | | | | | | [facility] | | | | | | [facility] | | | | + + + +---------+ + + + + | Result panel 85 | + + + + + +---------+ + + | Glucose | 2025-03-04 | | LARGE | (missing) | (missing) | | [Presence] | 01:15 | [facility] | | | | | in Urine by | | - [facility] | | | [facility] | Test strip | | [facility] | | | | | | [facility] | | | | + + + +---------+ + + + + | Result panel 86 | + + + + + + + + + | Urine total | 2025-03-04 | | NEGATIVE | (missing) | (missing) | | bilirubin | 01:15 | [facility] | | | | | detection by | | - [facility] | | [facility] | | test strip | | [facility] | | | | | | [facility] | | | | + + + + + + + + + | Result panel 87 | + + + + + + + + + | Urine | 2025-03-04 | | NEGATIVE | (missing) | (missing) | | ketones | 01:15 | [facility] | | | | | detection by | | - [facility] | | [facility] | | test strip | | [facility] | | | | | | [facility] | | | | + + + + + + + + + | Result panel 88 | + + + + + + + + + | Specific | 2025-03-04 | | >=1.030 | (missing) | (missing) | | gravity ur | 01:15 | [facility] | | | | | dipstick | | - [facility] | | | | | | [facility] | | | | | | [facility] | | | | + + + + + + + + + | Result panel 89 | + + + + + + + + + | Urine | 2025-03-04 | | NEGATIVE | (missing) | (missing) | | hemoglobin | 01:15 | [facility] | | | | | detection by | | - [facility] | | [facility] | | test strip | | [facility] | | | | | | [facility] | | | | + + + + + + + + + | Result panel 90 | + + + + + +-------+ + + | Urine pH | 2025-03-04 | | 6.0 | (missing) | (missing) | | measurement | 01:15 | [facility] | | | | | by test | | - [facility] | | | | | strip | | [facility] | | | | | | [facility] | | | | + + + +-------+ + + + + | Result panel 91 | + + + + + +------+ + + | Protein | 2025-03-04 | | 30 | (missing) | (missing) | | urine test | 01:15 | [facility] | | | | | strip | | - [facility] | | | | | | | [facility] | | | | | | [facility] | | | | + + + +------+ + + + + | Result panel 92 | + + + + + + + + + | | 2025-03-04 | | NORMAL | (missing) | (missing) | | Urobilinogen | 01:15 | [facility] | | | | | | | - [facility] | | | | | [Mass/volume | | [facility] | | | | | ] in Urine | | Hospital | | | | | by Test | | | | | | | strip | | | | | | + + + + + + + + + | Result panel 93 | + + + + + + + + + | Urine | 2025-03-04 | | NEGATIVE | (missing) | (missing) | | nitrite | 01:15 | [facility] | | | | | detection by | [facility] - [facility] | | [facility] | | test strip | | [facility] | | | | | | [facility] | | | | + + + + + + + + + | Result panel 94 | + + + + + + + + + | Urine | 2025-03-04 | | NEGATIVE | (missing) | (missing) | | leukocyte | 01:15 | [facility] | | | | | esterase | | - [facility] | | [facility] | detection by | | [facility] | | | | | dipstick | | Hospital | | | | + + + + + + + + + | Result panel 95 | + + + + + +-------+ + + | Automated | 2025-03-04 | | 2-3 | (missing) | (missing) | | urine | 01:15 | [facility] | | | | | sediment | | - [facility] | | | | | erythrocyte | | [facility] | | | | | count by | | Hospital | | | | | microscopy | | | | | | | (number/high | | | | | | | power | | | | | | | field) | | | | | | + + + +-------+ + + + + | Result panel 96 | + + + + + +-------+ + + | Automated | 2025-03-04 | | 2-3 | (missing) | (missing) | | urine | 01:15 | [facility] | | | | | sediment | | - [facility] | | | | | leukocyte | | [facility] | | | | | count by | | Hospital | | | | | microscopy | | | | | | | (number/high | | | | | | | power | | | | | | | field) | | | | | | + + + +-------+ + + + + | Result panel 97 | + + + + + + + + + | Automated | 2025-03-04 | | SQUAMOUS 1+ | (missing) | (missing) | | urine | 01:15 | [facility] | | | | | sediment | | - [facility] | | | | | epithelial | | [facility] | | | | | cell count | | Hospital | | | | | by | | | | | | | microscopy | | | | | | | (number/high | | | | | | | power | | | | | | | field) | | | | | | + + + + + + + + + | Result panel 98 | + + + + + + + + + | [place] | 2025-03-04 | | NONE SEEN | (missing) | (missing) | | typing in | 01:15 | [facility] | | | | | urine | | - [facility] | | [facility] | sediment by | | [facility] | | | | | light | | Hospital | | | | | microscopy | | | | | | + + + + + + + + + | Result panel 99 | + + + + + +--------+ + + | Automated | 2025-03-04 | | RARE | (missing) | (missing) | | urine | 01:15 | [facility] | | | | | sediment | | - [facility] | | | | | bacteria | | [facility] | | | | | count by | | Hospital | | | | | microscopy | | | | | | | (number/high | | | | | | | power | | | | | | | field) | | | | | | + + + +--------+ + + + + | Result panel 100 | + + + + + + + + + | Automated | 2025-03-04 | | HYALINE 1+ | (missing) | (missing) | | casts count | 01:15 | [facility] | | | | | in urine | | - [facility] | | | | | sediment by | | [facility] | | | | | microscopy | | Hospital | | | | | low power | | | | | | | field | | | | | | | (number/area | | | | | | | ) | | | | | | + + + + + + + + + | Result panel 101 | + + + + + +------+ + + | Reflexive | 2025-03-04 | | No | (missing) | (missing) | | urine | 01:15 | [facility] | | | | | bacterial | | - [facility] | | [facility] | culture | | [facility] | | | | | | [facility] | | | | + + + +------+ + + + + | Result panel 102 | + + + + + + + + + | Urinalysis | 2025-03-04 | | CLEAN CATCH | (missing) | (missing) | | specimen | 01:15 | [facility] | | | | | collection | | - [facility] | | | | | method | | [facility] | | | | | | [facility] | | | | + + + + + + + + + | Result panel 103 | + + + + + + + + + | Color of | 2025-03-04 | | YELLOW | (missing) | (missing) | | Urine by | 01:15 | [facility] | | | | | Auto | | - [facility] | | | | | | | [facility] | | | | | | | [facility] | | | | + + + + + + + + + | Result panel 104 | + + + + + +---------+ + + | Character | 2025-03-04 | | CLEAR | (missing) | (missing) | | of Urine | 01:15 | [facility] | | | | | | | - [facility] | | | | | | | [facility] | | | | | | [facility] | | | | + + + +---------+ + + + + | Result panel 105 | + + + + + +---------+ + + | Glucose | 2025-03-04 | | LARGE | (missing) | (missing) | | [Presence] | 01:15 | [facility] | | | | | in Urine by | | - [facility] | | | | | Test strip | | [facility] | | | | | | [facility] | | | | + + + +---------+ + + + + | Result panel 106 | + + + + + + + + + | Urine total | 2025-03-04 | | NEGATIVE | (missing) | (missing) | | bilirubin | 01:15 | [facility] | | | | | detection by | | - [facility] | | | | | test strip | | [facility] | | | | | | [facility] | | | | + + + + + + + + + | Result panel 107 | + + + + + + + + + | Urine | 2025-03-04 | | NEGATIVE | (missing) | (missing) | | ketones | 01:15 | [facility] | | | | | detection by | | - [facility] | | | | | test strip | | [facility] | | | | | | [facility] | | | | + + + + + + + + + | Result panel 108 | + + + + + + + + + | Specific | 2025-03-04 | | >=1.030 | (missing) | (missing) | | gravity ur | 01:15 | [facility] | | | | | dipstick | | - [facility] | | | | | | | [facility] | | | | | | | [facility] | | | | + + + + + + + + + | Result panel 109 | + + + + + + + + + | Urine | 2025-03-04 | | NEGATIVE | (missing) | (missing) | | hemoglobin | 01:15 | [facility] | | | | | detection by | | - | | | | | test strip | | [facility] | | | | | | [facility] | | | | + + + + + + + + + | Result panel 110 | + + + + + +-------+ + + | Urine pH | 2025-03-04 | | 6.0 | (missing) | (missing) | | measurement | 01:15 | [facility] | | | | | by test | | - [facility] | | | | | strip | | [facility] | | | | | | [facility] | | | | + + + +-------+ + + + + | Result panel 111 | + + + + + +------+ + + | Protein | 2025-03-04 | | 30 | (missing) | (missing) | | urine test | 01:15 | [facility] | | | | | strip | | - [facility] | | | | | | | [facility] | | | | | | [facility] | | | | + + + +------+ + + + + | Result panel 112 | + + + + + + + + + | | 2025-03-04 | | NORMAL | (missing) | (missing) | | Urobilinogen | 01:15 | [facility] | | | | | | | - [facility] | | | | | [Mass/volume | | [facility] | | | | | ] in Urine | | Hospital | | | | | by Test | | | | | | | strip | | | | | | + + + + + + + + + | Result panel 113 | + + + + + + + + + | Urine | 2025-03-04 | | NEGATIVE | (missing) | (missing) | | nitrite | 01:15 | [facility] | | | | | detection by | | - [facility] | | | | | test strip | | [facility] | | | | | | [facility] | | | | + + + + + + + + + | Result panel 114 | + + + + + + + + + | Urine | 2025-03-04 | | NEGATIVE | (missing) | (missing) | | leukocyte | 01:15 | [facility] | | | | | esterase | | - [facility] | | | | | detection by | | [facility] | | | | | dipstick | | Hospital | | | | + + + + + + + + + | Result panel 115 | + + + + + +-------+ + + | Automated | 2025-03-04 | | 2-3 | (missing) | (missing) | | urine | 01:15 | [facility] | | | | | sediment | | - [facility] | | | | | erythrocyte | | [facility] | | | | | count by | | Hospital | | | | | microscopy | | | | | | | (number/high | | | | | | | power | | | | | | | field) | | | | | | + + + +-------+ + + + + | Result panel 116 | + + + + + +-------+ + + | Automated | 2025-03-04 | | 2-3 | (missing) | (missing) | | urine | 01:15 | [facility] | | | | | sediment | | - [facility] | | | | | leukocyte | | [facility] | | | | | count by | | Hospital | | | | | microscopy | | | | | | | (number/high | | | | | | | power | | | | | | | field) | | | | | | + + + +-------+ + + + + | Result panel 117 | + + + + + + + + + | Automated | 2025-03-04 | | SQUAMOUS 1+ | (missing) | (missing) | | urine | 01:15 | [facility] | | | | | sediment | | - [facility] | | | | | epithelial | | [facility] | | | | | cell count | | Hospital | | | | | by | | | | | | | microscopy | | | | | | | (number/high | | | | | | | power | | | | | | | field) | | | | | | + + + + + + + + + | Result panel 118 | + + + + + + + + + | [place] | 2025-03-04 | | NONE SEEN | (missing) | (missing) | | typing in | 01:15 | [facility] | | | | | urine | | - [facility] | | | | | sediment by | | [facility] | | | | | light | | Hospital | | | | | microscopy | | | | | | + + + + + + + + + | Result panel 119 | + + + + + +--------+ + + | Automated | 2025-03-04 | | RARE | (missing) | (missing) | | urine | 01:15 | [facility] | | | | | sediment | | - [facility] | | | | | bacteria | | [facility] | | | | | count by | | Hospital | | | | | microscopy | | | | | | | (number/high | | | | | | | power | | | | | | | field) | | | | | | + + + +--------+ + + + + | Result panel 120 | + + + + + + + + + | Automated | 2025-03-04 | | HYALINE 1+ | (missing) | (missing) | | casts count | 01:15 | [facility] | | | | | in urine | | - [facility] | | | | | sediment by | | [facility] | | | | | microscopy | | Hospital | | | | | low power | | | | | | | field | | | | | | | (number/area | | | | | | | ) | | | | | | + + + + + + + + + | Result panel 121 | + + + + + +------+ + + | Reflexive | 2025-03-04 | | No | (missing) | (missing) | | urine | 01:15 | [facility] | | | | | bacterial | | - [facility] | | | | | culture | | [facility] | | | | | | | [facility] | | | | + + + +------+ + + + + | Result panel 122 | + + + + + + + + + | Urinalysis | 2025-03-04 | | CLEAN CATCH | (missing) | (missing) | | specimen | 01:15 | [facility] | | | | | collection | | - [facility] | | | | | method | | [facility] | | | | | | [facility] | | | | + + + + + + + + + | Result panel 123 | + + + + + +-----+ + + | Manual | 2025-03-04 | | 1 | (missing) | (missing) | | blood | 05:18 | [facility] | | | | | basophils/10 | | - [facility] | | | | | 0 leukocytes | | [facility] | | | | | | | [facility] | | | | + + + +-----+ + + + + | Result panel 124 | + + + + + +------+ + + | Manual | 2025-03-05 | | 56 | (missing) | (missing) | | blood | 05:26 | [facility] | | | | | segmented | | - [facility] | | | | | neutrophils/ | | [facility] | | | | | 100 | | Hospital | | | | | leukocytes | | | | | | + + + +------+ + + + + | Result panel 125 | + + + + + +-----+ + + | Manual | 2025-03-05 | | 2 | (missing) | (missing) | | blood | 05:26 | [facility] | | | | | lymphocytes/ | | - [facility] | | | | | 100 | | [facility] | | | | | leukocytes | | Hospital | | | | + + + +-----+ + + + + | Result panel 126 | + + + + + +-----+ + + | Manual | 2025-03-05 | | 2 | (missing) | (missing) | | blood | 05:26 | [facility] | | | | | monocytes/10 | | - [facility] | | | | | 0 leukocytes | | [facility] | | | | | | | Hospital | | | | + + + +-----+ + + + + | Result panel 127 | + + + + + +------+ + + | Manual | 2025-03-05 | | 40 | (missing) | (missing) | | blood | 05:26 | [facility] | | | | | eosinophils/ | | - [facility] | | | | | 100 | | [facility] | | | | | leukocytes | | Hospital | | | | + + + +------+ + + + + | Result panel 128 | + + + + + + + + + | Blood | 2025-03-05 | | SEE COMMENT | (missing) | (missing) | | leukocyte | 05:26 | [facility] | | | | | morphology | | - [facility] | | | | | finding | | [facility] | | | | | identificati | | Hospital | | | | | on | | | | | | + + + + + + + + + | Result panel 129 | + + + + + + + + + | Blood | 2025-03-05 | | SEE COMMENT | (missing) | (missing) | | leukocyte | 05:26 | [facility] | | | | | morphology | | - [facility] | | | | | finding | | [facility] | | | | | identificati | | Hospital | | | | | on | | | | | | + + + + + + + + + | Result panel 130 | + + + + + +--------+ + + | Automated | 2025-03-06 | | 64.1 | (missing) | (missing) | | blood | 05:38 | [facility] | | | | | [...] + +-------+ + + | Automated | 2025-03-06 | | 2.4 | (missing) | (missing) | | blood | 05:38 | [facility] | | | | | [...] + +-------+ + + | Automated | 2025-03-06 | | 2.0 | (missing) | (missing) | | blood | 05:38 | [facility] | | | | | [...] 133 | + + + + + +--------+ + + | Automated | 2025-03-06 | | 30.1 | (missing) | (missing) | | blood | 05:38 | [facility] | | | | | [...] + +-------+ + + | Automated | 2025-03-06 | | 0.2 | (missing) | (missing) | | blood | 05:38 | [facility] | | | | | [...] 135 | + + + + + +---------+ + + | Blood | 2025-03-06 | | 29.59 | (missing) | (missing) | | leukocytes | 05:38 | [facility] | | | | | automated | | - [facility] | | | | | count | | [facility] | | | | | (number/volu | | Hospital | | | | | me) | | | | | | + + + +---------+ + + + + | Result panel 136 | + + + + + +--------+ + + | Blood | 2025-03-06 | | 4.07 | (missing) | (missing) | | erythrocytes | 05:38 | [facility] | | | | | automated | | - [facility] | | | | | count | | [facility] | | | | | (number/volu | | Hospital | | | | | me) | | | | | | + + + +--------+ + + + + | Result panel 137 | + + + + + +--------+ + + | Blood | 2025-03-06 | | 11.4 | (missing) | (missing) | | hemoglobin | 05:38 | [facility] | | | | | measurement | | - [facility] | | | | | (mass/volume | | [facility] | | | | | ) | | Hospital | | | | + + + +--------+ + + + + | Result panel 138 | + + + + + +--------+ + + | Automated | 2025-03-06 | | 34.9 | (missing) | (missing) | | blood | 05:38 | [facility] | | | | | hematocrit | | - [facility] | | | | | | | [facility] | | | | | | [facility] | | | | + + + +--------+ + + + + | Result panel 139 | + + + + + +--------+ + + | Automated | 2025-03-06 | | 85.7 | (missing) | (missing) | | erythrocyte | 05:38 | [facility] | | | | | mean | | - [facility] | | | | | corpuscular | | [facility] | | | | | volume | | Hospital | | | | + + + +--------+ + + + + | Result panel 140 | + + + + + +--------+ + + | Automated | 2025-03-06 | | 28.0 | (missing) | (missing) | | erythrocyte | 05:38 | [facility] | | | | | [...] 141 | + + + + + +--------+ + + | Automated | 2025-03-06 | | 32.7 | (missing) | (missing) | | erythrocyte | 05:38 | [facility] | | | | | [...] + +-------+ + + | Automated | 2025-03-06 | | 296 | (missing) | (missing) | | blood | 05:38 | [facility] | | | | | [...] + +--------+ + + | Automated | 2025-03-06 | | 64.1 | (missing) | (missing) | | blood | 05:38 | [facility] | | | | | [...] 144 | + + + + + +-------+ + + | Automated | 2025-03-06 | | 2.4 | (missing) | (missing) | | blood | 05:38 | [facility] | | | | | [...] 145 | + + + + + +-------+ + + | Automated | 2025-03-06 | | 2.0 | (missing) | (missing) | | blood | 05:38 | [facility] | | | | | [...] + +--------+ + + | Automated | 2025-03-06 | | 30.1 | (missing) | (missing) | | blood | 05:38 | [facility] | | | | | [...] + +-------+ + + | Automated | 2025-03-06 | | 0.2 | (missing) | (missing) | | blood | 05:38 | [facility] | | | | | [...] +-------+ + + | Serum or | 2025-03-06 | | 230 | (missing) | (missing) | | plasma | 05:38 | [facility] | | | | | glucose | | - Saint | | | | | measurement | | [facility] | | | | | (mass/volume | | Hospital | | | | | ) | | | | | | + + + +-------+ + + + + | Result panel 149 | + + + + + +------+ + + | Serum or | 2025-03-06 | | 34 | (missing) | (missing) | | plasma urea | 05:38 | [facility] | | | | | [...] +--------+ + + | Serum or | 2025-03-06 | | 1.33 | (missing) | (missing) | | plasma | 05:38 | [facility] | | | | | creatinine | | - Saint | | | | | measurement | | [facility] | | | | | (mass/volume | | Hospital | | | | | ) | | | | | | + + + +--------+ + + + + | Result panel 151 | + + + + + +------+ + + | Glomerular | 2025-03-06 | | 59 | (missing) | (missing) | | filtration | 05:38 | [facility] | | | | | [...] 152 | + + + + + +---------+ + + | Serum or | 2025-03-06 | | 25.56 | (missing) | (missing) | | plasma urea | 05:38 | [facility] | | | | | nitrogen/cre | | - Saint | | | | | atinine mass | | [facility] | | | | | ratio | | Hospital | | | | + + + +---------+ + + + + | Result panel 153 | + + + + + +-------+ + + | Serum or | 2025-03-06 | | 134 | (missing) | (missing) | | plasma | 05:38 | [facility] | | | | | [...] +-------+ + + | Serum or | 2025-03-06 | | 4.6 | (missing) | (missing) | | plasma | 05:38 | [facility] | | | | | potassium | | - Saint | | | | | measurement | | [facility] | | | | | (moles/volum | | Hospital | | | | | e) | | | | | | + + + +-------+ + + + + | Result panel 155 | + + + + + +-------+ + + | Serum or | 2025-03-06 | | 103 | (missing) | (missing) | | plasma | 05:38 | [facility] | | | | | chloride | | - [facility] | | | | | measurement | | [facility] | | | | | (moles/volum | | Hospital | | | | | e) | | | | | | + + + +-------+ + + + + | Result panel 156 | + + + + + +------+ + + | Serum or | 2025-03-06 | | 28 | (missing) | (missing) | | plasma | 05:38 | [facility] | | | | | [...] 157 | + + + + + +-------+ + + | Serum or | 2025-03-06 | | 7.6 | (missing) | (missing) | | plasma anion | 05:38 | [facility] | | | | | gap 4 | | - [facility] | | | | | | | [facility] | | | | | | [facility] | | | | + + + +-------+ + + + + | Result panel 158 | + + + + + +-------+ + + | Serum or | 2025-03-06 | | 8.7 | (missing) | (missing) | | plasma | 05:38 | [facility] | | | | | [...] +-------+ + + | Serum or | 2025-03-06 | | 2.1 | (missing) | (missing) | | plasma | 05:38 | [facility] | | | | | magnesium | | - [facility] | | | | | measurement | | [facility] | | | | | (mass/volume | | Hospital | | | | | ) | | | | | | + + + +-------+ + + + + | Result panel 160 | + + + + + +--------+ + + | Automated | 2025-03-06 | | 64.1 | (missing) | (missing) | | blood | 05:38 | [facility] | | | | | [...] + +-------+ + + | Automated | 2025-03-06 | | 2.4 | (missing) | (missing) | | blood | 05:38 | [facility] | | | | | [...] 162 | + + + + + +-------+ + + | Automated | 2025-03-06 | | 2.0 | (missing) | (missing) | | blood | 05:38 | [facility] | | | | | [...] + +--------+ + + | Automated | 2025-03-06 | | 30.1 | (missing) | (missing) | | blood | 05:38 | [facility] | | | | | [...] + +-------+ + + | Automated | 2025-03-06 | | 0.2 | (missing) | (missing) | | blood | 05:38 | [facility] | | | | | [...] 165 | + + + + + +--------+ + + | Automated | 2025-03-06 | | 64.1 | (missing) | (missing) | | blood | 05:38 | [facility] | | | | | [...] + +-------+ + + | Automated | 2025-03-06 | | 2.4 | (missing) | (missing) | | blood | 05:38 | [facility] | | | | | [...] + +-------+ + + | Automated | 2025-03-06 | | 2.0 | (missing) | (missing) | | blood | 05:38 | [facility] | | | | | [...] 168 | + + + + + +--------+ + + | Automated | 2025-03-06 | | 30.1 | (missing) | (missing) | | blood | 05:38 | [facility] | | | | | [...] 169 | + + + + + +-------+ + + | Automated | 2025-03-06 | | 0.2 | (missing) | (missing) | | blood | 05:38 | [facility] | | | | | [...] 170 | + + + + + +-----+ + + | Manual | 2025-03-09 | | 0 | (missing) | (missing) | | blood | 09:21 | [facility] | | | | | basophils/10 | [facility] 0 leukocytes [facility] | | | | + + + +-----+ + + + + | Result panel 171 | + + + + + +-------+ + + | Serum or | 2025-03-09 | | 8.5 | (missing) | (missing) | | plasma | 09:21 | [facility] | | | | | [...] 172 | + + + + + +-----+ + + | Manual | 2025-03-10 | | 2 | (missing) | (missing) | | blood | 06:00 | [facility] | | | | | monocytes/10 | | - [facility] | [facility] | 0 leukocytes | [facility] | | | | + + + +-----+ + + + + | Result panel 173 | + + + + + +-------+ + + | Serum or | 2025-03-10 | | 4.3 | (missing) | (missing) | | plasma | 06:00 | [facility] | | | | | phosphate | | - [facility] | measurement | | [facility] | | | | (mass/volume | | [facility] | | | | | ) | | | | | | + + + +-------+ + + + + | Result panel 174 | + + + + + +-------+ + + | Serum or | 2025-03-10 | | 2.2 | (missing) | (missing) | | plasma | 06:00 | [facility] | | | | | magnesium | | - [facility] | [facility] | | | | (mass/volume | | [facility] | | | | | ) | | | | | | + + + +-------+ + + + + | Result panel 175 | + + + + + +-----+ + + | Manual | 2025-03-10 | | 2 | (missing) | (missing) | | blood | 06:00 | [facility] | | | | | monocytes/10 | | - [facility] | 0 leukocytes | [facility] | | | | + + + +-----+ + + + + | Result panel 176 | + + + + + +-------+ + + | Serum or | 2025-03-10 | | 4.3 | (missing) | (missing) | | plasma | 06:00 | [facility] | | | | | phosphate | | - [facility] | | [facility] | | measurement | | [facility] | | | | (mass/volume | | [facility] | | | | | ) | | | | | | + + + +-------+ + + + + | Result panel 177 | + + + + + +-------+ + + | Serum or | 2025-03-10 | | 4.3 | (missing) | (missing) | | plasma | 06:00 | [facility] | | | | | phosphate [facility] | [facility] measurement | [facility] | | | | | (mass/volume | | [facility] | | | | | ) | | | | | | + + + +-------+ + + + + | Result panel 178 | + + + + + +--------+ + + | Activated | 2025-03-10 | | 35.9 | (missing) | (missing) | | partial | 12:07 | [facility] | | | | | thromboplast | [facility] | | | | | in time | | [facility] | | | | | (aPTT) in | | Hospital | | | | | platelet | | | | | | | poor plasma | | | | | | | by | | | | | | | coagulation | | | | | | | assay | | | | | | + + + +--------+ + + + + | Result panel 179 | + + + + + +--------+ + + | Activated | 2025-03-10 | | 35.9 | (missing) | (missing) | | partial | 12:07 | [facility] | | | | | thromboplast | [facility] | | in time | | [facility] | | | | | (aPTT) in | | Hospital | | | | | platelet | | | | | | | poor plasma | | | | | | | by | | | | | | | coagulation | | | | | | | assay | | | | | | + + + +--------+ + + + + | Result panel 180 | + + + + + +--------+ + + | Activated | 2025-03-10 | | 35.9 | (missing) | (missing) | | partial | 12:07 | [facility] | | | | | thromboplast | [facility] | in time | | [facility] | | | | | (aPTT) in | | Hospital | | | | | platelet | | | | | | | poor plasma | | | | | | | by | | | | | | | coagulation | | | | | | | assay | | | | | | + + + +--------+ + + + + | Result panel 181 | + + + + + +---------+ + + | Blood | 2025-03-11 | | 25.26 | (missing) | (missing) | | leukocytes | 05:28 | [facility] | | | | | automated | [facility] | count | | [facility] | | | | | (number/volu | | Hospital | | | | | me) | | | | | | + + + +---------+ + + + + | Result panel 182 | + + + + + +--------+ + + | Blood | 2025-03-11 | | 4.40 | (missing) | (missing) | | erythrocytes | 05:28 | [facility] | | | | | automated | [facility] | count | | [facility] | | | | | (number/volu | | Hospital | | | | | me) | | | | | | + + + +--------+ + + + + | Result panel 183 | + + + + + +--------+ + + | Blood | 2025-03-11 | | 12.6 | (missing) | (missing) | | hemoglobin | 05:28 | [facility] | | | | | measurement | [facility] | | (mass/volume | | [facility] | | | | ) | | [facility] | | | | + + + +--------+ + + + + | Result panel 184 | + + + + + +--------+ + + | Automated | 2025-03-11 | | 38.0 | (missing) | (missing) | | blood | 05:28 | [facility] | | | | | hematocrit | [facility] | | [facility] | | | | | | [facility] | | | | + + + +--------+ + + + + | Result panel 185 | + + + + + +--------+ + + | Automated | 2025-03-11 | | 86.4 | (missing) | (missing) | | erythrocyte | 05:28 | [facility] | | | | | mean | [facility] | corpuscular | | [facility] | | | | | volume | | Hospital | | | | + + + +--------+ + + + + | Result panel 186 | + + + + + +--------+ + + | Automated | 2025-03-11 | | 28.6 | (missing) | (missing) | | erythrocyte | 05:28 | [facility] | | | | | [...] 187 | + + + + + +--------+ + + | Automated | 2025-03-11 | | 33.2 | (missing) | (missing) | | erythrocyte | 05:28 | [facility] | | | | | [...] 188 | + + + + + +-------+ + + | Automated | 2025-03-11 | | 333 | (missing) | (missing) | | blood | 05:28 | [facility] | | | | | platelet | [facility] | count | | [facility] | | | | | (count/volum | | Hospital | | | | | e) | | | | | | + + + +-------+ + + + + | Result panel 189 | + + + + + +------+ + + | Manual | 2025-03-11 | | 30 | (missing) | (missing) | | blood | 05:28 | [facility] | | | | | segmented | [facility] | | [facility] | | neutrophils/ | | [facility] | | | | | 100 | | Hospital | | | | | leukocytes | | | | | | + + + +------+ + + + + | Result panel 190 | + + + + + +------+ + + | Manual | 2025-03-11 | | 20 | (missing) | (missing) | | blood | 05:28 | [facility] | | | | | lymphocytes/ | [facility] | | 100 | | [facility] | | | | | leukocytes | | Hospital | | | | + + + +------+ + + + + | Result panel 191 | + + + + + +------+ + + | Manual | 2025-03-11 | | 48 | (missing) | (missing) | | blood | 05:28 | [facility] | | | | | eosinophils/ | [facility] | | 100 | | [facility] | | | | | leukocytes | | Hospital | | | | + + + +------+ + + + + | Result panel 192 | + + + + + +-----+ + + | Manual | 2025-03-11 | | 2 | (missing) | (missing) | | blood band | 05:28 | [facility] | | | | | neutrophils | [facility] | | form/100 | | [facility] | | | | | leukocytes | | Hospital | | | | + + + +-----+ + + + + | Result panel 193 | + + + + + +------+ + + | Serum or | 2025-03-11 | | 81 | (missing) | (missing) | | plasma | 05:28 | [facility] | | | | | glucose | [facility] | measurement | | [facility] | | | | | (mass/volume | | Hospital | | | | | ) | | | | | | + + + +------+ + + + + | Result panel 194 | + + + + + +------+ + + | Serum or | 2025-03-11 | | 32 | (missing) | (missing) | | plasma urea | 05:28 | [facility] | | | | | nitrogen | [facility] | measurement | | [facility] | | | | | (mass/volume | | Hospital | | | | | ) | | | | | | + + + +------+ + + + + | Result panel 195 | + + + + + +--------+ + + | Serum or | 2025-03-11 | | 1.15 | (missing) | (missing) | | plasma | 05:28 | [facility] | | | | | creatinine | [facility] | measurement | | [facility] | | | | | (mass/volume | | Hospital | | | | | ) | | | | | | + + + +--------+ + + + + | Result panel 196 | + + + + + +------+ + + | Glomerular | 2025-03-11 | | 71 | (missing) | (missing) | | filtration | 05:28 | [facility] | | | | | [...] 197 | + + + + + +---------+ + + | Serum or | 2025-03-11 | | 27.82 | (missing) | (missing) | | plasma urea | 05:28 | [facility] | | | | | nitrogen/cre | [facility] | [facility] | | atinine mass | | [facility] | | | | | ratio | | Hospital | | | | + + + +---------+ + + + + | Result panel 198 | + + + + + +-------+ + + | Serum or | 2025-03-11 | | 139 | (missing) | (missing) | | plasma | 05:28 | [facility] | | | | | sodium | | [facility] | measurement | | [facility] | | | | | (moles/volum | | Hospital | | | | | e) | | | | | | + + + +-------+ + + + + | Result panel 199 | + + + + + +-------+ + + | Serum or | 2025-03-11 | | 4.5 | (missing) | (missing) | | plasma | 05:28 | [facility] | | | | | [...] +-------+ + + | Serum or | 2025-03-11 | | 106 | (missing) | (missing) | | plasma | 05:28 | [facility] | | | | | chloride | [facility] | measurement | | [facility] | | | | | (moles/volum | | Hospital | | | | | e) | | | | | | + + + +-------+ + + + + | Result panel 201 | + + + + + +------+ + + | Serum or | 2025-03-11 | | 28 | (missing) | (missing) | | plasma | 05:28 | [facility] | | | | | [...] +-------+ + + | Serum or | 2025-03-11 | | 9.5 | (missing) | (missing) | | plasma anion | 05:28 | [facility] | | | | | gap 4 | [facility] | [facility] | | | | | | [facility] | | | | + + + +-------+ + + + + | Result panel 203 | + + + + + +-------+ + + | Serum or | 2025-03-11 | | 8.5 | (missing) | (missing) | | plasma | 05:28 | [facility] | | | | | [...] +-------+ + + | Serum or | 2025-03-11 | | 6.0 | (missing) | (missing) | | plasma | 05:28 | [facility] | | | | | [...] +-------+ + + | Serum or | 2025-03-11 | | 2.4 | (missing) | (missing) | | plasma | 05:28 | [facility] | | | | | albumin | [facility] measurement | | [facility] | | | | | (mass/volume | | Hospital | | | | | ) | | | | | | + + + +-------+ + + + + | Result panel 206 | + + + + + +-------+ + + | Serum | 2025-03-11 | | 3.6 | (missing) | (missing) | | globulin | 05:28 | [facility] | | | | | measurement | [facility] | (mass/volume | | [facility] | | | | | ) | | [facility] | | | | + + + +-------+ + + + + | Result panel 207 | + + + + + +--------+ + + | Serum or | 2025-03-11 | | 0.67 | (missing) | (missing) | | plasma | 05:28 | [facility] | | | | | albumin/glob | [facility] | ulin mass | | [facility] | | | | | ratio | | Hospital | | | | + + + +--------+ + + + + | Result panel 208 | + + + + + +-------+ + + | Serum or | 2025-03-11 | | 0.4 | (missing) | (missing) | | plasma total | 05:28 | [facility] | | | | | bilirubin | [facility] | measurement | | [facility] | | | | | (mass/volume | | Hospital | | | | | ) | | | | | | + + + +-------+ + + + + | Result panel 209 | + + + + + +-----+ + + | Serum or | 2025-03-11 | | 9 | (missing) | (missing) | | plasma | 05:28 | [facility] | | | | | [...] +------+ + + | Serum or | 2025-03-11 | | 28 | (missing) | (missing) | | plasma | 05:28 | [facility] | | | | | [...] +------+ + + | Serum or | 2025-03-11 | | 52 | (missing) | (missing) | | plasma | 05:28 | [facility] | | | | | [...] 212 | + + + + + +-----+ + + | Manual | 2025-03-11 | | 2 | (missing) | (missing) | | blood band | 05:28 | [facility] | | | | | neutrophils | [facility] | form/100 | | [facility] | | | | | leukocytes | | Hospital | | | | + + + +-----+ + + + + | Result panel 213 | + + + + + +---------+ [...] 214 | + + + + + +------+ [...] 215 | + + + + + +------+ [...] 216 | + + + + + +-----+ [...] 217 | + + + + + + [...] 218 | + + + + + +------+ [...] + + + + | Result panel 219 | + + + + + +------+ [...] + + + + | Result panel 220 | + + + + + +--------+ + + | Serum or | 2025-03-21 | | 1.09 | (missing) | (missing) | | plasma | 14:14 | [facility] | | | | | creatinine | [facility] | [facility] | measurement | | [facility] | | | | | (mass/volume | | [facility] | | | | | ) | | | | | | + + + +--------+ + + + + | Result panel 221 | + + + + + +------+ [...] + + + + | Result panel 222 | + + + + + +---------+ [...] + + + + | Result panel 223 | + + + + + +-------+ [...] + + + + | Result panel 224 | + + + + + +--------+ [...] + + + + | Result panel 225 | + + + + + +-------+ [...] + + + + | Result panel 226 | + + + + + +-------+ [...] + + + + | Result panel 227 | + + + + + +------+ [...] + + + + | Result panel 228 | + + + + + +--------+ [...] + + + + | Result panel 229 | + + + + + +-------+ [...] + + + + | Result panel 230 | + + + + + +-------+ [...] + + + + | Result panel 231 | + + + + + +-------+ [...] + + + + | Result panel 232 | + + + + + +-------+ [...] + + + + | Result panel 233 | + + + + + +-------+ [...] + + + + | Result panel 234 | + + + + + +--------+ [...] + + + + | Result panel 235 | + + + + + +--------+ [...] + + + + | Result panel 236 | + + + + + +-------+ [...] + + + + | Result panel 237 | + + + + + +------+ [...] + + + + | Result panel 238 | + + + + + +------+ [...] + + + + | Result panel 239 | + + + + + +------+ [...] + + + + | Result panel 240 | + + + + + +--------+ [...] + + + + | Result panel 241 | + + + + + +--------+ [...] + + + + | Result panel 242 | + + + + + +--------+ [...] + + + + | Result panel 243 | + + + + + +--------+ [...] + + + + | Result panel 244 | + + + + + +--------+ [...] + + + + | Result panel 245 | + + + + + +-----+ [...] + + + + | Result panel 246 | + + + + + + [...] + + + + | Result panel 247 | + + + + + +-------+ [...] + + + + | Result panel 248 | + + + + + +------+ [...] + + + + | Result panel 249 | + + + + + +------+ [...] + + + + | Result panel 250 | + + + + + +---------+ [...] + + + + | Result panel 251 | + + + + + +-------+ [...] + + + + | Result panel 252 | + + + + + +-------+ [...] + + + + | Result panel 253 | + + + + + +-------+ [...] + + + + | Result panel 254 | + + + + + +------+ [...] + + + + | Result panel 255 | + + + + + +--------+ [...] + + + + | Result panel 256 | + + + + + +-------+ [...] + + + + | Result panel 257 | + + + + + +-------+ [...] + + + + | Result panel 258 | + + + + + +-------+ [...] + + + + | Result panel 259 | + + + + + +-------+ [...] + + + + | Result panel 260 | + + + + + +-------+ [...] + + + + | Result panel 261 | + + + + + +--------+ [...] + + + + | Result panel 262 | + + + + + +-------+ [...] + + + + | Result panel 263 | + + + + + +-----+ [...] + + + + | Result panel 264 | + + + + + +------+ [...] + + + + | Result panel 265 | + + + + + +------+ [...] + + + + | Result panel 266 | + + + + + +--------+ [...] + + + + | Result panel 267 | + + + + + +---------+ [...] + + + + | Result panel 268 | + + + + + +--------+ [...] + + + + | Result panel 269 | + + + + + +--------+ [...] + + + + | Result panel 270 | + + + + + +--------+ [...] + + + + | Result panel 271 | + + + + + +--------+ [...] + + + + | Result panel 272 | + + + + + +--------+ [...] + + + + | Result panel 273 | + + + + + +--------+ [...] + + + + | Result panel 274 | + + + + + +-------+ [...] + + + + | Result panel 275 | + + + + + +------+ [...] + + + + | Result panel 276 | + + + + + +------+ [...] + + + + | Result panel 277 | + + + + + +-----+ [...] + + + + | Result panel 278 | + + + + + +------+ [...] + + + + | Result panel 279 | + + + + + +-----+ [...] + + + + | Result panel 280 | + + + + + +-------+ [...] + + + + | Result panel 281 | + + + + + +------+ [...] + + + + | Result panel 282 | + + + + + +--------+ [...] [facility] | | | | [facility] | + + + + | (no date) | Unknown if ever smoked | [facility] | | | | [facility] | + + + + Vital Signs No information."
--- OUTSIDE RECORDS SUMMARY | ~2025-06-01 | XMS | Continuity of Care Document ---
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 | Role | Phone | + [...] (no date) | No vaccine administered | [facility] | | | | [facility] | + + + + | (no date) | No vaccine administered | [facility] | | | | [facility] | + + + + Medications + + + + | date | description | facility | + + + + | (no date) | fluticasone propionate | [facility] | | | 0.25 MG/ACTUAT / salmeterol | [facility] | | | 0.05 MG/A | | + + + + | (no date) | fluticasone propionate | [facility] | | | 0.25 MG/ACTUAT / salmeterol | [facility] | | | 0.05 MG/A | | + + + + | 2025-03-11 00:00 | apixaban 5 MG Oral Tablet | [facility] | | | [Eliquis] | [facility] | + + + + | 2025-03-11 00:00 | apixaban 5 MG Oral Tablet | [facility] | | | [Eliquis] | [facility] | + + + + | (no date) | albuterol 0.833 MG/ML / | [facility] | | | ipratropium bromide 0.167 | [facility] | | | MG/ML Inha | | + + + + | (no date) | albuterol 0.833 MG/ML / | [facility] | | | ipratropium bromide 0.167 | [facility] | | | MG/ML Inha | | + + + + | (no date) | 60 ACTUAT tiotropium | [facility] | | | 0.0025 MG/ACTUAT Inhalation | [facility] | | | [place] [[facility] | | + + + + | (no ) | 60 ACTUAT tiotropium | [facility] | | | 0.0025 MG/ACTUAT Inhalation | [facility] | | | [place] [[facility]pir | | + + + + | (no date) | allopurinol 100 MG Oral | [facility] | | | Tablet | [facility] | + + + + | (no date) | allopurinol 100 MG Oral | [facility] | | | Tablet | [facility] | + + + + | (no date) | furosemide 20 MG Oral | [facility] | | | Tablet [Lasix] | [facility] | + + + + | (no date) | furosemide 20 MG Oral | [facility] | | | Tablet [Lasix] | [facility] | + + + + | (no date) | azithromycin 250 MG Oral | [facility] | | | Tablet | [facility] | + + + + | (no date) | azithromycin 250 MG Oral | [facility] | | | Tablet | [facility] | + + + + | 2025-03-06 00:00 | levofloxacin 750 MG Oral | [facility] | | | Tablet | [facility] | + + + + | (no date) | mometasone furoate 1 MG/ML | [facility] | | | Topical Cream | [facility] | + + + + | (no date) | mometasone furoate 1 MG/ML | [facility] | | | Topical Cream | [facility] | + + + + | 2025-03-06 00:00 | prednisone 20 MG Oral | [facility] | | | Tablet | [facility] | + + + + | 2025-03-23 00:00 | prednisone 20 MG Oral | [facility] | | | Tablet | [facility] | + + + + | (no date) | duloxetine 30 MG Delayed | [facility] | | | Release Oral Capsule | [facility] | + + + + | (no ) | duloxetine 30 MG Delayed | [facility] | | | Release Oral Capsule | [facility] | + + + + | (no ) | [id number] 200 ACTUAT | [facility] | | | albuterol 0.09 MG/ACTUAT | [facility] | | | Metered Dose I | | + + + + | (no ) | [id number] 200 ACTUAT | [facility] | | | albuterol 0.09 MG/ACTUAT | [facility] | | | Metered Dose I | | + + + + | (no date) | hydroxyzine hydrochloride | [facility] | | | 25 MG Oral Tablet | [facility] | + + + + | (no date) | hydroxyzine hydrochloride | [facility] | | | 25 MG Oral Tablet | [facility] | + + + + Problems + + + + | | description | facility | + + + + | 2025-03-09 00:00 | Pulmonary embolism | [facility] | | | | [facility] | + + + + | 2025-03-09 00:00 | Pulmonary embolism | [facility] | | | | [facility] | + + + + Procedures No [...] 2 | + + + + + +---------+ [...] 3 | + + + + + +---------+ [...] 19 | + + + + + +------+ [...] 21 | + + + + + + [...] 23 | + + + + + +---------+ [...] 34 | + + + + + +-------+ [...] | | | | bacteria | | [facility] | | | | | count by [...] 38 | + + + + + + [...] 42 | + + + + + +---------+ [...] 44 | + + + + + + [...] 45 | + + + + + + [...] 48 | + + + + + +-------+ [...] 51 | + + + + + + [...] 54 | + + + + + +-------+ [...] 55 | + + + + + + [...] 57 | + + + + + +--------+ [...] 59 | + + + + + +------+ [...] 61 | + + + + + + [...] 63 | + + + + + +---------+ [...] 64 | + + + + + + [...] 65 | + + + + + + [...] 70 | + + + + + + [...] 82 | + + + + + +------+ [...] 83 | + + + + + +-----+ [...] 84 | + + + + + +-----+ [...] 85 | + + + + + +------+ [...] 89 | + + + + + +-------+ [...] 93 | + + + + + +---------+ [...] 107 | + + + + + +------+ [...] 109 | + + + + + +------+ [...] 110 | + + + + + +---------+ [...] 123 | + + + + + +--------+ [...] 128 | + + + + + +-----+ [...] 129 | + + + + + +-------+ [...] 130 | + + + + + +-----+ [...] 133 | + + + + + +-----+ [...] 139 | + + + + + +---------+ [...] 147 | + + + + + +------+ [...] 148 | + + + + + +------+ [...] 150 | + + + + + +-----+ [...] 152 | + + + + + +------+ [...] 155 | + + + + + +---------+ [...] 156 | + + + + + +-------+ [...] 159 | + + + + + +------+ [...] 163 | + + + + + +-------+ [...] 167 | + + + + + +-----+ [...] 168 | + + + + + +------+ [...] 169 | + + + + + +------+ [...] 171 | + + + + + +---------+ [...] 174 | + + + + + +-----+ [...] 176 | + + + + + +------+ [...] 177 | + + + + + +------+ [...] 179 | + + + + + +------+ [...] 180 | + + + + + +---------+ [...] 181 | + + + + + +-------+ [...] 185 | + + + + + +------+ [...] 191 | + + + + + +-------+ [...] 193 | + + + + + +--------+ [...] 194 | + + + + + +-------+ [...] 195 | + + + + + +------+ [...] 197 | + + + + + +------+ [...] 198 | + + + + + +--------+ [...] 199 | + + + + + +--------+ [...] 200 | + + + + + +--------+ [...] 201 | + + + + + +--------+ [...] 202 | + + + + + +-----+ [...] 204 | + + + + + +--------+ [...] 206 | + + + + + +------+ [...] 207 | + + + + + +------+ [...] 209 | + + + + + +---------+ + + | Blood | 2025-03-23 | | 14.43 | (missing) | (missing) | | leukocytes | 14:13 | [facility] | | | | | automated | | - | | | | | count | | [facility] | | | | | (number/volu | | Hospital | | | | | me) | | | | | | + + + +---------+ + + + + | Result panel 210 | + + + + + +--------+ [...] 211 | + + + + + +--------+ [...] 216 | + + + + + +-------+ [...] 217 | + + + + + +------+ [...] 219 | + + + + + +-----+ [...] 220 | + + + + + +------+ [...] 221 | + + + + + +-----+ [...] 222 | + + + + + +-------+ [...] 223 | + + + + + +------+ [...] 225 | + + + + + +------+ [...] 226 | + + + + + +---------+ [...] 230 | + + + + + +------+ [...] 231 | + + + + + +--------+ [...] 234 | + + + + + +-------+ [...] 235 | + + + + + +-------+ [...] 238 | + + + + + +-------+ [...] 239 | + + + + + +-----+ [...] 240 | + + + + + +------+ + + | Serum or | 2025-03-23 | | 18 | (missing) | (missing) | | plasma | 14:13 | [facility] | | | | | alanine [facility] aminotransfe | | [facility] | | | | dain | | [facility] | | | | [...] [facility] | | | | [facility] | + + + + | (no date) | Unknown if ever smoked | [facility] | | | | [facility] | + + + + Vital Signs No information."
[2025-06-01] MEDS ORDERED: ALBUTEROL/IPRATROPIUM 3 ML NEB ONE (15:33)
[2025-06-01] MEDS ORDERED: ALBUTEROL/IPRATROPIUM 3 ML NEB INH PRN (15:45)
[2025-06-01 15:48] LABS: BASOPHILS 0.1 % (0.2-1.2); EOSINOPHILS 0.1 % (0.8-7.0); LYMPHOCYTES 6.1 % (21.8-53.1); MCH 28.8 PG (25.7-32.2); MCHC 32.5 g/dL (32.3-36.5); MCV 88.7 fL (79.0-92.2); MONOCYTES 2.2 % (5.3-12.2); NEUTROPHILS 91.2 % (34.0-67.9); RBC 5.21 M/uL (4.63-6.08)
[2025-06-01 16:08] LABS: ALT (SGPT) 34.0 U/L (14-59); AST (SGOT) 35.0 U/L (15-37); GLOMERULAR FILTRATION RATE,EST 55.0 mL/min (>60); PROTEIN, TOTAL 7.1 g/dL (6.4-8.2); UREA NITROGEN 26.0 mg/dL (7-18)
[2025-06-01 17:55] LABS: BASE EXCESS, BLOOD GAS -0.6 mmol/L (-2-2); HCO3, BLOOD GAS 24.0 mmol/L (22-26); O2 SATURATION, BLOOD GAS 93.9 % (95.0-100.0); PCO2, BLOOD GAS 37.7 mmHg (35-45); PH, BLOOD GAS 7.41 (7.35-7.45); PO2, BLOOD GAS 67.0 mmHg (80-100); TOTAL CO2, BLOOD GAS 25.1
[2025-06-01 17:56] LABS: OXYGEN RECEIVED, BLOOD GAS 92.0
[2025-06-01] MEDS ORDERED: SODIUM CHLORIDE 0.9% 1,000 ML IV SCH (19:00)
[2025-06-01] MEDS ORDERED: FUROSEMIDE 20 MG TAB PO PRN (19:00)
[2025-06-01] MEDS ORDERED: ACETAMINOPHEN 325 MG TAB PO PRN (19:00)
[2025-06-01] MEDS ORDERED: ALBUTEROL SULFATE 0.083% 3 ML VIAL INH PRN (19:15)
[2025-06-01] MEDS ORDERED: ALBUTEROL/IPRATROPIUM 3 ML NEB INH SCH (20:00)
--- NOTE | 2025-06-01 20:09 | NUR ---
pt ARRIVED TO [facility] FLOOR FROM ED. pt ALREADY IN BATHROOM AND VOIDED AND BACK TO BED. pt A/OX4, ON RA. VSS, CALL LIGHT AND PERSONAL BELONGINGS IN REACH. pt REPORTS HE WEARS HEARING AIDS BUT NOT PRESENT AT THIS TIME, "NEEDS ADJUSTED" PER pt AND LEFT AT HOME. pt ALSO REPORTS HE WEARS DENTURES, BUT THEY GOT "LOST IN [place]". pt PASSED SWALLOW EVAL. RT IN ROOM FOR SCHEDULED BREATHING TREATMENT, HOSPITAL CPAP ALL SOURCE INTELLIGENCE TECHNICIAN AND AT BEDSIDE. PER RT, CALL WHEN pt READY TO WEAR FOR HS-WAIT AT LEAST 30 MINUTES AFTER EATING. IV SITE WNL, LENCHO DIAZ IN ROOM AND ASSISTING WITH ORIENTING pt TO ROOM AND MED ADMINISTRATION. DR MARTIN ALSO AT BEDSIDE AND DISCUSSED POC WITH pt AND UPDATED HIM ON IMAGING RESULTS. CALL LIGHT IN REACH, TELE IN PLACE. ASSESSMENT COMPLETE.
[2025-06-01 20:19] VITALS: BP 153/92
[2025-06-01] MEDS ORDERED: DULOXETINE HCL 30 MG CAP PO SCH (21:00)
[2025-06-01] MEDS ORDERED: IBLOOD GLUCOSE TEST STRIP 1 EA TEST VI SCH (21:00)
[2025-06-01] MEDS ORDERED: INSULIN LISPRO 100 UNIT/ML ML SUB-Q SCH (21:00)
[2025-06-01] MEDS ORDERED: APIXABAN 5 MG TAB PO SCH (21:00)
[2025-06-01] MEDS ORDERED: PANTOPRAZOLE SODIUM 40 MG TABEC PO SCH (21:00)
[2025-06-01 21:21] VITALS: BP 153/92
--- NOTE | 2025-06-01 22:15 | NUR ---
in room to round on pt, pt remains on ra. rr even and unlabored. pt ate all of sandwich box as well as decaf coffee-waited over 30 minutes before rt analisa came to room and assisted pt with cpap mask. bed alarm on for safety, pt verbalized understanding to call staff before getting oob. iv site wnl, iv fluids and iv abx infusing wnl. pt denies additional needs or concerns. call light in reach.
--- NOTE | 2025-06-01 22:40 | NUR ---
call light answered, pt unable to tolerate fit of cpap mask (rt analisa in room and already adjusted mask with initation of therapy). per rt, place pt on 2lnc for hx sleep apnea. cpox at bedside. spo2 92-93%, hr 80's. call light in reach.
--- NOTE | 2025-06-01 23:12 | NUR ---
PT REQUESTED ACAPELLA. CLEARED BY RT FOR USE. PT PROVIDED TO PATIENT WITH INSTRUCTION ON USE, LEFT ON PATIENT BEDSIDE TABLE.
--- NOTE | 2025-06-01 23:41 | NUR ---
rounded on pt, pt awake and resting on edge of bed. on ra, instructed at this time cpox shows pt only needs 2lnc when asleep-okay to leave off when awake. pt verbalized understanding. applesauce provided per pt request, call light in reach. no additioanl needs or concerns verbalized.
[2025-06-02] VITALS (11 sets, daily range): BP systolic 120–158; BP diastolic 63–99
--- NOTE | 2025-06-02 00:36 | NUR ---
ROUNDED ON pt, pt AWAKE AND RESTING IN BED. ON RA, CPOX AND TELE IN PLACE. HR 80'S, SPO2 90%. NO DISTRESS NOTED, IV SITE WNL-IV FLUIDS INFUSING DIRECTED. pt DENEIS NEEDS OR CONCERNS. CALL LIGHT IN REACH.
--- NOTE | 2025-06-02 01:49 | NUR ---
ROUNDED ON pt, RESTING IN BED QUIETLY WITH EYES CLOSED. RR EVEN AND UNLABORED, NO DISTRESS NOTED. 2LNC IN PLACE D/T HX OF SLEEP APNEA AND UNABLE TO TOLERATE HOSPITAL PROVIDED CPAP MASK. TELE IN PLACE, HR 90'S W/ SINUS RHYTHM. CALL LIGHT IN REACH.
--- NOTE | 2025-06-02 02:14 | NUR ---
ASSISTED PT TO BR AND BACK TO BED. PT REPORTED NORMAL BM. VITALS DONE. NO NEEDS AT THIS TIME, CALL LIGHT IN REACH.
--- NOTE | 2025-06-02 02:26 | NUR ---
ROUNDED ON pt, DISABILITY CASE MANAGER RECENTLY COMPLETED VITAL SIGNS. PRN TYLENOL GIVEN FOR REPORTED 5/10 HEADACHE-SEE EMAR. CUP DECAF COFFEE PROVIDED PER pt REQUEST, pt ENCOURAGED TO TRY AND GET SOME SLEEP/REST. pt TO PUT 1.5LNC IN PLACE BEFORE GOING BACK TO SLEEP, CALL LIGHT IN REACH.
--- NOTE | 2025-06-02 03:37 | NUR ---
rounded on pt, pt resting in bed on 1.5-2lnc. rr even and unlabored, no distress noted. tele remains in place, hr 80's w/ sinus rhythm. call light in reach.
--- NOTE | 2025-06-02 04:40 | NUR ---
iv pump alarming. new bag iv fluids hung and infusing as directed, iv site wnl. pt resting in bed with eyes closed, rr even and unlabored. spo2 93% on ra, hr 80's. call light in reach.
[2025-06-02 05:22] LABS: BASOPHILS 0.1 % (0.2-1.2); EOSINOPHILS 0 % (0.8-7.0); LYMPHOCYTES 3.8 % (21.8-53.1); MCH 29.1 PG (25.7-32.2); MCHC 33.3 g/dL (32.3-36.5); MCV 87.4 fL (79.0-92.2); MONOCYTES 0.3 % (5.3-12.2); NEUTROPHILS 95.2 % (34.0-67.9); RBC 5.16 M/uL (4.63-6.08)
--- NOTE | 2025-06-02 05:23 | NUR ---
PT OOB TO BR, BACK TO EDGE OF BED. VITALS DONE, CALL LIGHT IN REACH. NO NEEDS AT THIS TIME.
[2025-06-02 05:34] LABS: GLOMERULAR FILTRATION RATE,EST 55.0 mL/min (>60); UREA NITROGEN 22.0 mg/dL (7-18)
--- NOTE | 2025-06-02 06:39 | NUR ---
scheduled steriod medication given-see emar. iv site wnl, brisk blood return noted. iv fluids infusing as directed. no additional needs, call light in reach.
--- NOTE | 2025-06-02 07:15 | NUR ---
RECEIVED REPORT FROM ELISEO RAMSEY. PATIENT RESTING IN BED AT THIS TIME, DENIES ANY NEEDS. CPOX IN PLACE, SATS WNL. PT DENIES ANY NEEDS AT THIS TIME. WILL RETURN SHORTLY TO ASSESS PATIENT. CALL LIGHT WITHIN REACH.
--- NOTE | 2025-06-02 07:27 | NUR ---
HOURLY ROUNDING PATIENT APPEARS IN A GOOD MOOD THIS MORNING, NO COMPLAINTS OF PAIN. BOARD HAS BEEN UPDATED AND CALL LIGHT HAS BEEN PLACED WITHIN REACH
--- NOTE | 2025-06-02 07:27 | NUR ---
UR CLINICAL REVIEW: 2MN [facility]ILY[facility], MEETS INPT FOR COPD, MIKEY RESP RATE 20-21, IV STEROIDS, IV ANTIBIOTICS, RT TREATMENT, TREND LABS, IV FLUIDS. MEDICARE INPT 06/01/25 @ 1907 ORDER MATCHES REG NO AUTH REQUIRED PER MEDICARE RULES PLAN TO DC TO HOME WHEN MEDICALLY READY DC 06/03/25
[2025-06-02] MEDS ORDERED: ALPRAZolam 0.5 MG TAB PO SCH (09:00)
--- NOTE | 2025-06-02 09:20 | NUR ---
HOURLY ROUNDING PATIENT IS GETTING IN THE SHOWER, SHOWER IS GETTING PREPARED
--- NOTE | 2025-06-02 09:33 | NUR ---
CURRENTLY IN THE SHOWER. WILL RETURN TO COMPLETE ASSESSMENT
--- NOTE | 2025-06-02 11:16 | NUR ---
VISITED DURING SPIRITUAL CARE ROUNDS. PT IN OVERALL GOOD SPIRITS; TALKED OF FAMILY SOURCE OF STRENGTH, AWARENESS OF HEALTH CHALLENGES, NO IMMEDIATE NEEDS. 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 PT EXPRESSED GRATITUDE.
--- NOTE | 2025-06-02 11:25 | NUR ---
ALERT AND ORIENTED, SITTING UP ON EDGE OF BED. DEMOGRAPHICS VERIFIED. LIVES IN BASEMENT APARMENT OF HOUSE, DOES OK WITH THE STAIRS. HAS WALKER, CPAP, NEBULIZER AT HOME. DRIVES AT BASELINE. HAS ASSISTANCE WITH [employer] IF NEEDED. DENIES DIFFICULTY PAYING UTILITES. CAN AFFORD FOOD AND MEDS WITHOUT DIFFICULTY. PLANS TO RETURN HOME WHEN MEDICALLY READY.
[2025-06-02] MEDS ORDERED: PHARMACY RENAL DOSE ADJUSTMENT 1 DOSE MISC PO SCH (12:00)
--- NOTE | 2025-06-02 12:46 | NUR ---
PT INSULIN GIVEN - SEE MAR. IV FLUIDS INFUSING. PT STATES HE PULLED HIS DRESSING TO IV, CLEANED AND REAPPLIED NEW WINDOW TO IV, FLUSHES AND PULLS BACK BLOOD. PT WOULD LIKE CPAP SETUP FOR SLEEP, RT-MENDY CALLED TO BRING SOME DISTILLED WATER TO ROOM FOR MACHINE, WILL BE UP SHORTLY. ALL PT CARE NEEDS MET AT THIS TIME, CALL LIGHT EVIE ELI.
--- NOTE | 2025-06-02 13:47 | NUR ---
HOURLY ROUNDING PATIENT IS RESTING, NOTIFIED NURSE OF HIGH BP
[2025-06-02] MEDS ORDERED: AZITHROMYCIN500 MG PO (13:55)
--- NOTE | 2025-06-02 15:04 | EKG ---
[facility] [address] [place], [place] [address] Signed Sinus rhythm with premature supraventricular complexes Otherwise normal ECG When compared with ECG of 16-MAY-2025 14:32, No significant change was found Confirmed by PREMA MARTIN MD ([id number]) on 06/02/2025 3:03:57 PM Electronically Signed By: PREMA MARTIN 06/02/25 1504 PATIENT NAME: DAMARI LARA TENZIN Electrocardiogram DATE OF : 58 PHYSICIAN: PREMA MARTIN REPORT #: [id number] REPORT IS CONFIDENTIAL AND NOT TO BE RELEASED WITHOUT AUTHORIZATION
--- NOTE | 2025-06-02 15:05 | NUR ---
PT RESTING IN BED WITH CPAP IN PLACE. CALL LIGHT WITHIN REACH, RESP EVEN/UNLABORED. WILL ALLOW PATIENT TO REST AT THIS TIME.
--- NOTE | 2025-06-02 15:20 | NUR ---
HOURLY ROUNDING PATIENT IS SLEEPING, CALL LIGHT HAS BEEN PLACED WITHIN REACH
--- NOTE | 2025-06-02 16:00 | NUR ---
REPORT RECIEVED FROM LENCHO SARMIENTO.
--- NOTE | 2025-06-02 17:05 | NUR ---
PATIENT MEDICATED PER EMAR. PATIENT SITTING UP AT EDGE OF BED. FRESH ICE WATER PROVIDED. PATIENT REQUESTING SOME DECAF COFFEE. DECAF COFFEE PROVIDED. PATIENT IS WITHOUT FURTHER NEEDS AT THIS TIME. CALL LIGHT AND PERSONAL BELONGINGS ARE WITHIN REACH. FOCUS ASSESSMENT COMPLETED. PATIENT LUNGS ARE DIM THROUGHOUT, MORE DIM NOTED TO THE RIGHT LOBES. BUT ABLE TO HEAR CLEAR AIR PASS THROUGH ALL LOBES.
--- NOTE | 2025-06-02 17:18 | NUR ---
PHARMACY AT BEDSIDE
[2025-06-02] MEDS ORDERED: FLUTICASONE-SA1 EAC4 INH (17:45)
[2025-06-02] MEDS ORDERED: ALLOPURINOL300 MG PO (17:49)
[2025-06-02] MEDS ORDERED: B-121000 MC2 PO (17:50)
[2025-06-02] MEDS ORDERED: MAGNESIUM OXID400 M1 PO (17:50)
[2025-06-02] MEDS ORDERED: VITAMIN D325 MCG PO (17:50)
--- NOTE | 2025-06-02 17:53 | NUR ---
medications reconciled using pharmacy records and patient interview
--- NOTE | 2025-06-02 18:44 | NUR ---
PATIENT RESTING IN BED ON HIS RIGHT SIDE WITH HIS EYES CLOSED AND HIS CPAP ON. EVEN AND UNLABORED RESPIRATIONS NOTED. CALL LIGHT AND PERSONAL BELONGINGS ARE WITHIN REACH.
--- NOTE | 2025-06-02 19:30 | NUR ---
REPORT RECEIVED FROM MANUEL MUSA. pt UP TO THE BR. BOARD UPDATED. pt JUST FINISHED BREATHING TREATMENT. pt PUTTING CPAP ON. pt DENIES ANY OTHER NEEDS AT THIS TIME. CALL LIGHT WITHIN REACH.
--- NOTE | 2025-06-02 21:20 | NUR ---
ASSESSMENT AND VITAL SIGNS DONE. pt UP TO THE BR. pt INDEPENDENT IN THE RM. BG CHECKED WITH A RESULTS OF 183. SS INSULIN. SCHEDULED MEDS ADMINISTERED. CPAP FILLED WITH DISTILLED WATER. IV ASSESSED, WNL. IV ABX INFUSING PER ORDER. pt DENIES ANY OTHER NEEDS AT THIS TIME. CALL LIGHT WITHIN REACH. pt SITTING ON THE EDGE OF THE BED AT THIS TIME. DECAF COFFEE PROVIDED AND WARM BLANKET PROVIDED.
--- NOTE | 2025-06-02 23:00 | NUR ---
IN RM TO ADMINISTER SCHEDULED MEDS. pt RESTING IN THE BED. pt DENIES ANY OTHER NEEDS AT THIS TIME. CALL LIGHT WITHIN REACH.
--- NOTE | 2025-06-03 00:15 | NUR ---
pt RESTING IN THE BED WITH EYES CLOSED. RR EVEN AND UNLABORED. CALL LIGHT WITHIN REACH. CPAP ON.
--- NOTE | 2025-06-03 02:32 | NUR ---
IN RM TO CHECK ON pt. pt UP TO USE THE URINAL. 600 mL EMPTIED. pt DENIES ANY OTHER NEEDS AT THIS TIME. pt BACK TO BED AND CPAP BACK ON. CALL LIGHT WITHIN REACH.
--- NOTE | 2025-06-03 04:10 | NUR ---
pt RESTING IN THE BED WITH EYES CLOSED. CPAP ON. RR EVEN AND UNLABORED. CALL LIGHT WITHIN REACH.
[2025-06-03 05:12] VITALS: BP 137/81
[2025-06-03 05:14] VITALS: BP 137/81
--- NOTE | 2025-06-03 05:20 | NUR ---
pt VITAL SIGNS DONE. pt SITTING ON THE EDGE OF THE BED. DECAF COFFEE PROVIDED. pt URINAL EMPTIED. pt DENIES ANY OTHER NEEDS AT THIS TIME. CALL LIGHT WITHIN REACH.
--- NOTE | 2025-06-03 07:00 | NUR ---
REPORT RECIEVED FROM LENCHO NGUYEN. PATIENT RESTING IN BED ON HIS RIGHT SIDE WITH HIS EYES CLOSED. EVEN AND UNLABORED RESPIRATIONS NOTED. PATIENT WITH CPAP ON. CALL LIGHT AND PERSONAL BELONGINGS ARE WITHIN REACH.
--- NOTE | 2025-06-03 07:53 | NUR ---
PATIENT IN BED AT THIS TIME. THIS FACILITY ENVIRONMENTAL TECHNICIAN CHARTED HOURLY ROUNDS AND CLOOD SUGAR. PATIENT DECLINED CHAIR AT THIS TIME. CALL LIGHT WITHIN REACH, NO FURTHER NEEDS.
--- NOTE | 2025-06-03 08:10 | NUR ---
ATTEMPTED TO MEDICATE PATIENT. RT IN ROOM AT THIS TIME AND PATIENT STATES "YOU CAN COME BACK LATER BECAUSE ONCE'S SHE'S DONE, I WANT TO EAT MY BREAKFAST". PATIENT WITHOUT FURTHER NEEDS AT THIS TIME. CALL LIGHT AND PERSONAL BELONGINGS ARE WITHIN REACH.
--- NOTE | 2025-06-03 08:55 | NUR ---
PATIENT MEDICATED PER EMAR. IV FLUSHED WITH 10ML OF NS, DRESSING IS INTACT. IV FLUIDS INFUSING PER EMAR. PATIENT ASSESSMENT COMPLETED. PATIENT DENIES ANY PAIN. PATIENT WITHOUT FURTHER NEEDS AT THIS TIME. CALL LIGHT AND PERSONAL BELONGINGS ARE WITHIN REACH. DR MARTIN AT BEDSIDE.
--- NOTE | 2025-06-03 09:20 | NUR ---
PATIENT SITTING UP AT EDGE OF BED TALKING ON HIS PHONE. CALL LIGHT AND PERSONAL BELONGINGS ARE WITHIN REACH.
[2025-06-03] MEDS ORDERED: AMOX TR-K CLV1 EACH PO (09:41)
[2025-06-03] MEDS ORDERED: DOXYCYCLINE HY100 MG PO (09:41)
[2025-06-03] MEDS ORDERED: PREDNISONE20 MG PO (09:46)
[2025-06-03 09:47] VITALS: BP 139/85
[2025-06-03] MEDS ORDERED: PREDNISONE5 MG PO (09:47)
--- NOTE | 2025-06-03 09:49 | NUR ---
PATIENT IN BED AT THIS TIME. SUPERVISOR RESEARCH KENNEL CHARTED VITALS AND I&O'S. CALL LIGHT WITHIN REACH, NO FURTHER NEEDS.
--- NOTE | 2025-06-03 10:05 | NUR ---
DC REVIEW: NO FURTHER INPATIENT NEEDS, DC TO HOME TODAY SALES ACTIVITY MANAGER IS SETTING UP CARDIOPULM REHAB FOR OUTPATIENT TREATMENT ADD: 06/03/2025
--- NOTE | 2025-06-03 10:08 | NUR ---
PATIENT DECLINED A SHOWER AT THIS TIME. PATIENT STATED HE COULD SHOWER AT HOME. CALL LIGHT WITHIN REACH, NO FURTHER NEEDS.
--- NOTE | 2025-06-03 10:30 | NUR ---
INTO SEE PATIENT. MD IN ROOM. CARDIOPUL APT SCHEDULED. PATIENT WILL GO HOME TO HIS HOUSE WITH LIFE PARTNER. WILL NEED TAXI RIDE HOME. IMM LETTER COMPLETED. NO FUTHER CM NEEDS.
[2025-06-03] MEDS ORDERED: ELIQUIS5 MG PO (10:32)
--- NOTE | 2025-06-03 10:58 | NUR ---
PATIENT SITTING UP ON THE EDGE OF HIS BED AND STATES HE WANTS TO HOLD OFF ON SHOWER AND "JUST GET OUT OF HERE SO I CAN GET HOME" ONCE HIS ABX IS COMPLETED. PATIENT WITHOUT FURTHER NEEDS FROM THIS RN. CALL LIGHT AND PERSONAL BELONGINGS ARE WITHIN REACH.
[2025-06-03 11:52] VITALS: BP 159/111
--- NOTE | 2025-06-03 13:47 | NUR ---
PATIENT CALLS TO INFORM US THAT [facility] DOES NOT HAVE ANY PRESCRIPTIONS. VERIFIED ORDERS WITH MD REGARDING PREDNISON AND ORDERS VERBALLY CALLED TO [facility] AND THEY WILL WORK ON PRESCRIPTION.
== END 2025-06-03 11:55 | disposition home or self-care (01) | DRG 191 ==
LOC: ED 15:07 → MS 19:12
PROVIDERS: Emergency Medicine; ADMIT Internal Medicine; ATTEND Internal Medicine
PROC: 4A033R1 Measurement of Arterial Saturation, Peripheral, Percutaneous Approach (ICD-10-PCS; principal; 2025-06-01)
PROC: 3E03329 Introduction of Other Anti-infective into Peripheral Vein, Percutaneous Approach (ICD-10-PCS; 2025-06-01)
DX: J44.1 Chronic obstructive pulmonary disease with (acute) exacerbation (principal); J96.11 Chronic respiratory failure with hypoxia; E78.00 Pure hypercholesterolemia, unspecified; E11.9 Type 2 diabetes mellitus without complications; G47.33 Obstructive sleep apnea (adult) (pediatric); E66.9 Obesity, unspecified; Z79.2 Long term (current) use of antibiotics; Z79.01 Long term (current) use of anticoagulants; Z79.52 Long term (current) use of systemic steroids; Z79.84 Long term (current) use of oral hypoglycemic drugs; Z79.899 Other long term (current) drug therapy; Z86.718 Personal history of other venous thrombosis and embolism; Z90.49 Acquired absence of other specified parts of digestive tract; Z98.890 Other specified postprocedural states; Z88.1 Allergy status to other antibiotic agents; Z68.39 Body mass index [BMI] 39.0-39.9, adult
CPT/HCPCS: 36415; 71045; 71260; 80048; 80053; 82803; 83735; 83880; 84484; 85025; 93005; 93010; 94640; 94660; 96365; 96375; 99285-25; A9270; J0696; J1815; J2919; J7030; J7060; Q9967

== ENCOUNTER 2025-06-06 19:59 | Emergency (ER) | payer MEDICARE, OTHER ==
[~2025-06-06] VITALS: Ht 182.9 cm; Wt 133.0 kg
[~2025-06-06 19:59] MED LIST changes: +AMOX TR-K CLV1 EACH PO; +B-121000 MC2 PO; +MAGNESIUM OXID400 M1 PO; +PREDNISONE5 MG PO; +VITAMIN D325 MCG PO
[2025-06-06] MEDS ORDERED: AZITHROMYCIN500 MG PO (20:12)
[2025-06-06] MEDS ORDERED: PREDNISONE10 MG PO (20:12)
[2025-06-06 20:26] LABS: BASOPHILS 0.1 % (0.2-1.2); EOSINOPHILS 0 % (0.8-7.0); LYMPHOCYTES 10.6 % (21.8-53.1); MCH 29.3 PG (25.7-32.2); MCHC 33.2 g/dL (32.3-36.5); MCV 88.2 fL (79.0-92.2); MONOCYTES 3.8 % (5.3-12.2); NEUTROPHILS 84.8 % (34.0-67.9); RBC 5.43 M/uL (4.63-6.08)
[2025-06-06] MEDS ORDERED: NITROGLYCERIN PACKET TOP ONE (20:30)
[2025-06-06] MEDS ORDERED: ALBUTEROL/IPRATROPIUM 3 ML NEB INH ONE (20:30)
[2025-06-06] MEDS ORDERED: ASPIRIN 81 MG CHEW PO ONE (20:30)
[2025-06-06] MEDS ORDERED: BUDESONIDE 0.5 MG/2 ML VIAL INH ONE (20:30)
[2025-06-06] MEDS ORDERED: ALBUTEROL SULFATE 0.5% 2.5 MG/0.5 ML VIAL INH ONE (20:30)
[2025-06-06 20:31] LABS: INR 0.92 (0.80-1.30); PROTIME 11.7 Sec (11.2-14.2)
[2025-06-06 20:36] LABS: ALT (SGPT) 27.0 U/L (14-59); AST (SGOT) 9.0 U/L (15-37); GLOMERULAR FILTRATION RATE,EST 46.0 mL/min (>60); PROTEIN, TOTAL 7.1 g/dL (6.4-8.2); UREA NITROGEN 33.0 mg/dL (7-18)
[2025-06-06] MEDS ORDERED: MORPHINE SULFATE 4 MG/ML VIAL IV ONE (21:15)
[2025-06-06] MEDS ORDERED: CYCLOBENZAPRINE10 MG PO (22:07)
[2025-06-06] MEDS ORDERED: CYCLOBENZAPRINE HCL 10 MG HOME.PACK PO ONE (22:15)
[2025-06-06 22:17] VITALS: BP 102/75
--- NOTE | 2025-06-07 13:28 | EKG ---
[facility] [address] [place] [address] Signed Sinus tachycardia with occasional premature ventricular complexes Otherwise normal ECG When compared with ECG of 01-JUN-2025 15:25, premature ventricular complexes are now present premature supraventricular complexes are no longer present Confirmed by Tai Santos MD () on 06/07/2025 1:28:27 PM Electronically Signed By: TAI SANTOS MD 06/07/25 1328 PATIENT NAME: DAMARI LARA TENZIN Electrocardiogram DATE OF : 58 PHYSICIAN: TAI SANTOS MD REPORT #: [id number] REPORT IS CONFIDENTIAL AND NOT TO BE RELEASED WITHOUT AUTHORIZATION
== END 2025-06-06 22:32 | disposition home or self-care (01) ==
LOC: ED 19:59
PROVIDERS: Family Medicine
DX: R07.89 Other chest pain (principal); E78.00 Pure hypercholesterolemia, unspecified; Z79.51 Long term (current) use of inhaled steroids; Z79.899 Other long term (current) drug therapy; Z79.52 Long term (current) use of systemic steroids; Z88.1 Allergy status to other antibiotic agents
CPT/HCPCS: 36415; 71045; 80053; 83735; 84484; 85025; 85379; 85610; 93005; 93010; 94640; 94644; 96374; 99285-25; A9270; J2270

== ENCOUNTER 2025-06-14 21:49 | Emergency (ER) | payer MEDICARE, OTHER ==
[~2025-06-14] VITALS: Ht 182.9 cm; Wt 130.0 kg
--- OUTSIDE RECORDS SUMMARY | ~2025-06-14 | XMS | Continuity of Care Document ---
Demographics + + + | Address | [address] | | | [place] [address] | + + + | Preferred Language | Unknown | + + + | Marital Status | Domestic partner | + + + | Druze Affiliation | Unknown | + + + | Race | White | + + + | Ethnic Group | Not or | + + + Author + + + | Author | [facility] | + + + | Organization | [facility] | + + + | Address | [address] | | | [place] [address] | + + + | Phone | | + + + Care Team Providers + + + + | Care Timber Management Specialist Name | Role | Phone | + [...] No vaccine administered | [facility] [place] | | | [facility] | + + + + Medications + + + + | date | description | facility | + + + + | (no date) | fluticasone propionate | [facility] | | | 0.25 MG/ACTUAT / salmeterol | [facility] | | | 0.05 MG/A | | + + + + | (no date) | apixaban 5 MG Oral Tablet | [facility] | | | [Eliquis] | [facility] | + + + + | (no date) | albuterol 0.833 MG/ML / | [facility] | | | ipratropium bromide 0.167 | [facility] | | | MG/ML Inha | | + + + + | 2025-05-16 00:00 | albuterol 0.833 MG/ML / | [facility] | | | ipratropium bromide 0.167 | [facility] | | | MG/ML Inha | | + + + + | (no date) | 60 ACTUAT tiotropium | [facility] | | | 0.0025 MG/ACTUAT Inhalation | [facility] | | | [place] [facility] | | + + + + | 2025-06-03 00:00 | doxycycline hyclate 100 MG | [facility] | | | Oral Capsule | [facility] | + + + + | (no date) | allopurinol 100 MG Oral | [facility] | | | Tablet | [facility] | + + + + | (no date) | allopurinol 300 MG Oral | [facility] | | | Tablet | [facility] | + + + + | (no date) | prednisone 10 MG Oral | [facility] | | | Tablet | [facility] | + + + + | (no date) | magnesium oxide 400 MG | [facility] | | | Oral Tablet | [facility] | + + + + | (no date) | 1 ML benralizumab 30 MG/ML | [facility] | | | Prefilled Syringe | [facility] | | | [Fasenra] | | + + + + | (no date) | cholecalciferol 0.025 MG | [facility] | | | Oral Tablet | [facility] | + + + + | (no date) | furosemide 20 MG Oral | [facility] | | | Tablet [Lasix] | [facility] | + + + + | (no date) | azithromycin 250 MG Oral | [facility] | | | Tablet | [facility] | + + + + | (no date) | vitamin B12 1 MG Oral | [facility] | | | Tablet | [facility] | + + + + | (no ) | mometasone furoate 1 MG/ML | [facility] | | | Topical Cream | [facility] | + + + + | 2025-03-23 00:00 | prednisone 20 MG Oral | [facility] | | | Tablet | [facility] | + + + + | 2025-06-03 00:00 | prednisone 20 MG Oral | [facility] | | | Tablet | [facility] | + + + + | 2025-06-03 00:00 | prednisone 5 MG Oral | [facility] | | | Tablet | [facility] | + + + + | (no date) | pantoprazole 40 MG Delayed | [facility] | | | Release Oral Tablet | [facility] | + + + + | (no date) | duloxetine 30 MG Delayed | [facility] | | | Release Oral Capsule | [facility] | + + + + | 2025-06-03 00:00 | amoxicillin 500 MG / | [facility] | | | clavulanate 125 MG Oral | [facility] | | | Tablet | | + + + + | (no date) | {3 (azithromycin 500 MG | [facility] | | | Oral Tablet) } Pack | [facility] | + + + + | 2025-06-06 00:00 | cyclobenzaprine | [facility] | | | hydrochloride 10 MG Oral | [facility] | | | Tablet | | + + + + | (no date) | [id number] 200 ACTUAT | [facility] | | | albuterol 0.09 MG/ACTUAT | [facility] | | | Metered Dose I | | + + + + | (no date) | 24 HR metformin | [facility] | | | hydrochloride 500 MG | [facility] | | | Extended Release Oral T | | + + + + | (no date) | hydroxyzine hydrochloride | [facility] | | | 25 MG Oral Tablet | [facility] | + + + + Problems + + + + | | description | facility | + + + + | 2025-06-06 00:00 | Chest wall pain | [facility] | | | | [facility] | + + + + Procedures + + + + | date | description | facility | + + + + | 2025-05-01 00:00 | INTRODUCE OF OT | [facility] | | [facility]TI-[facility]ECT [facility] | | | VEIN, PERC APPROACH | | + + + + | 2025-06-01 00:00 | INTRODUCE OF OT | [facility] | | | ANTI-INFECT INTO [facility] | | | VEIN, PERC APPROACH | | + + + + | 2025-06-01 00:00 | MEASURE OF ARTERIAL | [facility] | | | SATURATION, PERIPHERAL, | [facility] | | | PERC APPROACH | | + + + + | 2025-05-01 00:00 | ASSISTANCE WITH | [facility] | | | RESPIRATORY VENTILATION, | [facility] | | | <24 HRS, CPAP | [...] 38 | + + + + + +-----+ [...] 39 | + + + + + +-------+ [...] 40 | + + + + + +------+ [...] 42 | + + + + + +------+ [...] 43 | + + + + + +---------+ [...] 46 | + + + + + +-------+ [...] 49 | + + + + + +-------+ [...] 52 | + + + + + +-------+ [...] 56 | + + + + + +-----+ [...] 57 | + + + + + +------+ [...] 60 | + + + + + +---------+ [...] 63 | + + + + + +--------+ [...] 66 | + + + + + +--------+ [...] 67 | + + + + + +-------+ [...] 70 | + + + + + +-----+ [...] 77 | + + + + + +--------+ [...] 79 | + + + + + +------+ [...] 83 | + + + + + +------+ [...] 85 | + + + + + +-------+ [...] 87 | + + + + + +--------+ [...] 89 | + + + + + +-----+ [...] 94 | + + + + + +-------+ [...] 95 | + + + + + +------+ [...] 99 | + + + + + +---------+ [...] 105 | + + + + + +-------+ [...] 113 | + + + + + +-----+ [...] 114 | + + + + + +------+ [...] 115 | + + + + + +------+ [...] 120 | + + + + + +--------+ [...] 121 | + + + + + +-------+ [...] | [facility] | | | | [facility] | + + + + Vital Signs No information."
[~2025-06-14 21:49] MED LIST changes: +CYCLOBENZAPRINE10 MG PO
[2025-06-14] MEDS ORDERED: ALBUTEROL/IPRATROPIUM 3 ML NEB INH PRN (22:00)
[2025-06-14 22:18] LABS: BASOPHILS 0.1 % (0.2-1.2); EOSINOPHILS 0 % (0.8-7.0); LYMPHOCYTES 17.2 % (21.8-53.1); MCH 29.3 PG (25.7-32.2); MCHC 32.5 g/dL (32.3-36.5); MCV 90.0 fL (79.0-92.2); MONOCYTES 6.7 % (5.3-12.2); NEUTROPHILS 75.5 % (34.0-67.9); RBC 4.82 M/uL (4.63-6.08)
[2025-06-14 22:43] LABS: ALT (SGPT) 28.0 U/L (14-59); AST (SGOT) 13.0 U/L (15-37); GLOMERULAR FILTRATION RATE,EST 62.0 mL/min (>60); PROTEIN, TOTAL 6.3 g/dL (6.4-8.2); UREA NITROGEN 20.0 mg/dL (7-18)
[2025-06-14] MEDS ORDERED: ALBUTEROL SULFATE 0.5% 2.5 MG/0.5 ML VIAL INH ONE (23:45)
[2025-06-15] MEDS ORDERED: PREDNISONE20 MG PO (02:51)
[2025-06-15] MEDS ORDERED: ZITHROMAX TRI-500 MG PO (02:51)
[2025-06-15 03:17] VITALS: BP 109/82
--- NOTE | 2025-06-16 07:40 | EKG ---
[facility] [address] [place] [address] Signed Normal sinus rhythm Normal ECG When compared with ECG of 06-JUN-2025 20:12, premature ventricular complexes are no longer present Confirmed by Nabor Juarez DO ([id number]) on 06/16/2025 7:39:49 AM Electronically Signed By: NABOR JUAREZ DO 06/16/25 0740 PATIENT NAME: MARCODAMARI TENZIN Electrocardiogram DATE OF : 58 PHYSICIAN: NABOR JUAREZ DO REPORT #: [id number] REPORT IS CONFIDENTIAL AND NOT TO BE RELEASED WITHOUT AUTHORIZATION
== END 2025-06-15 03:18 | disposition home or self-care (01) ==
LOC: ED 21:49
PROVIDERS: Internal Medicine
DX: J44.1 Chronic obstructive pulmonary disease with (acute) exacerbation (principal); Z88.8 Allergy status to other drugs, medicaments and biological substances; Z79.2 Long term (current) use of antibiotics; Z79.899 Other long term (current) drug therapy
CPT/HCPCS: 36415; 71045; 80053; 83735; 83880; 84484; 85025; 93005; 93010; 94640; 94644; 96374; 99285-25; J2919

== ENCOUNTER 2025-06-18 09:43 | Emergency (ER) | payer MEDICARE, OTHER ==
[~2025-06-18] VITALS: Ht 182.9 cm; Wt 133.2 kg
--- OUTSIDE RECORDS SUMMARY | ~2025-06-18 | XMS | Continuity of Care Document ---
Demographics + + + | Address | [address] | | | [place] [address] | + + + | Preferred Language | Unknown | + + + | Marital Status | Domestic partner | + + + | Pentecostal Affiliation | Unknown | + + + | Race | White | + + + | Ethnic Group | Not or | + + + Author + + + | Author | [facility] | + + + | Organization | [facility] | + + + | Address | [address] | | | [place] [address] | + + + | Phone | | + + + Care Team Providers + + + + | Care Fish Fryer Name | Role | Phone | + + + + Unavailable | Unavailable | + + + + Unavailable | Unavailable | + + + + Allergies and Intolerances + + + + + + | date | description | facility | reaction | severity | + + + + + + | 2025-03-21 | daptomycin | [facility] | (no reaction) | (no severity) | | 00:00 | | [facility] | | | + + + + + + | 2025-03-23 | daptomycin | [facility] - | (no reaction) | (no severity) | | 00:00 | | [facility] | | | + + + + + + | 2025-06-01 | daptomycin | [facility] - | (no reaction) | (no severity) | | 00:00 | | [facility] | | | + + + + + + | 2025-03-21 | gabapentin | [facility] - | (no reaction) | (no severity) | | 00:00 | | [facility] | | | + + + + + + | 2025-03-23 | gabapentin | [facility] - | (no reaction) | (no severity) | | 00:00 | | [facility] | | | + + + + + + | 2025-06-01 | gabapentin | [facility] - | (no reaction) | (no severity) | | 00:00 | | [facility] | | | + + + + + + Encounters No information. Functional Status No information. Immunizations + + + + | date | description | facility | + + + + | (no date) | No vaccine administered | [facility] | | | | [facility] | + + + + Medications + + + + | date | description | facility | + + + + | (no date) | fluticasone propionate | [facility] | | | 0.25 MG/ACTUAT / salmeterol | [facility] | | | 0.05 MG/A | | + + + + | (no date) | apixaban 5 MG Oral Tablet | [facility] | | | [Eliquis] | [facility] | + + + + | (no date) | albuterol 0.833 MG/ML / | [facility] | | | ipratropium bromide 0.167 | [facility] | | | MG/ML Inha | | + + + + | 2025-05-16 00:00 | albuterol 0.833 MG/ML / | [facility] | | | ipratropium bromide 0.167 | [facility] | | | MG/ML Inha | | + + + + | (no date) | 60 ACTUAT tiotropium | [facility] | | | 0.0025 MG/ACTUAT Inhalation | [facility] | | | [place] [facility] | | + + + + | 2025-06-03 00:00 | doxycycline hyclate 100 MG | [facility] | | | Oral Capsule | [facility] | + + + + | (no date) | allopurinol 100 MG Oral | [facility] | | | Tablet | [facility] | + + + + | (no date) | allopurinol 300 MG Oral | [facility] | | | Tablet | [facility] | + + + + | (no date) | prednisone 10 MG Oral | [facility] | | | Tablet | [facility] | + + + + | (no date) | magnesium oxide 400 MG | [facility] | | | Oral Tablet | [facility] | + + + + | (no date) | 1 ML benralizumab 30 MG/ML | [facility] | | | Prefilled Syringe | [facility] | | | [Fasenra] | | + + + + | (no date) | cholecalciferol 0.025 MG | [facility] | | | Oral Tablet | [facility] | + + + + | (no date) | furosemide 20 MG Oral | [facility] | | | Tablet [Lasix] | [facility] | + + + + | (no date) | azithromycin 250 MG Oral | [facility] | | | Tablet | [facility] | + + + + | (no date) | vitamin B12 1 MG Oral | [facility] | | | Tablet | [facility] | + + + + | (no date) | mometasone furoate 1 MG/ML | [facility] | | | Topical Cream | [facility] | + + + + | 2025-03-23 00:00 | prednisone 20 MG Oral | [facility] | | | Tablet | [facility] | + + + + | 2025-06-03 00:00 | prednisone 20 MG Oral | [facility] | | | Tablet | [facility] | + + + + | 2025-06-15 00:00 | prednisone 20 MG Oral | [facility] | | | Tablet | [facility] | + + + + | 2025-06-03 00:00 | prednisone 5 MG Oral | [facility] | | | Tablet | [facility] | + + + + | (no date) | pantoprazole 40 MG Delayed | [facility] | | | Release Oral Tablet | [facility] | + + + + | (no date) | duloxetine 30 MG Delayed | [facility] | | | Release Oral Capsule | [facility] | + + + + | 2025-06-03 00:00 | amoxicillin 500 MG / | [facility] | | | clavulanate 125 MG Oral | [facility] | | | Tablet | | + + + + | (no date) | {3 (azithromycin 500 MG | [facility] | | | Oral Tablet) } Pack | [facility] | + + + + | 2025-06-15 00:00 | TRI-LIZA | [facility] | | | | [facility] | + + + + | 2025-06-06 00:00 | cyclobenzaprine | [facility] | | | hydrochloride 10 MG Oral | [facility] | | | Tablet | | + + + + | (no date) | [id number] 200 ACTUAT | [facility] | | | albuterol 0.09 MG/ACTUAT | [facility] | | | Metered Dose I | | + + + + | (no date) | 24 HR metformin | [facility] | | | hydrochloride 500 MG | [facility] | | | Extended Release Oral T | | + + + + | (no date) | hydroxyzine hydrochloride | [facility] | | | 25 MG Oral Tablet | [facility] | + + + + Problems + + + + | date | description | facility | + + + + | 2025-06-06 00:00 | Chest wall pain | [facility] | | | | [facility] | + + + + Procedures + + + + | date | description | facility | + + + + | 2025-05-01 00:00 | INTRODUCE OF OTH | [facility] | | | ANTI-INFECT INTO PERIPH | [facility] | | | VEIN, PERC APPROACH | | + + + + | 2025-06-01 00:00 | INTRODUCE OF OTH | [facility] | | | ANTI-INFECT INTO PERIPH | [facility] | | | VEIN, PERC APPROACH | | + + + + | 2025-06-01 00:00 | MEASURE OF ARTERIAL | [facility] | | | SATURATION, PERIPHERAL, | [facility] | | | PERC APPROACH | | + + + + | 2025-05-01 00:00 | ASSISTANCE WITH | [facility] | | | RESPIRATORY VENTILATION, | [facility] | | | <24 HRS, CPAP | | + + + + Results/Labs +--------+--------+ +---------+--------+---------+ | test | date | facility | value | unit | notes | +--------+--------+ +---------+--------+---------+ + + | Result panel 1 | + + + + + +---------+ + + | Blood | 2025-03-21 | | 13.49 | (missing) | (missing) | | leukocytes | 14:14 | [facility] | | | | | automated | [facility] count | [facility] | | | | (number/volu | | Hospital | | | | | me) | | | | | | + + + +---------+ + + + + | Result panel 2 | + + + + + +--------+ + + | Blood | 2025-03-21 | | 4.42 | (missing) | (missing) | | erythrocytes | 14:14 | [facility] | | | | | automated | [facility] | count | | [facility] | | | | | (number/volu | | Hospital | | | | | me) | | | | | | + + + +--------+ + + + + | Result panel 3 | + + + + + +--------+ + + | Blood | 2025-03-21 | | 12.6 | (missing) | (missing) | | hemoglobin | 14:14 | [facility] | | | | | measurement | | [facility] | | (mass/volume | | [facility] | | | | ) | | [facility] | | | | + + + +--------+ + + + + | Result panel 4 | + + + + + +--------+ + + | Automated | 2025-03-21 | | 38.5 | (missing) | (missing) | | blood | 14:14 | [facility] | | | | | hematocrit | | [facility] | [facility] | | | | + + + +--------+ + + + + | Result panel 5 | + + + + + +--------+ + + | Automated | 2025-03-21 | | 87.1 | (missing) | (missing) | | erythrocyte | 14:14 | [facility] | | | | | mean | | - [facility] | | | | | corpuscular | | [facility] | | | | | volume | | Hospital | | | | + + + +--------+ + + + + | Result panel 6 | + + + + + +--------+ + + | Automated | 2025-03-21 | | 28.5 | (missing) | (missing) | | erythrocyte | 14:14 | [facility] | | | | | mean | | - [facility] | | | | | corpuscular | | [facility] | | | | | hemoglobin | | Hospital | | | | | (mass per | | | | | | | erythrocyte) | | | | | | | | | | | | | + + + +--------+ + + + + | Result panel 7 | + + + + + +--------+ + + | Automated | 2025-03-21 | | 32.7 | (missing) | (missing) | | erythrocyte | 14:14 | [facility] | | | | | mean | | - [facility] | | | | | corpuscular | | [facility] | | | | | hemoglobin | | Hospital | | | | | concentratio | | | | | | | n | | | | | | | measurement | | | | | | | (mass/volume | | | | | | | ) | | | | | | + + + +--------+ + + + + | Result panel 8 | + + + + + +-------+ + + | Automated | 2025-03-21 | | 244 | (missing) | (missing) | | blood | 14:14 | [facility] | | | | | platelet | | [facility] | count | | [facility] | | | | | (count/volum | | Hospital | | | | | e) | | | | | | + + + +-------+ + + + + | Result panel 9 | + + + + + +------+ + + | Manual | 2025-03-21 | | 48 | (missing) | (missing) | | blood | 14:14 | [facility] | | | | | segmented | | - [facility] | | | | | neutrophils/ | | [facility] | | | | | 100 | | Hospital | | | | | leukocytes | | | | | | + + + +------+ + + + + | Result panel 10 | + + + + + +------+ + + | Manual | 2025-03-21 | | 15 | (missing) | (missing) | | blood | 14:14 | [facility] | | | | | lymphocytes/ | | [facility] | [facility] | | 100 | | [facility] | | | | | leukocytes | | Hospital | | | | + + + +------+ + + + + | Result panel 11 | + + + + + +------+ + + | Manual | 2025-03-21 | | 35 | (missing) | (missing) | | blood | 14:14 | [facility] | | | | | eosinophils/ | | - [facility] | | | | | 100 | | [facility] | | | | | leukocytes | | Hospital | | | | + + + +------+ + + + + | Result panel 12 | + + + + + +-----+ + + | Manual | 2025-03-21 | | 2 | (missing) | (missing) | | blood | 14:14 | [facility] | | | | | basophils/10 | | [facility] | 0 leukocytes | | [facility] | | | | | | [facility] | | | | + + + +-----+ + + + + | Result panel 13 | + + + + + + + + + | Blood | 2025-03-21 | | SEE COMMENT | (missing) | (missing) | | leukocyte | 14:14 | [facility] | | | | | morphology | | - [facility] | | | | | finding | | [facility] | | | | | identificati | | Hospital | | | | | on | | | | | | + + + + + + + + + | Result panel 14 | + + + + + +------+ + + | Serum or | 2025-03-21 | | 88 | (missing) | (missing) | | plasma | 14:14 | [facility] | | | | | glucose | | - [facility] | | [facility] | measurement | | [facility] | | | | | (mass/volume | | Hospital | | | | | ) | | | | | | + + + +------+ + + + + | Result panel 15 | + + + + + +------+ + + | Serum or | 2025-03-21 | | 14 | (missing) | (missing) | | plasma urea | 14:14 | [facility] | | | | | nitrogen | | - [facility] | | [facility] | | measurement | | [facility] | | | | | (mass/volume | | Hospital | | | | | ) | | | | | | + + + +------+ + + + + | Result panel 16 | + + + + + +--------+ + + | Serum or | 2025-03-21 | | 1.09 | (missing) | (missing) | | plasma | 14:14 | [facility] | | | | | creatinine | | - [facility] | measurement | | [facility] | | | | | (mass/volume | | Hospital | | | | | ) | | | | | | + + + +--------+ + + + + | Result panel 17 | + + + + + +------+ + + | Glomerular | 2025-03-21 | | 75 | (missing) | (missing) | | filtration | 14:14 | [facility] | | | | | rate/1.73 sq | | - [facility] | | | | | M.predicted | | [facility] | | | | | [Volume | | Hospital | | | | | Rate/Area] | | | | | | | inSerum, | | | | | | | Plasma or | | | | | | | Blood by | | | | | | | Creatinine-b | | | | | | | ased formula | | | | | | | (CKD-EPI | | | | | | | 2020) | | | | | | + + + +------+ + + + + | Result panel 18 | + + + + + +---------+ + + | Serum or | 2025-03-21 | | 12.84 | (missing) | (missing) | | plasma urea | 14:14 | [facility] | | | | | nitrogen/cre | | - [facility] | | | | | atinine mass | | [facility] | | | | | ratio | | Hospital | | | | + + + +---------+ + + + + | Result panel 19 | + + + + + +-------+ + + | Serum or | 2025-03-21 | | 142 | (missing) | (missing) | | plasma | 14:14 | [facility] | | | | | sodium | | - [facility] | | | | | measurement | | [facility] | | | | | (moles/volum | | Hospital | | | | | e) | | | | | | + + + +-------+ + + + + | Result panel 20 | + + + + + +-------+ + + | Serum or | 2025-03-21 | | 4.3 | (missing) | (missing) | | plasma | 14:14 | [facility] | | | | | potassium | | - [facility] | | | | | measurement | | [facility] | | | | | (moles/volum | | Hospital | | | | | e) | | | | | | + + + +-------+ + + + + | Result panel 21 | + + + + + +-------+ + + | Serum or | 2025-03-21 | | 108 | (missing) | (missing) | | plasma | 14:14 | [facility] | | | | | chloride | | - [facility] | | | | | measurement | | [facility] | | | | | (moles/volum | | Hospital | | | | | e) | | | | | | + + + +-------+ + + + + | Result panel 22 | + + + + + +------+ + + | Serum or | 2025-03-21 | | 27 | (missing) | (missing) | | plasma | 14:14 | [facility] | | | | | carbon | | - [facility] | | | | | dioxide, | | [facility] | | | | | total | | Hospital | | | | | measurement | | | | | | | (moles/volum | | | | | | | e) | | | | | | + + + +------+ + + + + | Result panel 23 | + + + + + +--------+ + + | Serum or | 2025-03-21 | | 11.3 | (missing) | (missing) | | plasma anion | 14:14 | [facility] | | | | | gap 4 | | - [facility] | | | [facility] | | | | | | [facility] | | | | + + + +--------+ + + + + | Result panel 24 | + + + + + +-------+ + + | Serum or | 2025-03-21 | | 9.2 | (missing) | (missing) | | plasma | 14:14 | [facility] | | | | | calcium | | - [facility] | | | | | measurement | | [facility] | | | | | (mass/volume | | Hospital | | | | | ) | | | | | | + + + +-------+ + + + + | Result panel 25 | + + + + + +-------+ + + | Serum or | 2025-03-21 | | 2.1 | (missing) | (missing) | | plasma | 14:14 | [facility] | | | | | magnesium | | - [facility] | | | | | measurement | | [facility] | | | | | (mass/volume | | Hospital | | | | | ) | | | | | | + + + +-------+ + + + + | Result panel 26 | + + + + + +-------+ + + | Serum or | 2025-03-21 | | 6.9 | (missing) | (missing) | | plasma | 14:14 | [facility] | | | | | protein | | - [facility] | | | | | measurement | | [facility] | | | | | (mass/volume | | Hospital | | | | | ) | | | | | | + + + +-------+ + + + + | Result panel 27 | + + + + + +-------+ + + | Serum or | 2025-03-21 | | 2.6 | (missing) | (missing) | | plasma | 14:14 | [facility] | | | | | albumin | | - [facility] | | | | | measurement | | [facility] | | | | | (mass/volume | | Hospital | | | | | ) | | | | | | + + + +-------+ + + + + | Result panel 28 | + + + + + +-------+ + + | Serum | 2025-03-21 | | 4.3 | (missing) | (missing) | | globulin | 14:14 | [facility] | | | | | measurement | | - [facility] | | | | | (mass/volume | | [facility] | | | | | ) | | Hospital | | | | + + + +-------+ + + + + | Result panel 29 | + + + + + +--------+ + + | Serum or | 2025-03-21 | | 0.60 | (missing) | (missing) | | plasma | 14:14 | [facility] | | | | | albumin/glob | | - [facility] | | | | | ulin mass | | [facility] | | | | | ratio | | Hospital | | | | + + + +--------+ + + + + | Result panel 30 | + + + + + +-------+ + + | Serum or | 2025-03-21 | | 0.4 | (missing) | (missing) | | plasma total | 14:14 | [facility] | | | | | bilirubin | | - [facility] | | | | | measurement | | [facility] | | | | | (mass/volume | | Hospital | | | | | ) | | | | | | + + + +-------+ + + + + | Result panel 31 | + + + + + +------+ + + | Serum or | 2025-03-21 | | 11 | (missing) | (missing) | | plasma | 14:14 | [facility] | | | | | aspartate | | - [facility] | | | | | aminotransfe | | [facility] | | | | | rase | | Hospital | | | | | measurement | | | | | | | (enzymatic | | | | | | | activity/vol | | | | | | | ume) | | | | | | + + + +------+ + + + + | Result panel 32 | + + + + + +------+ + + | Serum or | 2025-03-21 | | 21 | (missing) | (missing) | | plasma | 14:14 | [facility] | | | | | alanine | | - [facility] | | | | | aminotransfe | | [facility] | | | | | rase | | Hospital | | | | | measurement | | | | | | | (enzymatic | | | | | | | activity/vol | | | | | | | ume) | | | | | | + + + +------+ + + + + | Result panel 33 | + + + + + +------+ + + | Serum or | 2025-03-21 | | 67 | (missing) | (missing) | | plasma | 14:14 | [facility] | | | | | alkaline | | - [facility] | | | | | phosphatase | | [facility] | | | | | measurement | | Hospital | | | | | (enzymatic | | | | | | | activity/vol | | | | | | | ume) | | | | | | + + + +------+ + + + + | Result panel 34 | + + + + + +--------+ + + | Serum or | 2025-03-21 | | 10.0 | (missing) | (missing) | | plasma | 14:14 | [facility] | | | | | cardiac | | - [facility] | | | | | troponin I | | [facility] | | | | | measurement | | Hospital | | | | | by high | | | | | | | senstivity | | | | | | | method | | | | | | | (mass/volume | | | | | | | ) | | | | | | + + + +--------+ + + + + | Result panel 35 | + + + + + +-----+ + + | Manual | 2025-03-21 | | 2 | (missing) | (missing) | | blood | 14:14 | [facility] | | | | | basophils/10 | | - [facility] | [facility] | | 0 leukocytes | | [facility] | | | | | | [facility] | | | | + + + +-----+ + + + + | Result panel 36 | + + + + + + + + + | Blood | 2025-03-21 | | SEE COMMENT | (missing) | (missing) | | leukocyte | 14:14 | [facility] | | | | | morphology | | - [facility] | | | | | finding | | [facility] | | | | | identificati | | Hospital | | | | | on | | | | | | + + + + + + + + + | Result panel 37 | + + + + + +---------+ + + | Blood | 2025-03-23 | | 14.43 | (missing) | (missing) | | leukocytes | 14:13 | [facility] | | | | | automated | | - [facility] | | | | | count | | [facility] | | | | | (number/volu | | Hospital | | | | | me) | | | | | | + + + +---------+ + + + + | Result panel 38 | + + + + + +--------+ + + | Blood | 2025-03-23 | | 4.04 | (missing) | (missing) | | erythrocytes | 14:13 | [facility] | | | | | automated | | - [facility] | | | | | count | | [facility] | | | | | (number/volu | | Hospital | | | | | me) | | | | | | + + + +--------+ + + + + | Result panel 39 | + + + + + +--------+ + + | Blood | 2025-03-23 | | 11.7 | (missing) | (missing) | | hemoglobin | 14:13 | [facility] | | | | | measurement | | - [facility] | | | | | (mass/volume | | [facility] | | | | | ) | | [facility] | | | | + + + +--------+ + + + + | Result panel 40 | + + + + + +--------+ + + | Automated | 2025-03-23 | | 35.9 | (missing) | (missing) | | blood | 14:13 | [facility] | | | | | hematocrit | | - [facility] | | | | | | [facility] | | | | | | [facility] | | | | + + + +--------+ + + + + | Result panel 41 | + + + + + +--------+ + + | Automated | 2025-03-23 | | 88.9 | (missing) | (missing) | | erythrocyte | 14:13 | [facility] | | | | | mean | | - [facility] | | | | | corpuscular | | [facility] | | | | | volume | | Hospital | | | | + + + +--------+ + + + + | Result panel 42 | + + + + + +--------+ + + | Automated | 2025-03-23 | | 29.0 | (missing) | (missing) | | erythrocyte | 14:13 | [facility] | | | | | mean | | - [facility] | | | | | corpuscular | | [facility] | | | | | hemoglobin | | Hospital | | | | | (mass per | | | | | | | erythrocyte) | | | | | | | | | | | | | + + + +--------+ + + + + | Result panel 43 | + + + + + +--------+ + + | Automated | 2025-03-23 | | 32.6 | (missing) | (missing) | | erythrocyte | 14:13 | [facility] | | | | | mean | | - [facility] | | | | | corpuscular | | [facility] | | | | | hemoglobin | | Hospital | | | | | concentratio | | | | | | | n | | | | | | | measurement | | | | | | | (mass/volume | | | | | | | ) | | | | | | + + + +--------+ + + + + | Result panel 44 | + + + + + +-------+ + + | Automated | 2025-03-23 | | 242 | (missing) | (missing) | | blood | 14:13 | [facility] | | | | | platelet | | - [facility] | | | | | count | | [facility] | | | | | (count/volum | | Hospital | | | | | e) | | | | | | + + + +-------+ + + + + | Result panel 45 | + + + + + +------+ + + | Manual | 2025-03-23 | | 54 | (missing) | (missing) | | blood | 14:13 | [facility] | | | | | segmented | | - [facility] | | | | | neutrophils/ | | [facility] | | | | | 100 | | Hospital | | | | | leukocytes | | | | | | + + + +------+ + + + + | Result panel 46 | + + + + + +------+ + + | Manual | 2025-03-23 | | 16 | (missing) | (missing) | | blood | 14:13 | [facility] | | | | | lymphocytes/ | | - [facility] | | | | | 100 | | [facility] | | | | | leukocytes | | Hospital | | | | + + + +------+ + + + + | Result panel 47 | + + + + + +-----+ + + | Manual | 2025-03-23 | | 3 | (missing) | (missing) | | blood | 14:13 | [facility] | | | | | monocytes/10 | | - [facility] | | | | | 0 leukocytes | | [facility] | | | | | | [facility] | | | | + + + +-----+ + + + + | Result panel 48 | + + + + + +------+ + + | Manual | 2025-03-23 | | 26 | (missing) | (missing) | | blood | 14:13 | [facility] | | | | | eosinophils/ | | - [facility] | | | | | 100 | | [facility] | | | | | leukocytes | | Hospital | | | | + + + +------+ + + + + | Result panel 49 | + + + + + +-----+ + + | Manual | 2025-03-23 | | 1 | (missing) | (missing) | | blood band | 14:13 | [facility] | | | | | neutrophils | | - [facility] | | | | | form/100 | | [facility] | | | | | leukocytes | | Hospital | | | | + + + +-----+ + + + + | Result panel 50 | + + + + + +-------+ + + | Serum or | 2025-03-23 | | 103 | (missing) | (missing) | | plasma | 14:13 | [facility] | | | | | glucose | | - [facility] | | | | | measurement | | [facility] | | | | | (mass/volume | | Hospital | | | | | ) | | | | | | + + + +-------+ + + + + | Result panel 51 | + + + + + +------+ + + | Serum or | 2025-03-23 | | 23 | (missing) | (missing) | | plasma urea | 14:13 | [facility] | | | | | nitrogen | | - [facility] | | | | | measurement | | [facility] | | | | | (mass/volume | | Hospital | | | | | ) | | | | | | + + + +------+ + + + + | Result panel 52 | + + + + + +--------+ + + | Serum or | 2025-03-23 | | 1.14 | (missing) | (missing) | | plasma | 14:13 | [facility] | | | | | creatinine | | - [facility] | | | | | measurement | | [facility] | | | | | (mass/volume | | Hospital | | | | | ) | | | | | | + + + +--------+ + + + + | Result panel 53 | + + + + + +------+ + + | Glomerular | 2025-03-23 | | 71 | (missing) | (missing) | | filtration | 14:13 | [facility] | | | | | rate/1.73 sq | | - [facility] | | | | | M.predicted | | [facility] | | | | | [Volume | | Hospital | | | | | Rate/Area] | | | | | | | inSerum, | | | | | | | Plasma or | | | | | | | Blood by | | | | | | | Creatinine-b | | | | | | | ased formula | | | | | | | (CKD-EPI | | | | | | | 2020) | | | | | | + + + +------+ + + + + | Result panel 54 | + + + + + +---------+ + + | Serum or | 2025-03-23 | | 20.17 | (missing) | (missing) | | plasma urea | 14:13 | [facility] | | | | | nitrogen/cre | | - [facility] | | | | | atinine mass | | [facility] | | | | | ratio | | Hospital | | | | + + + +---------+ + + + + | Result panel 55 | + + + + + +-------+ + + | Serum or | 2025-03-23 | | 144 | (missing) | (missing) | | plasma | 14:13 | [facility] | | | | | sodium | | - [facility] | | | | | measurement | | [facility] | | | | | (moles/volum | | Hospital | | | | | e) | | | | | | + + + +-------+ + + + + | Result panel 56 | + + + + + +-------+ + + | Serum or | 2025-03-23 | | 4.0 | (missing) | (missing) | | plasma | 14:13 | [facility] | | | | | potassium | [facility] | | [facility] | | | | | (moles/volum | | [facility] | | | | | e) | | | | | | + + + +-------+ + + + + | Result panel 57 | + + + + + +-------+ + + | Serum or | 2025-03-23 | | 111 | (missing) | (missing) | | plasma | 14:13 | [facility] | | | | | chloride | [facility] | | [facility] | | | | | (moles/volum | | [facility] | | | | | e) | | | | | | + + + +-------+ + + + + | Result panel 58 | + + + + + +------+ + + | Serum or | 2025-03-23 | | 25 | (missing) | (missing) | | plasma | 14:13 | [facility] | | | | | carbon | [facility] - [facility] | | | dioxide, | | [facility] | | | | total | | [facility] | | | | | measurement | | | | | | | (moles/volum | | | | | | | e) | | | | | | + + + +------+ + + + + | Result panel 59 | + + + + + +--------+ + + | Serum or | 2025-03-23 | | 12.0 | (missing) | (missing) | | plasma anion | 14:13 | [facility] | | | | | gap 4 [facility] | | | | + + + +--------+ + + + + | Result panel 60 | + + + + + +-------+ + + | Serum or | 2025-03-23 | | 8.6 | (missing) | (missing) | | plasma | 14:13 | [facility] | | | | | calcium | [facility] | | [facility] | | measurement | | [facility] | | | | | (mass/volume | | Hospital | | | | | ) | | | | | | + + + +-------+ + + + + | Result panel 61 | + + + + + +-------+ + + | Serum or | 2025-03-23 | | 1.7 | (missing) | (missing) | | plasma | 14:13 | [facility] | | | | | magnesium | [facility] - [facility] | | [facility] | | measurement | | [facility] | | | | | (mass/volume | | Hospital | | | | | ) | | | | | | + + + +-------+ + + + + | Result panel 62 | + + + + + +-------+ + + | Serum or | 2025-03-23 | | 6.3 | (missing) | (missing) | | plasma | 14:13 | [facility] | | | | | protein | [facility] | | [facility] | | measurement | | [facility] | | | | | (mass/volume | | Hospital | | | | | ) | | | | | | + + + +-------+ + + + + | Result panel 63 | + + + + + +-------+ + + | Serum or | 2025-03-23 | | 2.7 | (missing) | (missing) | | plasma | 14:13 | [facility] | | | | | albumin | [facility] | | [facility] | measurement | | [facility] | | | | | (mass/volume | | Hospital | | | | | ) | | | | | | + + + +-------+ + + + + | Result panel 64 | + + + + + +-------+ + + | Serum | 2025-03-23 | | 3.6 | (missing) | (missing) | | globulin | 14:13 | [facility] | | | | | measurement | [facility] | | | | (mass/volume | | [facility] | | | | ) | | [facility] | | | | + + + +-------+ + + + + | Result panel 65 | + + + + + +--------+ + + | Serum or | 2025-03-23 | | 0.75 | (missing) | (missing) | | plasma | 14:13 | [facility] | | | | | albumin/glob | [facility] | | | | | ulin mass | | [facility] | | | | | ratio | | Hospital | | | | + + + +--------+ + + + + | Result panel 66 | + + + + + +-------+ + + | Serum or | 2025-03-23 | | 0.1 | (missing) | (missing) | | plasma total | 14:13 | [facility] | | | | | bilirubin | [facility] | | measurement | | [facility] | | | | | (mass/volume | | Hospital | | | | | ) | | | | | | + + + +-------+ + + + + | Result panel 67 | + + + + + +-----+ + + | Serum or | 2025-03-23 | | 9 | (missing) | (missing) | | plasma | 14:13 | [facility] | | | | | aspartate | [facility] - [facility] | | | | | aminotransfe | | [facility] | | | | | rase | | Hospital | | | | | measurement | | | | | | | (enzymatic | | | | | | | activity/vol | | | | | | | ume) | | | | | | + + + +-----+ + + + + | Result panel 68 | + + + + + +------+ + + | Serum or | 2025-03-23 | | 18 | (missing) | (missing) | | plasma | 14:13 | [facility] | | | | | alanine | | - [facility] | | | | | aminotransfe | | [facility] | | | | | rase | | Hospital | | | | | measurement | | | | | | | (enzymatic | | | | | | | activity/vol | | | | | | | ume) | | | | | | + + + +------+ + + + + | Result panel 69 | + + + + + +------+ + + | Serum or | 2025-03-23 | | 68 | (missing) | (missing) | | plasma | 14:13 | [facility] | | | | | alkaline | [facility] - [facility] | | | | | phosphatase | | [facility] | | | | | measurement | | Hospital | | | | | (enzymatic | | | | | | | activity/vol | | | | | | | ume) | | | | | | + + + +------+ + + + + | Result panel 70 | + + + + + +--------+ + + | Serum or | 2025-03-23 | | 14.8 | (missing) | (missing) | | plasma | 14:13 | [facility] | | | | | cardiac | [facility] | | | | troponin I | | [facility] | | | | | measurement | | Hospital | | | | | by high | | | | | | | senstivity | | | | | | | method | | | | | | | (mass/volume | | | | | | | ) | | | | | | + + + +--------+ + + + + | Result panel 71 | + + + + + + + + + | Respiratory | 2025-04-30 | | NEGATIVE | (missing) | (missing) | | specimen | 21:35 | [facility] | | | | | 2019 novel | [facility] | | | | | coronavirus | | [facility] | | | | | RNA | | Hospital | | | | | detection | | | | | | + + + + + + + + + | Result panel 72 | + + + + + + + + + | Influenza | 2025-04-30 | | NEGATIVE | (missing) | (missing) | | virus A RNA | 21:35 | [facility] | | | | | [Presence] | [facility] - [facility] | | | | | in | | [facility] | | | | | Respiratory | | Hospital | | | | | specimen by | | | | | | | ANA | | | | | | | withprobe | | | | | | | detection | | | | | | + + + + + + + + + | Result panel 73 | + + + + + + + + + | Influenza | 2025-04-30 | | NEGATIVE | (missing) | (missing) | | virus B RNA | 21:35 | [facility] | | | | | [Presence] | [facility] - [facility] | | | | | in | | [facility] | | | | | Respiratory | | Hospital | | | | | specimen by | | | | | | | [facility] | | | | | | | withprobe | | | | | | | detection | | | | | | + + + + + + + + + | Result panel 74 | + + + + + + + + + | Respiratory | 2025-04-30 | | NEGATIVE | (missing) | (missing) | | syncytial | 21:35 | [facility] | | | | | virus (RSV) | [facility] | | | | | RNA | | [facility] | | | | | detection by | | Hospital | | | | | probe and | | | | | | | target | | | | | | | amplificatio | | | | | | | n method in | | | | | | | culture | | | | | | | isolate | | | | | | + + + + + + + + + | Result panel 75 | + + + + + + + + + | Respiratory | 2025-04-30 | | NEGATIVE | (missing) | (missing) | | specimen | 21:35 | [facility] | | | | | 2019 novel | [facility] | | [facility] | | coronavirus | | [facility] | | | | | RNA | | Hospital | | | | | detection | | | | | | + + + + + + + + + | Result panel 76 | + + + + + + + + + | Influenza | 2025-04-30 | | NEGATIVE | (missing) | (missing) | | virus A RNA | 21:35 | [facility] | | | | | [Presence] | [facility] - [facility] | | [facility] | | in | | [facility] | | | | | Respiratory | | Hospital | | | | | specimen by | | | | | | | ANA | | | | | | | withprobe | | | | | | | detection | | | | | | + + + + + + + + + | Result panel 77 | + + + + + + + + + | Influenza | 2025-04-30 | | NEGATIVE | (missing) | (missing) | | virus B RNA | 21:35 | [facility] | | | | | [Presence] | [facility] - [facility] | | | | | in | | [facility] | | | | | Respiratory | | Hospital | | | | | specimen by | | | | | | | ANA | | | | | | | withprobe | | | | | | | detection | | | | | | + + + + + + + + + | Result panel 78 | + + + + + + + + + | Respiratory | 2025-04-30 | | NEGATIVE | (missing) | (missing) | | syncytial | 21:35 | [facility] | | | | | virus (RSV) | [facility] - [facility] | | | | | RNA | | [facility] | | | | | detection by | | Hospital | | | | | probe and | | | | | | | target | | | | | | | amplificatio | | | | | | | n method in | | | | | | | culture | | | | | | | isolate | | | | | | + + + + + + + + + | Result panel 79 | + + + + + +-------+ + + | Serum or | 2025-04-30 | | 1.1 | (missing) | (missing) | | plasma | 23:50 | [facility] | | | | | lactate | | - [facility] | | | | | measurement | | [facility] | | | | | (moles/volum | | Hospital | | | | | e) | | | | | | + + + +-------+ + + + + | Result panel 80 | + + + + + +-------+ + + | Serum or | 2025-04-30 | | 1.1 | (missing) | (missing) | | plasma | 23:50 | [facility] | | | | | lactate | | - [facility] | | | | | measurement | | [facility] | | | | | (moles/volum | | Hospital | | | | | e) | | | | | | + + + +-------+ + + + + | Result panel 81 | + + + + + +-------+ + + | Hgb A1c % | 2025-05-02 | | 6.1 | (missing) | (missing) | | | 05:10 | [facility] | | | | | | [facility] | | | | | | [facility] | | | | | | [facility] | | | | + + + +-------+ + + + + | Result panel 82 | + + + + + +-------+ + + | Hgb A1c % | 2025-05-02 | | 6.1 | (missing) | (missing) | | | 05:10 | [facility] | | | | | | [facility] - [facility] | | | | | | [facility] | | | | | | [facility] | | | | + + + +-------+ + + + + | Result panel 83 | + + + + + +--------+ + + | Whole blood | 2025-06-01 | | 93.9 | (missing) | (missing) | | oxygen | 17:52 | [facility] | | | | | saturation | | - [facility] | | [facility] | | measurement | | [facility] | | | | | | [facility] | | | | + + + +--------+ + + + + | Result panel 84 | + + + + + +--------+ + + | Blood | 2025-06-01 | | 24.0 | (missing) | (missing) | | bicarbonate | 17:52 | [facility] | | | | | measurement | | - [facility] | | | | | (moles/volum | | [facility] | | | | | e) | | Hospital | | | | + + + +--------+ + + + + | Result panel 85 | + + + + + +--------+ + + | Blood base | 2025-06-01 | | -0.6 | (missing) | (missing) | | excess by | 17:52 | [facility] | | | | | calculation | | - [facility] | | | | | | | [facility] | | | | | | [facility] | | | | + + + +--------+ + + + + | Result panel 86 | + + + + + +--------+ + + | Whole blood | 2025-06-01 | | 93.9 | (missing) | (missing) | | oxygen | 17:52 | [facility] | | | | | saturation | | - [facility] | | | | | measurement | | [facility] | | | | | | [facility] | | | | + + + +--------+ + + + + | Result panel 87 | + + + + + +------+ + + | Oxygen | 2025-06-01 | | 92 | (missing) | (missing) | | therapy | 17:52 | [facility] | | | | | [Minimum | | - [facility] | | | | | Data Set] | | [facility] | | | | | | [facility] | | | | + + + +------+ + + + + | Result panel 88 | + + + + + +--------+ + + | Blood | 2025-06-01 | | 25.1 | (missing) | (missing) | | carbon | 17:52 | [facility] | | | | | dioxide, | | - [facility] | | | | | total | | [facility] | | | | | measurement | | Hospital | | | | | (moles/volum | | | | | | | e) | | | | | | + + + +--------+ + + + + | Result panel 89 | + + + + + +------+ + + | Oxygen | 2025-06-01 | | 92 | (missing) | (missing) | | therapy | 17:52 | [facility] | | | | | [Minimum | | - [facility] | | | | | Data Set] | | [facility] | | | | | | [facility] | | | | + + + +------+ + + + + | Result panel 90 | + + + + + +--------+ + + | Blood | 2025-06-01 | | 25.1 | (missing) | (missing) | | carbon | 17:52 | [facility] | | | | | dioxide, | | - [facility] | | | | | total | | [facility] | | | | | measurement | | Hospital | | | | | (moles/volum | | | | | | | e) | | | | | | + + + +--------+ + + + + | Result panel 91 | + + + + + +--------+ + + | Blood pH | 2025-06-01 | | 7.41 | (missing) | (missing) | | | 17:52 | [facility] | | | | | | [facility] | | | | | | [facility] | | | | | [facility] | | | | + + + +--------+ + + + + | Result panel 92 | + + + + + +--------+ + + | Blood | 2025-06-01 | | 37.7 | (missing) | (missing) | | partial | 17:52 | [facility] | | | | | pressure of | | - [facility] | | | | | carbon | | [facility] | | | | | dioxide | | Hospital | | | | | measurement | | | | | | + + + +--------+ + + + + | Result panel 93 | + + + + + +------+ + + | Blood | 2025-06-01 | | 67 | (missing) | (missing) | | partial | 17:52 | [facility] | | | | | pressure of | | - [facility] | | | | | oxygen | | [facility] | | | | | measurement | | Hospital | | | | + + + +------+ + + + + | Result panel 94 | + + + + + +--------+ + + | Blood | 2025-06-01 | | 24.0 | (missing) | (missing) | | bicarbonate | 17:52 | [facility] | | | | | measurement | | - [facility] | | | | | (moles/volum | | [facility] | | | | | e) | | Hospital | | | | + + + +--------+ + + + + | Result panel 95 | + + + + + +--------+ + + | Blood base | 2025-06-01 | | -0.6 | (missing) | (missing) | | excess by | 17:52 | [facility] | | | | | calculation | | - [facility] | | | | | | | [facility] | | | | | | [facility] | | | | + + + +--------+ + + + + | Result panel 96 | + + + + + +--------+ + + | Blood pH | 2025-06-01 | | 7.41 | (missing) | (missing) | | | 17:52 | [facility] | | | | | | [facility] | | | | | | [facility] | | | | | | [facility] | | | | + + + +--------+ + + + + | Result panel 97 | + + + + + +--------+ + + | Blood | 2025-06-01 | | 37.7 | (missing) | (missing) | | partial | 17:52 | [facility] | | | | | pressure of | | - [facility] | | | | | carbon | | [facility] | | | | | dioxide | | Hospital | | | | | measurement | | | | | | + + + +--------+ + + + + | Result panel 98 | + + + + + +------+ + + | Blood | 2025-06-01 | | 67 | (missing) | (missing) | | partial | 17:52 | [facility] | | | | | pressure of | | - [facility] | | | | | oxygen | | [facility] | | | | | measurement | | Hospital | | | | + + + +------+ + + + + | Result panel 99 | + + + + + +-------+ + + | Whole blood | 2025-06-01 | | 183 | (missing) | (missing) | | glucose | 20:36 | [facility] | | | | | measurement | | - [facility] | | | | | using | | [facility] | | | | | handheld | | Hospital | | | | | analyzer | | | | | | | (mass/volume | | | | | | | ) | | | | | | + + + +-------+ + + + + | Result panel 100 | + + + + + +-------+ + + | Whole blood | 2025-06-03 | | 176 | (missing) | (missing) | | glucose | 07:51 | [facility] | | | | | measurement | | - [facility] | | | | | using | | [facility] | | | | | handheld | | Hospital | | | | | analyzer | | | | | | | (mass/volume | | | | | | | ) | | | | | | + + + +-------+ + + + + | Result panel 101 | + + + + + +--------+ + + | Prothrombin | 2025-06-06 | | 11.7 | (missing) | (missing) | | time (PT) | 20:13 | [facility] | | | | | in platelet | | - [facility] | | | | | poor plasma | | [facility] | | | | | by | | Hospital | | | | | coagulation | | | | | | | assay | | | | | | + + + +--------+ + + + + | Result panel 102 | + + + + + +--------+ + + | INR in | 2025-06-06 | | 0.92 | (missing) | (missing) | | Platelet | 20:13 | [facility] | | | | | poor plasma | | - [facility] | | | | | by | | [facility] | | | | | Coagulation | | Hospital | | | | | assay | | | | | | + + + +--------+ + + + + | Result panel 103 | + + + + + + + + + | Fibrin | 2025-06-06 | | < 0.27 | (missing) | (missing) | | D-dimer FEU | 20:13 | [facility] | | | | | [Mass/volume | | - Saint | | | | | ] in | | [facility] | | | | | Platelet | | Hospital | | | | | poor plasma | | | | | | | by | | | | | | | Immunoassay | | | | | | + + + + + + + + + | Result panel 104 | + + + + + +--------+ + + | Blood | 2025-06-06 | | 9.45 | (missing) | (missing) | | leukocytes | 20:13 | [facility] | | | | | automated | | - [facility] | | | | | count | | [facility] | | | | | (number/volu | | Hospital | | | | | me) | | | | | | + + + +--------+ + + + + | Result panel 105 | + + + + + +--------+ + + | Blood | 2025-06-06 | | 5.43 | (missing) | (missing) | | erythrocytes | 20:13 | [facility] | | | | | automated | | - [facility] | | | | | count | | [facility] | | | | | (number/volu | | Hospital | | | | | me) | | | | | | + + + +--------+ + + + + | Result panel 106 | + + + + + +--------+ + + | Blood | 2025-06-06 | | 15.9 | (missing) | (missing) | | hemoglobin | 20:13 | [facility] | | | | | measurement | | - [facility] | | | | | (mass/volume | | [facility] | | | | | ) | | Hospital | | | | + + + +--------+ + + + + | Result panel 107 | + + + + + +--------+ + + | Automated | 2025-06-06 | | 47.9 | (missing) | (missing) | | blood | 20:13 | [facility] | | | | | hematocrit | | - [facility] | | | | | | | [facility] | | | | | | [facility] | | | | + + + +--------+ + + + + | Result panel 108 | + + + + + +--------+ + + | Automated | 2025-06-06 | | 88.2 | (missing) | (missing) | | erythrocyte | 20:13 | [facility] | | | | | mean | | - [facility] | | | | | corpuscular | | [facility] | | | | | volume | | Hospital | | | | + + + +--------+ + + + + | Result panel 109 | + + + + + +--------+ + + | Automated | 2025-06-06 | | 29.3 | (missing) | (missing) | | erythrocyte | 20:13 | [facility] | | | | | mean | | - [facility] | | | | | corpuscular | | [facility] | | | | | hemoglobin | | Hospital | | | | | (mass per | | | | | | | erythrocyte) | | | | | | | | | | | | | + + + +--------+ + + + + | Result panel 110 | + + + + + +--------+ + + | Automated | 2025-06-06 | | 33.2 | (missing) | (missing) | | erythrocyte | 20:13 | [facility] | | | | | mean | | - [facility] | | | | | corpuscular | | [facility] | | | | | hemoglobin | | Hospital | | | | | concentratio | | | | | | | n | | | | | | | measurement | | | | | | | (mass/volume | | | | | | | ) | | | | | | + + + +--------+ + + + + | Result panel 111 | + + + + + +-------+ + + | Automated | 2025-06-06 | | 238 | (missing) | (missing) | | blood | 20:13 | [facility] | | | | | platelet | | - [facility] | | | | | count | | [facility] | | | | | (count/volum | | Hospital | | | | | e) | | | | | | + + + +-------+ + + + + | Result panel 112 | + + + + + +--------+ + + | Automated | 2025-06-06 | | 84.8 | (missing) | (missing) | | blood | 20:13 | [facility] | | | | | neutrophil | | - [facility] | | | | | count as | | [facility] | | | | | percentage | | Hospital | | | | | of total | | | | | | | leukocytes | | | | | | + + + +--------+ + + + + | Result panel 113 | + + + + + +--------+ + + | Automated | 2025-06-06 | | 10.6 | (missing) | (missing) | | blood | 20:13 | [facility] | | | | | lymphocyte | | - [facility] | | | | | count as | | [facility] | | | | | percentage | | Hospital | | | | | ot total | | | | | | | leukocytes | | | | | | + + + +--------+ + + + + | Result panel 114 | + + + + + +-------+ + + | Automated | 2025-06-06 | | 3.8 | (missing) | (missing) | | blood | 20:13 | [facility] | | | | | monocyte | | - [facility] | | | | | count as | | [facility] | | | | | percentage | | Hospital | | | | | of total | | | | | | | leukocytes | | | | | | + + + +-------+ + + + + | Result panel 115 | + + + + + +-----+ + + | Automated | 2025-06-06 | | 0 | (missing) | (missing) | | blood | 20:13 | [facility] | | | | | eosinophil | | - [facility] | | | | | count as | | [facility] | | | | | percentage | | Hospital | | | | | of total | | | | | | | leukocytes | | | | | | + + + +-----+ + + + + | Result panel 116 | + + + + + +-------+ + + | Automated | 2025-06-06 | | 0.1 | (missing) | (missing) | | blood | 20:13 | [facility] | | | | | basophil | | - [facility] | | | | | count as | | [facility] | | | | | percentage | | Hospital | | | | | of total | | | | | | | leukocytes | | | | | | + + + +-------+ + + + + | Result panel 117 | + + + + + +--------+ + + | Prothrombin | 2025-06-06 | | 11.7 | (missing) | (missing) | | time (PT) | 20:13 | [facility] | | | | | in platelet | | - [facility] | | | | | poor plasma | | [facility] | | | | | by | | Hospital | | | | | coagulation | | | | | | | assay | | | | | | + + + +--------+ + + + + | Result panel 118 | + + + + + +--------+ + + | INR in | 2025-06-06 | | 0.92 | (missing) | (missing) | | Platelet | 20:13 | [facility] | | | | | poor plasma | | - [facility] | | | | | by | | [facility] | | | | | Coagulation | | Hospital | | | | | assay | | | | | | + + + +--------+ + + + + | Result panel 119 | + + + + + + + + + | Fibrin | 2025-06-06 | | < 0.27 | (missing) | (missing) | | D-dimer FEU | 20:13 | [facility] | | | | | [Mass/volume | | - [facility] | | | | | ] in | | [facility] | | | | | Platelet | | Hospital | | | | | poor plasma | | | | | | | by | | | | | | | Immunoassay | | | | | | + + + + + + + + + | Result panel 120 | + + + + + +-------+ + + | Serum or | 2025-06-06 | | 248 | (missing) | (missing) | | plasma | 20:13 | [facility] | | | | | glucose | | - [facility] | | | | | measurement | | [facility] | | | | | (mass/volume | | Hospital | | | | | ) | | | | | | + + + +-------+ + + + + | Result panel 121 | + + + + + +------+ + + | Serum or | 2025-06-06 | | 33 | (missing) | (missing) | | plasma urea | 20:13 | [facility] | | | | | nitrogen | | - [facility] | | | | | measurement | | [facility] | | | | | (mass/volume | | Hospital | | | | | ) | | | | | | + + + +------+ + + + + | Result panel 122 | + + + + + +--------+ + + | Serum or | 2025-06-06 | | 1.64 | (missing) | (missing) | | plasma | 20:13 | [facility] | | | | | creatinine | | - [facility] | | | | | measurement | | [facility] | | | | | (mass/volume | | Hospital | | | | | ) | | | | | | + + + +--------+ + + + + | Result panel 123 | + + + + + +------+ + + | Glomerular | 2025-06-06 | | 46 | (missing) | (missing) | | filtration | 20:13 | [facility] | | | | | rate/1.73 sq | | - [facility] | | | | | M.predicted | | [facility] | | | | | [Volume | | Hospital | | | | | Rate/Area] | | | | | | | inSerum, | | | | | | | Plasma or | | | | | | | Blood by | | | | | | | Creatinine-b | | | | | | | ased formula | | | | | | | (CKD-EPI | | | | | | | 2020) | | | | | | + + + +------+ + + + + | Result panel 124 | + + + + + +---------+ + + | Serum or | 2025-06-06 | | 20.12 | (missing) | (missing) | | plasma urea | 20:13 | [facility] | | | | | nitrogen/cre | | - Saint | | | | | atinine mass | | [facility] | | | | | ratio | | Hospital | | | | + + + +---------+ + + + + | Result panel 125 | + + + + + +-------+ + + | Serum or | 2025-06-06 | | 140 | (missing) | (missing) | | plasma | 20:13 | [facility] | | | | | sodium | | - [facility] | | | | | measurement | | [facility] | | | | | (moles/volum | | Hospital | | | | | e) | | | | | | + + + +-------+ + + + + | Result panel 126 | + + + + + +-------+ + + | Serum or | 2025-06-06 | | 4.4 | (missing) | (missing) | | plasma | 20:13 | [facility] | | | | | potassium | | - [facility] | | | | | measurement | | [facility] | | | | | (moles/volum | | Hospital | | | | | e) | | | | | | + + + +-------+ + + + + | Result panel 127 | + + + + + +-------+ + + | Serum or | 2025-06-06 | | 102 | (missing) | (missing) | | plasma | 20:13 | [facility] | | | | | chloride | | - [facility] | | | | | measurement | | [facility] | | | | | (moles/volum | | Hospital | | | | | e) | | | | | | + + + +-------+ + + + + | Result panel 128 | + + + + + +------+ + + | Serum or | 2025-06-06 | | 27 | (missing) | (missing) | | plasma | 20:13 | [facility] | | | | | carbon | | - [facility] | | | | | dioxide, | | [facility] | | | | | total | | Hospital | | | | | measurement | | | | | | | (moles/volum | | | | | | | e) | | | | | | + + + +------+ + + + + | Result panel 129 | + + + + + +--------+ + + | Serum or | 2025-06-06 | | 15.4 | (missing) | (missing) | | plasma anion | 20:13 | [facility] | | | | | gap 4 | | - [facility] | | | | | | [facility] | | | | | | [facility] | | | | + + + +--------+ + + + + | Result panel 130 | + + + + + +-------+ + + | Serum or | 2025-06-06 | | 9.1 | (missing) | (missing) | | plasma | 20:13 | [facility] | | | | | calcium | | - [facility] | | | | | measurement | | [facility] | | | | | (mass/volume | | Hospital | | | | | ) | | | | | | + + + +-------+ + + + + | Result panel 131 | + + + + + +-------+ + + | Serum or | 2025-06-06 | | 2.2 | (missing) | (missing) | | plasma | 20:13 | [facility] | | | | | magnesium | | - [facility] | | | | | measurement | | [facility] | | | | | (mass/volume | | Hospital | | | | | ) | | | | | | + + + +-------+ + + + + | Result panel 132 | + + + + + +-------+ + + | Serum or | 2025-06-06 | | 7.1 | (missing) | (missing) | | plasma | 20:13 | [facility] | | | | | protein | | - [facility] | | | | | measurement | | [facility] | | | | | (mass/volume | | Hospital | | | | | ) | | | | | | + + + +-------+ + + + + | Result panel 133 | + + + + + +-------+ + + | Serum or | 2025-06-06 | | 3.3 | (missing) | (missing) | | plasma | 20:13 | [facility] | | | | | albumin | | - [facility] | | | | | (mass/volume | | [facility] | | | | | ) | | | | | | + + + +-------+ + + + + | Result panel 134 | + + + + + +-------+ + + | Serum | 2025-06-06 | | 3.8 | (missing) | (missing) | | globulin | 20:13 | [facility] | | | | | measurement | | - [facility] (mass/volume | | [facility] | | | | ) | | [facility] | | | | + + + +-------+ + + + + | Result panel 135 | + + + + + +--------+ + + | Serum or | 2025-06-06 | | 0.87 | (missing) | (missing) | | plasma | 20:13 | [facility] | | | | | albumin/glob | | - [facility] ulin mass | | [facility] | | | | | ratio | | [facility] | | | | + + + +--------+ + + + + | Result panel 136 | + + + + + +-------+ + + | Serum or | 2025-06-06 | | 0.2 | (missing) | (missing) | | plasma total | 20:13 | [facility] | | | | | bilirubin | | - [facility] | [facility] | | | | | (mass/volume | | [facility] | | | | | ) | | | | | | + + + +-------+ + + + + | Result panel 137 | + + + + + +-----+ + + | Serum or | 2025-06-06 | | 9 | (missing) | (missing) | | plasma | 20:13 | [facility] | | | | | aspartate | | - [facility] | | | aminotransfe | | [facility] | | | | | rase | | [facility] | | | | | measurement | | | | | | | (enzymatic | | | | | | | activity/vol | | | | | | | ume) | | | | | | + + + +-----+ + + + + | Result panel 138 | + + + + + +------+ + + | Serum or | 2025-06-06 | | 27 | (missing) | (missing) | | plasma | 20:13 | [facility] | | | | | alanine | | - [facility] | | | | aminotransfe | | [facility] | | | | | rase | | [facility] | | | | | measurement | | | | | | | (enzymatic | | | | | | | activity/vol | | | | | | | ume) | | | | | | + + + +------+ + + + + | Result panel 139 | + + + + + +------+ + + | Serum or | 2025-06-06 | | 70 | (missing) | (missing) | | plasma | 20:13 | [facility] | | | | | alkaline | | - [facility] phosphatase | | [facility] | | | | | measurement | | [facility] | | | | | (enzymatic | | | | | | | activity/vol | | | | | | | ume) | | | | | | + + + +------+ + + + + | Result panel 140 | + + + + + +-------+ + + | Serum or | 2025-06-06 | | 8.4 | (missing) | (missing) | | plasma | 21:13 | [facility] | | | | | cardiac | [facility] | | [facility] trop[facility] | | [facility] | | | | | measurement | | [facility] | | | | | by high | | | | | | | senstivity | | | | | | | method | | | | | | | (mass/volume | | | | | | | ) | | | | | | + + + +-------+ + + + + | Result panel 141 | + + + + + +---------+ + + | Blood | 2025-06-14 | | 10.40 | (missing) | (missing) | | leukocytes | 22:14 | [facility] | | | | | automated | | - [facility] | [facility] | count | | [facility] | | | | | (number/volu | | Hospital | | | | | me) | | | | | | + + + +---------+ + + + + | Result panel 142 | + + + + + +--------+ + + | Blood | 2025-06-14 | | 4.82 | (missing) | (missing) | | erythrocytes | 22:14 | [facility] | | | | | automated | | - [facility] count | | [facility] | | | | | (number/volu | | Hospital | | | | | me) | | | | | | + + + +--------+ + + + + | Result panel 143 | + + + + + +--------+ + + | Blood | 2025-06-14 | | 14.1 | (missing) | (missing) | | hemoglobin | 22:14 | [facility] | | | | | measurement | | - [facility] | | | | (mass/volume | | [facility] | | | | ) | | [facility] | | | | + + + +--------+ + + + + | Result panel 144 | + + + + + +--------+ + + | Automated | 2025-06-14 | | 43.4 | (missing) | (missing) | | blood | 22:14 | [facility] | | | | | hematocrit | | - [facility] | | [facility] | | | | | | [facility] | | | | + + + +--------+ + + + + | Result panel 145 | + + + + + +--------+ + + | Automated | 2025-06-14 | | 90.0 | (missing) | (missing) | | erythrocyte | 22:14 | [facility] | | | | | mean | | - [facility] | | | | | corpuscular | | [facility] | | | | | volume | | Hospital | | | | + + + +--------+ + + + + | Result panel 146 | + + + + + +--------+ + + | Automated | 2025-06-14 | | 29.3 | (missing) | (missing) | | erythrocyte | 22:14 | [facility] | | | | | mean | | - [facility] | | | | | corpuscular | | [facility] | | | | | hemoglobin | | Hospital | | | | | (mass per | | | | | | | erythrocyte) | | | | | | | | | | | | | + + + +--------+ + + + + | Result panel 147 | + + + + + +--------+ + + | Automated | 2025-06-14 | | 32.5 | (missing) | (missing) | | erythrocyte | 22:14 | [facility] | | | | | mean | | - [facility] | | | | | corpuscular | | [facility] | | | | | hemoglobin | | Hospital | | | | | concentratio | | | | | | | n | | | | | | | measurement | | | | | | | (mass/volume | | | | | | | ) | | | | | | + + + +--------+ + + + + | Result panel 148 | + + + + + +-------+ + + | Automated | 2025-06-14 | | 179 | (missing) | (missing) | | blood | 22:14 | [facility] | | | | | platelet | | - [facility] count | | [facility] | | | | | (count/volum | | Hospital | | | | | e) | | | | | | + + + +-------+ + + + + | Result panel 149 | + + + + + +--------+ + + | Automated | 2025-06-14 | | 75.5 | (missing) | (missing) | | blood | 22:14 | [facility] | | | | | neutrophil | | - [facility] | | [facility] | count as | | [facility] | | | | | percentage | | Hospital | | | | | of total | | | | | | | leukocytes | | | | | | + + + +--------+ + + + + | Result panel 150 | + + + + + +--------+ + + | Automated | 2025-06-14 | | 17.2 | (missing) | (missing) | | blood | 22:14 | [facility] | | | | | lymphocyte | | - [facility] | | [facility] | count as | | [facility] | | | | | percentage | | Hospital | | | | | ot total | | | | | | | leukocytes | | | | | | + + + +--------+ + + + + | Result panel 151 | + + + + + +-------+ + + | Automated | 2025-06-14 | | 6.7 | (missing) | (missing) | | blood | 22:14 | [facility] | | | | | monocyte | | - [facility] | | [facility] | count as | | [facility] | | | | | percentage | | Hospital | | | | | of total | | | | | | | leukocytes | | | | | | + + + +-------+ + + + + | Result panel 152 | + + + + + +-----+ + + | Automated | 2025-06-14 | | 0 | (missing) | (missing) | | blood | 22:14 | [facility] | | | | | eosinophil | | - [facility] | count as | | [facility] | | | | | percentage | | Hospital | | | | | of total | | | | | | | leukocytes | | | | | | + + + +-----+ + + + + | Result panel 153 | + + + + + +-------+ + + | Automated | 2025-06-14 | | 0.1 | (missing) | (missing) | | blood | 22:14 | [facility] | | | | | basophil | | - [facility] | count as | | [facility] | | | | | percentage | | Hospital | | | | | of total | | | | | | | leukocytes | | | | | | + + + +-------+ + + + + | Result panel 154 | + + + + + +-------+ + + | Serum or | 2025-06-14 | | 148 | (missing) | (missing) | | plasma | 22:14 | [facility] | | | | | glucose | | - [facility] | [facility] | measurement | | [facility] | | | | | (mass/volume | | Hospital | | | | | ) | | | | | | + + + +-------+ + + + + | Result panel 155 | + + + + + +------+ + + | Serum or | 2025-06-14 | | 20 | (missing) | (missing) | | plasma urea | 22:14 | [facility] | | | | | nitrogen | | - [facility] | measurement | | [facility] | | | | | (mass/volume | | Hospital | | | | | ) | | | | | | + + + +------+ + + + + | Result panel 156 | + + + + + +--------+ + + | Serum or | 2025-06-14 | | 1.29 | (missing) | (missing) | | plasma | 22:14 | [facility] | | | | | creatinine | | - [facility] | measurement | | [facility] | | | | | (mass/volume | | Hospital | | | | | ) | | | | | | + + + +--------+ + + + + | Result panel 157 | + + + + + +------+ + + | Glomerular | 2025-06-14 | | 62 | (missing) | (missing) | | filtration | 22:14 | [facility] | | | | | rate/1.73 sq | | - [facility] | | | | | M.predicted | | [facility] | | | | | [Volume | | Hospital | | | | | Rate/Area] | | | | | | | inSerum, | | | | | | | Plasma or | | | | | | | Blood by | | | | | | | Creatinine-b | | | | | | | ased formula | | | | | | | (CKD-EPI | | | | | | | 2020) | | | | | | + + + +------+ + + + + | Result panel 158 | + + + + + +---------+ + + | Serum or | 2025-06-14 | | 15.50 | (missing) | (missing) | | plasma urea | 22:14 | [facility] | | | | | nitrogen/cre | | - [facility] | | | | | atinine mass | | [facility] | | | | | ratio | | Hospital | | | | + + + +---------+ + + + + | Result panel 159 | + + + + + +-------+ + + | Serum or | 2025-06-14 | | 141 | (missing) | (missing) | | plasma | 22:14 | [facility] | | | | | sodium | | - [facility] | [facility] | measurement | | [facility] | | | | | (moles/volum | | Hospital | | | | | e) | | | | | | + + + +-------+ + + + + | Result panel 160 | + + + + + +-------+ + + | Serum or | 2025-06-14 | | 4.1 | (missing) | (missing) | | plasma | 22:14 | [facility] | | | | | potassium | | - [facility] | measurement | | [facility] | | | | | (moles/volum | | Hospital | | | | | e) | | | | | | + + + +-------+ + + + + | Result panel 161 | + + + + + +-------+ + + | Serum or | 2025-06-14 | | 106 | (missing) | (missing) | | plasma | 22:14 | [facility] | | | | | chloride | | - [facility] | | [facility] | measurement | | [facility] | | | | | (moles/volum | | Hospital | | | | | e) | | | | | | + + + +-------+ + + + + | Result panel 162 | + + + + + +------+ + + | Serum or | 2025-06-14 | | 26 | (missing) | (missing) | | plasma | 22:14 | [facility] | | | | | carbon | | - [facility] | | | | | dioxide, | | [facility] | | | | | total | | Hospital | | | | | measurement | | | | | | | (moles/volum | | | | | | | e) | | | | | | + + + +------+ + + + + | Result panel 163 | + + + + + +--------+ + + | Serum or | 2025-06-14 | | 13.1 | (missing) | (missing) | | plasma anion | 22:14 | [facility] | | | | | gap 4 | | - [facility] | | | | | [facility] | | | | + + + +--------+ + + + + | Result panel 164 | + + + + + +-------+ + + | Serum or | 2025-06-14 | | 8.8 | (missing) | (missing) | | plasma | 22:14 | [facility] | | | | | calcium | | - [facility] | measurement | | [facility] | | | | | (mass/volume | | Hospital | | | | | ) | | | | | | + + + +-------+ + + + + | Result panel 165 | + + + + + +-------+ + + | Serum or | 2025-06-14 | | 2.1 | (missing) | (missing) | | plasma | 22:14 | [facility] | | | | | magnesium | | - [facility] | measurement | | [facility] | | | | | (mass/volume | | Hospital | | | | | ) | | | | | | + + + +-------+ + + + + | Result panel 166 | + + + + + +-------+ + + | Serum or | 2025-06-14 | | 6.3 | (missing) | (missing) | | plasma | 22:14 | [facility] | | | | | protein | | - [facility] | [facility] | | [facility] | | | | | (mass/volume | | Hospital | | | | | ) | | | | | | + + + +-------+ + + + + | Result panel 167 | + + + + + +-------+ + + | Serum or | 2025-06-14 | | 2.8 | (missing) | (missing) | | plasma | 22:14 | [facility] | | | | | albumin | | - [facility] | measurement | | [facility] | | | | | (mass/volume | | Hospital | | | | | ) | | | | | | + + + +-------+ + + + + | Result panel 168 | + + + + + +-------+ + + | Serum | 2025-06-14 | | 3.5 | (missing) | (missing) | | globulin | 22:14 | [facility] | | | | | measurement | | - [facility] | [facility] | (mass/volume | | [facility] | | | | | ) | | [facility] | | | | + + + +-------+ + + + + | Result panel 169 | + + + + + +--------+ + + | Serum or | 2025-06-14 | | 0.80 | (missing) | (missing) | | plasma | 22:14 | [facility] | | | | | albumin/glob | | - [facility] | | [facility] | | ulin mass | | [facility] | | | | | ratio | | Hospital | | | | + + + +--------+ + + + + | Result panel 170 | + + + + + +-------+ + + | Serum or | 2025-06-14 | | 0.2 | (missing) | (missing) | | plasma total | 22:14 | [facility] | | | | | bilirubin | | - [facility] | measurement | | [facility] | | | | | (mass/volume | | Hospital | | | | | ) | | | | | | + + + +-------+ + + + + | Result panel 171 | + + + + + +------+ + + | Serum or | 2025-06-14 | | 13 | (missing) | (missing) | | plasma | 22:14 | [facility] | | | | | aspartate | | - [facility] | | | | | aminotransfe | | [facility] | | | | | rase | | Hospital | | | | | measurement | | | | | | | (enzymatic | | | | | | | activity/vol | | | | | | | ume) | | | | | | + + + +------+ + + + + | Result panel 172 | + + + + + +------+ + + | Serum or | 2025-06-14 | | 28 | (missing) | (missing) | | plasma | 22:14 | [facility] | | | | | alanine | | - [facility] | | | | | aminotransfe | | [facility] | | | | | rase | | Hospital | | | | | measurement | | | | | | | (enzymatic | | | | | | | activity/vol | | | | | | | ume) | | | | | | + + + +------+ + + + + | Result panel 173 | + + + + + +------+ + + | Serum or | 2025-06-14 | | 65 | (missing) | (missing) | | plasma | 22:14 | [facility] | | | | | alkaline | | - [facility] | | | | | phosphatase | | [facility] | | | | | measurement | | Hospital | | | | | (enzymatic | | | | | | | activity/vol | | | | | | | ume) | | | | | | + + + +------+ + + + + | Result panel 174 | + + + + + +-------+ + + | Serum or | 2025-06-14 | | 9.6 | (missing) | (missing) | | plasma | 22:14 | [facility] | | | | | cardiac | | - [facility] | | | | | troponin I | | [facility] | | | | | measurement | | Hospital | | | | | by high | | | | | | | senstivity | | | | | | | method | | | | | | | (mass/volume | | | | | | | ) | | | | | | + + + +-------+ + + Social History + + + + | date | description | facility | + + + + | (no date) | Unknown if ever smoked | [facility] | | | | [facility] | + + + + Vital Signs No information."
[~2025-06-18 09:43] MED LIST changes: +ZITHROMAX TRI-500 MG PO
[2025-06-18] MEDS ORDERED: ALBUTEROL/IPRATROPIUM 3 ML NEB INH PRN (10:15)
[2025-06-18 10:27] LABS: BASOPHILS 0.1 % (0.2-1.2); EOSINOPHILS 0 % (0.8-7.0); LYMPHOCYTES 6.4 % (21.8-53.1); MCH 29.0 PG (25.7-32.2); MCHC 32.6 g/dL (32.3-36.5); MCV 89.0 fL (79.0-92.2); MONOCYTES 3.7 % (5.3-12.2); NEUTROPHILS 89.4 % (34.0-67.9); RBC 5.35 M/uL (4.63-6.08)
[2025-06-18] MEDS ORDERED: ASPIRIN 81 MG CHEW PO ONE (10:30)
[2025-06-18] MEDS ORDERED: NITROGLYCERIN 0.4 MG SUBL SL PRN (10:30)
[2025-06-18 10:54] LABS: ALT (SGPT) 32.0 U/L (14-59); AST (SGOT) 10.0 U/L (15-37); GLOMERULAR FILTRATION RATE,EST 56.0 mL/min (>60); PROTEIN, TOTAL 7.4 g/dL (6.4-8.2); UREA NITROGEN 31.0 mg/dL (7-18)
[2025-06-18] MEDS ORDERED: ALBUTEROL/IPRATROPIUM 3 ML NEB INH ONE (11:30)
[2025-06-18 11:36] LABS: CORONAVIRUS COVID-19 AG NEGATIVE (NEGATIVE)
[2025-06-18] MEDS ORDERED: LORazepam 2 MG/ML VIAL IV ONE (12:15)
[2025-06-18] MEDS ORDERED: AZITHROMYCIN 500 MG in DEXTROSE 5% 250 ML IV ONE ×2 (13:30→15:15)
[2025-06-18 16:52] VITALS: BP 158/107
--- NOTE | 2025-06-20 15:13 | EKG ---
[facility] [address] [place] [address] Signed Atrial fibrillation with rapid ventricular response with premature ventricular or aberrantly conducted complexes Abnormal ECG No previous ECGs available Confirmed by PREMA MARTIN MD ([id number]) on 06/20/2025 3:13:23 PM Electronically Signed By: PREMA MARTIN 06/20/25 1513 PATIENT NAME: DAMARI LARA TENIZN Electrocardiogram DATE OF : 58 PHYSICIAN: PREMA MARTIN REPORT #: [id number] REPORT IS CONFIDENTIAL AND NOT TO BE RELEASED WITHOUT AUTHORIZATION
== END 2025-06-18 16:40 | disposition short-term general hospital (02) ==
LOC: ED 09:43
PROVIDERS: Emergency Medicine
DX: J18.9 Pneumonia, unspecified organism (principal); J44.0 Chronic obstructive pulmonary disease with (acute) lower respiratory infection; I48.91 Unspecified atrial fibrillation; E78.00 Pure hypercholesterolemia, unspecified; Z86.711 Personal history of pulmonary embolism; Z88.1 Allergy status to other antibiotic agents; Z88.8 Allergy status to other drugs, medicaments and biological substances; Z79.01 Long term (current) use of anticoagulants; Z79.899 Other long term (current) drug therapy
CPT/HCPCS: 36415; 71045; 80053; 82803; 83735; 84484; 85025; 87040; 87502; 93005; 93010; 94640; 94799; 96365; 96367; 96375; 96376; 99285-25; A9270; J0456; J0696; J2060; J2919; J7060; U0002

== ENCOUNTER 2025-06-27 08:55 | Emergency (ER) | payer MEDICARE, OTHER ==
[~2025-06-27] VITALS: Ht 182.9 cm; Wt 139.9 kg
--- OUTSIDE RECORDS SUMMARY | ~2025-06-27 | XMS | Continuity of Care Document ---
Demographics + + + | Address | [address] | | | [place] [address] | + + + | Preferred Language | Unknown | + + + | Marital Status | Domestic partner | + + + | Rastafarian Affiliation | Unknown | + + + | Race | White | + + + | Ethnic Group | Not or | + + + Author + + + | Author | [facility] | + + + | Organization | [facility] | + + + | Address | [address] | | | [place] [address] | + + + | Phone | | + + + Care Team Providers + + + + | Care Concrete Layer Name | Role | Phone | + [...] (no date) | No vaccine administered | [facility] | | | | [facility] | + + + + Medications + + + + | date | description | facility | + + + + | (no date) | fluticasone propionate | [facility] | | | 0.25 MG/ACTUAT / salmeterol | [facility] | | | 0.05 MG/A | | + + + + | (no date) | apixaban 5 MG Oral Tablet | [facility] | | | [Eliquis] | [facility] | + + + + | 2025-05-16 00:00 | albuterol 0.833 MG/ML / | [facility] | | | ipratropium bromide 0.167 | [facility] | | | MG/ML Inha | | + + + + | () | 60 ACTUAT tiotropium | [facility] | | | 0.0025 MG/ACTUAT Inhalation | [facility] | | | [place] [[facility]pir | | + + + + | 2025-06-03 00:00 | doxycycline hyclate 100 MG | [facility] | | | Oral Capsule | [facility] | + + + + | (no date) | allopurinol 300 MG Oral | [facility] | | | Tablet | [facility] | + + + + | (no ) | prednisone 10 MG Oral | [facility] | | | Tablet | [facility] | + + + + | (no ) | magnesium oxide 400 MG | [facility] | | | Oral Tablet | [facility] | + + + + | (no ) | 1 ML benralizumab 30 MG/ML | [facility] | | | Prefilled Syringe | [facility] | | | [Fasenra] | | + + + + | (no ) | cholecalciferol 0.025 MG | [facility] | | | Oral Tablet | [facility] | + + + + | (no ) | furosemide 20 MG Oral | [facility] | | | Tablet [Lasix] | [facility] | + + + + | (no date) | azithromycin 250 MG Oral | [facility] | | | Tablet | [facility] | + + + + | (no ) | vitamin B12 1 MG Oral | [facility] | | | Tablet | [facility] | + + + + | 2025-06-03 00:00 | prednisone 20 MG Oral | [facility] | | | Tablet | [facility] | + + + + | 2025-06-15 00:00 | prednisone 20 MG Oral | [facility] | | | Tablet | [facility] | + + + + | 2025-06-03 00:00 | prednisone 5 MG Oral | [facility] | | | Tablet | [facility] | + + + + | (no date) | pantoprazole 40 MG Delayed | [facility] | | | Release Oral Tablet | [facility] | + + + + | (no date) | duloxetine 30 MG Delayed | [facility] | | | Release Oral Capsule | [facility] | + + + + | 2025-06-03 00:00 | amoxicillin 500 MG / | [facility] | | | clavulanate 125 MG Oral | [facility] | | | Tablet | | + + + + | (no date) | {3 (azithromycin 500 MG | [facility] | | | Oral Tablet) } Pack | [facility] | + + + + | 2025-06-15 00:00 | TRI-LIZA | [facility] | | | | [facility] | + + + + | 2025-06-06 00:00 | cyclobenzaprine | [facility] | | | hydrochloride 10 MG Oral | [facility] | | | Tablet | | + + + + | (no date) | [id number] 200 ACTUAT | [facility] | | | albuterol 0.09 MG/ACTUAT | [facility] | | | Metered Dose I | | + + + + | (no date) | 24 HR metformin | [facility] | | | hydrochloride 500 MG | [facility] | | | Extended Release Oral T | | + + + + Problems + + + + | date | description | facility | + + + + | 2025-06-06 00:00 | Chest wall pain | [facility] | | | | [facility] | + + + + Procedures + + + + | date | description | facility | + + + + | 2025-05-01 00:00 | INTRODUCE OF OTH | [facility] | | | ANTI-INFECT INTO PERIPH | [facility] | | | MOHAN, PERC APPROACH | | + + + + | 2025-06-01 00:00 | INTRODUCE OF OTH | [facility] | | | ANTI-INFECT INTO PERIPH | [facility] | | | VEIN, PERC APPROACH | | + + + + | 2025-06-01 00:00 | MEASURE OF ARTERIAL | [facility] | | | SATURATION, PERIPHERAL, | [facility] | | | PERC APPROACH | | + + + + | 2025-05-01 00:00 | ASSISTANCE WITH | [facility] | | | RESPIRATORY VENTILATION, | [facility] | | | <24 HRS, CPAP | | + + + + Results/Labs +--------+--------+ +---------+--------+---------+ | test | date | facility | value | unit | notes | +--------+--------+ +---------+--------+---------+ + + | Result panel 1 | + + + + + + [...] 2 | + + + + + + [...] 3 | + + + + + + [...] 4 | + + + + + + [...] 5 | + + + + + + [...] 6 | + + + + + + [...] 7 | + + + + + + [...] 8 | + + + + + + [...] 9 | + + + + + + [...] 10 | + + + + + + [...] 11 | + + + + + + [...] 12 | + + + + + + [...] 13 | + + + + + +-------+ [...] 14 | + + + + + +-------+ [...] 15 | + + + + + +-------+ [...] 16 | + + + + + +-------+ [...] 17 | + + + + + +-------+ + + | Hgb A1c % | 2025-05-02 | | 6.1 | (missing) | (missing) | | | 05:10 | [facility] | | | [facility] | | | | + + + +-------+ + + + + | Result panel 18 | + + + + + +-------+ [...] 19 | + + + + + +--------+ [...] 20 | + + + + + +--------+ [...] 21 | + + + + + +------+ [...] 22 | + + + + + +--------+ [...] 24 | + + + + + +--------+ [...] 25 | + + + + + +------+ [...] 26 | + + + + + +--------+ [...] 27 | + + + + + +--------+ [...] 28 | + + + + + +--------+ [...] 29 | + + + + + +------+ [...] 30 | + + + + + +--------+ [...] 31 | + + + + + +--------+ [...] 32 | + + + + + +--------+ [...] 35 | + + + + + +--------+ [...] 36 | + + + + + +--------+ [...] 37 | + + + + + +------+ [...] 41 | + + + + + +------+ [...] 43 | + + + + + +-------+ [...] 45 | + + + + + +-------+ [...] 46 | + + + + + +--------+ [...] 47 | + + + + + +--------+ [...] 48 | + + + + + +--------+ [...] 49 | + + + + + +--------+ [...] 50 | + + + + + + [...] 51 | + + + + + +-------+ [...] 52 | + + + + + +-----+ [...] 53 | + + + + + +-------+ [...] 54 | + + + + + +--------+ [...] 55 | + + + + + +--------+ [...] 56 | + + + + + + [...] 60 | + + + + + +--------+ [...] 61 | + + + + + +------+ [...] 62 | + + + + + +---------+ [...] 65 | + + + + + +-------+ [...] 66 | + + + + + +------+ [...] 67 | + + + + + +--------+ [...] 68 | + + + + + +-------+ [...] 69 | + + + + + +-------+ [...] 71 | + + + + + +-------+ [...] 72 | + + + + + +-------+ [...] 73 | + + + + + +-------+ [...] 74 | + + + + + +--------+ [...] 75 | + + + + + +-------+ [...] 76 | + + + + + +-----+ [...] 77 | + + + + + +------+ [...] 78 | + + + + + +------+ [...] 79 | + + + + + +--------+ [...] 80 | + + + + + +--------+ [...] 81 | + + + + + +--------+ [...] 82 | + + + + + +--------+ [...] 83 | + + + + + + [...] 87 | + + + + + +-------+ [...] 88 | + + + + + +-------+ [...] 89 | + + + + + +---------+ [...] 93 | + + + + + +--------+ [...] 96 | + + + + + +-------+ [...] 98 | + + + + + +--------+ [...] 100 | + + + + + +-----+ [...] 101 | + + + + + +-------+ [...] 102 | + + + + + +-------+ [...] 103 | + + + + + +------+ [...] 105 | + + + + + +------+ [...] 106 | + + + + + +---------+ [...] 107 | + + + + + +-------+ [...] 108 | + + + + + +-------+ [...] 109 | + + + + + +-------+ [...] 110 | + + + + + +------+ [...] 111 | + + + + + +--------+ [...] 112 | + + + + + +-------+ [...] 113 | + + + + + +-------+ [...] 115 | + + + + + +-------+ [...] 118 | + + + + + +-------+ [...] 119 | + + + + + +------+ [...] 120 | + + + + + +------+ [...] 122 | + + + + + +-------+ [...] 123 | + + + + + +---------+ + + | Blood | 2025-06-18 | | 12.56 | (missing) | (missing) | | leukocytes | 10:19 | [facility] | | | | | [facility] | count | | [facility] | | | | (number/volu | | Hospital | | | | | me) | | | | | | + + + +---------+ + + + + | Result panel 124 | + + + + + +--------+ + + | Blood | 2025-06-18 | | 5.35 | (missing) | (missing) | | erythrocytes | 10:19 | [facility] | | | | | automated [facility] | count | | [facility] | | | | (number/volu | | Hospital | | | | | me) | | | | | | + + + +--------+ + + + + | Result panel 125 | + + + + + +--------+ + + | Blood | 2025-06-18 | | 15.5 | (missing) | (missing) | | hemoglobin | 10:19 | [facility] | | | | | measurement [facility] | | (mass/volume | | [facility] | [facility] | ) | | [facility] | | | | + + + +--------+ + + + + | Result panel 126 | + + + + + +--------+ + + | Automated | 2025-06-18 | | 47.6 | (missing) | (missing) | | blood | 10:19 | [facility] | | | | | hematocrit | [facility] | | | | [facility] | | | | + + + +--------+ + + + + | Result panel 127 | + + + + + +--------+ + + | Automated | 2025-06-18 | | 89.0 | (missing) | (missing) | | erythrocyte | 10:19 | [facility] | | | | | mean | [facility] | | | | | corpuscular | | [facility] | | | | volume | | [facility] | | | | + + + +--------+ + + + + | Result panel 128 | + + + + + +--------+ + + | Automated | 2025-06-18 | | 29.0 | (missing) | (missing) | | erythrocyte | 10:19 | [facility] | | | | | [...] + +--------+ + + | Automated | 2025-06-18 | | 32.6 | (missing) | (missing) | | erythrocyte | 10:19 | [facility] | | | | | [...] + +-------+ + + | Automated | 2025-06-18 | | 243 | (missing) | (missing) | | blood | 10:19 | [facility] | | | | | platelet | [facility] | count | | [facility] | | | | (count/volum | | Hospital | | | | | e) | | | | | | + + + +-------+ + + + + | Result panel 131 | + + + + + +--------+ + + | Automated | 2025-06-18 | | 89.4 | (missing) | (missing) | | blood | 10:19 | [facility] | | | | | [...] + +-------+ + + | Automated | 2025-06-18 | | 6.4 | (missing) | (missing) | | blood | 10:19 | [facility] | | | | | [...] + +-------+ + + | Automated | 2025-06-18 | | 3.7 | (missing) | (missing) | | blood | 10:19 | [facility] | | | | | [...] 134 | + + + + + +-----+ + + | Automated | 2025-06-18 | | 0 | (missing) | (missing) | | blood | 10:19 | [facility] | | | | | [...] 135 | + + + + + +-------+ + + | Automated | 2025-06-18 | | 0.1 | (missing) | (missing) | | blood | 10:19 | [facility] | | | | | [...] +-------+ + + | Serum or | 2025-06-18 | | 210 | (missing) | (missing) | | plasma | 10:19 | [facility] | | | | | glucose | [facility] | measurement | [facility] | | | | (mass/volume | | Hospital | | | | | ) | | | | | | + + + +-------+ + + + + | Result panel 137 | + + + + + +------+ + + | Serum or | 2025-06-18 | | 31 | (missing) | (missing) | | plasma urea | 10:19 | [facility] | | | | | nitrogen | | [facility] | | | | | measurement | | [facility] | | | | (mass/volume | | Hospital | | | | | ) | | | | | | + + + +------+ + + + + | Result panel 138 | + + + + + +--------+ + + | Serum or | 2025-06-18 | | 1.40 | (missing) | (missing) | | plasma | 10:19 | [facility] | | | | | [...] + +------+ + + | Glomerular | 2025-06-18 | | 56 | (missing) | (missing) | | filtration | 10:19 | [facility] | | | | | [...] 140 | + + + + + +---------+ + + | Serum or | 2025-06-18 | | 22.14 | (missing) | (missing) | | plasma urea | 10:19 | [facility] | | | | | nitrogen/cre | [facility] | | [facility] | | atinine mass | | [facility] | | | | ratio | | [facility] | | | | + + + +---------+ + + + + | Result panel 141 | + + + + + +-------+ + + | Serum or | 2025-06-18 | | 138 | (missing) | (missing) | | plasma | 10:19 | [facility] | | | | | sodium | [facility] | measurement | | [facility] | | | | | (moles/volum | | Hospital | | | | | e) | | | | | | + + + +-------+ + + + + | Result panel 142 | + + + + + +-------+ + + | Serum or | 2025-06-18 | | 4.4 | (missing) | (missing) | | plasma | 10:19 | [facility] | | | | | potassium | [facility] | measurement | | [facility] | | | | | (moles/volum | | Hospital | | | | | e) | | | | | | + + + +-------+ + + + + | Result panel 143 | + + + + + +-------+ + + | Serum or | 2025-06-18 | | 100 | (missing) | (missing) | | plasma | 10:19 | [facility] | | | | | chloride | [facility] | [facility] | measurement | | [facility] | | | | | (moles/volum | | Hospital | | | | | e) | | | | | | + + + +-------+ + + + + | Result panel 144 | + + + + + +------+ + + | Serum or | 2025-06-18 | | 26 | (missing) | (missing) | | plasma | 10:19 | [facility] | | | | | [...] +--------+ + + | Serum or | 2025-06-18 | | 16.4 | (missing) | (missing) | | plasma anion | 10:19 | [facility] | | | | | gap 4 | [facility] | | | | + + + +--------+ + + + + | Result panel 146 | + + + + + +-------+ + + | Serum or | 2025-06-18 | | 9.3 | (missing) | (missing) | | plasma | 10:19 | [facility] | | | | | calcium | [facility] | measurement | | [facility] | | | | (mass/volume | | Hospital | | | | | ) | | | | | | + + + +-------+ + + + + | Result panel 147 | + + + + + +-------+ + + | Serum or | 2025-06-18 | | 2.1 | (missing) | (missing) | | plasma | 10:19 | [facility] | | | | | [...] +-------+ + + | Serum or | 2025-06-18 | | 7.4 | (missing) | (missing) | | plasma | 10:19 | [facility] | | | | | protein | [facility] | [facility] | measurement | | [facility] | | | | (mass/volume | | Hospital | | | | | ) | | | | | | + + + +-------+ + + + + | Result panel 149 | + + + + + +-------+ + + | Serum or | 2025-06-18 | | 3.3 | (missing) | (missing) | | plasma | 10:19 | [facility] | | | | | albumin | [facility] | | [facility] | measurement | | [facility] | | | | (mass/volume | | Hospital | | | | | ) | | | | | | + + + +-------+ + + + + | Result panel 150 | + + + + + +-------+ + + | Serum | 2025-06-18 | | 4.1 | (missing) | (missing) | | globulin | 10:19 | [facility] | | | | | measurement | [facility] | | | | (mass/volume | | [facility] | | | | ) | | [facility] | | | | + + + +-------+ + + + + | Result panel 151 | + + + + + +--------+ + + | Serum or | 2025-06-18 | | 0.80 | (missing) | (missing) | | plasma | 10:19 | [facility] | | | | | albumin/glob | [facility] | | | | | ulin mass | | [facility] | | | | | ratio | | [facility] | | | | + + + +--------+ + + + + | Result panel 152 | + + + + + +-------+ + + | Serum or | 2025-06-18 | | 0.2 | (missing) | (missing) | | plasma total | 10:19 | [facility] | | | | | bilirubin | [facility] | [facility] | measurement | | [facility] | | | | (mass/volume | | Hospital | | | | | ) | | | | | | + + + +-------+ + + + + | Result panel 153 | + + + + + +------+ + + | Serum or | 2025-06-18 | | 10 | (missing) | (missing) | | plasma | 10:19 | [facility] | | | | | [...] 154 | + + + + + +------+ + + | Serum or | 2025-06-18 | | 32 | (missing) | (missing) | | plasma | 10:19 | [facility] | | | | | [...] +------+ + + | Serum or | 2025-06-18 | | 71 | (missing) | (missing) | | plasma | 10:19 | [facility] | | | | | [...] +--------+ + + | Serum or | 2025-06-18 | | 11.6 | (missing) | (missing) | | plasma | 10:19 | [facility] | | | | | [...] 157 | + + + + + + + + + | Influenza | 2025-06-18 | | NEGATIVE | (missing) | (missing) | | virus A Ag | 11:08 | [facility] | | | | | [Presence] | [facility] | | in [facility] | | [facility] | | | | | respiratory | | Hospital | | | | | specimen by | | | | | | | Rapid | | | | | | | immunoassay | | | | | | + + + + + + + + + | Result panel 158 | + + + + + + + + + | Influenza | 2025-06-18 | | NEGATIVE | (missing) | (missing) | | virus B Ag | 11:08 | [facility] | | | | | [Presence] [facility] | | in [facility] | | [facility] | | | | | respiratory | | Hospital | | | | | specimen by | | | | | | | Rapid | | | | | | | immunoassay | | | | | | + + + + + + + + + | Result panel 159 | + + + + + + + + + | SARS-CoV+CHRIS | 2025-06-18 | | NEGATIVE | (missing) | (missing) | | S-CoV-2 | 11:08 | [facility] | | | | | (COVID-19) | [facility] | | | | | Ag | | [facility] | | | | | [Presence] | | Hospital | | | | | in | | | | | | | Respiratory | | | | | | | system | | | | | | | specimen by | | | | | | | Rapid | | | | | | | immunoassay | | | | | | + + + + + + + + + | Result panel 160 | + + + + + + + + + | Annotation | 2025-06-18 | | SEE BELOW | (missing) | (missing) | | comment | 11:08 | [facility] | | | | | [Interpretat | [facility] | | | | | ion] | | [facility] | | | | | Narrative | | Hospital | | | | + + + + + + + + + | Result panel 161 | + + + + + +---------+ + + | Venous | 2025-06-18 | | 7.362 | (missing) | (missing) | | whole blood | 11:44 | [facility] | | | | | pH | | [facility] | | | | | measurement | | [facility] | | | | | | [facility] | | | | + + + +---------+ + + Social History + + + + | date | description | facility | + + + + | (no date) | Unknown if ever smoked | [facility] | | | | [facility] | + + + + Vital Signs No information."
[2025-06-27 09:10] LABS: BASOPHILS 0.2 % (0.2-1.2); EOSINOPHILS 0 % (0.8-7.0); LYMPHOCYTES 21.3 % (21.8-53.1); MCH 29.4 PG (25.7-32.2); MCHC 32.8 g/dL (32.3-36.5); MCV 89.8 fL (79.0-92.2); MONOCYTES 6.8 % (5.3-12.2); NEUTROPHILS 70.8 % (34.0-67.9); RBC 4.62 M/uL (4.63-6.08)
[2025-06-27] MEDS ORDERED: ALBUTEROL/IPRATROPIUM 3 ML NEB INH PRN (09:15)
[2025-06-27 09:32] LABS: ALT (SGPT) 34.0 U/L (14-59); AST (SGOT) 10.0 U/L (15-37); GLOMERULAR FILTRATION RATE,EST 68.0 mL/min (>60); PROTEIN, TOTAL 6.2 g/dL (6.4-8.2); UREA NITROGEN 31.0 mg/dL (7-18)
[2025-06-27] MEDS ORDERED: ALBUTEROL SULFATE 0.5% 2.5 MG/0.5 ML VIAL INH ONE (09:45)
[2025-06-27] MEDS ORDERED: FUROSEMIDE 100 MG/10 ML VIAL IV ONE (11:30)
[2025-06-27 13:27] VITALS: BP 113/68
--- NOTE | 2025-06-28 09:54 | EKG ---
[facility] [address] [place] [address] Signed Sinus tachycardia with premature atrial complexes with aberrant conduction Otherwise normal ECG Confirmed by Nabor Juarez DO ([id number]) on 06/28/2025 9:54:46 AM Electronically Signed By: NABOR JUAREZ DO 06/28/25 0954 PATIENT NAME: DAMARI LARA TENZIN Electrocardiogram DATE OF : 58 PHYSICIAN: NABOR JUAREZ DO REPORT #: [id number] REPORT IS CONFIDENTIAL AND NOT TO BE RELEASED WITHOUT AUTHORIZATION
--- NOTE | 2025-06-28 09:55 | EKG ---
[facility] [address] [place] [address] Signed Sinus rhythm with occasional premature ventricular complexes Otherwise normal ECG When compared with ECG of 27-JUN-2025 09:03, (Unconfirmed) premature ventricular complexes are now present aberrant conduction is no longer present Confirmed by Nabor Juarez DO ([id number]) on 06/28/2025 9:55:06 AM Electronically Signed By: NABOR JUAREZ DO 06/28/25 0955 PATIENT NAME: DAMARI LARA TENZIN Electrocardiogram DATE OF : 58 PHYSICIAN: NABOR JUAREZ DO REPORT #: [id number] REPORT IS CONFIDENTIAL AND NOT TO BE RELEASED WITHOUT AUTHORIZATION
== END 2025-06-27 13:20 | disposition home or self-care (01) ==
LOC: ED 08:55
PROVIDERS: Emergency Medicine
DX: J44.1 Chronic obstructive pulmonary disease with (acute) exacerbation (principal); I50.9 Heart failure, unspecified; Z88.8 Allergy status to other drugs, medicaments and biological substances; Z79.01 Long term (current) use of anticoagulants; Z79.899 Other long term (current) drug therapy
CPT/HCPCS: 36415; 71045; 80053; 83735; 83880; 84484; 85025; 93005; 93010; 94640; 96374; 96375; 99285-25; J1938; J2919

== ENCOUNTER 2025-06-29 09:14 | Emergency (ER) | payer MEDICARE, OTHER ==
[~2025-06-29] VITALS: Ht 182.9 cm; Wt 139.9 kg
--- OUTSIDE RECORDS SUMMARY | ~2025-06-29 | XMS | Continuity of Care Document ---
Demographics + + + | Address | [address] | | | [place] [address] | + + + | Preferred Language | Unknown | + + + | Marital Status | Domestic partner | + + + | Sabianist Affiliation | Unknown | + + + | Race | White | + + + | Ethnic Group | Not or | + + + Author + + + | Author | Center | + + + | Organization | Center | + + + | Address | [address] | | | [place] [address] | + + + | Phone | | + + + Care Team Providers + + + + | Care Horticultural Technical Officer Name | Role | Phone | + [...] + + + + + + | 2025-06-27 | daptomycin | [facility] - | (no [...] + + + + + + | 2025-06-27 | gabapentin | [facility] - | (no reaction) | (no severity) | | 00:00 | | [facility] | | | [facility] | | | + + + + + + Encounters No information. Functional Status No information. Immunizations + + + + | date | description | facility | + + + + | (no date) | No vaccine administered | [facility] | | | | [facility] | + + + + Medications + + + + | date | description | facility | + + + + | (no date) | fluticasone propionate | [facility] | | | 0.25 MG/ACTUAT / salmeterol | [facility] | | | 0.05 MG/A | | + + + + | (no date) | apixaban 5 MG Oral Tablet | [facility] | | | [Eliquis] | [facility] | + + + + | 2025-05-16 00:00 | albuterol 0.833 MG/ML / | [facility] | | | ipratropium bromide 0.167 | [facility] | | | MG/ML Inha | | + + + + | (no date) | 60 ACTUAT tiotropium | [facility] | | | 0.0025 MG/ACTUAT Inhalation | [facility] | | | [place] [[facility] | | + + + + | 2025-06-03 00:00 | doxycycline hyclate 100 MG | [facility] | | | Oral Capsule | [facility] | + + + + | (no date) | allopurinol 300 MG Oral | [facility] | | | Tablet | [facility] | + + + + | (no date) | prednisone 10 MG Oral | [facility] | | | Tablet | [facility] | + + + + | (no date) | magnesium oxide 400 MG | [facility] | | | Oral Tablet | [facility] | + + + + | (no date) | 1 ML benralizumab 30 MG/ML | [facility] | | | Prefilled Syringe | [facility] | | | [Fasenra] | | + + + + | (no date) | cholecalciferol 0.025 MG | [facility] | | | Oral Tablet | [facility] | + + + + | (no date) | furosemide 20 MG Oral | [facility] | | | Tablet [Lasix] | [facility] | + + + + | (no date) | azithromycin 250 MG Oral | [facility] | | | Tablet | [facility] | + + + + | (no date) | vitamin B12 1 MG Oral | [facility] | | | Tablet | [facility] | + + + + | 2025-06-03 00:00 | prednisone 20 MG Oral | [facility] | | | Tablet | [facility] | + + + + | 2025-06-15 00:00 | prednisone 20 MG Oral | [facility] | | | Tablet | [facility] | + + + + | 2025-06-03 00:00 | prednisone 5 MG Oral | [facility] | | | Tablet | [facility] | + + + + | (no date) | pantoprazole 40 MG Delayed | [facility] | | | Release Oral Tablet | [facility] | + + + + | (no date) | duloxetine 30 MG Delayed | [facility] | | | Release Oral Capsule | [facility] | + + + + | 2025-06-03 00:00 | amoxicillin 500 MG / | [facility] | | | clavulanate 125 MG Oral | [facility] | | | Tablet | | + + + + | (no date) | {3 (azithromycin 500 MG | [facility] | | | Oral Tablet) } Pack | [facility] | + + + + | 2025-06-15 00:00 | TRI-LIZA | [facility] | | | | [facility] | + + + + | 2025-06-06 00:00 | cyclobenzaprine | [facility] | | | hydrochloride 10 MG Oral | [facility] | | | Tablet | | + + + + | (no date) | [id number] 200 ACTUAT | [facility] | | | albuterol 0.09 MG/ACTUAT | [facility] | | | Metered Dose I | | + + + + | (no date) | 24 HR metformin | [facility] | | | hydrochloride 500 MG | [facility] | | | Extended Release Oral T | | + + + + Problems + + + + | date | description | facility | + + + + | 2025-06-06 00:00 | Chest wall pain | [facility] | | | | [facility] | + + + + | 2025-06-27 00:00 | CHF exacerbation | [facility] | | | | [facility] | + + + + Procedures + + + + | date | description | facility | + + + + | 2025-05-01 00:00 | INTRODUCE OF OT | [facility] | | | ANTI-INFECT INTO [facility] | | | VEIN, PERC APPROACH | | + + + + | 2025-06-01 00:00 | INTRODUCE OF OT | [facility] | | | ANTI-INFECT INTO [facility] | | | VEIN, PERC APPROACH | | + + + + | 2025-06-01 00:00 | MEASURE OF ARTERIAL | [facility] | | | SATURATION, PERIPHERAL, | [facility] | | | PERC APPROACH | | + + + + | 2025-05-01 00:00 | ASSISTANCE WITH | [facility] | | | RESPIRATORY VENTILATION, | [facility] | | | <24 HRS, CPAP | [...] 14 | + + + + + + [...] 15 | + + + + + + [...] 16 | + + + + + + [...] 22 | + + + + + +-------+ [...] 23 | + + + + + +-------+ [...] 25 | + + + + + +--------+ [...] 27 | + + + + + +------+ [...] 33 | + + + + + +--------+ [...] 35 | + + + + + +------+ [...] - [facility] | | | | | (moles/ramone | | [facility] | | | | | e) | | Hospital | | | | + + + +--------+ + + + + | Result panel 37 | + + + + + +--------+ [...] 39 | + + + + + +------+ [...] | Hospital | | | | | (rosemaries/volum | | | | | | | [...] 43 | + + + + + +------+ [...] 44 | + + + + + +--------+ [...] 45 | + + + + + +--------+ [...] 47 | + + + + + +------+ [...] 50 | + + + + + +--------+ [...] 53 | + + + + + +--------+ [...] 55 | + + + + + +------+ [...] 56 | + + + + + +--------+ [...] 58 | + + + + + +-------+ [...] 59 | + + + + + +-------+ [...] 61 | + + + + + +--------+ [...] 62 | + + + + + +--------+ [...] 63 | + + + + + + [...] 64 | + + + + + +--------+ [...] 66 | + + + + + + [...] 68 | + + + + + +--------+ [...] 69 | + + + + + + [...] 71 | + + + + + +--------+ [...] 72 | + + + + + +--------+ [...] 73 | + + + + + +--------+ [...] 75 | + + + + + +--------+ [...] 76 | + + + + + +--------+ [...] 77 | + + + + + +-------+ [...] 78 | + + + + + +--------+ [...] 81 | + + + + + +-----+ [...] 85 | + + + + + + [...] 86 | + + + + + +-------+ [...] 90 | + + + + + +---------+ [...] 91 | + + + + + +-------+ [...] 92 | + + + + + +-------+ + + | Serum or | 2025-06-06 | | 4.4 | (missing) | (missing) | | plasma | 20:13 | [facility] | | | | | potassium | | - [facility] | | [facility] | | measurement | | [facility] | | | | | (moles/volum | | Hospital | | | | | e) | | | | | | + + + +-------+ + + + + | Result panel 93 | + + + + + +-------+ [...] 94 | + + + + + +------+ [...] 97 | + + + + + +-------+ [...] 98 | + + + + + +-------+ [...] 103 | + + + + + +-----+ [...] 104 | + + + + + +------+ [...] 106 | + + + + + +-------+ [...] 107 | + + + + + +---------+ [...] 115 | + + + + + +--------+ [...] 116 | + + + + + +--------+ [...] 117 | + + + + + +-------+ [...] 118 | + + + + + +-----+ [...] 119 | + + + + + +-------+ [...] 174 | + + + + + +--------+ [...] + + + + | Result panel 175 | + + + + + + [...] + + + + | Result panel 176 | + + + + + + [...] + + + + | Result panel 177 | + + + + + + [...] + + + + | Result panel 178 | + + + + + + [...] + + + + | Result panel 179 | + + + + + + [...] + + + + | Result panel 180 | + + + + + + [...] + + + + | Result panel 181 | + + + + + + [...] + + + + | Result panel 182 | + + + + + + [...] + + + + | Result panel 183 | + + + + + +---------+ [...] + + + + | Result panel 184 | + + + + + +---------+ [...] + + + + | Result panel 185 | + + + + + +--------+ + + | Automated | 2025-06-27 | | 70.8 | (missing) | (missing) | | blood | 09:05 | [facility] | | | | | neutrophil | | - [facility] | | | | | count as | | [facility] | | | | | percentage | | Hospital | | | | | of total | | | | | | | leukocytes | | | | | | + + + +--------+ + + + + | Result panel 186 | + + + + + +--------+ + + | Automated | 2025-06-27 | | 21.3 | (missing) | (missing) | | blood | 09:05 | [facility] | | | | | lymphocyte | | - [facility] | | | | | count as | | [facility] | | | | | percentage | | Hospital | | | | | ot total | | | | | | | leukocytes | | | | | | + + + +--------+ + + + + | Result panel 187 | + + + + + +-------+ + + | Automated | 2025-06-27 | | 6.8 | (missing) | (missing) | | blood | 09:05 | [facility] | | | | | monocyte | | - [facility] | | | | | count as | | [facility] | | | | | percentage | | Hospital | | | | | of total | | | | | | | leukocytes | | | | | | + + + +-------+ + + + + | Result panel 188 | + + + + + +-----+ + + | Automated | 2025-06-27 | | 0 | (missing) | (missing) | | blood | 09:05 | [facility] | | | | | eosinophil | | - [facility] | | | | | count as | | [facility] | | | | | percentage | | Hospital | | | | | of total | | | | | | | leukocytes | | | | | | + + + +-----+ + + + + | Result panel 189 | + + + + + +-------+ + + | Automated | 2025-06-27 | | 0.2 | (missing) | (missing) | | blood | 09:05 | [facility] | | | | | basophil | | - [facility] | | [facility] | | count as | | [facility] | | | | | percentage | | Hospital | | | | | of total | | | | | | | leukocytes | | | | | | + + + +-------+ + + + + | Result panel 190 | + + + + + +-------+ + + | Serum or | 2025-06-27 | | 106 | (missing) | (missing) | | plasma | 09:05 | [facility] | | | | | glucose | | - [facility] | | [facility] | | measurement | | [facility] | | | | | (mass/volume | | Hospital | | | | | ) | | | | | | + + + +-------+ + + + + | Result panel 191 | + + + + + +------+ + + | Serum or | 2025-06-27 | | 31 | (missing) | (missing) | | plasma urea | 09:05 | [facility] | | | | | nitrogen | | - [facility] | | [facility] | | measurement | | [facility] | | | | | (mass/volume | | Hospital | | | | | ) | | | | | | + + + +------+ + + + + | Result panel 192 | + + + + + +--------+ + + | Serum or | 2025-06-27 | | 1.19 | (missing) | (missing) | | plasma | 09:05 | [facility] | | | | | creatinine | | - [facility] | | [facility] | | measurement | | [facility] | | | | | (mass/volume | | Hospital | | | | | ) | | | | | | + + + +--------+ + + + + | Result panel 193 | + + + + + +------+ + + | Glomerular | 2025-06-27 | | 68 | (missing) | (missing) | | filtration | 09:05 | [facility] | | | | | [...] + + + + | Result panel 194 | + + + + + +---------+ + + | Serum or | 2025-06-27 | | 26.05 | (missing) | (missing) | | plasma urea | 09:05 | [facility] | | | | | nitrogen/cre | | - [facility] | | | | | atinine mass | | [facility] | | | | | ratio | | Hospital | | | | + + + +---------+ + + + + | Result panel 195 | + + + + + +---------+ + + | Blood | 2025-06-27 | | 12.74 | (missing) | (missing) | | leukocytes | 09:05 | [facility] | | | | | automated | | - [facility] | | | | | count | | [facility] | | | | | (number/volu | | Hospital | | | | | me) | | | | | | + + + +---------+ + + + + | Result panel 196 | + + + + + +-------+ + + | Serum or | 2025-06-27 | | 141 | (missing) | (missing) | | plasma | 09:05 | [facility] | | | | | sodium | | - [facility] | | [facility] | | measurement | | [facility] | | | | | (moles/volum | | Hospital | | | | | e) | | | | | | + + + +-------+ + + + + | Result panel 197 | + + + + + +-------+ + + | Serum or | 2025-06-27 | | 3.8 | (missing) | (missing) | | plasma | 09:05 | [facility] | | | | | potassium | | - [facility] | | | | | measurement | | [facility] | | | | | (moles/volum | | Hospital | | | | | e) | | | | | | + + + +-------+ + + + + | Result panel 198 | + + + + + +-------+ + + | Serum or | 2025-06-27 | | 104 | (missing) | (missing) | | plasma | 09:05 | [facility] | | | | | chloride | | - [facility] | | | | | measurement | | [facility] | | | | | (moles/volum | | Hospital | | | | | e) | | | | | | + + + +-------+ + + + + | Result panel 199 | + + + + + +------+ + + | Serum or | 2025-06-27 | | 31 | (missing) | (missing) | | plasma | 09:05 | [facility] | | | | | [...] + + + + | Result panel 200 | + + + + + +-------+ + + | Serum or | 2025-06-27 | | 9.8 | (missing) | (missing) | | plasma anion | 09:05 | [facility] | | | | | gap 4 | | [facility] | | [facility] | | | | | | Hospital | | | | + + + +-------+ + + + + | Result panel 201 | + + + + + +-------+ + + | Serum or | 2025-06-27 | | 8.6 | (missing) | (missing) | | plasma | 09:05 | [facility] | | | | | calcium | | - [facility] | | | | | measurement | | [facility] | | | | | (mass/volume | | Hospital | | | | | ) | | | | | | + + + +-------+ + + + + | Result panel 202 | + + + + + +-------+ + + | Serum or | 2025-06-27 | | 2.1 | (missing) | (missing) | | plasma | 09:05 | [facility] | | | | | magnesium | | - [facility] | | | | | measurement | | [facility] | | | | | (mass/volume | | Hospital | | | | | ) | | | | | | + + + +-------+ + + + + | Result panel 203 | + + + + + +-------+ + + | Serum or | 2025-06-27 | | 6.2 | (missing) | (missing) | | plasma | 09:05 | [facility] | | | | | protein | | - [facility] | | | | | measurement | | [facility] | | | | | (mass/volume | | Hospital | | | | | ) | | | | | | + + + +-------+ + + + + | Result panel 204 | + + + + + +-------+ + + | Serum or | 2025-06-27 | | 2.9 | (missing) | (missing) | | plasma | 09:05 | [facility] | | | | | albumin | | - [facility] | | [facility] | | measurement | | [facility] | | | | | (mass/volume | | Hospital | | | | | ) | | | | | | + + + +-------+ + + + + | Result panel 205 | + + + + + +-------+ + + | Serum | 2025-06-27 | | 3.3 | (missing) | (missing) | | globulin | 09:05 | [facility] | | | | | measurement | | - [facility] | | | | | (mass/volume | | [facility] | | | | | ) | | Hospital | | | | + + + +-------+ + + + + | Result panel 206 | + + + + + +--------+ + + | Blood | 2025-06-27 | | 4.62 | (missing) | (missing) | | erythrocytes | 09:05 | [facility] | | | | | automated | | - [facility] | | | | | count | | [facility] | | | | | (number/volu | | Hospital | | | | | me) | | | | | | + + + +--------+ + + + + | Result panel 207 | + + + + + +--------+ + + | Serum or | 2025-06-27 | | 0.88 | (missing) | (missing) | | plasma | 09:05 | [facility] | | | | | albumin/glob | | - [facility] | | | | | ulin mass | | [facility] | | | | | ratio | | Hospital | | | | + + + +--------+ + + + + | Result panel 208 | + + + + + +-------+ + + | Serum or | 2025-06-27 | | 0.2 | (missing) | (missing) | | plasma total | 09:05 | [facility] | | | | | bilirubin | | - [facility] | | | | | measurement | | [facility] | | | | | (mass/volume | | Hospital | | | | | ) | | | | | | + + + +-------+ + + + + | Result panel 209 | + + + + + +------+ + + | Serum or | 2025-06-27 | | 10 | (missing) | (missing) | | plasma | 09:05 | [facility] | | | | | [...] + + + + | Result panel 210 | + + + + + +------+ + + | Serum or | 2025-06-27 | | 34 | (missing) | (missing) | | plasma | 09:05 | [facility] | | | | | [...] + + + + | Result panel 211 | + + + + + +------+ + + | Serum or | 2025-06-27 | | 74 | (missing) | (missing) | | plasma | 09:05 | [facility] | | | | | [...] + + + + | Result panel 212 | + + + + + +--------+ + + | Blood | 2025-06-27 | | 13.6 | (missing) | (missing) | | hemoglobin | 09:05 | [facility] | | | | | measurement | | - [facility] | | | | | (mass/volume | | [facility] | | | | | ) | | Hospital | | | | + + + +--------+ + + + + | Result panel 213 | + + + + + +--------+ + + | Automated | 2025-06-27 | | 41.5 | (missing) | (missing) | | blood | 09:05 | [facility] | | | | | hematocrit | [facility] - [facility] | | | [facility] | | | | | | [facility] | | | | + + + +--------+ + + + + | Result panel 214 | + + + + + +--------+ + + | Automated | 2025-06-27 | | 89.8 | (missing) | (missing) | | erythrocyte | 09:05 | [facility] | | | | | mean | | - [facility] | | | | | corpuscular | | [facility] | | | | | volume | | Hospital | | | | + + + +--------+ + + + + | Result panel 215 | + + + + + +--------+ + + | Automated | 2025-06-27 | | 29.4 | (missing) | (missing) | | erythrocyte | 09:05 | [facility] | | | | | [...] + + + + | Result panel 216 | + + + + + +--------+ + + | Automated | 2025-06-27 | | 32.8 | (missing) | (missing) | | erythrocyte | 09:05 | [facility] | | | | | [...] + + + + | Result panel 217 | + + + + + +-------+ + + | Automated | 2025-06-27 | | 245 | (missing) | (missing) | | blood | 09:05 | [facility] | | | | | platelet | | - [facility] | [facility] | count | | [facility] | | | | | (count/volum | | Hospital | | | | | e) | | | | | | + + + +-------+ + + + + | Result panel 218 | + + + + + +--------+ + + | Serum or | 2025-06-27 | | 23.2 | (missing) | (missing) | | plasma | 12:15 | [facility] | | | | | [...] + + +--------+ + + Social History + + + + | date | description | facility | + + + + | (no date) | Unknown if ever smoked | [facility] | | | | [facility] | + + + + Vital Signs No information."
[2025-06-29] MEDS ORDERED: ALBUTEROL/IPRATROPIUM 3 ML NEB INH PRN (09:30)
[2025-06-29] MEDS ORDERED: ALBUTEROL SULFATE 0.5% 2.5 MG/0.5 ML VIAL INH ONE (09:30)
[2025-06-29 09:36] LABS: BASOPHILS 0.2 % (0.2-1.2); EOSINOPHILS 0 % (0.8-7.0); LYMPHOCYTES 20.9 % (21.8-53.1); MCH 29.4 PG (25.7-32.2); MCHC 33.1 g/dL (32.3-36.5); MCV 88.7 fL (79.0-92.2); MONOCYTES 7.2 % (5.3-12.2); NEUTROPHILS 70.5 % (34.0-67.9); RBC 4.77 M/uL (4.63-6.08)
[2025-06-29 09:59] LABS: ALT (SGPT) 29.0 U/L (14-59); AST (SGOT) 7.0 U/L (15-37); GLOMERULAR FILTRATION RATE,EST 59.0 mL/min (>60); PROTEIN, TOTAL 6.4 g/dL (6.4-8.2); UREA NITROGEN 35.0 mg/dL (7-18)
[2025-06-29] MEDS ORDERED: FUROSEMIDE 100 MG/10 ML VIAL IV ONE (10:00)
[2025-06-29 11:50] VITALS: BP 113/82
--- NOTE | 2025-06-30 17:50 | EKG ---
[facility] [address] [place] [address] Signed Normal sinus rhythm Normal ECG When compared with ECG of 27-JUN-2025 12:51, premature ventricular complexes are no longer present Confirmed by Nabor Juarez DO ([id number]) on 06/30/2025 5:50:06 PM Electronically Signed By: NABOR JUAREZ DO 06/30/25 175 PATIENT NAME: MARCODAMARI TENZIN Electrocardiogram DATE OF : 58 PHYSICIAN: NABOR JUAREZ DO REPORT #: [id number] REPORT IS CONFIDENTIAL AND NOT TO BE RELEASED WITHOUT AUTHORIZATION
== END 2025-06-29 11:50 | disposition home or self-care (01) ==
LOC: ED 09:14
PROVIDERS: Emergency Medicine
DX: J44.1 Chronic obstructive pulmonary disease with (acute) exacerbation (principal); J43.9 Emphysema, unspecified; E78.00 Pure hypercholesterolemia, unspecified; Z79.84 Long term (current) use of oral hypoglycemic drugs; Z79.899 Other long term (current) drug therapy; Z79.52 Long term (current) use of systemic steroids; Z88.1 Allergy status to other antibiotic agents
CPT/HCPCS: 36415; 71045; 71260; 80053; 83735; 83880; 84484; 85025; 93005; 93010; 94644; 96374; 99285-25; J1938; Q9967

== ENCOUNTER 2025-07-02 00:01 | Emergency (ER) | payer MEDICARE, OTHER ==
[~2025-07-02] VITALS: Ht 182.9 cm; Wt 139.9 kg
--- NOTE | ~2025-07-02 | EKG ---
[facility] [address] [facility] [place], [place] [address] Draft EKG completed, results pending confirmation PATIENT NAME: DAMARI LARA Electrocardiogram DATE OF : 58 PHYSICIAN: PRELIMINARY REPORT #: [id number] REPORT IS CONFIDENTIAL AND NOT TO BE RELEASED WITHOUT AUTHORIZATION
--- NOTE | ~2025-07-02 | EKG ---
[facility] [address] [facility] [place], [place] [address] Draft EK completed, results pending confirmation PATIENT NAME: DAMARI LARA Electrocardiogram DATE OF : 58 PHYSICIAN: PRELIMINARY REPORT #: [id number] REPORT IS CONFIDENTIAL AND NOT TO BE RELEASED WITHOUT AUTHORIZATION
--- OUTSIDE RECORDS SUMMARY | ~2025-07-02 | XMS | Continuity of Care Document ---
Demographics + + + | Address | [address] | | | [place] [address] | + + + | Preferred Language | Unknown | + + + | Marital Status | Domestic partner | + + + | Anabaptist Affiliation | Unknown | + + + | Race | White | + + + | Ethnic Group | Not or | + + + Author + + + | Author | [facility] | + + + | Organization | [facility] | + + + | Address | [address] | | | [place] [address] | + + + | Phone | | + + + Care Team Providers + + + + | Care Media Relations Coordinator Name | Role | Phone | + [...] + + + + + + | 2025-06-29 | daptomycin | [facility] - | (no [...] + + | 2025-06-27 | gabapentin | [facility] - | (no reaction) | (no severity) | | 00:00 | | [facility] | | [facility] | | | + + + + + + | 2025-06-29 | gabapentin | [facility] - | (no [...] (no date) | No vaccine administered | [facility] | | | | [facility] | + + + + Medications + + + + | date | description | facility | + + + + | (no date) | fluticasone propionate | [facility] | | | 0.25 MG/ACTUAT / salmeterol | [facility] | | | 0.05 MG/A | | + + + + | (no date) | apixaban 5 MG Oral Tablet | [facility] | | | [Eliquis] | [facility] | + + + + | 2025-05-16 00:00 | albuterol 0.833 MG/ML / | [facility] | | | ipratropium bromide 0.167 | [facility] | | | MG/ML Inha | | + + + + | () | 60 ACTUAT tiotropium | [facility] | | | 0.0025 MG/ACTUAT Inhalation | [facility] | | | [place] [[facility]pir | | + + + + | 2025-06-03 00:00 | doxycycline hyclate 100 MG | [facility] | | | Oral Capsule | [facility] | + + + + | (no date) | allopurinol 300 MG Oral | [facility] | | | Tablet | [facility] | + + + + | (no date) | prednisone 10 MG Oral | [facility] | | | Tablet | [facility] | + + + + | (no date) | magnesium oxide 400 MG | [facility] | | | Oral Tablet | [facility] | + + + + | (no date) | 1 ML benralizumab 30 MG/ML | [facility] | | | Prefilled Syringe | [facility] | | | [Fasenra] | | + + + + | (no date) | cholecalciferol 0.025 MG | [facility] | | | Oral Tablet | [facility] | + + + + | (no ) | furosemide 20 MG Oral | [facility] | | | Tablet [Lasix] | [facility] | + + + + | () | azithromycin 250 MG Oral | [facility] | | | Tablet | [facility] | + + + + | () | vitamin B12 1 MG Oral | [facility] | | | Tablet | [facility] | + + + + | 2025-06-03 00:00 | prednisone 20 MG Oral | [facility] | | | Tablet | [facility] | + + + + | 2025-06-15 00:00 | prednisone 20 MG Oral | [facility] | | | Tablet | [facility] | + + + + | 2025-06-03 00:00 | prednisone 5 MG Oral | [facility] | | | Tablet | [facility] | + + + + | (no date) | pantoprazole 40 MG Delayed | [facility] | | | Release Oral Tablet | [facility] | + + + + | (no ) | duloxetine 30 MG Delayed | [facility] | | | Release Oral Capsule | [facility] | + + + + | 2025-06-03 00:00 | amoxicillin 500 MG / | [facility] | | | clavulanate 125 MG Oral | [facility] | | | Tablet | | + + + + | (no date) | {3 (azithromycin 500 MG | [facility] | | | Oral Tablet) } Pack | [facility] | + + + + | 2025-06-15 00:00 | TRI-LIZA | [facility] | | | | [facility] | + + + + | 2025-06-06 00:00 | cyclobenzaprine | [facility] | | | hydrochloride 10 MG Oral | [facility] | | | Tablet | | + + + + | (no date) | [id number] 200 ACTUAT | [facility] | | | albuterol 0.09 MG/ACTUAT | [facility] | | | Metered Dose I | | + + + + | (no date) | 24 HR metformin | [facility] | | | hydrochloride 500 MG | [facility] | | | Extended Release Oral T | | + + + + Problems + + + + | date | description | facility | + + + + | 2025-06-06 00:00 | Chest wall pain | [facility] | | | | [facility] | + + + + | 2025-06-27 00:00 | CHF exacerbation | [facility] | | | | [facility] | + + + + | 2025-06-29 00:00 | Dyspnea | [facility] | | | | [facility] | + + + + | 2025-06-29 00:00 | Emphysema lung | [facility] | | | | [facility] | + + + + Procedures + + + + | date | description | facility | + + + + | 2025-05-01 00:00 | INTRODUCE OF OTH | [facility] | | | ANTI-INFECT INTO [facility] | [facility] | | | VEIN, PERC APPROACH | | + + + + | 2025-06-01 00:00 | INTRODUCE OF OTH | [facility] | | | ANTI-INFECT INTO [facility] | [facility] | | | VEIN, PERC APPROACH | | + + + + | 2025-06-01 00:00 | MEASURE OF ARTERIAL | [facility] | | | SATURATION, PERIPHERAL, | [facility] | | | PERC APPROACH | | + + + + | 2025-05-01 00:00 | ASSISTANCE WITH | [facility] | | | RESPIRATORY VENTILATION, | [facility] | | | <24 HRS, CPAP [...] | | 2019 novel | | - | | | | | coronavirus | [...] | | | [Presence] | | - | | | | | in | [...] 17 | + + + + + + [...] 18 | + + + + + + [...] 19 | + + + + + + [...] 20 | + + + + + + [...] 29 | + + + + + +-------+ [...] 49 | + + + + + +------+ [...] 51 | + + + + + +--------+ [...] 58 | + + + + + +--------+ [...] 65 | + + + + + +------+ [...] [facility] | | | | (yokasta/volum | | [facility] | | | | [...] 74 | + + + + + +-------+ [...] | | | | corpuscular | | [facility] | | | | | volume | [...] 83 | + + + + + +-------+ [...] 87 | + + + + + +-----+ [...] 89 | + + + + + +--------+ [...] 91 | + + + + + + [...] 96 | + + + + + +---------+ [...] 100 | + + + + + +------+ [...] 103 | + + + + + +-------+ [...] 104 | + + + + + +-------+ [...] 109 | + + + + + +-----+ [...] 121 | + + + + + +--------+ [...] 123 | + + + + + + [...] 124 | + + + + + +-------+ [...] 125 | + + + + + +---------+ [...] 134 | + + + + + +--------+ [...] 136 | + + + + + +-----+ [...] 137 | + + + + + +-------+ [...] 138 | + + + + + +-------+ [...] 141 | + + + + + +------+ [...] 142 | + + + + + +---------+ [...] 146 | + + + + + +------+ [...] 153 | + + + + + +--------+ [...] 159 | + + + + + +---------+ [...] 161 | + + + + + +--------+ [...] 162 | + + + + + +--------+ [...] 164 | + + + + + +--------+ [...] 167 | + + + + + +--------+ [...] | | | count as | | [facility] | | | | | percentage | [...] 172 | + + + + + +-------+ [...] 175 | + + + + + +------+ [...] 176 | + + + + + +---------+ [...] 178 | + + + + + +-------+ [...] 179 | + + + + + +-------+ [...] 180 | + + + + + +------+ [...] 181 | + + + + + +--------+ [...] 182 | + + + + + +-------+ [...] 183 | + + + + + +-------+ [...] 184 | + + + + + +-------+ [...] 185 | + + + + + +-------+ [...] 186 | + + + + + +-------+ [...] 193 | + + + + + + [...] 194 | + + + + + + [...] 195 | + + + + + + [...] 196 | + + + + + + [...] 197 | + + + + + + [...] 198 | + + + + + + [...] 199 | + + + + + + [...] 200 | + + + + + + [...] 201 | + + + + + + [...] 202 | + + + + + + [...] 203 | + + + + + + [...] 204 | + + + + + + [...] 205 | + + + + + +---------+ [...] 206 | + + + + + +---------+ [...] 207 | + + + + + +---------+ [...] 208 | + + + + + +--------+ [...] 209 | + + + + + +--------+ [...] 210 | + + + + + +-------+ [...] 211 | + + + + + +-----+ [...] 212 | + + + + + +-------+ [...] 213 | + + + + + +-------+ [...] 216 | + + + + + +------+ [...] 217 | + + + + + +---------+ [...] 218 | + + + + + +---------+ [...] 219 | + + + + + +-------+ [...] 220 | + + + + + +-------+ [...] 221 | + + + + + +-------+ [...] 222 | + + + + + +------+ [...] 224 | + + + + + +-------+ [...] 227 | + + + + + +-------+ [...] 228 | + + + + + +-------+ [...] 229 | + + + + + +--------+ [...] 230 | + + + + + +--------+ [...] 232 | + + + + + +------+ [...] 233 | + + + + + +------+ [...] 234 | + + + + + +------+ [...] 236 | + + + + + +--------+ [...] 237 | + + + + + +--------+ [...] 238 | + + + + + +--------+ [...] 239 | + + + + + +--------+ [...] 240 | + + + + + +-------+ [...] +--------+ + + | Serum or | 2025-06-29 | | 17.0 | (missing) | (missing) | | plasma | 09:30 | [facility] | | | | | [...] 243 | + + + + + +---------+ + + | Blood | 2025-06-29 | | 12.99 | (missing) | (missing) | | leukocytes | 09:30 | [facility] | | | | | [...] + +--------+ + + | Blood | 2025-06-29 | | 4.77 | (missing) | (missing) | | erythrocytes | 09:30 | [facility] | | | | | automated [facility] count | [facility] | | | | | (number/volu | | Hospital | | | | | me) | | | | | | + + + +--------+ + + + + | Result panel 245 | + + + + + +--------+ + + | Blood | 2025-06-29 | | 14.0 | (missing) | (missing) | | hemoglobin | 09:30 | [facility] | | | | | measurement | [facility] | (mass/volume | | [facility] | | | | ) | | [facility] | | | | + + + +--------+ + + + + | Result panel 246 | + + + + + +--------+ + + | Automated | 2025-06-29 | | 42.3 | (missing) | (missing) | | blood | 09:30 | [facility] | | | | | hematocrit | [facility] | [facility] | | | | + + + +--------+ + + + + | Result panel 247 | + + + + + +--------+ + + | Automated | 2025-06-29 | | 88.7 | (missing) | (missing) | | erythrocyte | 09:30 | [facility] | | | | | mean | [facility] | | [facility] | | corpuscular | | [facility] | | | | volume | | [facility] | | | | + + + +--------+ + + + + | Result panel 248 | + + + + + +--------+ + + | Automated | 2025-06-29 | | 29.4 | (missing) | (missing) | | erythrocyte | 09:30 | [facility] | | | | | [...] 249 | + + + + + +--------+ + + | Automated | 2025-06-29 | | 33.1 | (missing) | (missing) | | erythrocyte | 09:30 | [facility] | | | | | [...] 250 | + + + + + +-------+ + + | Automated | 2025-06-29 | | 258 | (missing) | (missing) | | blood | 09:30 | [facility] | | | | | platelet | [facility] count | | [facility] | | | | (count/volum | | Hospital | | | | | e) | | | | | | + + + +-------+ + + + + | Result panel 251 | + + + + + +--------+ + + | Automated | 2025-06-29 | | 70.5 | (missing) | (missing) | | blood | 09:30 | [facility] | | | | | [...] 252 | + + + + + +--------+ + + | Automated | 2025-06-29 | | 20.9 | (missing) | (missing) | | blood | 09:30 | [facility] | | | | | [...] + +-------+ + + | Automated | 2025-06-29 | | 7.2 | (missing) | (missing) | | blood | 09:30 | [facility] | | | | | [...] 254 | + + + + + +-----+ + + | Automated | 2025-06-29 | | 0 | (missing) | (missing) | | blood | 09:30 | [facility] | | | | | [...] 255 | + + + + + +-------+ + + | Automated | 2025-06-29 | | 0.2 | (missing) | (missing) | | blood | 09:30 | [facility] | | | | | [...] +-------+ + + | Serum or | 2025-06-29 | | 134 | (missing) | (missing) | | plasma | 09:30 | [facility] | | | | | glucose | [facility] measurement | | [facility] | | | | | (mass/volume | | Hospital | | | | | ) | | | | | | + + + +-------+ + + + + | Result panel 257 | + + + + + +------+ + + | Serum or | 2025-06-29 | | 35 | (missing) | (missing) | | plasma urea | 09:30 | [facility] | | | | | nitrogen | | [facility] | measurement | | [facility] | | | | | (mass/volume | | Hospital | | | | | ) | | | | | | + + + +------+ + + + + | Result panel 258 | + + + + + +--------+ + + | Serum or | 2025-06-29 | | 1.33 | (missing) | (missing) | | plasma | 09:30 | [facility] | | | | | creatinine | [facility] measurement | | [facility] | | | | | (mass/volume | | Hospital | | | | | ) | | | | | | + + + +--------+ + + + + | Result panel 259 | + + + + + +------+ + + | Glomerular | 2025-06-29 | | 59 | (missing) | (missing) | | filtration | 09:30 | [facility] | | | | | [...] 260 | + + + + + +---------+ + + | Serum or | 2025-06-29 | | 26.31 | (missing) | (missing) | | plasma urea | 09:30 | [facility] | | | | | nitrogen/cre | [facility] | atinine mass | | [facility] | | | | | ratio | | [facility] | | | | + + + +---------+ + + + + | Result panel 261 | + + + + + +-------+ + + | Serum or | 2025-06-29 | | 138 | (missing) | (missing) | | plasma | 09:30 | [facility] | | | | | [...] +-------+ + + | Serum or | 2025-06-29 | | 3.8 | (missing) | (missing) | | plasma | 09:30 | [facility] | | | | | potassium | [facility] | measurement | | [facility] | | | | | (moles/volum | | Hospital | | | | | e) | | | | | | + + + +-------+ + + + + | Result panel 263 | + + + + + +-------+ + + | Serum or | 2025-06-29 | | 103 | (missing) | (missing) | | plasma | 09:30 | [facility] | | | | | [...] +------+ + + | Serum or | 2025-06-29 | | 27 | (missing) | (missing) | | plasma | 09:30 | [facility] | | | | | [...] 265 | + + + + + +--------+ + + | Serum or | 2025-06-29 | | 11.8 | (missing) | (missing) | | plasma anion | 09:30 | [facility] | | | | | gap 4 | [facility] | | | | + + + +--------+ + + + + | Result panel 266 | + + + + + +-------+ + + | Serum or | 2025-06-29 | | 8.8 | (missing) | (missing) | | plasma | 09:30 | [facility] | | | | | calcium | [facility] | measurement | | [facility] | | | | | (mass/volume | | Hospital | | | | | ) | | | | | | + + + +-------+ + + + + | Result panel 267 | + + + + + +-------+ + + | Serum or | 2025-06-29 | | 2.2 | (missing) | (missing) | | plasma | 09:30 | [facility] | | | | | magnesium | [facility] | measurement | | [facility] | | | | | (mass/volume | | Hospital | | | | | ) | | | | | | + + + +-------+ + + + + | Result panel 268 | + + + + + +-------+ + + | Serum or | 2025-06-29 | | 6.4 | (missing) | (missing) | | plasma | 09:30 | [facility] | | | | | protein | [facility] | measurement | | [facility] | | | | | (mass/volume | | Hospital | | | | | ) | | | | | | + + + +-------+ + + + + | Result panel 269 | + + + + + +-------+ + + | Serum or | 2025-06-29 | | 3.0 | (missing) | (missing) | | plasma | 09:30 | [facility] | | | | | albumin | [facility] measurement | | [facility] | | | | | (mass/volume | | Hospital | | | | | ) | | | | | | + + + +-------+ + + + + | Result panel 270 | + + + + + +-------+ + + | Serum | 2025-06-29 | | 3.4 | (missing) | (missing) | | globulin | 09:30 | [facility] | | | | | measurement | [facility] | (mass/volume | | [facility] | | | | ) | | [facility] | | | | + + + +-------+ + + + + | Result panel 271 | + + + + + +--------+ + + | Serum or | 2025-06-29 | | 0.88 | (missing) | (missing) | | plasma | 09:30 | [facility] | | | | | albumin/glob | [facility] | ulin mass | | [facility] | | | | | ratio | | [facility] | | | | + + + +--------+ + + + + | Result panel 272 | + + + + + +-------+ + + | Serum or | 2025-06-29 | | 0.2 | (missing) | (missing) | | plasma total | 09:30 | [facility] | | | | | bilirubin | [facility] measurement | | [facility] | | | | | (mass/volume | | Hospital | | | | | ) | | | | | | + + + +-------+ + + + + | Result panel 273 | + + + + + +-----+ + + | Serum or | 2025-06-29 | | 7 | (missing) | (missing) | | plasma | 09:30 | [facility] | | | | | [...] 274 | + + + + + +------+ + + | Serum or | 2025-06-29 | | 29 | (missing) | (missing) | | plasma | 09:30 | [facility] | | | | | [...] +------+ + + | Serum or | 2025-06-29 | | 68 | (missing) | (missing) | | plasma | 09:30 | [facility] | | | | | [...] | + + + +------+ + + Social History + + + + | date | description | facility | + + + + | (no date) | Unknown if ever smoked | [facility] | | | | [facility] | + + + + Vital Signs No information."
[2025-07-02] MEDS ORDERED: ALBUTEROL/IPRATROPIUM 3 ML NEB INH ONE (00:30)
[2025-07-02 00:58] LABS: BASOPHILS 0.2 % (0.2-1.2); EOSINOPHILS 0 % (0.8-7.0); LYMPHOCYTES 18.1 % (21.8-53.1); MCH 28.5 PG (25.7-32.2); MCHC 32.5 g/dL (32.3-36.5); MCV 87.9 fL (79.0-92.2); MONOCYTES 5.8 % (5.3-12.2); NEUTROPHILS 74.8 % (34.0-67.9); RBC 5.29 M/uL (4.63-6.08)
[2025-07-02] MEDS ORDERED: ALBUTEROL SULFATE 0.5% 2.5 MG/0.5 ML VIAL INH ONE (01:15)
[2025-07-02 01:22] LABS: ALT (SGPT) 29.0 U/L (14-59); AST (SGOT) 7.0 U/L (15-37); GLOMERULAR FILTRATION RATE,EST 51.0 mL/min (>60); PROTEIN, TOTAL 7.0 g/dL (6.4-8.2); UREA NITROGEN 44.0 mg/dL (7-18)
[2025-07-02] MEDS ORDERED: FUROSEMIDE 100 MG/10 ML VIAL IV ONE (01:30)
[2025-07-02 02:35] VITALS: BP 119/81
== END 2025-07-02 02:36 | disposition home or self-care (01) ==
LOC: ED 00:01
PROVIDERS: Internal Medicine
DX: J44.1 Chronic obstructive pulmonary disease with (acute) exacerbation (principal); E78.00 Pure hypercholesterolemia, unspecified; Z79.84 Long term (current) use of oral hypoglycemic drugs; Z79.899 Other long term (current) drug therapy; Z88.1 Allergy status to other antibiotic agents
CPT/HCPCS: 36415; 71045; 80053; 83880; 84484; 85025; 93005; 93010; 94640; 94644; 96374; 96375; 99285-25; J1938; J2919